=== PATIENT | female | born 1940 | race Caucasian/White ===

== ENCOUNTER 2019-03-15 16:10 | Inpatient (IN) ==
--- OUTSIDE RECORDS SUMMARY | 2019-03-15 16:13 | External Medical Summary | Continuity of Care Document ---
:1940 Author Name Vandana Santos Address Unavailable Unavailable , Care Team Providers Name Role Phone Unavailable Unavailable Unavailable Jyothi Gonzales M.D. 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) Vitamin D deficiency (268.9) (E55.9) Shortness of breath (786.05) (R06.02) Vitamin B12 deficiency (266.2) (E53.8) Folic acid deficiency (266.2) (E53.8) Parkinson's disease (332.0) (G20) Allergies and Adverse Reactions No Known Drug Allergies (Allergy) Medications Gabapentin TABS; TAKE 1 TABLET 4 TIMES DAILYTom Long Refills: 0 Vitamin B-12 1000 MCG Sublingual Tablet Sublingual; Ta ke 1 Sublingual Daily Tom Gonzales Start: 23-Nov-2013 Quantity: 90 Refills: 4 Vitamin D 2000 UNIT Oral Tablet; Take 1 PO Daily Tom Schultz Start: 23-Nov-2013 Refills: 0 Carbidopa-Levodopa ER 25-100 MG Oral Tab let Extended Release; TAKE 1 TABLET 4 TIMES DAILY. Tom Gonzales Quantity: 120 Refills: 5 Procedures Procedures not documented Immunizations Influenza On: 17-Sep-2012 16:03 Lot #: [id number], [employer] Social History - Smoking Status Never smoker Plan of Treatment Planned Observations Planned Goals not documented Results No Known Results Results not documented
[2019-03-15] MEDS ORDERED: dilTIAZem HCl 5 MG/ML 5 ML VIAL IV STA ×3 (16:26→20:35)
[2019-03-15] MEDS ORDERED: SODIUM CHLORIDE 0.9% 500 ML IV SCH (16:30)
--- NOTE | 2019-03-15 16:47 | XRay Report ---
SINGLE VIEW CHEST CLINICAL HISTORY: Generalized weakness. FINDINGS: An AP, portable, upright chest radiograph is obtained. No prior studies are available for c omparison at the time of dictation. The examination is degraded by portable technique and patient rot ation. Electronic devices project over the lower chest bilaterally with leads extending into the neck . The heart is enlarged and there is atherosclerotic calcification of the thoracic aorta. The pulmona ry vasculature is noncongested. Nonspecific interstitial thickening is likely chronic. No airspace co nsolidation or large pleural effusion is identified. There is bibasilar scarring/atelectasis. No pneu mothorax is seen. The skeletal structures are osteopenic. The bony thorax is grossly intact. IMPRESSION: Cardiomegaly with no acute cardiopulmonary abnormality. Electronically signed by: Juanjose Aleman M.D. 03/15/2019 4:46 PM
[2019-03-15 17:06] LABS: Basophils # (auto) 0.02 K/uL (0-0.2); Basophils % (auto) 0.3 %; Eosinophils # (auto) 0.02 K/uL (0-0.5); Eosinophils % (auto) 0.3 %; Hematocrit (blood only) 39.5 % (37-47); Hemoglobin 13.4 g/dL (12.0-16.0); Immature Granulocytes # (auto) 0.01 K/uL (0.00-0.02); Immature Granulocytes % (auto) 0.1 %; Lymphocytes # (auto) 1.39 K/uL (1.2-3.4); Lymphocytes % (auto) 18.8 %; Mean Corpuscular Hgb Conc 33.9 g/dL (32-36); Mean Corpuscular Volume 90.6 fL (80-100); Monocytes # (auto) 0.61 K/uL (0.11-0.59); Monocytes % (auto) 8.2 %; Neutrophils # (auto) 5.36 K/uL (1.4-6.5); Neutrophils % (auto) 72.3 %; Platelet Count 226 K/uL (130-400); RDW Coefficient of Variation 12.5 % (11.5-14.5); RDW Standard Deviation 42.1 fL (36.4-46.3); Red Blood Count 4.36 M/uL (4.2-5.4); White Blood Count 7.41 K/uL (4.8-10.8)
[2019-03-15 17:19] LABS: INR 1.1 (0.9-1.1); Partial Thromboplastin Ratio 0.9; Partial Thromboplastin Time 24.8 Seconds (21.0-31.0); Prothrombin Time 11.6 Seconds (9.0-12.0)
[2019-03-15 17:24] LABS: Alanine Aminotransferase 17 U/L (12-78); Albumin Level 3.8 gm/dl (3.4-5.0); Aspartate Aminotransferase 17 U/L (15-37); BUN Creatinine Ratio 25.3 (10-20); Blood Urea Nitrogen 19 mg/dl (7-18); Calcium 9.2 mg/dl (8.5-10.1); Carbon Dioxide 28 mmol/L (21-32); Chloride 109 mmol/L (98-107); Creatinine Clr Calc Pharmacy 61.5 ml/min; Est GFR (African American) 88.5; Est GFR (Non-African American) 76.3; Glucose 89 mg/dl (70-99); Magnesium 2.1 mg/dl (1.8-2.4); Potassium 4.3 mmol/L (3.5-5.1); Sodium 141 mmol/L (136-145)
[2019-03-15 17:35] LABS: Alkaline Phosphatase 69 U/L (45-117); Bilirubin,Total 0.5 mg/dl (0.2-1); Globulin 3.8 gm/dl (2.5-4.0); Total Protein 7.6 gm/dl (6.4-8.2); Troponin I < 0.015 ng/ml (0-0.045)
[2019-03-15 18:06] LABS: Appearance Urine Clear (Clear); Bacteria Urine Automated Negative (Negative); Bilirubin Urine Negative (Negative); Blood Urine Negative (Negative); Cast Urine Automated 0 /lpf (0-5); Color Urine Yellow; Glucose Urine UA Negative (Negative); Ketones Urine Trace (Negative); Leukocyte Esterase Urine 2+ (Negative); Nitrite Urine Negative (Negative); Protein Urine Negative (Negative); RBC Urine Automated 0-4 /hpf (0-4); Specific Gravity Urine 1.009 (1.000-1.030); Urobilinogen Urine Negative (Negative); pH Urine 6.5 (4.5-7.5)
[2019-03-15] MEDS ORDERED: Heparin IV Standard *NO* Bolus IV ONE (21:16)
--- NOTE | 2019-03-15 21:22 | History & Physical Report ---
Date of Service March 15, 2019 Assessment & Plan (1) Atrial fibrillation with RVR: This is a 79-year-old female with significant past medical history of Parkinson's disease and mitral valve prolapse who presents to [facility] ED secondary to referral by PCP. Pt noted to be in afib with RVR in outpt PCP office; therefore referred to ED. Unknown onset of afib, pt mostly asymptomatic with occasional palpitations. CBC, CMP, MAG, TSH unremarkable Received IV Diltiazem 10mg bolus x 3 with intermittent slowing of HR Upon my examination patient in afib with controlled rates 80s-90s New onset afib: Chads Vasc 3 (age, F) admit to telemetry consult cardiology initiate metoprolol tartrate 12.5mg po q6h Start Heparin gtt - discussed risks vs benefits gentle IVF 60cc/hr x 1 additional L obtain echocardiogram - last done 2003 WNL (2) Parkinson disease: continue Sinemet and gabapentin neurostimulator in place follows neurologist in [place] Disposition: discharge to home when able Follow up: PCP Dr. Barraza upon discharge along with appropriate cardiology follow up Patient was seen and examined in collaboration with Dr. Aragon, please see addendum Patient and sister at bedside were updated on current condition, assessment and tx plan and they agree with above Starting 03/16/19 patient will be under the care of Dr. Johnson History of Present Illness Chief Complaint: referred by PCP Primary Care Provider: Silvia Barraza, DO This is a 79-year-old female with significant past medical history of Parkinson's disease and mitral valve prolapse who presents to [facility] ED secondary to referral by PCP. Patient was seen in outpatient clinic by Evelin Emerson PA-C for routine follow-up to obtain medical clearance to travel to [place] with family. She was noted to be in atrial fibrillation. She had outpt lab work CBC, CMP, ESR all relatively unremarkable. She was referred to ED for eval and tx. Sister notes patient recently had a, "tweak in her neurostimulator," by her neurologist in [place] due to freq falls/off balance on 03/07/19. At this visit neurologist told patient she had a, "fast heart rate," and recommended follow up with PCP in near future. Patient denies any recent illness, f/c/s, dizziness, lightheaded, chest pain, sob, samayoa, hemopytisis, n/v/d, abdominal pain, change in bowel or urinary habits. Her appetite is normal for her. She does occasional feel her heart, "flutter." Allergies Allergy/AdvReac Type Severity Reaction Status Date / Time No Known Allergies Allergy Unknown Verified 03/15/19 16:48 Home Medications Home Medications Medication Instructions Recorded Confirmed Type carbidopa-levodopa 1 tab PO 5XD 03/15/19 03/15/19 History cholecalciferol (vitamin D3) 2,000 unit PO DAILY 03/15/19 03/15/19 History [Vitamin D3] cyanocobalamin (vitamin B-12) 1,000 mcg PO DAILY 03/15/19 03/15/19 History [Vitamin B-12] gabapentin 600 mg PO 5XD 03/15/19 03/15/19 History ibuprofen [Advil] 200 mg PO Q6H PRN 03/15/19 03/15/19 History Past Med/Surg History Medical History Parkinson disease (Chronic) Mitral valve prolapse (Chronic) Surgical History S/P deep brain stimulator placement (Chronic) History of tonsillectomy and adenoidectomy (Chronic) History of tubal ligation (Chronic) History of right breast biopsy (Chronic) History of surgery (Chronic) Neurostimulator for Parkinson's disease, placed in [place], [place] Family History Mother Stroke Hemorrhage secondary to anticoagulation Social History Preferred Language: [place]al[place] Communication Ability: Effective 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 Physical Exam Physical Exam: Gen: WD/WN, F, NAD, sitting up in bed, pleasant, conversing easily, parkinsonian affect Head: Normocephalic, Atraumatic Eyes: Sclera normal, no conjunctival injection, PERRLA, EOMI ENT: Gross hearing intact, normal pharynx, mucous membranes moist Neck: supple, no adenopathy, No JVD, no bruit, Resp: Clear to auscultation b/l, no wheeze, rales, rhonchi. 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 Extremities: trace b/l edema with venous stasis changes Skin: warm, moist, no rash, negative turgor, cap refill < 2sec Neuro: Alert and oriented x 3, speech normal but slow, good mood/affect, cran nerve 2-12 intact grossly : deferred Results & Data Vital Signs (Past 12 Hours) Vital Signs Temp Pulse Pulse Resp BP BP Pulse Ox 03/15/19 21:00 91 H 18 127/82 95 03/15/19 20:36 106 H 18 156/107 H 94 03/15/19 18:59 87 18 129/81 97 03/15/19 18:06 94 H 20 128/77 95 03/15/19 17:27 94 H 30 H 139/79 94 03/15/19 17:17 92 H 20 149/93 H 95 03/15/19 16:38 136 H 20 148/103 H 99 03/15/19 16:37 99 03/15/19 16:34 99 03/15/19 16:14 36.9 C 119 H 18 139/93 99 Laboratory Results Short CBC 03/15/19 Range/Units 16:52 WBC 7.41 (4.8-10.8) K/uL Hgb 13.4 (12.0-16.0) g/dL Hct 39.5 (37-47) % Plt Count 226 (130-400) K/uL BMP 03/15/19 16:52 Sodium 141 Potassium 4.3 Chloride 109 H Carbon Dioxide 28 BUN 19 H Creatinine 0.75 Glucose 89 Calcium 9.2 Cardiac Enzymes 03/15/19 Range/Units 16:52 Troponin I < 0.015 (0-0.045) ng/ml Liver Function 03/15/19 Range/Units 16:52 Total Bilirubin 0.5 (0.2-1) mg/dl AST 17 (15-37) U/L ALT 17 (12-78) U/L Alkaline Phosphatase 69 (45-117) U/L Albumin 3.8 (3.4-5.0) gm/dl Urine 03/15/19 Range/Units 17:50 Urine Color Yellow Urine Appearance Clear (Clear) Urine pH 6.5 (4.5-7.5) Ur Specific [place] 1.009 (1.000-1.030) Urine Protein Negative (Negative) Urine Glucose (UA) Negative (Negative) Diagnostic Findings CXR: IMPRESSION: Cardiomegaly with no acute cardiopulmonary abnormality. Medications Administered Discontinued Medications Diltiazem HCl (Cardizem) 10 mg IV NOW STA Stop: 03/15/19 16:27 Last Admin: 03/15/19 17:12 Dose: 10 mg Documented by: [id number] Cosigned by: [id number] Diltiazem HCl (Cardizem) 10 mg IV NOW STA Stop: 03/15/19 17:13 Last Admin: 03/15/19 18:52 Dose: Not Given Documented by: [id number] Diltiazem HCl (Cardizem) 10 mg IV NOW STA Stop: 03/15/19 20:36 Last Admin: 03/15/19 20:44 Dose: 10 mg Documented by: [id number] Cosigned by: [id number] Sodium Chloride (Nss) 500 mls @ 999 mls/hr IV .Q31M BRANDO Stop: 03/15/19 17:00 Last Infusion: 03/15/19 17:52 Dose: 0 mls/hr Documented by: [id number] Admin: 03/15/19 17:12 Dose: 999 mls/hr Documented by: [id number] ECG Rate (beats per minute): 130 Rhythm: atrial fibrillation Code Status & VTE Plan Code Status Full Code VTE Prophylaxis Plan VTE Prophylaxis will be ordered: Yes Supervising Physician Co-Signing Physician Notes Patient is a 79-year-old female with history of Parkinson disease, MVP, arthritis and other problems presents for evaluation after being referred by her PCP for incidental finding of tachycardia, atrial fibrillation today. Patient intermittently felt that her heart was beating fast but denies any chest pain, shortness of breath, dizziness, nausea vomiting, fever chills. Chest x-ray suggestive of cardiomegaly, no acute findings. She was found to be in A. fib RVR while in ED. Received IV diltiazem. Currently heart rate is controlled. Please review HPI for complete details of presentation. On exam patient is elderly, thin, no apparent distress, lungs are clear to auscultation, irregularly irregular rhythm, no audible murmur, abdomen soft nontender, grossly moves all extremities, 2+ B/L LE edema. Patient is admitted for management of A. fib RVR. Currently rate is controlled. Agree with IV heparin, metoprolol. Check echo, cardiology consulted. Monitor electrolytes. QTC is prolonged. Avoid QTC prolonging meds. I personally reviewed the record. Patient is interviewed and examined at bedside. Patient's care is coordinated with Loly Landin PA-C. Please refer to the documentation above for details of patient's presentation and for discussion of other issues.
[2019-03-15] MEDS ORDERED: HEPARIN 25000 UNIT/500 ML D5W IV ONE (21:34)
--- NOTE | 2019-03-15 21:45 | Emergency Department Note ---
Entered by Kayleigh Cuevas acting as a scribe for History of Present Illness General Chief complaint: Arrhythmia/Palpitations Stated complaint: TACHYCARDIA Source: patient and family (+Sister) Limitations: no limitations History of Present Illness Provider complaint: Arrhythmia/Palpitations Onset (ago): week(s) 1 Location: chest Exacerbated By: + none Associated symptoms: + denies other symptoms (-diarrhea, -recent illness, - weight gain, -trouble breathing while laying flat) and + other (+bilateral shoulder pain, +bilateral leg pain, +bilateral leg swellin); no chest pain, no nausea/vomiting and no shortness of breath The patient is a 79 year old female who presents to the Emergency Room with complaints of an arrhythmia/palpitations that began approximately 1 week prior to arrival. The patient states that she was at her doctors on March 07 and states that he noticed that the patient had an increased pulse and increased heart rate. The patient states that she has pain in her bilateral shoulders, bilateral legs, and bilateral leg swelling. The patient denies any shortness of breath, chest pain, weight gain, trouble with breathing while laying flat, nausea, vomit ing, diarrhea, or recent illness. The patient denies any recent changes in his medications. The patient denies a history of any heart problems or heart disease. The patient states that she has a history of Parkinson's. The patient states that she is normally able to ambulate on her own and states that she lives by herself. Home Medications Home Medications Medication Instructions Recorded Confirmed Type carbidopa-levodopa 1 tab PO 5XD 03/15/19 03/15/19 History cholecalciferol (vitamin D3) 2,000 unit PO DAILY 03/15/19 03/15/19 History [Vitamin D3] cyanocobalamin (vitamin B-12) 1,000 mcg PO DAILY 03/15/19 03/15/19 History [Vitamin B-12] gabapentin 600 mg PO 5XD 03/15/19 03/15/19 History ibuprofen [Advil] 200 mg PO Q6H PRN 03/15/19 03/15/19 History Allergies Allergy/AdvReac Type Severity Reaction Status Date / Time No Known Allergies Allergy Unknown Verified 03/15/19 16:48 Past Med/Surg History Medical History Parkinson disease (Chronic) Mitral valve prolapse (Chronic) Surgical History S/P deep brain stimulator placement (Chronic) History of tonsillectomy and adenoidectomy (Chronic) History of tubal ligation (Chronic) History of right breast biopsy (Chronic) History of surgery (Chronic) Neurostimulator for Parkinson's disease, placed in [place], [place] Family History Mother Stroke Hemorrhage secondary to anticoagulation Social History Preferred Language: Bur[place]ian Communication Ability: Effective 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 and A total of 10 systems reviewed and were otherwise negative Physical Exam Vital Signs Vital Signs - 24 hr 03/15/19 16:14 03/15/19 16:34 03/15/19 16:37 Temperature 36.9 C Temperature Source Oral Sepsis Recent Fever Within 48 Hours No Sepsis Action Taken by Nursing No Action Required Pulse Rate 119 H Pulse Rate [Left Finger] Pulse Rhythm [Left Finger] Respiratory Rate 18 Respiratory Effort / Characteristics Non-Labored Respiratory Depth Normal Respiratory Pattern Blood Pressure 139/93 Blood Pressure [Right Arm] Blood Pressure Mean 108 Blood Pressure Mean [Right Arm] Blood Pressure Position [Right Arm] Pulse Oximetry 99 99 99 Oxygen Delivery Method Room Air Room Air Room Air 03/15/19 16:38 03/15/19 17:17 03/15/19 17:27 Temperature Temperature Source Sepsis Recent Fever Within 48 Hours Sepsis Action Taken by Nursing Pulse Rate Pulse Rate [Left Finger] 136 H 92 H 94 H Pulse Rhythm [Left Finger] Regular Regular Regular Respiratory Rate 20 20 30 H Respiratory Effort / Characteristics Non-Labored Non-Labored Non-Labored Respiratory Depth Normal Normal Normal Respiratory Pattern Regular Regular Regular Blood Pressure Blood Pressure [Right Arm] 148/103 H 149/93 H 139/79 Blood Pressure Mean Blood Pressure Mean [Right Arm] 118 111 99 Blood Pressure Position [Right Arm] Pulse Oximetry 99 95 94 Oxygen Delivery Method Room Air Room Air Room Air 03/15/19 18:06 03/15/19 18:59 03/15/19 20:34 Temperature Temperature Source Sepsis Recent Fever Within 48 Hours Sepsis Action Taken by Nursing Pulse Rate Pulse Rate [Left Finger] 94 H 87 Pulse Rhythm [Left Finger] Respiratory Rate 20 18 Respiratory Effort / Characteristics Non-Labored Non-Labored Spontaneous Non-Labored Spontaneous Respiratory Depth Normal Normal Normal Respiratory Pattern Regular Regular Regular Blood Pressure Blood Pressure [Right Arm] 128/77 129/81 Blood Pressure Mean Blood Pressure Mean [Right Arm] 94 97 Blood Pressure Position [Right Arm] Lying Pulse Oximetry 95 97 Oxygen Delivery Method Room Air Room Air Room Air 03/15/19 20:36 Temperature Temperature Source Sepsis Recent Fever Within 48 Hours Sepsis Action Taken by Nursing Pulse Rate Pulse Rate [Left Finger] 106 H Pulse Rhythm [Left Finger] Respiratory Rate 18 Respiratory Effort / Characteristics Non-Labored Spontaneous Respiratory Depth Normal Respiratory Pattern Regular Blood Pressure Blood Pressure [Right Arm] 156/107 H Blood Pressure Mean Blood Pressure Mean [Right Arm] 123 Blood Pressure Position [Right Arm] Sitting Pulse Oximetry 94 Oxygen Delivery Method Room Air GENERAL: Patient is awake, alert, and in no acute distress.Patient is resting comfortably and showing no signs of anxiety. EYES: The conjunctivae are clear. The pupils are round and reactive. EARS, NOSE, MOUTH AND THROAT: The nose is without any evidence of any deformity. Mucous membranes are moist.Tongue is midline. NECK: The neck is nontender and supple. RESPIRATORY: Normal respiratory effort is noted. There is no evidence of wheezing rhonchi or rales to auscultation. CARDIOVASCULAR: Tachycardic rate and irregular rhythm noted. There no murmurs rubs or gallops. GASTROINTESTINAL: The abdomen is soft. Bowel sounds are present in all quadrants. Abdomen is nontender. MUSCULOSKELETAL/EXTREMITIES: There is no evidence of gross deformity. Full range of motion is noted in the hips and shoulders. SKIN: Bilateral pedal edema with chronic venous stasis noted. NEUROLOGIC: Patient is awake alert and oriented x3. Course 1623: The patient was evaluated in room B11B, and a complete history and physical examination were performed. 1802: I checked on the patient and updated her on her results. The patient is agreeable to admission. 2009: I discussed the patient's case with Dr. Rizwan Mullen [facility] who will evaluate the patient for further hospitalization. Consultations Consultation #1: Dr. Rizwan Mullen [facility] Time: 20:10 Administered Medications Acetaminophen (Tylenol) 650 mg PO Q4H PRN PRN Reason: Pain or Fever Stop: 04/14/19 22:24 Last Admin: 03/16/19 04:24 Dose: 650 mg Documented by: [id number] Carbidopa/Levodopa (Sinemet 25/100 Mg) 1 tab PO 0700,1000,1300 [facility] Stop: 04/15/19 06:59 Last Admin: 03/16/19 12:52 Dose: 1 tab Documented by: [id number] Admin: 03/16/19 09:46 Dose: 1 tab Documented by: [id number] Admin: 03/16/19 06:46 Dose: 1 tab Documented by: [id number] Cyanocobalamin (Vitamin B-12) 1,000 mcg PO DAILY [facility] Stop: 04/15/19 08:59 Last Admin: 03/16/19 07:58 Dose: 1,000 mcg Documented by: [id number] Gabapentin (Neurontin) 600 mg PO 0700,1000,1300 [facility] Stop: 04/15/19 06:59 Last Admin: 03/16/19 12:52 Dose: 600 mg Documented by: [id number] Admin: 03/16/19 09:46 Dose: 600 mg Documented by: [id number] Admin: 03/16/19 06:46 Dose: 600 mg Documented by: [id number] Heparin Sodium/Dextrose (Heparin Sodium/Dextrose) 25,000 units in 500 mls @ 23 mls/hr IV .[id number] [facility]; Protocol Stop: 04/14/19 22:14 Last Titration: 03/16/19 07:04 Dose: 1,150 units/hr, 23 mls/hr Documented by: [id number] Cosigned by: [id number] Admin: 03/15/19 22:38 Dose: 1,150 units/hr, 23 mls/hr Documented by: [id number] Cosigned by: [id number] Sodium Chloride (Nss 1000ml) 1,000 mls @ 60 mls/hr IV .[id number] [facility] Stop: 03/16/19 15:04 Last Admin: 03/15/19 22:38 Dose: 60 mls/hr Documented by: [id number] Metoprolol Tartrate (Lopressor) 12.5 mg PO Q6 [facility] Stop: 04/14/19 22:24 Last Admin: 03/16/19 11:54 Dose: 12.5 mg Documented by: [id number] Admin: 03/16/19 06:46 Dose: 12.5 mg Documented by: [id number] Admin: 03/15/19 23:23 Dose: 12.5 mg Documented by: [id number] Vitamin D (Vitamin D3) 2,000 units PO DAILY [facility] Stop: 04/15/19 08:59 Last Admin: 03/16/19 07:58 Dose: 2,000 units Documented by: [id number] Discontinued Medications Diltiazem HCl (Cardizem) 10 mg IV NOW STA Stop: 03/15/19 16:27 Last Admin: 03/15/19 17:12 Dose: 10 mg Documented by: [id number] Cosigned by: [id number] Diltiazem HCl (Cardizem) 10 mg IV NOW STA Stop: 03/15/19 17:13 Last Admin: 03/15/19 18:52 Dose: Not Given Documented by: [id number] Diltiazem HCl (Cardizem) 10 mg IV NOW STA Stop: 03/15/19 20:36 Last Admin: 03/15/19 20:44 Dose: 10 mg Documented by: [id number] Cosigned by: [id number] Heparin Sodium/Dextrose () 1 ea IV ONE ONE; Protocol Stop: 03/15/19 21:17 Last Admin: 03/15/19 21:35 Dose: 1 ea Documented by: [id number] Heparin Sodium/Dextrose (Heparin Sodium/Dextrose) Confirm Administered Dose 25,000 units IV .STK-MED ONE Stop: 03/15/19 21:35 Last Admin: 03/15/19 21:36 Dose: 1,150 units Documented by: [id number] Cosigned by: [id number] Sodium Chloride (Nss) 500 mls @ 999 mls/hr IV .[id number] [facility] Stop: 03/15/19 17:00 Last Infusion: 03/15/19 17:52 Dose: 0 mls/hr Documented by: [id number] Admin: 03/15/19 17:12 Dose: 999 mls/hr Documented by: [id number] Medical Decision Making Differential Diagnosis Differential diagnosis includes etiologies such as premature contractions, electrolyte abnormality, cardiac dysrhythmia, thyroid dysfunction, pulmonary embolism, infection, gastrointestinal, as well as others were entertained. Medical Records Attestation: I reviewed the patient's medical records. Home Medications Current Medication List: was personally reviewed by me Laboratory Data Attestation: I reviewed the patient's lab results. Result diagrams: 03/16/19 03:47 03/16/19 03:47 Lab Results 03/15/19 03/15/19 03/15/19 Range/Units 16:52 16:52 16:52 WBC 7.41 (4.8-10.8) K/uL RBC 4.36 (4.2-5.4) M/uL Hgb 13.4 (12.0-16.0) g/dL Hct 39.5 (37-47) % MCV 90.6 (80-100) fL MCH 30.7 (25-34) pg MCHC 33.9 (32-36) g/dL RDW Std Deviation 42.1 (36.4-46.3) fL RDW Coeff of Ever 12.5 (11.5-14.5) % Plt Count 226 (130-400) K/uL MPV 11.0 H (7.4-10.4) fL Immature Gran % (Auto) 0.1 % Neut % (Auto) 72.3 % Lymph % (Auto) 18.8 % [place] % (Auto) 8.2 % Eos % (Auto) 0.3 % Baso % (Auto) 0.3 % Immature Gran # (Auto) 0.01 (0.00-0.02) K/uL Neut # (Auto) 5.36 (1.4-6.5) K/uL Lymph # (Auto) 1.39 (1.2-3.4) K/uL [place] # (Auto) 0.61 H (0.11-0.59) K/uL Eos # (Auto) 0.02 (0-0.5) K/uL Baso # (Auto) 0.02 (0-0.2) K/uL PT 11.6 (9.0-12.0) Seconds INR 1.1 (0.9-1.1) APTT 24.8 (21.0-31.0) Seconds PTT Ratio 0.9 Sodium 141 (136-145) mmol/L Potassium 4.3 (3.5-5.1) mmol/L Chloride 109 H (98-107) mmol/L Carbon Dioxide 28 (21-32) mmol/L Anion Gap 4.0 (3-11) BUN 19 H (7-18) mg/dl Creatinine 0.75 (0.6-1.2) mg/dl Est Cr Clr Drug Dosing 61.5 ml/min Est GFR ( Amer) 88.5 Est GFR (Non-Af Amer) 76.3 BUN/Creatinine Ratio 25.3 H (10-20) Glucose 89 (70-99) mg/dl Calcium 9.2 (8.5-10.1) mg/dl Magnesium 2.1 (1.8-2.4) mg/dl Total Bilirubin 0.5 (0.2-1) mg/dl AST 17 (15-37) U/L ALT 17 (12-78) U/L Alkaline Phosphatase 69 (45-117) U/L Troponin I < 0.015 (0-0.045) ng/ml Total Protein 7.6 (6.4-8.2) gm/dl Albumin 3.8 (3.4-5.0) gm/dl Globulin 3.8 (2.5-4.0) gm/dl Albumin/Globulin Ratio 1.0 (0.9-2) TSH 3.010 (0.300-4.500) uIu/ml Urine Color Urine Appearance (Clear) Urine pH (4.5-7.5) Ur Specific [place] (1.000-1.030) Urine Protein (Negative) Urine Glucose (UA) (Negative) Urine Ketones (Negative) Urine Blood (Negative) Urine Nitrite (Negative) Urine Bilirubin (Negative) Urine Urobilinogen (Negative) Ur Leukocyte Esterase (Negative) Urine WBC (Auto) (0-5) /hpf Urine RBC (Auto) (0-4) /hpf U Hyaline Cast (Auto) (0-5) /lpf U Epithel Cells (Auto) (0-5) /lpf Urine Bacteria (Auto) (Negative) 03/15/19 Range/Units 17:50 WBC (4.8-10.8) K/uL RBC (4.2-5.4) M/uL Hgb (12.0-16.0) g/dL Hct (37-47) % MCV (80-100) fL MCH (25-34) pg MCHC (32-36) g/dL RDW Std Deviation (36.4-46.3) fL RDW Coeff of Ever (11.5-14.5) % Plt Count (130-400) K/uL MPV (7.4-10.4) fL Immature Gran % (Auto) % Neut % (Auto) % Lymph % (Auto) % [place] % (Auto) % Eos % (Auto) % Baso % (Auto) % Immature Gran # (Auto) (0.00-0.02) K/uL Neut # (Auto) (1.4-6.5) K/uL Lymph # (Auto) (1.2-3.4) K/uL [place] # (Auto) (0.11-0.59) K/uL Eos # (Auto) (0-0.5) K/uL Baso # (Auto) (0-0.2) K/uL PT (9.0-12.0) Seconds INR (0.9-1.1) APTT (21.0-31.0) Seconds PTT Ratio Sodium (136-145) mmol/L Potassium (3.5-5.1) mmol/L Chloride (98-107) mmol/L Carbon Dioxide (21-32) mmol/L Anion Gap (3-11) BUN (7-18) mg/dl Creatinine (0.6-1.2) mg/dl Est Cr Clr Drug Dosing ml/min Est GFR ( Amer) Est GFR (Non-Af Amer) BUN/Creatinine Ratio (10-20) Glucose (70-99) mg/dl Calcium (8.5-10.1) mg/dl Magnesium (1.8-2.4) mg/dl Total Bilirubin (0.2-1) mg/dl AST (15-37) U/L ALT (12-78) U/L Alkaline Phosphatase (45-117) U/L Troponin I (0-0.045) ng/ml Total Protein (6.4-8.2) gm/dl Albumin (3.4-5.0) gm/dl Globulin (2.5-4.0) gm/dl Albumin/Globulin Ratio (0.9-2) TSH (0.300-4.500) uIu/ml Urine Color Yellow Urine Appearance Clear (Clear) Urine pH 6.5 (4.5-7.5) Ur Specific [place] 1.009 (1.000-1.030) Urine Protein Negative (Negative) Urine Glucose (UA) Negative (Negative) Urine Ketones Trace H (Negative) Urine Blood Negative (Negative) Urine Nitrite Negative (Negative) Urine Bilirubin Negative (Negative) Urine Urobilinogen Negative (Negative) Ur Leukocyte Esterase 2+ H (Negative) Urine WBC (Auto) 1-5 (0-5) /hpf Urine RBC (Auto) 0-4 (0-4) /hpf U Hyaline Cast (Auto) 0 (0-5) /lpf U Epithel Cells (Auto) 10-20 H (0-5) /lpf Urine Bacteria (Auto) Negative (Negative) Imaging Data Radiologist's Impression: Radiology results as stated below per my review and the radiologist's interpretation: SINGLE VIEW CHEST CLINICAL HISTORY: Generalized weakness. FINDINGS: An AP, portable, upright chest radiograph is obtained. No prior studies are available for comparison at the time of dictation. The examination is degraded by portable technique and patient rotation. Electronic devices pr oject over the lower chest bilaterally with leads extending into the neck. The heart is enlarged and there is atherosclerotic calcification of the thoracic aorta. The pulmonary vasculature is noncongested. Nonspecific interstitial thickening is likely chronic. No airspace consolidation or large pleural effusion is identified. There is bibasilar scarring/atelectasis. No pneumothorax is seen. The skeletal structures are osteopenic. The bony thorax is grossly intact. IMPRESSION: Cardiomegaly with no acute cardiopulmonary abnormality. Electronically signed by: Juanjose Aleman M.D. 03/15/2019 4:46 PM ECG Data Attestation: I personally reviewed and interpreted this ECG as follows: Indication: tachycardia Rate (beats per minute): 139 Rhythm: atrial fibrillation Findings: + other (+poor baseline due to brain stimulation device) and + nonspecific-ST abn (diffuse ); no PVC Comparison ECG Date: from (06/19/11) Change: the following changes noted (Change ) Blood Pressure Blood Pressure Findings: Normal blood pressure MDM Narrative The patient is a 79-year-old female who presented to the emergency department for an evaluation of palpitations. She started having symptoms approximately 1 week ago. She was seen by a different provider and was told to follow-up with her primary care physician. When she followed up with her primary care physician today she was found to be in rapid atrial fibrillation. The patient was sent to the emergency department for further evaluation. The patient was treated with IV fluids and IV Cardizem. She was reevaluated multiple times. On subsequent reevaluation she was feeling much better. I discussed the patient's laboratory and radiographic studies with her. I also discussed the seriousness of atrial fibrillation. [facility] to evaluate the patient in the emergency department for further management and disposition. Impression & Plan Palpitations, Atrial fibrillation with RVR Critical Care Time Critical Care Time: Yes Total Critical Care Time: 45 I have personally spent 45 minutes of critical care time in the direct management of this patient. This includes bedside care, interpretation of diagnostic studies, and testing, discussion with consultants, patient, and family members, and other required patient management activities. This 45 minutes is in excess of all separately billable procedures. Discharge Plan Visit Data *Final* Discharge Date/Time: 03/15/19 21:48 Chief Complaint: Arrhythmia/Palpitations Stated Complaint: TACHYCARDIA ED Provider: [facility] Discharge Problem: Palpitations, Atrial fibrillation with RVR Patient Disposition: Admitted As Inpatient Discharge Instructions Interventions: ED Discharge Assessment Last Done: 03/15/19 21:48 The scribe's documentation has been prepared under my direction and personally reviewed by me in its entirety. I confirm that the note above accurately reflects all work, treatment, procedures, and medical decision making performed by me.
[2019-03-15] MEDS ORDERED: ALUMINUM/MAGNESIUM SUSP 30 ML UDC PO PRN (22:25)
[2019-03-15] MEDS ORDERED: SODIUM CHLORIDE 0.9% 1000ML 1,000 ML IV SCH (22:25)
[2019-03-15] MEDS ORDERED: ACETAMINOPHEN 325 MG TAB PO PRN (22:25)
[2019-03-15] MEDS ORDERED: MAGNESIUM HYDROXIDE SUSP 30 ML UDC PO PRN (22:25)
[2019-03-15] MEDS ORDERED: POLYETHYLENE (MIRALAX) 17 GM PACK PO PRN (22:25)
[2019-03-15] MEDS: Heparin Adult STANDARD Wt-Based Dextrose 5% 25,000 units/500 mL IV SCH (22:38)
[2019-03-15 22:39] LABS: Hematocrit (blood only) 35.8 % (37-47); Hemoglobin 12.1 g/dL (12.0-16.0); Mean Corpuscular Hgb Conc 33.8 g/dL (32-36); Mean Corpuscular Volume 90.9 fL (80-100); Mean Platelet Volume 10.4 fL (7.4-10.4); Platelet Count 209 K/uL (130-400); RDW Coefficient of Variation 12.5 % (11.5-14.5); RDW Standard Deviation 42.2 fL (36.4-46.3); Red Blood Count 3.94 M/uL (4.2-5.4); White Blood Count 7.53 K/uL (4.8-10.8)
[2019-03-15] MEDS: METOPROLOL TARTRATE 25 MG TAB PO SCH (23:23)
[2019-03-16 04:12] LABS: Hematocrit (blood only) 35.2 % (37-47); Hemoglobin 11.5 g/dL (12.0-16.0); Mean Corpuscular Hgb Conc 32.7 g/dL (32-36); Mean Platelet Volume 11.2 fL (7.4-10.4); Platelet Count 198 K/uL (130-400); RDW Coefficient of Variation 12.8 % (11.5-14.5); RDW Standard Deviation 42.5 fL (36.4-46.3); Red Blood Count 3.87 M/uL (4.2-5.4); White Blood Count 5.55 K/uL (4.8-10.8)
[2019-03-16 04:28] LABS: BUN Creatinine Ratio 25.7 (10-20); Calcium 8.5 mg/dl (8.5-10.1); Creatinine Clr Calc Pharmacy 66.8 ml/min; Est GFR (African American) 96.6; Est GFR (Non-African American) 83.4; Potassium 3.9 mmol/L (3.5-5.1)
[2019-03-16 04:35] LABS: Partial Thromboplastin Time 53.9 Seconds (21.0-31.0)
[2019-03-16] MEDS: GABAPENTIN 600 MG TAB PO SCH ×5 (06:46→19:20)
[2019-03-16] MEDS: METOPROLOL TARTRATE 25 MG TAB PO SCH ×3 (06:46→21:17)
[2019-03-16] MEDS: CARBIDOPA/LEVODOPA 25/100MG TAB PO SCH ×5 (06:46→19:20)
[2019-03-16] MEDS: CYANOCOBALAMIN 500 MCG TABLET (VITAMIN B-12) PO SCH (07:58)
[2019-03-16] MEDS: CHOLECALCIFEROL 1,000 UNITS TAB PO SCH (07:58)
--- NOTE | 2019-03-16 13:13 | Hospitalist Progress Note ---
Date of Service March 16, 2019 Assessment & Plan (1) Atrial fibrillation with RVR: This is a 79-year-old female with significant past medical history of Parkinson's disease and mitral valve prolapse who presents to [facility] ED secondary to referral by PCP. Noted to have new onset A. fib with RVR Received IV Diltiazem 10mg bolus x 3 and then continued on IV Cardizem drip New onset afib: Chads Vasc 3 (age, F) Appreciate cardiology input and recommendation initiate metoprolol tartrate 12.5mg po q6h Has been on heparin since admission Cardizem drip has been discontinued since this morning Heart rate is controlled Echo is pending (2) Parkinson disease: continue Sinemet and gabapentin neurostimulator in place follows neurologist in [place], [place] Clinically stable Will need PT and OT evaluation before discharge Subjective 03/16 The patient was seen and examined in telemetry unit She is a 79-year-old female with significant past medical history of Parkinson's disease and mitral valve prolapse who presents to [facility] ED secondary to referral by PCP. She has noted to have atrial fibrillation with RVR She denies any symptoms today No chest pain, palpitation or shortness of breath Review of Systems Review of Systems: All systems reviewed and are unremarkable except as noted below Constitutional: + fatigue and + weakness Physical Exam Physical Exam: No apparent distress at rest Constitutional: + ill appearing; no acute distress Eyes: PERRL, conjunctivae normal, anicteric sclerae ENMT: external ear and nose normal, oropharynx normal Neck: trachea midline, no thyromegaly Respiratory: normal respiratory effort Auscultation: + diminished lung sounds; no crackles and no wheezes Cardiovascular: Rate/Rhythm: + abnormal rate and + abnormal rhythm Heart Sounds: normal S1 and normal S2 Gastrointestinal (Abdomen): Inspection/Auscultation: abdomen normal to inspection and normal bowel sounds Percussion/Palpation: abdomen soft Neurologic: Has Parkinson's disease without any significant tremors Psychiatric: Orientation: oriented x 3 Affect: + depressed affect Lymphatic: no cervical or axillary lymphadenopathy Results & Data Vital Signs (Past 12 Hours) Vital Signs Temp Pulse Resp BP Pulse Ox 03/16/19 11:33 36.7 C 82 16 118/89 94 03/16/19 07:00 36.8 C 91 H 20 158/93 H 96 03/16/19 03:06 36.6 C 76 18 142/85 H 97 Laboratory Results Short CBC 03/15/19 03/15/19 03/16/19 Range/Units 16:52 22:31 03:47 WBC 7.41 7.53 5.55 (4.8-10.8) K/uL Hgb 13.4 12.1 11.5 L (12.0-16.0) g/dL Hct 39.5 35.8 L 35.2 L (37-47) % Plt Count 226 209 198 (130-400) K/uL BMP 03/15/19 03/16/19 16:52 03:47 Sodium 141 141 Potassium 4.3 3.9 Chloride 109 H 111 H Carbon Dioxide 28 26 BUN 19 H 18 Creatinine 0.75 0.69 Glucose 89 97 Calcium 9.2 8.5 Cardiac Enzymes 03/15/19 Range/Units 16:52 Troponin I < 0.015 (0-0.045) ng/ml Liver Function 03/15/19 Range/Units 16:52 Total Bilirubin 0.5 (0.2-1) mg/dl AST 17 (15-37) U/L ALT 17 (12-78) U/L Alkaline Phosphatase 69 (45-117) U/L Albumin 3.8 (3.4-5.0) gm/dl Urine 03/15/19 Range/Units 17:50 Urine Color Yellow Urine Appearance Clear (Clear) Urine pH 6.5 (4.5-7.5) Ur Specific [place] 1.009 (1.000-1.030) Urine Protein Negative (Negative) Urine Glucose (UA) Negative (Negative) Medications Administered Current Inpatient Medications Acetaminophen (Tylenol) 650 mg PO Q4H PRN PRN Reason: Pain or Fever Stop: 04/14/19 22:24 Last Admin: 03/16/19 04:24 Dose: 650 mg Documented by: Al Hydrox/Mg Hydrox/Simethicone (Maalox) 15 ml PO Q4H PRN PRN Reason: Dyspepsia Stop: 04/14/19 22:24 Carbidopa/Levodopa (Sinemet 25/100 Mg) 1 tab PO 0700,1000,1300 [facility] Stop: 04/15/19 06:59 Last Admin: 03/16/19 12:52 Dose: 1 tab Documented by: Carbidopa/Levodopa (Sinemet 25/100 Mg) 1 tab PO 1600,1900 [facility] Stop: 04/15/19 15:59 Cyanocobalamin (Vitamin B-12) 1,000 mcg PO DAILY [facility] Stop: 04/15/19 08:59 Last Admin: 03/16/19 07:58 Dose: 1,000 mcg Documented by: Gabapentin (Neurontin) 600 mg PO 0700,1000,1300 [facility] Stop: 04/15/19 06:59 Last Admin: 03/16/19 12:52 Dose: 600 mg Documented by: Gabapentin (Neurontin) 600 mg PO 1600,1900 [facility] Stop: 04/15/19 15:59 Heparin Sodium/Dextrose (Heparin Sodium/Dextrose) 25,000 units in 500 mls @ 23 mls/hr IV .[id number] [facility]; Protocol Stop: 04/14/19 22:14 Last Titration: 03/16/19 07:04 Dose: 1,150 units/hr, 23 mls/hr Documented by: Sodium Chloride (Nss 1000ml) 1,000 mls @ 60 mls/hr IV .[id number] [facility] Stop: 03/16/19 15:04 Last Admin: 03/15/19 22:38 Dose: 60 mls/hr Documented by: Magnesium Hydroxide (Milk Of Magnesia) 30 ml PO Q12H PRN PRN Reason: Constipation Stop: 04/14/19 22:24 Metoprolol Tartrate (Lopressor) 12.5 mg PO Q6 [facility] Stop: 04/14/19 22:24 Last Admin: 03/16/19 11:54 Dose: 12.5 mg Documented by: Polyethylene Glycol (Miralax Powder Packet) 17 gm PO DAILY PRN PRN Reason: Constipation Stop: 04/14/19 22:24 Vitamin D (Vitamin D3) 2,000 units PO DAILY [facility] Stop: 04/15/19 08:59 Last Admin: 03/16/19 07:58 Dose: 2,000 units Documented by:
--- NOTE | 2019-03-16 15:15 | Cardiology Consultation ---
Date of Consultation March 16, 2019 Assessment & Plan (1) Atrial fibrillation with RVR: Continue metoprolol for rate control. We will transition to metoprolol tartrate 25 mg twice daily next dose tonight at 2100. Regarding stroke prophylaxis, her [id number] score is 3 for age > 75 and female gender, predicting a moderate to high risk of cardioembolic stroke. She of course has difficulties with her gait due to her underlying Parkinson's. We will plan on having physical therapy assess her so that I can determine if her gait is suitable to consider anticoagulation. The patient states that her mother " "while on Coumadin. We discussed perhaps proceeding with the direct oral anticoagulant Eliquis, and I have a call out to her pharmacy to check on the [id number] cost of this medication. It appears that the atrial fibrillation has been going on for quite some time, is in a regular heart rhythm was noted at her recent neurology appointment earlier this month on 03/07/2019. Rapid ventricular rate however was noted yesterday afternoon which is now improved. We will proceed with an echocardiogram given her atrial fibrillation and past history of mitral valve prolapse. (2) Mitral valve prolapse: Echocardiogram to assess LVEF and valvular heart disease. (3) Parkinson disease: (4) S/P deep brain stimulator placement: Continue current medications, get assessment for feasibility of anticoagulation. 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 Patel for the evaluation of atrial fibrillation. The patient has a long-standing history of Parkinson's disease. She tells me that she follows that [facility] and has a history of deep brain stimulator therapy for treatment of her Parkinson's. She states that she recently had a follow-up there on approximately 03/07/2019 and had been counseled that she had an irregular heart rhythm noted on physical exam and she was counseled that she should seek follow-up for this. Apparently she was seen by her primary care provider yesterday, and an EKG revealed atrial fibrillation, prompting referral to the emergency room for further assessment. EKG performed on arrival yesterday 03/15/2019 at 1626 revealed atrial fibrillation at 139 bpm, poor R wave progression was noted in the anterior precordial leads suggestive of possible age-indeterminate anterior infarct. The patient had been treated with a heparin infusion for stroke prophylaxis and low-dose metoprolol tartrate 12.5 mg by mouth every 6 hours was initiated. On telemetry her atrial fibrillation has been well controlled at rest in the range of 70 bpm at present. She denies any cardiac symptoms. She states that she walks with the assistance of a cane and walks independently. She lives with her sister. She had one recent fall outside of her home recently. She has a remote recollection of being told that she had mitral valve prolapse, but there are no recent echocardiogram studies available either within the [facility] record or the [facility] outpatient record. Allergies Allergy/AdvReac Type Severity Reaction Status Date / Time No Known Allergies Allergy Unknown Verified 03/15/19 16:48 Home Medications Home Medications Medication Instructions Recorded Confirmed Type carbidopa-levodopa 1 tab PO 5XD 03/15/19 03/15/19 History cholecalciferol (vitamin D3) 2,000 unit PO DAILY 03/15/19 03/15/19 History [Vitamin D3] cyanocobalamin (vitamin B-12) 1,000 mcg PO DAILY 03/15/19 03/15/19 History [Vitamin B-12] gabapentin 600 mg PO 5XD 03/15/19 03/15/19 History ibuprofen [Advil] 200 mg PO Q6H PRN 03/15/19 03/15/19 History Patient History Medical History Parkinson disease (Chronic) Mitral valve prolapse (Chronic) Surgical History S/P deep brain stimulator placement (Chronic) History of tonsillectomy and adenoidectomy (Chronic) History of tubal ligation (Chronic) History of right breast biopsy (Chronic) History of surgery (Chronic) Neurostimulator for Parkinson's disease, placed in [place], [place] Family History Mother Stroke Hemorrhage secondary to anticoagulation Social History Preferred Language: R[place] Communication Ability: Effective Paper Reel Operator Required: No Beliefs That Will Affect Care: None Other Information That Helps Us Care for You: No Feels Safe at Home: Yes Safety Concerns: Feels Safe At This Time Smoking Status: Never smoker Do You Dip or Chew Tobacco: No Hx Alcohol Use: Yes Alcohol type: wine Hx Substance Use: No Review of Systems Review of Systems: All systems reviewed & are unremarkable except as noted in HPI & below Physical Exam Physical Exam: General: no acute distress and stated age Eyes: conjunctiva are pink and non-injected, sclera clear Neck: normal jugular venous pulse, no hepatojugular reflux Chest: normal shape and normal respiratory effort Lungs: clear to auscultation and percussion Cardiac Exam: -Irregular rhythm, no murmurs Abdomen: abdomen soft, non-tender, no abnormal masses and no hepatosplenomegaly Extremities: no edema and no cyanosis Neuro:awake, coversant, follows commands, resting tremor consistent with Parkinson's noted Psych: appropriate affect and insight. Results & Data Vital Signs (Past 12 Hours) Vital Signs Temp Pulse Resp BP Pulse Ox 03/16/19 11:33 36.7 C 82 16 118/89 94 03/16/19 07:00 36.8 C 91 H 20 158/93 H 96 Laboratory Results Cardiac Enzymes 03/15/19 Range/Units 16:52 AST 17 (15-37) U/L Troponin I < 0.015 (0-0.045) ng/ml Coagulation 03/15/19 03/16/19 Range/Units 16:52 03:46 PT 11.6 (9.0-12.0) Seconds APTT 24.8 53.9 H* (21.0-31.0) Seconds CBC 03/15/19 03/15/19 03/16/19 Range/Units 16:52 22:31 03:47 WBC 7.41 7.53 5.55 (4.8-10.8) K/uL RBC 4.36 3.94 L 3.87 L (4.2-5.4) M/uL Hgb 13.4 12.1 11.5 L (12.0-16.0) g/dL Hct 39.5 35.8 L 35.2 L (37-47) % Plt Count 226 209 198 (130-400) K/uL Neut # (Auto) 5.36 (1.4-6.5) K/uL Lymph # (Auto) 1.39 (1.2-3.4) K/uL Bucks # (Auto) 0.61 H (0.11-0.59) K/uL Eos # (Auto) 0.02 (0-0.5) K/uL Baso # (Auto) 0.02 (0-0.2) K/uL Comprehensive Metabolic Panel 03/15/19 03/16/19 Range/Units 16:52 03:47 Sodium 141 141 (136-145) mmol/L Potassium 4.3 3.9 (3.5-5.1) mmol/L Chloride 109 H 111 H (98-107) mmol/L Carbon Dioxide 28 26 (21-32) mmol/L BUN 19 H 18 (7-18) mg/dl Creatinine 0.75 0.69 (0.6-1.2) mg/dl Glucose 89 97 (70-99) mg/dl Calcium 9.2 8.5 (8.5-10.1) mg/dl AST 17 (15-37) U/L ALT 17 (12-78) U/L Alkaline Phosphatase 69 (45-117) U/L Total Protein 7.6 (6.4-8.2) gm/dl Albumin 3.8 (3.4-5.0) gm/dl Intake and Output 03/16/19 03/16/19 03/16/19 06:59 14:59 22:59 Intake Total 120 / 620 193.967 / 377.200 183.233 / 377.200 Output Total 650 / 650 1100 / 1100 Balance -530 / -30 -906.033 / -722.800 183.233 / -722.800 Intake: IV 193.967 / 377.200 183.233 / 377.200 HEPARIN SODIUM/DEXTROSE 25,000 193.967 / 377.200 183.233 / 377.200 units In 500 ml @ 1,150 UNITS/ HR 23 mls/hr IV .[id number] [facility] Rx #:[id number] Oral 120 / 120 Output: Urine 650 / 650 1100 / 1100 Other: Weight 63 kg Diagnostic Findings Repeat EKG performed this morning 03/16/2019 at 625 revealed atrial fibrillation at 90 bpm, possible age-indeterminate inferior infarct, possible age- indeterminate anterior infarction. Medications Administered Current Inpatient Medications Acetaminophen (Tylenol) 650 mg PO Q4H PRN PRN Reason: Pain or Fever Stop: 04/14/19 22:24 Last Admin: 03/16/19 04:24 Dose: 650 mg Documented by: Al Hydrox/Mg Hydrox/Simethicone (Maalox) 15 ml PO Q4H PRN PRN Reason: Dyspepsia Stop: 04/14/19 22:24 Carbidopa/Levodopa (Sinemet 25/100 Mg) 1 tab PO 0700,1000,1300 [facility] Stop: 04/15/19 06:59 Last Admin: 03/16/19 12:52 Dose: 1 tab Documented by: Carbidopa/Levodopa (Sinemet 25/100 Mg) 1 tab PO 1600,1900 [facility] Stop: 04/15/19 15:59 Cyanocobalamin (Vitamin B-12) 1,000 mcg PO DAILY [facility] Stop: 04/15/19 08:59 Last Admin: 03/16/19 07:58 Dose: 1,000 mcg Documented by: Gabapentin (Neurontin) 600 mg PO 0700,1000,1300 [facility] Stop: 04/15/19 06:59 Last Admin: 03/16/19 12:52 Dose: 600 mg Documented by: Gabapentin (Neurontin) 600 mg PO 1600,1900 [facility] Stop: 04/15/19 15:59 Heparin Sodium/Dextrose (Heparin Sodium/Dextrose) 25,000 units in 500 mls @ 23 mls/hr IV .[id number] [facility]; Protocol Stop: 04/14/19 22:14 Last Titration: 03/16/19 15:02 Dose: 1,150 units/hr, 23 mls/hr Documented by: Magnesium Hydroxide (Milk Of Magnesia) 30 ml PO Q12H PRN PRN Reason: Constipation Stop: 04/14/19 22:24 Metoprolol Tartrate (Lopressor) 12.5 mg PO Q6 [facility] Stop: 04/14/19 22:24 Last Admin: 03/16/19 11:54 Dose: 12.5 mg Documented by: Polyethylene Glycol (Miralax Powder Packet) 17 gm PO DAILY PRN PRN Reason: Constipation Stop: 04/14/19 22:24 Vitamin D (Vitamin D3) 2,000 units PO DAILY [facility] Stop: 04/15/19 08:59 Last Admin: 03/16/19 07:58 Dose: 2,000 units Documented by:
[2019-03-16] MEDS: Heparin Adult STANDARD Wt-Based Dextrose 5% 25,000 units/500 mL IV SCH (19:19)
[2019-03-17 05:26] LABS: Basophils # (auto) 0.03 K/uL (0-0.2); Basophils % (auto) 0.5 %; Eosinophils # (auto) 0.03 K/uL (0-0.5); Eosinophils % (auto) 0.5 %; Hematocrit (blood only) 35.1 % (37-47); Hemoglobin 11.8 g/dL (12.0-16.0); Immature Granulocytes # (auto) 0.01 K/uL (0.00-0.02); Immature Granulocytes % (auto) 0.2 %; Lymphocytes # (auto) 1.86 K/uL (1.2-3.4); Lymphocytes % (auto) 32.5 %; Mean Corpuscular Hgb Conc 33.6 g/dL (32-36); Mean Corpuscular Volume 90.2 fL (80-100); Mean Platelet Volume 10.7 fL (7.4-10.4); Monocytes # (auto) 0.51 K/uL (0.11-0.59); Monocytes % (auto) 8.9 %; Neutrophils # (auto) 3.29 K/uL (1.4-6.5); Neutrophils % (auto) 57.4 %; Platelet Count 188 K/uL (130-400); RDW Coefficient of Variation 12.7 % (11.5-14.5); RDW Standard Deviation 41.7 fL (36.4-46.3); Red Blood Count 3.89 M/uL (4.2-5.4); White Blood Count 5.73 K/uL (4.8-10.8)
[2019-03-17 05:48] LABS: Partial Thromboplastin Ratio 2.7
[2019-03-17 05:51] LABS: BUN Creatinine Ratio 20.1 (10-20); Calcium 8.6 mg/dl (8.5-10.1); Est GFR (African American) 94.6; Est GFR (Non-African American) 81.6; Potassium 3.7 mmol/L (3.5-5.1)
[2019-03-17 06:03] LABS: Partial Thromboplastin Time 72.9 Seconds (21.0-31.0)
[2019-03-17] MEDS: ASPIRIN 81 MG ECTAB PO SCH (07:18)
[2019-03-17] MEDS: CHOLECALCIFEROL 1,000 UNITS TAB PO SCH (07:18)
[2019-03-17] MEDS: METOPROLOL TARTRATE 25 MG TAB PO SCH ×2 (07:18→20:59)
[2019-03-17] MEDS: CYANOCOBALAMIN 500 MCG TABLET (VITAMIN B-12) PO SCH (07:19)
[2019-03-17] MEDS: GABAPENTIN 600 MG TAB PO SCH ×6 (07:19→21:00)
[2019-03-17] MEDS: CARBIDOPA/LEVODOPA 25/100MG TAB PO SCH ×5 (07:20→21:00)
[2019-03-17 12:19] LABS: Partial Thromboplastin Ratio 2.2
[2019-03-17 12:22] LABS: Partial Thromboplastin Time 58.9 Seconds (21.0-31.0)
[2019-03-17] MEDS ORDERED: LOPERAMIDE HCL 2 MG CAP PO PRN (13:06)
--- NOTE | 2019-03-17 15:18 | Hospitalist Progress Note ---
Date of Service March 17, 2019 Assessment & Plan (1) Atrial fibrillation with RVR: This is a 79-year-old female with significant past medical history of Parkinson's disease and mitral valve prolapse who presents to [facility] ED secondary to referral by PCP. Noted to have new onset A. fib with RVR Received IV Diltiazem 10mg bolus x 3 and then continued on IV Cardizem drip New onset afib: Chads Vasc 3 (age, F) Appreciate cardiology input and recommendation initiate metoprolol tartrate 12.5mg po q6h Has been on heparin since admission Cardizem drip has been discontinued since this morning Heart rate is controlled Echo :: LV is normal in size and normal LV thickness. EF is 55 to 60%. LV wall motion is normal Discussed with fiscal economist Will increase beta-georgina dose to 37.5 mg twice daily to control the heart rate No long-term anticoagulation-risk outweighs the benefit. History of frequent fall at home (2) Parkinson disease: continue Sinemet and gabapentin neurostimulator in place follows neurologist in [place] Clinically stable Will need PT and OT evaluation before discharge May need placement (3) Arthralgia: Has been complaining of arthralgia involving multiple joints mostly the shoulders and the hip No swelling of the joints and no tenderness and no decrease in range of motion Has had Lyme titer drawn as an outpatient outpatient-confirmatory test is pending ESR was 21 May have PMR given profound weakness in the pelvic girdle We will try small dose of prednisone Recheck ESR Subjective 03/16 The patient was seen and examined in telemetry unit She is a 79-year-old female with significant past medical history of Parkinson's disease and mitral valve prolapse who presents to [facility] ED secondary to referral by PCP. She has noted to have atrial fibrillation with RVR She denies any symptoms today No chest pain, palpitation or shortness of breath 03/17 The patient was seen and examined in telemetry unit She has been complaining of arthralgia involving the shoulders and the hips mainly She also complains to have weakness in the pelvic girdle and that seems to be recent origin SHe has had them Lyme titer and a ESR done the clinic Denies any other complaints of shortness of breath and/or palpitation Review of Systems Review of Systems: All systems reviewed and are unremarkable except as noted below Constitutional: + fatigue and + weakness Physical Exam Physical Exam: No apparent distress at rest Constitutional: + ill appearing; no acute distress Eyes: PERRL, conjunctivae normal, anicteric sclerae ENMT: external ear and nose normal, oropharynx normal Neck: trachea midline, no thyromegaly Respiratory: normal respiratory effort Auscultation: + diminished lung sounds; no crackles and no wheezes Cardiovascular: Rate/Rhythm: + abnormal rate and + abnormal rhythm Heart Sounds: normal S1 and normal S2 Gastrointestinal (Abdomen): Inspection/Auscultation: abdomen normal to inspection and normal bowel sounds Percussion/Palpation: abdomen soft Musculoskeletal: Spine: no pain with thoraco-lumbar ROM Extremities: full ROM of upper extremities and full ROM of lower extremities No acute arthritis in any of the joint Neurologic: Alert, awake and oriented x3. Generally weak. More weak in lower extremities Psychiatric: Orientation: oriented x 3 Affect: + depressed affect Lymphatic: no cervical or axillary lymphadenopathy Results & Data Vital Signs (Past 12 Hours) Vital Signs Temp Pulse Resp BP Pulse Ox 03/17/19 07:13 36.9 C 83 18 142/88 H 96 03/17/19 03:25 36.4 C L 76 17 140/86 94 Laboratory Results Short CBC 03/17/19 Range/Units 05:15 WBC 5.73 (4.8-10.8) K/uL Hgb 11.8 L (12.0-16.0) g/dL Hct 35.1 L (37-47) % Plt Count 188 (130-400) K/uL BMP 03/17/19 05:15 Sodium 142 Potassium 3.7 Chloride 111 H Carbon Dioxide 27 BUN 14 Creatinine 0.71 Glucose 98 Calcium 8.6 Cardiac Enzymes 03/17/19 Range/Units 05:15 Total Creatine Kinase 61 (26-192) U/L Medications Administered Current Inpatient Medications Acetaminophen (Tylenol) 650 mg PO Q4H PRN PRN Reason: Pain or Fever Stop: 04/14/19 22:24 Last Admin: 03/16/19 04:24 Dose: 650 mg Documented by: Al Hydrox/Mg Hydrox/Simethicone (Maalox) 15 ml PO Q4H PRN PRN Reason: Dyspepsia Stop: 04/14/19 22:24 Aspirin ([facility]rin E[facility]ab) [facility] [place] 04/16/19 08:59 Last Admin: 03/17/19 07:18 Dose: 81 mg Documented by: Carbidopa/Levodopa (Sinemet 25/100 Mg) 1 tab PO 0700,1000,1300 [facility] Stop: 04/15/19 06:59 Last Admin: 03/17/19 13:17 Dose: 1 tab Documented by: Carbidopa/Levodopa (Sinemet 25/100 Mg) 1 tab PO 1600,1900 [facility] Stop: 04/15/19 15:59 Last Admin: 03/16/19 19:20 Dose: 1 tab Documented by: Cyanocobalamin (Vitamin B-12) 1,000 mcg PO DAILY [facility] Stop: 04/15/19 08:59 Last Admin: 03/17/19 07:19 Dose: 1,000 mcg Documented by: Gabapentin (Neurontin) 600 mg PO 0700,1000,1300 [facility] Stop: 04/15/19 06:59 Last Admin: 03/17/19 13:17 Dose: 600 mg Documented by: Gabapentin (Neurontin) 600 mg PO 1600,1900 [facility] Stop: 04/15/19 15:59 Last Admin: 03/16/19 19:20 Dose: 600 mg Documented by: Heparin Sodium/Dextrose (Heparin Sodium/Dextrose) 25,000 units in 500 mls @ 22 mls/hr IV .[id number] [facility]; Protocol Stop: 04/14/19 22:14 Last Titration: 03/17/19 07:12 Dose: 1,100 units/hr, 22 mls/hr Documented by: Loperamide HCl (Imodium) 2 mg PO Q4H PRN PRN Reason: Diarrhea Stop: 04/16/19 13:05 Magnesium Hydroxide (Milk Of Magnesia) 30 ml PO Q12H PRN PRN Reason: Constipation Stop: 04/14/19 22:24 Metoprolol Tartrate (Lopressor) 37.5 mg PO BID [facility] Stop: 04/16/19 20:59 Polyethylene Glycol (Miralax Powder Packet) 17 gm PO DAILY PRN PRN Reason: Constipation Stop: 04/14/19 22:24 Prednisone (Prednisone) 15 mg PO DAILY [facility] Stop: 04/16/19 15:14 Vitamin D (Vitamin D3) 2,000 units PO DAILY [facility] Stop: 04/15/19 08:59 Last Admin: 03/17/19 07:18 Dose: 2,000 units Documented by:
[2019-03-17] MEDS: predniSONE 10 MG TABLET PO SCH (16:17)
[2019-03-17] MEDS: Heparin Adult STANDARD Wt-Based Dextrose 5% 25,000 units/500 mL IV SCH (16:19)
[2019-03-18] MEDS: METOPROLOL TARTRATE 25 MG TAB PO SCH (07:16)
[2019-03-18] MEDS: GABAPENTIN 600 MG TAB PO SCH ×3 (07:16→14:01)
[2019-03-18] MEDS: CHOLECALCIFEROL 1,000 UNITS TAB PO SCH (07:16)
[2019-03-18] MEDS: CYANOCOBALAMIN 500 MCG TABLET (VITAMIN B-12) PO SCH (07:16)
[2019-03-18] MEDS: predniSONE 10 MG TABLET PO SCH (07:17)
[2019-03-18] MEDS: ASPIRIN 81 MG ECTAB PO SCH (07:17)
[2019-03-18] MEDS: CARBIDOPA/LEVODOPA 25/100MG TAB PO SCH ×3 (07:17→14:00)
[2019-03-18 07:50] LABS: BUN Creatinine Ratio 22.1 (10-20); Calcium 9.2 mg/dl (8.5-10.1); Creatinine Clr Calc Pharmacy 72.5 ml/min; Est GFR (African American) 99.1; Est GFR (Non-African American) 85.5; Potassium 3.7 mmol/L (3.5-5.1)
[2019-03-18 07:58] LABS: Partial Thromboplastin Ratio 2.2
[2019-03-18 08:09] LABS: Partial Thromboplastin Time 59.9 Seconds (21.0-31.0)
--- NOTE | 2019-03-18 12:35 | Hospitalist Progress Note ---
Date of Service March 18, 2019 Assessment & Plan (1) Atrial fibrillation with RVR: This is a 79-year-old female with significant past medical history of Parkinson's disease and mitral valve prolapse who presents to [facility] ED secondary to referral by PCP. Noted to have new onset A. fib with RVR Received IV Diltiazem 10mg bolus x 3 and then continued on IV Cardizem drip New onset afib: Chads Vasc 3 (age, F) Appreciate cardiology input and recommendation initiate metoprolol tartrate 12.5mg po q6h Has been on heparin since admission Cardizem drip has been discontinued since this morning Heart rate is controlled Echo :: LV is normal in size and normal LV thickness. EF is 55 to 60%. LV wall motion is normal Discussed with dinkey engine mechanic Will increase beta-georgian dose to 37.5 mg twice daily to control the heart rate No long-term anticoagulation-risk outweighs the benefit. History of frequent fall at home Heart rate is controlled today and denies any cardiac symptoms Will be discharged home this afternoon (2) Parkinson disease: continue Sinemet and gabapentin neurostimulator in place follows neurologist in [place], [place] No acute parkinsonian symptoms Clinically stable Will need PT and OT evaluation before discharge She was recommended rehab She will be going home this afternoon with home health nurse (3) Arthralgia: Has been complaining of arthralgia involving multiple joints mostly the shoulders and the hip No swelling of the joints and no tenderness and no decrease in range of motion Has had Lyme titer drawn as an outpatient outpatient- ESR was 21 May have PMR given profound weakness in the pelvic girdle We will try small dose of prednisone Recheck ESR-17 Will not give any more steroid Subjective 03/16 The patient was seen and examined in telemetry unit She is a 79-year-old female with significant past medical history of Parkinson's disease and mitral valve prolapse who presents to [facility] ED secondary to referral by PCP. She has noted to have atrial fibrillation with RVR She denies any symptoms today No chest pain, palpitation or shortness of breath 03/17 The patient was seen and examined in telemetry unit She has been complaining of arthralgia involving the shoulders and the hips mainly She also complains to have weakness in the pelvic girdle and that seems to be recent origin SHe has had them Lyme titer and a ESR done the clinic Denies any other complaints of shortness of breath and/or palpitation 03/18 The patient was seen and examined in telemetry unit She remains generally weak Does not have any weakness in the pelvic girdle She has minimal pain involving the shoulder joints Review of Systems Review of Systems: All systems reviewed and are unremarkable except as noted below Constitutional: + fatigue and + weakness Physical Exam Physical Exam: No apparent distress at rest Constitutional: + ill appearing; no acute distress Eyes: PERRL, conjunctivae normal, anicteric sclerae ENMT: external ear and nose normal, oropharynx normal Neck: trachea midline, no thyromegaly Respiratory: normal respiratory effort Auscultation: + diminished lung sounds; no crackles and no wheezes Cardiovascular: Rate/Rhythm: + abnormal rate and + abnormal rhythm Heart Sounds: normal S1 and normal S2 Gastrointestinal (Abdomen): Inspection/Auscultation: abdomen normal to inspection and normal bowel sounds Percussion/Palpation: abdomen soft Musculoskeletal: Spine: no pain with thoraco-lumbar ROM Extremities: full ROM of upper extremities and full ROM of lower extremities Does not have any acute arthritis involving any of the joints Neurologic: Alert and awake, generally weak and lethargy, no focal deficit Psychiatric: Orientation: oriented x 3 Affect: + depressed affect Lymphatic: no cervical or axillary lymphadenopathy Results & Data Vital Signs (Past 12 Hours) Vital Signs Temp Pulse Resp BP BP Pulse Ox 03/18/19 10:51 36.7 C 69 19 132/81 96 03/18/19 07:34 36.6 C 78 18 149/95 H 98 03/18/19 07:10 36.8 C 83 18 132/85 98 03/18/19 03:45 36.4 C L 85 19 133/101 H 96 Laboratory Results [facility] 03/18/19 07:10 Sodium 144 Potassium 3.7 Chloride 111 H Carbon Dioxide 25 BUN 14 Creatinine 0.64 Glucose 96 Calcium 9.2 Medications Administered Current Inpatient Medications Acetaminophen (Tylenol) 650 mg PO Q4H PRN PRN Reason: Pain or Fever Stop: 04/14/19 22:24 Last Admin: 03/16/19 04:24 Dose: 650 mg Documented by: Al Hydrox/Mg Hydrox/Simethicone (Maalox) 15 ml PO Q4H PRN PRN Reason: Dyspepsia Stop: 04/14/19 22:24 Aspirin (Ecotrin Ectab) 81 mg PO QAM [facility] Stop: 04/16/19 08:59 Last Admin: 03/18/19 07:17 Dose: 81 mg Documented by: Carbidopa/Levodopa (Sinemet 25/100 Mg) 1 tab PO 0700,1000,1300 [facility] Stop: 04/15/19 06:59 Last Admin: 03/18/19 10:16 Dose: 1 tab Documented by: Carbidopa/Levodopa (Sinemet 25/100 Mg) 1 tab PO 1600,1900 [facility] Stop: 04/15/19 15:59 Last Admin: 03/17/19 21:00 Dose: 1 tab Documented by: Cyanocobalamin (Vitamin B-12) 1,000 mcg PO DAILY [facility] Stop: 04/15/19 08:59 Last Admin: 03/18/19 07:16 Dose: 1,000 mcg Documented by: Gabapentin (Neurontin) 600 mg PO 0700,1000,1300 [facility] Stop: 04/15/19 06:59 Last Admin: 03/18/19 10:16 Dose: 600 mg Documented by: Gabapentin (Neurontin) 600 mg PO 1600,1900 [facility] Stop: 04/15/19 15:59 Last Admin: 03/17/19 21:00 Dose: 600 mg Documented by: Heparin Sodium/Dextrose (Heparin Sodium/Dextrose) 25,000 units in 500 mls @ 22 mls/hr IV .[id number] [facility]; Protocol Stop: 04/14/19 22:14 Last Admin: 03/17/19 16:19 Dose: 1,100 units/hr, 22 mls/hr Documented by: Loperamide HCl (Imodium) 2 mg PO Q4H PRN PRN Reason: Diarrhea Stop: 04/16/19 13:05 Magnesium Hydroxide (Milk Of Magnesia) 30 ml PO Q12H PRN PRN Reason: Constipation Stop: 04/14/19 22:24 Metoprolol Tartrate (Lopressor) 37.5 mg PO BID [facility] Stop: 04/16/19 20:59 Last Admin: 03/18/19 07:16 Dose: 37.5 mg Documented by: Polyethylene Glycol (Miralax Powder Packet) 17 gm PO DAILY PRN PRN Reason: Constipation Stop: 04/14/19 22:24 Prednisone (Prednisone) 15 mg PO DAILY [facility] Stop: 07/13/19 15:14 Last Admin: 03/18/19 07:17 Dose: 15 mg Documented by: Vitamin D (Vitamin D3) 2,000 units PO DAILY [facility] Stop: 04/15/19 08:59 Last Admin: 03/18/19 07:16 Dose: 2,000 units Documented by:
--- NOTE | 2019-03-19 07:53 | Discharge Summary ---
Date of Service March 19, 2019 Admission HPI Per Admitting Provider This is a 79-year-old female with significant past medical history of Parkinson's disease and mitral valve prolapse who presents to [facility] ED secondary to referral by PCP. Patient was seen in outpatient clinic by Evelin Emerson PA-C for routine follow-up to obtain medical clearance to travel to [place] with family. She was noted to be in atrial fibrillation. She had outpt lab work CBC, CMP, ESR all relatively unremarkable. She was referred to ED for eval and tx. Sister notes patient recently had a, "tweak in her neurostimulator," by her neurologist in [place] due to freq falls/off balance on 03/07/19. At this visit neurologist told patient she had a, "fast heart rate," and recommended follow up with PCP in near future. Patient denies any recent illness, f/c/s, dizziness, lightheaded, chest pain, sob, samayoa, hemopytisis, n/v/d, abdominal pain, change in bowel or urinary habits. Her appetite is normal for her. She does occasional feel her heart, "flutter." Admission Exam Per Admitting Provider Physical Exam: Gen: WD/WN, F, NAD, sitting up in bed, pleasant, conversing easily, parkinsonian affect Head: Normocephalic, Atraumatic Eyes: Sclera normal, no conjunctival injection, PERRLA, EOMI ENT: Gross hearing intact, normal pharynx, mucous membranes moist Neck: supple, no adenopathy, No JVD, no bruit, Resp: Clear to auscultation b/l, no wheeze, rales, rhonchi. Normal insp/exp effort, no accessory muscle use CV: irregular rate, irregular rhythm, no murmur, rub, gallop, or ectopy Abd: +BS x 4, soft, nontender, nondistended Musculoskeletal: moves extremities active rom x 4, strength intact, good cell lead strength Extremities: trace b/l edema with venous stasis changes Skin: warm, moist, no rash, negative turgor, cap refill < 2sec Neuro: Alert and oriented x 3, speech normal but slow, good mood/affect, cran nerve 2-12 intact grossly : deferred Principal Diagnosis A. fib with RVR, Parkinson's disease with status post brain stimulator in situ, Discharge Exam Constitutional + ill appearing; no acute distress Eyes PERRL, conjunctivae normal, anicteric sclerae ENMT external ear and nose normal, oropharynx normal Neck trachea midline, no thyromegaly Respiratory normal respiratory effort Auscultation: + diminished lung sounds; no crackles and no wheezes Cardiovascular Rate/Rhythm: + abnormal rate and + abnormal rhythm Heart Sounds: normal S1 and normal S2 Gastrointestinal (Abdomen) Inspection/Auscultation: abdomen normal to inspection and normal bowel sounds Percussion/Palpation: abdomen soft Musculoskeletal Spine: no pain with thoraco-lumbar ROM Extremities: full ROM of upper extremities and full ROM of lower extremities Psychiatric Orientation: oriented x 3 Affect: + depressed affect Lymphatic no cervical or axillary lymphadenopathy Discharge Data Allergies Allergy/AdvReac Type Severity Reaction Status Date / Time No Known Allergies Allergy Unknown Verified 03/15/19 16:48 Consultations 03/15/19 20:08 ED Decision to Admit Stat 03/15/19 22:25 Consult Cardiology Routine Consult Case Management - Discharge Planning Routine Hospital Course (1) Atrial fibrillation with RVR: This is a 79-year-old female with significant past medical history of Parkinson's disease and mitral valve prolapse who presents to [facility] ED secondary to referral by PCP. Noted to have new onset A. fib with RVR Received IV Diltiazem 10mg bolus x 3 and then continued on IV Cardizem drip New onset afib: Chads Vasc 3 (age, F) Appreciate cardiology input and recommendation initiate metoprolol tartrate 12.5mg po q6h Has been on heparin since admission Cardizem drip has been discontinued since this morning Heart rate is controlled Echo :: LV is normal in size and normal LV thickness. EF is 55 to 60%. LV wall motion is normal Discussed with body mechanic apprentice Will increase beta-georgina dose to 37.5 mg twice daily to control the heart rate No long-term anticoagulation-risk outweighs the benefit. History of frequent fall at home Heart rate is controlled today and denies any cardiac symptoms Will be discharged home this afternoon (2) Parkinson disease: continue Sinemet and gabapentin neurostimulator in place follows neurologist in [place], [place] No acute parkinsonian symptoms Clinically stable Will need PT and OT evaluation before discharge She was recommended rehab She will be going home this afternoon with home health nurse (3) Arthralgia: Has been complaining of arthralgia involving multiple joints mostly the shoulders and the hip No swelling of the joints and no tenderness and no decrease in range of motion Has had Lyme titer drawn as an outpatient outpatient- ESR was 21 May have PMR given profound weakness in the pelvic girdle We will try small dose of prednisone Recheck ESR-17 Will not give any more steroid Total Time Total Time Spent Total Time Spent (In Minutes): 35 minutes Total Time Includes: Examination of the Patient, Discharge Planning, Medication Reconciliation and Communication With Other Providers Discharge Plan Discharge Items Patient Disposition: Home - Home Health Services Reason For Visit: TACHYCARDIA Discharge Diagnosis: A. fib with RVR, Parkinson's disease with status post brain stimulator in situ, Condition: Fair Discharge Goals: Decrease discomfort, Improve function and Increase independence Activity: Resume your previous activity Non-emergency contact: Primary Care Provider Call non-emergency contact if: you have any medication questions and your symptoms worsen Follow-up/Referrals: Silvia Barraza DO [Primary Care Provider] - 03/22/19 11:00 am (Please keep appointment with a neurologist as scheduled) Diet: Heart Healthy and Low Potassium (2gm) Addtl Provider Instructions: Please take precaution to avoid fall. Prescriptions: New aspirin [Ecotrin Low Strength] 81 mg Tablet,Delayed Release (Dr/Ec) 81 mg PO QAM 30 Days Qty: 30 RF: 0 metoprolol tartrate 25 mg Tablet 37.5 mg PO BID 30 Days Qty: 90 RF: 0 magnesium 200 mg tablet 200 mg PO BID Qty: 60 RF: 0 Continued gabapentin 600 mg tablet 600 mg PO 5XD RF: 0 cyanocobalamin (vitamin B-12) [Vitamin B-12] 1,000 mcg Tablet 1,000 mcg PO DAILY RF: 0 carbidopa-levodopa 25-100 mg tablet 1 tab PO 5XD RF: 0 cholecalciferol (vitamin D3) [Vitamin D3] 2,000 unit Capsule 2,000 unit PO DAILY RF: 0 ibuprofen [Advil] 200 mg Tablet 200 mg PO Q6H PRN (Reason: Pain) RF: 0 Stand-Alone Forms: [facility] Discharge Orders: Discharge Order (Routine); Ordered 03/18/19 Ordered By: Regina Johnosn Admission Data Admit Date/Time: 03/15/19 20:56 Attending Provider: Regina Johnson Admit Provider: Darrick Aragon Primary Care Provider: Silvia Barraza Other Providers: Brayan Hart ; Bobo Richey Service: Telemetry Other Interventions: Discharge Summary Assessment (RN) Last Done: 03/18/19 12:48 DC Date/Time DO NOT enter until pt leaves facility: 03/18/19 14:45
== END 2019-03-18 14:45 | disposition home health service (06) | DRG 310 ==
LOC: ED 16:10 → 2E 20:56

== ENCOUNTER 2020-08-08 13:04 | Inpatient (IN) ==
[2020-08-08] MEDS ORDERED: SODIUM CHLORIDE 0.9% 1000ML 1,000 ML IV ONE (13:49)
[2020-08-08 14:23] LABS: Basophils # (auto) 0.01 K/uL (0-0.2); Basophils % (auto) 0.1 %; Eosinophils # (auto) 0.01 K/uL (0-0.5); Eosinophils % (auto) 0.1 %; Hematocrit (blood only) 39.7 % (37-47); Immature Granulocytes # (auto) 0.01 K/uL (0.00-0.02); Immature Granulocytes % (auto) 0.1 %; Lymphocytes # (auto) 1.45 K/uL (1.2-3.4); Lymphocytes % (auto) 20.8 %; Mean Corpuscular Hemoglobin 30.7 pg (25-34); Mean Corpuscular Hgb Conc 32.7 g/dL (32-36); Mean Corpuscular Volume 93.6 fL (80-100); Mean Platelet Volume 11.1 fL (7.4-10.4); Monocytes % (auto) 8.6 %; Neutrophils % (auto) 70.3 %; Platelet Count 235 K/uL (130-400); RDW Coefficient of Variation 13.2 % (11.5-14.5); RDW Standard Deviation 45.5 fL (36.4-46.3); Red Blood Count 4.24 M/uL (4.2-5.4); White Blood Count 6.98 K/uL (4.8-10.8)
[2020-08-08 14:36] LABS: INR 1.2 (0.9-1.1); Partial Thromboplastin Ratio 0.9; Partial Thromboplastin Time 24.6 Seconds (21.0-31.0); Prothrombin Time 12.2 Seconds (9.0-12.0)
[2020-08-08 14:38] LABS: Alanine Aminotransferase 8 U/L (12-78); Albumin Level 3.5 gm/dl (3.4-5.0); Aspartate Aminotransferase 19 U/L (15-37); BUN Creatinine Ratio 23.9 (10-20); Bilirubin Direct 0.2 mg/dl (0-0.2); Blood Urea Nitrogen 21 mg/dl (7-18); Calcium 9.4 mg/dl (8.5-10.1); Carbon Dioxide 28 mmol/L (21-32); Chloride 108 mmol/L (98-107); Creatinine Clr Calc Pharmacy 49.2 ml/min; Est GFR (African American) 74.5; Est GFR (Non-African American) 64.3; Glucose 82 mg/dl (70-99); Magnesium 2.1 mg/dl (1.8-2.4); Potassium 4.6 mmol/L (3.5-5.1); Sodium 140 mmol/L (136-145)
--- NOTE | 2020-08-08 14:39 | CT Scan Report ---
CT SCAN OF THE BRAIN WITHOUT IV CONTRAST CLINICAL HISTORY: Change in mental status. COMPARISON STUDY: CT of the brain dated 06/19/2011. TECHNIQUE: Unenhanced axial CT scan of the brain is performed from the vertex to the skull base. A do se lowering technique was utilized adhering to the principles of ALARA. The examination is degraded b y streak artifact from metallic electrodes. CT DOSE: 687.98 mGy.cm FINDINGS: Brain parenchyma: Electrodes terminate in the basal ganglia bilaterally. There are age-related involu tional changes noting minimal subcortical and periventricular microangiopathic change. There is no h emorrhage, mass effect, or evidence of acute territorial ischemia by CT criteria. Allison-white matter d ifferentiation is preserved. No extra-axial fluid collection is seen. Ventricles, sulci, cisterns: Prominent secondary to involutional change. Intracranial vasculature: There is atherosclerotic calcification of the cavernous carotid arteries. Calvarium: There are bilateral frontal mauri holes. No destructive calvarial lesion is seen.. Sinuses and mastoids: The visualized paranasal sinuses are clear. The mastoid air cells are well pneu matized. Orbits: The bony orbits are grossly intact. There are bilateral ocular lens implants. IMPRESSION: There is no hemorrhage, mass effect, or evidence of acute territorial ischemia by CT juan celis. ACT 112: Negative or not required by law. Electronically signed by: Juanjose Aleman M.D. 08/08/2020 2:38 PM
[2020-08-08 14:44] LABS: Appearance Urine Clear (Clear); Bacteria Urine Automated Negative (Negative); Bilirubin Urine Negative (Negative); Blood Urine Negative (Negative); Cast Urine Automated 0 /lpf (0-5); Color Urine Dark Yellow; Glucose Urine UA Trace (Negative); Ketones Urine Trace (Negative); Leukocyte Esterase Urine Trace (Negative); Nitrite Urine Negative (Negative); Protein Urine 1+ (Negative); RBC Urine Automated 0-4 /hpf (0-4); Specific Gravity Urine 1.025 (1.000-1.030); Urobilinogen Urine Negative (Negative); pH Urine 5.5 (4.5-7.5)
[2020-08-08 14:49] LABS: Albumin Globulin Ratio 0.9 (0.9-2); Alkaline Phosphatase 56 U/L (45-117); Bilirubin,Total 0.6 mg/dl (0.2-1); Globulin 3.9 gm/dl (2.5-4.0); Phosphorus 2.8 mg/dl (2.5-4.9); Total Protein 7.4 gm/dl (6.4-8.2); Troponin I < 0.015 ng/ml (0-0.045)
--- NOTE | 2020-08-08 14:53 | XRay Report ---
XR chest 1V portable CLINICAL HISTORY: SEPSIS COMPARISON STUDY: Chest radiograph March 15, 2019. FINDINGS: Lung volumes are normal. Lungs are clear. There is no pneumothorax or pleural effusion. Mil d cardiomegaly is unchanged. Mediastinal contours are normal. There is no evidence for pulmonary sarah a. Bilateral stimulator devices are incidentally noted. IMPRESSION: No acute cardiopulmonary findings. ACT 112: Negative or not required by law. Electronically signed by: Nic Corey M.D. 08/08/2020 2:51 PM
--- NOTE | 2020-08-08 15:23 | Emergency Department Note ---
Impression & Plan Adult failure to thrive, Parkinson disease, S/P deep brain stimulator placement, Dehydration, Diarrhea, Atrial fibrillation ED Provider Note NAME: ELISABET BOSTON AGE: 80 SEX: F ARRIVES VIA: Ambulance INFORMANT: Patient, ED PROVIDER(S): Angel Rodríguez MD CHIEF COMPLAINT: Weakness PLAN: Disposition: Admit MEDICAL DECISION MAKING: The patient is a pleasant 80-year-old woman with a past medical history of Parkinson disease with DBS present, atrial fibrillation not on AC 2/2 fall risk who presents emergency department accompanied by friend and care-laboratory chief for evaluation of concern for worsening clinical status at home where she is not eating or drinking and not taking her medications with associated generalized weakness where she is no longer ambulating at home as she has previous to the past 2 weeks. Patient herself is a poor historian and unable to explain why she is in the hospital. Per Caregiver, symptoms occur in the setting of gradual decline for several months, which led to right DBS battery replacement but she r elates that the battery has yet to be charged. They report intermittent diarrhea over the past week with most recent episode today. They deny fevers, cough, congestion, vomiting, urinary sx. Recent negative Covid19 test on 07/28. Patient lives alone/independently but caregiver is concerned that the patient is not safe in her current state. Patient is agreeable with admission given her worsening functional status. On arrival patient is no acute distress, afebrile with stable vital signs. She appears clinically dry and cachectic. Extremities with symmetric generalized weakness and cogwheel rigidity. Mask facies. EKG with afib with artifact from DBS without evidence of acute ischemia. CXR n egative for acute process. WBC, H/H and platelets within normal limits. Chemistry with out acidosis. BUN/Cr >20 c/w patient's clinically rosalee appearance. Lactate is 2.4 again likely related to dehydration. Troponin negative/undetectable. UA with ketones also c/w with patient's dehydration/poor oral intake but no overt infection. CT of the head negative for acute process. Upon re-evaluation, the patient was feeling improved after IVF hydration and became more alert and coherent then when she was initially evaluated. Case was discussed with Sebas Moser PAC, with Dr. Serge sorensen hospitalist who will evaluate the patient for admission. Triage Nursing notes reviewed and agree them. Additional history obtained from Friend/Caregiver Prior medical records reviewed Vital Signs: reviewed and remarkable for no significant abnormalities Differential diagnosis: Infection, dehydration, metabolic abnormality, hypo/hyperglycemia, electrolyte disturbance, anemia, hypoxia, cardiac sources, intracerebral event, toxicologic, neurologic, as well as other pathologies. ER treatment provided: Infection, dehydration, metabolic abnormality, hypo/hyperglycemia, electrolyte disturbance, anemia, hypoxia, cardiac sources, intracerebral event, toxicologic, neurologic, as well as other pathologies. Diagnostics interpreted by me: ECG: Atrial fibrillation, 87 bpm, baseline artifact from DBS, LAD, no overt ST elevation or depression. Cardiac Monitoring: An order for continuous cardiac monitoring was placed and demonstrated Atrial fibrillation, 87 bpm, no ectopy. Laboratory studies: See below Imaging studies: XR chest 1V portable CLINICAL HISTORY: SEPSIS COMPARISON STUDY: Chest radiograph March 15, 2019. FINDINGS: Lung volumes are normal. Lungs are clear. There is no pneumothorax or pleural effusion. Mild cardiomegaly is unchanged. Mediastinal contours are normal. There is no evidence for pulmonary edema. Bilateral stimulator devices are incidentally noted. IMPRESSION: No acute cardiopulmonary findings. -- CT SCAN OF THE BRAIN WITHOUT IV CONTRAST CLINICAL HISTORY: Change in mental status. COMPARISON STUDY: CT of the brain dated 06/19/2011. TECHNIQUE: Unenhanced axial CT scan of the brain is performed from the vertex to the skull base. A dose lowering technique was utilized adhering to the principles of ALARA. The examination is degraded by streak artifact from metallic electrodes. CT DOSE: 687.98 mGy.cm FINDINGS: Brain parenchyma: Electrodes terminate in the basal ganglia bilaterally. There are age-related involutional changes noting minimal subcortical and periventricular microangiopathic change. There is no hemorrhage, mass effect, or evidence of acute territorial ischemia by CT criteria. Allison-white matter diffe rentiation is preserved. No extra-axial fluid collection is seen. Ventricles, sulci, cisterns: Prominent secondary to involutional change. Intracranial vasculature: There is atherosclerotic calcification of the cavernous carotid arteries. Calvarium: There are bilateral frontal mauri holes. No destructive calvarial lesion is seen.. Sinuses and mastoids: The visualized paranasal sinuses are clear. The mastoid air cells are well pneumatized. Orbits: The bony orbits are grossly intact. There are bilateral ocular lens implants. IMPRESSION: There is no hemorrhage, mass effect, or evidence of acute territorial ischemia by CT criteria. Consultation(s): Case was discussed with Sebas Moser PAC, with Dr. Serge Mullen hospitalist who will evaluate the patient for admission. HPI: The patient is a pleasant 80-year-old woman with a past medical history of Parkinson disease with DBS present, atrial fibrillation not on AC 2/2 fall risk who presents emergency department accompanied by friend and care-laboratory chief for evaluation of concern for worsening clinical status at home where she is not eating or drinking and not taking her medications with associated generalized weakness where she is no longer ambulating at home as she has previous to the past 2 weeks. Patient herself is a poor historian and unable to explain why she is in the hospital. Per Caregiver, symptoms occur in the setting of gradual decline for several months, which led to right DBS battery replacement but she relates that the battery has yet to be charged. They report intermittent diarrhea over the past week with most recent episode today. They deny fevers, cough, congestion, vomiting, urinary sx. Recent negative Covid19 test on 07/28. Patient lives alone/independently but caregiver is concerned that the patient is not safe in her current state. Patient is agreeable with admission given her worsening functional status. ROS: See above HPI for pertinent positives & negatives. A total of 10 systems reviewed and were otherwise negative. PAST MEDICAL HISTORY:See Below PAST SURGICAL HISTORY:See Below FAMILY HISTORY:See Below SOCIAL HISTORY:See Below HOME MEDICATIONS:See Below ALLERGIES:See Below VITALS:See Below PHYSICAL EXAMINATION: GENERAL: Awake, drowsy, confused, cachectic, chronically ill-appearing, in no distress HENT: Normocephalic, atraumatic. Oropharynx with dry/cracked mucous membranes and otherwise unremarkable. . EYES: Normal conjunctiva. Sclera non-icteric. NECK: Supple. No nuchal rigidity. FROM. No JVD. RESPIRATORY: Clear to auscultation. CARDIAC: Regular rate, irregular rhythm. Extremities warm and well perfused. Pulses equal. ABDOMEN: Soft, non-distended. No tenderness to palpation. No rebound or guarding. No masses. RECTAL: Deferred. MUSCULOSKELETAL: Chest examination reveals no tenderness. The back is symmetrical on inspection without obvious abnormality. There is no CVA ten derness to palpation. No joint edema. LOWER EXTREMITIES: Calves are equal size bilaterally and non-tender. No edema. No discoloration. NEURO: Extremities with symmetric generalized weakness and cogwheel rigidity. Mask facies. SKIN: No rash or jaundice noted. Angel Rodríguez MD Past Med/Surg History Medical History Chronic atrial fibrillation Mitral valve prolapse Parkinson disease Surgical History History of right breast biopsy History of surgery Neurostimulator for Parkinson's disease, placed in [place] History of tonsillectomy and adenoidectomy History of tubal ligation S/P deep brain stimulator placement Family History Mother Stroke Hemorrhage secondary to anticoagulation Social History Smoking Status: Former smoker Second Hand Exposure: No; Do You Dip or Chew Tobacco: No; Tobacco Cessation Education Requested by Patient: No Hx Alcohol Use: No Hx Substance Use: No Preferred Language: Libyan Communication Ability: Effective 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 Beliefs That Will Affect Care: None Current Living Situation: Alone Other Information That Helps Us Care for You: Yes (pain in legs at night) Feels Safe at Home: Yes Safety Concerns: Feels Safe At This Time Assistive Devices: Walker Allergies Allergies Allergy/AdvReac Type Severity Reaction Status Date / Time No Known Allergies Allergy Unknown Verified 08/08/20 16:43 Home Meds Home Medications Medication Instructions Recorded Confirmed carbidopa-levodopa 1 tab PO 5XD 03/15/19 08/08/20 gabapentin 600 mg PO UD 03/15/19 08/08/20 aspirin [Aspir-Low] 81 mg PO DAILY 08/08/20 08/08/20 cholecalciferol (vitamin D3) 25 mcg PO DAILY 08/08/20 08/08/20 [Vitamin D3] donepezil [Aricept] 5 mg PO HS 08/08/20 08/08/20 lactobacillus combination no.4 0 mmu cells PO DAILY 08/08/20 08/08/20 [Probiotic] magnesium 200 mg PO DAILY 08/08/20 08/08/20 metoprolol succinate [Toprol XL] 100 mg PO DAILY 08/08/20 08/08/20 multivitamin 1 tab PO DAILY 08/08/20 08/08/20 vitamin B complex 1 tab PO DAILY 08/08/20 08/08/20 Results & Data (ED) Vital Signs Vital Signs - 24 hr 08/08/20 13:10 08/08/20 13:15 08/08/20 13:16 Temperature 36.5 C Temperature Source Oral Pulse Rate 83 84 80 Pulse Rate from SpO2 Sensor 81 85 Respiratory Rate 22 20 17 Respiratory Effort / Characteristics Non-Labored Spontaneous Respiratory Depth Normal Blood Pressure 105/73 98/66 L 105/73 Blood Pressure Mean 83 75 83 Pulse Oximetry 98 98 96 Oxygen Delivery Method Room Air Sepsis Recent Fever Within 48 Hours No Sepsis New/Unexplained Change in Mental Status No Sepsis Action Taken by Nursing No Action Required 08/08/20 13:30 08/08/20 14:02 08/08/20 14:05 Temperature Temperature Source Pulse Rate 84 78 81 Pulse Rate from SpO2 Sensor 81 Respiratory Rate 22 20 16 Respiratory Effort / Characteristics Spontaneous Respiratory Depth Blood Pressure 91/61 L 103/72 Blood Pressure Mean 68 79 Pulse Oximetry 98 97 96 Oxygen Delivery Method Sepsis Recent Fever Within 48 Hours Sepsis New/Unexplained Change in Mental Status Sepsis Action Taken by Nursing 08/08/20 14:40 08/08/20 15:00 08/08/20 15:20 Temperature Temperature Source Pulse Rate 79 76 80 Pulse Rate from SpO2 Sensor 76 80 88 Respiratory Rate 28 H 22 26 H Respiratory Effort / Characteristics Respiratory Depth Blood Pressure 126/76 Blood Pressure Mean 104 Pulse Oximetry 99 100 100 Oxygen Delivery Method Sepsis Recent Fever Within 48 Hours Sepsis New/Unexplained Change in Mental Status Sepsis Action Taken by Nursing 08/08/20 15:30 08/08/20 15:40 08/08/20 16:00 Temperature Temperature Source Pulse Rate 91 H 98 H 94 H Pulse Rate from SpO2 Sensor 88 92 H 86 Respiratory Rate 23 26 H 20 Respiratory Effort / Characteristics Respiratory Depth Blood Pressure 108/68 Blood Pressure Mean 81 Pulse Oximetry 100 100 100 Oxygen Delivery Method Sepsis Recent Fever Within 48 Hours Sepsis New/Unexplained Change in Mental Status Sepsis Action Taken by Nursing 08/08/20 16:20 08/08/20 16:30 08/08/20 16:40 Temperature Temperature Source Pulse Rate 92 H 95 H 89 Pulse Rate from SpO2 Sensor 84 86 99 H Respiratory Rate 26 H 23 20 Respiratory Effort / Characteristics Respiratory Depth Blood Pressure 151/85 H Blood Pressure Mean 118 Pulse Oximetry 100 98 99 Oxygen Delivery Method Sepsis Recent Fever Within 48 Hours Sepsis New/Unexplained Change in Mental Status Sepsis Action Taken by Nursing 08/08/20 17:00 08/08/20 17:20 08/08/20 17:40 Temperature Temperature Source Pulse Rate 105 H 90 95 H Pulse Rate from SpO2 Sensor 96 H 92 H 88 Respiratory Rate 20 21 20 Respiratory Effort / Characteristics Respiratory Depth Blood Pressure Blood Pressure Mean Pulse Oximetry 98 92 98 Oxygen Delivery Method Sepsis Recent Fever Within 48 Hours Sepsis New/Unexplained Change in Mental Status Sepsis Action Taken by Nursing Laboratory Data Attestation: I reviewed the patient's lab results. Result diagrams: 08/08/20 13:57 08/08/20 13:57 Lab Results 08/08/20 08/08/20 08/08/20 Range/Units 13:57 13:57 13:57 WBC 6.98 (4.8-10.8) K/uL RBC 4.24 (4.2-5.4) M/uL Hgb 13.0 (12.0-16.0) g/dL Hct 39.7 (37-47) % MCV 93.6 (80-100) fL MCH 30.7 (25-34) pg MCHC 32.7 (32-36) g/dL RDW Std Deviation 45.5 (36.4-46.3) fL RDW Coeff of Ever 13.2 (11.5-14.5) % Plt Count 235 (130-400) K/uL MPV 11.1 H (7.4-10.4) fL Immature Gran % (Auto) 0.1 % Neut % (Auto) 70.3 % Lymph % (Auto) 20.8 % Mitchell % (Auto) 8.6 % Eos % (Auto) 0.1 % Baso % (Auto) 0.1 % Neut # (Auto) 4.90 (1.4-6.5) K/uL Lymph # (Auto) 1.45 (1.2-3.4) K/uL Mitchell # (Auto) 0.60 H (0.11-0.59) K/uL Eos # (Auto) 0.01 (0-0.5) K/uL Baso # (Auto) 0.01 (0-0.2) K/uL Immature Gran # (Auto) 0.01 (0.00-0.02) K/uL PT 12.2 H (9.0-12.0) Seconds INR 1.2 H (0.9-1.1) APTT 24.6 (21.0-31.0) Seconds PTT Ratio 0.9 Sodium 140 (136-145) mmol/L Potassium 4.6 (3.5-5.1) mmol/L Chloride 108 H (98-107) mmol/L Carbon Dioxide 28 (21-32) mmol/L Anion Gap 4.0 (3-11) BUN 21 H (7-18) mg/dl Creatinine 0.86 (0.6-1.2) mg/dl Est Cr Clr Drug Dosing 49.2 ml/min Est GFR ( Amer) 74.5 Est GFR (Non-Af Amer) 64.3 BUN/Creatinine Ratio 23.9 H (10-20) Glucose 82 (70-99) mg/dl Lactate (0.4-2.0) mmol/L Calcium 9.4 (8.5-10.1) mg/dl Phosphorus 2.8 (2.5-4.9) mg/dl Magnesium 2.1 (1.8-2.4) mg/dl Total Bilirubin 0.6 (0.2-1) mg/dl Direct Bilirubin 0.2 (0-0.2) mg/dl AST 19 (15-37) U/L ALT 8 L (12-78) U/L Alkaline Phosphatase 56 (45-117) U/L Troponin I < 0.015 (0-0.045) ng/ml Total Protein 7.4 (6.4-8.2) gm/dl Albumin 3.5 (3.4-5.0) gm/dl Globulin 3.9 (2.5-4.0) gm/dl Albumin/Globulin Ratio 0.9 (0.9-2) TSH 1.210 (0.300-4.500) uIu/ml Urine Color Urine Appearance (Clear) Urine pH (4.5-7.5) Ur Specific [place] (1.000-1.030) Urine Protein (Negative) Urine Glucose (UA) (Negative) Urine Ketones (Negative) Urine Blood (Negative) Urine Nitrite (Negative) Urine Bilirubin (Negative) Urine Urobilinogen (Negative) Ur Leukocyte Esterase (Negative) Urine WBC (Auto) (0-5) /hpf Urine RBC (Auto) (0-4) /hpf U Hyaline Cast (Auto) (0-5) /lpf U Epithel Cells (Auto) (0-5) /lpf Urine Bacteria (Auto) (Negative) 08/08/20 08/08/20 08/08/20 Range/Units 13:57 14:15 16:06 WBC (4.8-10.8) K/uL RBC (4.2-5.4) M/uL Hgb (12.0-16.0) g/dL Hct (37-47) % MCV (80-100) fL MCH (25-34) pg MCHC (32-36) g/dL RDW Std Deviation (36.4-46.3) fL RDW Coeff of Ever (11.5-14.5) % Plt Count (130-400) K/uL MPV (7.4-10.4) fL Immature Gran % (Auto) % Neut % (Auto) % Lymph % (Auto) % Mitchell % (Auto) % Eos % (Auto) % Baso % (Auto) % Neut # (Auto) (1.4-6.5) K/uL Lymph # (Auto) (1.2-3.4) K/uL Mitchell # (Auto) (0.11-0.59) K/uL Eos # (Auto) (0-0.5) K/uL Baso # (Auto) (0-0.2) K/uL Immature Gran # (Auto) (0.00-0.02) K/uL PT (9.0-12.0) Seconds INR (0.9-1.1) APTT (21.0-31.0) Seconds PTT Ratio Sodium (136-145) mmol/L Potassium (3.5-5.1) mmol/L Chloride (98-107) mmol/L Carbon Dioxide (21-32) mmol/L Anion Gap (3-11) BUN (7-18) mg/dl Creatinine (0.6-1.2) mg/dl Est Cr Clr Drug Dosing ml/min Est GFR ( Amer) Est GFR (Non-Af Amer) BUN/Creatinine Ratio (10-20) Glucose (70-99) mg/dl Lactate 2.4 H* 1.3 (0.4-2.0) mmol/L Calcium (8.5-10.1) mg/dl Phosphorus (2.5-4.9) mg/dl Magnesium (1.8-2.4) mg/dl Total Bilirubin (0.2-1) mg/dl Direct Bilirubin (0-0.2) mg/dl AST (15-37) U/L ALT (12-78) U/L Alkaline Phosphatase (45-117) U/L Troponin I (0-0.045) ng/ml Total Protein (6.4-8.2) gm/dl Albumin (3.4-5.0) gm/dl Globulin (2.5-4.0) gm/dl Albumin/Globulin Ratio (0.9-2) TSH (0.300-4.500) uIu/ml Urine Color Dark Yellow Urine Appearance Clear (Clear) Urine pH 5.5 (4.5-7.5) Ur Specific [place] 1.025 (1.000-1.030) Urine Protein 1+ H (Negative) Urine Glucose (UA) Trace H (Negative) Urine Ketones Trace H (Negative) Urine Blood Negative (Negative) Urine Nitrite Negative (Negative) Urine Bilirubin Negative (Negative) Urine Urobilinogen Negative (Negative) Ur Leukocyte Esterase Trace H (Negative) Urine WBC (Auto) 1-5 (0-5) /hpf Urine RBC (Auto) 0-4 (0-4) /hpf U Hyaline Cast (Auto) 0 (0-5) /lpf U Epithel Cells (Auto) 10-20 H (0-5) /lpf Urine Bacteria (Auto) Negative (Negative) Administered Medications Aspirin (Aspirin 81 Mg Ectab) 81 mg PO DAILY BRANDO Stop: 09/07/20 20:44 Last Admin: 08/08/20 21:34 Dose: 81 mg Documented by: [id number] Carbidopa/Levodopa (Carbidopa/Levodopa 25/100mg Tab) 1 tab PO DAILY@0700,1 000,1300,1600,1900 BRANDO Stop: 09/07/20 20:44 Last Admin: 08/08/20 21:34 Dose: 1 tab Documented by: [id number] Donepezil HCl (Donepezil Hcl 5 Mg Tab) 5 mg PO HS BRANDO Stop: 09/07/20 20:59 Last Admin: 08/08/20 21:34 Dose: 5 mg Documented by: [id number] Enoxaparin Sodium (Enoxaparin Inj 30 Mg/0.3 Ml Syr) 30 mg SQ Q24H BRANDO Stop: 09/07/20 20:59 Last Admin: 08/08/20 21:39 Dose: 30 mg Documented by: [id number] Sodium Chloride (Nss 1000ml) 1,000 mls @ 80 mls/hr IV .[id number] BRANDO Stop: 08/09/20 06:37 Last Admin: 08/08/20 21:32 Dose: 80 mls/hr Documented by: [id number] Discontinued Medications Sodium Chloride (Nss 1000ml) 1,000 mls @ 999 mls/hr IV .[id number] ONE Stop: 08/08/20 14:49 Last Infusion: 08/08/20 18:57 Dose: 0 mls/hr Documented by: [id number] Admin: 08/08/20 14:07 Dose: 999 mls/hr Documented by: [id number] Metoprolol Succinate (Metoprolol Succ 50mg Ext Rel Tab) 100 mg PO DAILY BRANDO Stop: 09/07/20 18:14 Last Admin: 08/08/20 18:56 Dose: 100 mg Documented by: [id number] Discharge Plan Visit Data Chief Complaint: Illness ED Provider: Angel Rodríguez Discharge Problem: Adult failure to thrive, Parkinson disease, S/P deep brain stimulator placement, Dehydration, Diarrhea, Atrial fibrillation Patient Disposition: Admitted As Inpatient Discharge Instructions Interventions: ED Discharge Assessment Last Done: 08/08/20 19:08 Discharge Problem: Diarrhea Qualifiers: Diarrhea type: unspecified type Qualified Code(s): R19.7 - Diarrhea, unspecified
[2020-08-08] MEDS ORDERED: SODIUM CHLORIDE 0.9% 1000ML 1,000 ML IV SCH (18:08)
[2020-08-08] MEDS ORDERED: METOPROLOL SUCC 50MG EXT REL TAB PO SCH (18:15)
--- NOTE | 2020-08-08 18:25 | History & Physical Report ---
Date of Service August 08, 2020 Assessment & Plan (1) Ambulatory dysfunction: (2) Dehydration: (3) Diarrhea: This is a 80-year-old female with significant past medical history of chronic atrial fibrillation not on oral anticoagulation, advanced Parkinson's disease with deep brain stimulator, dementia, mitral valve prolapse who presents to ED secondary to diarrhea x1 week and generalized decline. In ED patient made hemodynamically stable. CBC and CMP were generally unremarkable except mild elevation BUN 21, creatinine 1.86, ratio 23.9. Mag and Phos were WNL. TSH WNL. Urinalysis trace leukocyte esterase with 10-[address] was negative for acute intracranial abnormality. Chest x-ray no acute process. She received 1 L of IVF in ED with improvement of symptoms. admit to medical blood, urine and stool cultures ordered no indication for antibiotics at this time IVF x 1 L - reassess PT/OT abd exam benign, afebrile, wbc wnl - stool studies and stool count renal function stable, mild elevation BUN - likely pre renal in setting of poor po intake, diarrhea (4) Chronic atrial fibrillation: rate controlled with metoprolol ASA for thrombotic prophylaxis CHADSVASC 3, but high risk 2/2 to PD and falls therefore placed on ASA (5) Parkinson disease: s/p DBS placement with R side exchange 07/27, scheduled for program on 08/13 advanced PD with dementia on sinemet, aricept previously weaned off gabapentin, but wishes to restart due to leg cramping she will discuss with neurologist at follow up on 08/13 (6) DVT prophylaxis: SQ Lovenox 30mg daily Disposition: admit to medical Follow up: PCP Dr. Barraza upon discharge Pt was seen and examined in collaboration with Dr. Valentine, please see addendum History of Present Illness Chief Complaint: Diarrhea x 1 week; ambulatory dysfunction. Primary Care Provider: Silvia Barraza, DO This is a 80-year-old female with significant past medical history of chronic atrial fibrillation not on oral anticoagulation, advanced Parkinson's disease with deep brain stimulator, dementia, mitral valve prolapse who presents to ED secondary to diarrhea x1 week and generalized decline. Caregiver is at bedside. She lives alone at home. Patient has deep brain stimulator in place. On her right side she had battery replaced 2 weeks ago at [facility]. She is to go on 08/13 to have better reprogrammed. Over the last 3 to 4 months they have noticed a general slow decline in patient. They chalked it up to the battery being on brain stimulator. According to caregiver her inpatient used to walk daily, but currently mobility is limited. She admits to having loose stool for the past 1 week. She is unable to tell me how many episodes, but does occur daily. She denies any recent antibiotic use. She denies any nausea, vomiting, abdominal pain, melena, hematochezia. Over the last 2 to 3 days oral intake has been limited. She has lost sense of taste and smell secondary to Parkinson's disease and therefore baseline has poor appetite. She has to be encouraged to eat and drink. Caregiver rates her nutrition is, "poor." She denies ajay weakness but has does have difficult with mobility secondary to pain/stiffness. Patient denies fever, chills, sweats, lightheadedness, dizziness, syncope, fall, chest pain, shortness breath, cough, dysuria, increased urgency or frequency with urination. She not take any m edications today. She has not had anything to eat or drink yet today. In ED patient made hemodynamically stable. CBC and CMP were generally unremarkable except mild elevation BUN 21, creatinine 1.86, ratio 23.9. Mag and Phos were WNL. TSH WNL. Urinalysis trace leukocyte esterase with 10-[address] was negative for acute intracranial abnormality. Chest x-ray no acute process. She received 1 L of IVF in ED with improvement of symptoms. Allergies Allergy/AdvReac Type Severity Reaction Status Date / Time No Known Allergies Allergy Unknown Verified 08/08/20 16:43 Home Medications Home Medications Medication Instructions Recorded Confirmed Type carbidopa-levodopa 1 tab PO 5XD 03/15/19 08/08/20 History gabapentin 600 mg PO UD 03/15/19 08/08/20 History aspirin [Aspir-Low] 81 mg PO DAILY 08/08/20 08/08/20 History cholecalciferol (vitamin D3) 25 mcg PO DAILY 08/08/20 08/08/20 History [Vitamin D3] donepezil [Aricept] 5 mg PO HS 08/08/20 08/08/20 History lactobacillus combination no.4 0 mmu cells PO DAILY 08/08/20 08/08/20 History [Probiotic] magnesium 200 mg PO DAILY 08/08/20 08/08/20 History metoprolol succinate [Toprol XL] 100 mg PO DAILY 08/08/20 08/08/20 History multivitamin 1 tab PO DAILY 08/08/20 08/08/20 History vitamin B complex 1 tab PO DAILY 08/08/20 08/08/20 History Past Med/Surg History Medical History (Updated 08/08/20 @ 18:56 by Loly Landin PA-C) Chronic atrial fibrillation Mitral valve prolapse Parkinson disease Surgical History (Updated 03/15/19 @ 21:24 by Loly Landin PA-C) History of right breast biopsy History of surgery Neurostimulator for Parkinson's disease, placed in [place], [place] History of tonsillectomy and adenoidectomy History of tubal ligation S/P deep brain stimulator placement Family History Mother Stroke Hemorrhage secondary to anticoagulation Social History Smoking Status: Never smoker Hx Alcohol Use: Yes Alcohol type: wine Hx Substance Use: No Preferred Language: Greek Communication Ability: Effective Informatics Physician Required: No Beliefs That Will Affect Care: None Feels Safe at Home: Yes Assistive Devices: Glasses and Walker Review of Systems Review of Systems: All systems reviewed & are unremarkable except as noted in HPI & below Physical Exam Physical Exam: Constitutional: WD/WN, F, parkinsonian affect, vitals as above, NAD, sitting up in bed, pleasant, conversing easily Head: Normocephalic, Atraumatic Eyes: PERRL, conjunctivae normal, anicteric sclerae ENMT: external ear and nose normal, oropharynx normal Neck: trachea midline, no thyromegaly normal visual inspection Respiratory: normal respiratory effort, lungs clear to auscultation, no wheeze, rales, rhonchi. Normal insp/exp effort, no accessory muscle use Cardiovascular: RRR, no murmur, no edema Vessels: no JVD or carotid bruit Chest: normal inspection of chest Abdomen: normal bowel sounds, soft, nontender, no hepatosplenomegaly Musculoskeletal: no cyanosis or clubbing, extremities motor strength 5/5 grossly b/l , except RUE 4/5 which is usual per patient Skin: no rashes, warm and dry normal turgor Neurologic: +cogwheeling, RUE tremor noted, PERRL, EOMI, accommodation nl, no face palsy, no dysarthria CN's II-XI intact bilaterally and moves all extremities Psychiatric: A+Ox3, euthymic affect Lymphatic: no cervical or axillary lymphadenopathy : deferred Results & Data Results & Data ([facility]) Vital Signs (Past 12 Hours) Vital Signs Temp Pulse Resp BP Pulse Ox 08/08/20 18:00 92 H 22 100 08/08/20 17:40 95 H 20 98 08/08/20 17:20 90 21 92 08/08/20 17:00 105 H 20 98 08/08/20 16:40 89 20 99 08/08/20 16:30 95 H 23 151/85 H 98 08/08/20 16:20 92 H 26 H 100 08/08/20 16:00 94 H 20 100 08/08/20 15:40 98 H 26 H 100 08/08/20 15:30 91 H 23 108/68 100 08/08/20 15:20 80 26 H 100 08/08/20 15:00 76 22 126/76 100 08/08/20 14:40 79 28 H 99 08/08/20 14:05 81 16 96 08/08/20 14:02 78 20 103/72 97 08/08/20 13:30 84 22 91/61 L 98 08/08/20 13:16 36.5 C 80 17 105/73 96 08/08/20 13:15 84 20 98/66 L 98 08/08/20 13:10 83 22 105/73 98 Laboratory Results Short CBC 08/08/20 08/08/20 Range/Units 13:57 13:57 WBC 6.98 (4.8-10.8) K/uL Hgb 13.0 (12.0-16.0) g/dL Hct 39.7 (37-47) % Plt Count 235 (130-400) K/uL Creatinine 0.86 (0.6-1.2) mg/dl BMP 08/08/20 13:57 Sodium 140 Potassium 4.6 Chloride 108 H Carbon Dioxide 28 BUN 21 H Creatinine 0.86 Glucose 82 Calcium 9.4 Cardiac Enzymes 08/08/20 Range/Units 13:57 Troponin I < 0.015 (0-0.045) ng/ml Liver Function 08/08/20 Range/Units 13:57 Total Bilirubin 0.6 (0.2-1) mg/dl Direct Bilirubin 0.2 (0-0.2) mg/dl AST 19 (15-37) U/L ALT 8 L (12-78) U/L Alkaline Phosphatase 56 (45-117) U/L Albumin 3.5 (3.4-5.0) gm/dl Urine 08/08/20 Range/Units 14:15 Urine Color Dark Yellow Urine Appearance Clear (Clear) Urine pH 5.5 (4.5-7.5) Ur Specific [place] 1.025 (1.000-1.030) Urine Protein 1+ H (Negative) Urine Glucose (UA) Trace H (Negative) Diagnostic Findings Head CT: IMPRESSION: There is no hemorrhage, mass effect, or evidence of acute territorial ischemia by CT criteria. CXR: IMPRESSION: No acute cardiopulmonary findings. Medications Administered Discontinued Medications Sodium Chloride (Nss 1000ml) 1,000 mls @ 999 mls/hr IV .Q1H1M ONE Stop: 08/08/20 14:49 Last Admin: 08/08/20 14:07 Dose: 999 mls/hr Documented by: [id number] ECG Rate (beats per minute): 87 Rhythm: atrial fibrillation Code Status & VTE Plan Code Status Full Code VTE Prophylaxis Plan VTE Prophylaxis will be ordered: Yes
[2020-08-08] MEDS ORDERED: GABAPENTIN 600 MG TAB PO SCH (20:19)
[2020-08-08] MEDS ORDERED: ALUMINUM/MAGNESIUM SUSP 30 ML UDC PO PRN (20:19)
[2020-08-08] MEDS ORDERED: POLYETHYLENE (MIRALAX) 17 GM PACK PO PRN (20:19)
[2020-08-08] MEDS ORDERED: MAGNESIUM HYDROXIDE SUSP 30 ML UDC PO PRN (20:19)
[2020-08-08] MEDS ORDERED: ACETAMINOPHEN 325 MG TAB PO PRN (20:19)
[2020-08-08] MEDS ORDERED: INFLUENZA VIRUS QUAD VACCINE 0.5 ML SYR IM ONE (20:51)
[2020-08-08] MEDS ORDERED: INFLUENZA ADMINISTRATION CHARGE ONE (20:51)
[2020-08-08] MEDS: CARBIDOPA/LEVODOPA 25/100MG TAB PO SCH (21:34)
[2020-08-08] MEDS: ASPIRIN 81 MG ECTAB PO SCH (21:34)
[2020-08-08] MEDS: DONEPEZIL HCL 5 MG TAB PO SCH (21:34)
[2020-08-08] MEDS: ENOXAPARIN INJ 30 MG/0.3 ML SYR SQ SCH (21:39)
[2020-08-08] MEDS ORDERED: GABAPENTIN 600 MG TAB PO PRN (23:00)
[2020-08-09] MEDS: CARBIDOPA/LEVODOPA 25/100MG TAB PO SCH ×5 (06:48→18:23)
[2020-08-09 07:09] LABS: Hematocrit (blood only) 36.8 % (37-47); Hemoglobin 11.9 g/dL (12.0-16.0); Mean Corpuscular Hemoglobin 30.4 pg (25-34); Mean Corpuscular Hgb Conc 32.3 g/dL (32-36); Mean Corpuscular Volume 94.1 fL (80-100); Mean Platelet Volume 10.9 fL (7.4-10.4); Platelet Count 212 K/uL (130-400); RDW Coefficient of Variation 13.5 % (11.5-14.5); RDW Standard Deviation 46.5 fL (36.4-46.3); Red Blood Count 3.91 M/uL (4.2-5.4); White Blood Count 5.31 K/uL (4.8-10.8)
--- NOTE | 2020-08-09 07:21 | Hospitalist Progress Note ---
Date of Service August 09, 2020 Assessment & Plan (1) Ambulatory dysfunction: (2) Dehydration: (3) Diarrhea: This is a 80-year-old female with significant past medical history of chronic atrial fibrillation not on oral anticoagulation, advanced Parkinson's disease with deep brain stimulator, dementia, mitral valve prolapse who presents to ED secondary to diarrhea x1 week and generalized decline. In ED patient made hemodynamically stable. CBC and CMP were generally unremarkable except mild elevation BUN 21, creatinine 1.86, ratio 23.9. Mag and Phos were WNL. TSH WNL. Urinalysis trace leukocyte esterase with 10-[address] was negative for acute intracranial abnormality. Chest x-ray no acute process. She received 1 L of IVF in ED with improvement of symptoms. Blood, urine and stool cultures - pending no indication for antibiotics at this time IVF x 1 L - reassess Lactic acid 2.4, after IVF down to 1.3 abd exam benign, afebrile, wbc wnl - stool studies and stool count (no BM yet) renal function stable, mild elevation BUN - likely pre renal in setting of poor po intake, diarrhea BUN/ Cr >20 on admission now much improved PT/OT - recommend rehab, CM aware Pt has caregivers at home (4) Chronic atrial fibrillation: rate controlled with metoprolol ASA for thrombotic prophylaxis CHADSVASC 3, but high risk 2/2 to PD and falls therefore placed on ASA (5) Parkinson disease: s/p DBS placement with R side exchange 07/27, scheduled for program on 08/13 advanced PD with dementia on sinemet, aricept previously weaned off gabapentin, but wishes to restart due to leg cramping she will discuss with neurologist at follow up on 08/13 (6) DVT prophylaxis: SQ Lovenox 30mg daily Disposition: admit to medical PT recommends rehab, CM aware. Pt has caregivers at home. Discussed with son Xavier over the phone. He lives in [place]. Wishes to further discuss with CM. Follow up: PCP Dr. Barraza upon discharge Admission and Anticipated Discharge Date Admission Date: August 08, 2020 Subjective Pt is sitting up in bed in NAD. Denies any fever, chills, chest pain, shortness of breath, abd. pain. No BM today. Stool studies/cultx ordered. Review of Systems Review of Systems: All systems reviewed & are unremarkable except as noted in HPI & below Constitutional: no fever and no chills Respiratory: no cough and no dyspnea Cardiovascular: no chest pain and no palpitations Gastrointestinal: no abdominal pain, no nausea and no vomiting Physical Exam Physical Exam: Constitutional: WD/WN, F, parkinsonian affect, vitals as above, NAD, sitting up in bed, pleasant, conversing easily Head: Normocephalic, Atraumatic Eyes: PERRL, EOMI, conjunctivae normal, anicteric sclerae ENMT: external ear and nose normal, oropharynx normal Neck: trachea midline, no thyromegaly normal visual inspection Respiratory: normal respiratory effort, lungs clear to auscultation, no wheeze, rales, rhonchi. Normal insp/exp effort, no accessory muscle use Cardiovascular: RRR, no murmur, no edema Vessels: no JVD or carotid bruit Chest: normal inspection of chest Abdomen: normal bowel sounds, soft, nontender Musculoskeletal: no cyanosis or clubbing, extremities motor strength 5/5 grossly b/l , except RUE 4/5 which is usual per patient Skin: no rashes, warm and dry normal turgor Neurologic: +cogwheeling, RUE tremor noted, PERRL, EOMI, no face palsy, no dysarthria, moves all extremities Psychiatric: A+Ox3, euthymic affect Results & Data Results & Data ([facility]) Vital Signs (Past 12 Hours) Vital Signs Temp Pulse Resp BP Pulse Ox Pulse Ox 08/09/20 07:19 36.7 C 78 16 131/87 96 08/08/20 23:45 96 08/08/20 23:05 36.6 C 64 16 112/73 96 08/08/20 20:20 36.9 C 86 16 153/92 H 98 Laboratory Results 08/09/20 08/09/20 Range/Units 06:42 06:42 WBC 5.31 (4.8-10.8) K/uL RBC 3.91 L (4.2-5.4) M/uL Hgb 11.9 L (12.0-16.0) g/dL Hct 36.8 L (37-47) % MCV 94.1 (80-100) fL MCH 30.4 (25-34) pg MCHC 32.3 (32-36) g/dL RDW Std Deviation 46.5 H (36.4-46.3) fL RDW Coeff of Ever 13.5 (11.5-14.5) % Plt Count 212 (130-400) K/uL MPV 10.9 H (7.4-10.4) fL Sodium 142 (136-145) mmol/L Potassium 4.3 (3.5-5.1) mmol/L Chloride 111 H (98-107) mmol/L Carbon Dioxide 27 (21-32) mmol/L Anion Gap 4.0 (3-11) BUN 13 (7-18) mg/dl Creatinine 0.76 (0.6-1.2) mg/dl Est Cr Clr Drug Dosing 54.0 ml/min Est GFR ( Amer) 86.5 Est GFR (Non-Af Amer) 74.6 BUN/Creatinine Ratio 17.6 (10-20) Glucose 84 (70-99) mg/dl Calcium 8.9 (8.5-10.1) mg/dl Medications Administered Current Inpatient Medications Acetaminophen (Acetaminophen 325 Mg Tab) 650 mg PO Q4H PRN PRN Reason: pain/fever Stop: 09/07/20 20:18 Al Hydrox/Mg Hydrox/Simethicone (Aluminum/Magnesium Susp 30 Ml Udc) 30 ml PO Q6H PRN PRN Reason: Dyspepsia Stop: 09/07/20 20:18 Aspirin (Aspirin 81 Mg Ectab) 81 mg PO DAILY BRANDO Stop: 09/07/20 20:44 Last Admin: 08/09/20 08:37 Dose: 81 mg Documented by: Carbidopa/Levodopa (Carbidopa/Levodopa 25/100mg Tab) 1 tab PO DAILY@0700,1000,1300,1600,1900 BRANDO Stop: 09/07/20 20:44 Last Admin: 08/09/20 18:23 Dose: 1 tab Documented by: Donepezil HCl (Donepezil Hcl 5 Mg Tab) 5 mg PO HS BRANDO Stop: 09/07/20 20:59 Last Admin: 08/09/20 20:57 Dose: 5 mg Documented by: Enoxaparin Sodium (Enoxaparin Inj 30 Mg/0.3 Ml Syr) 30 mg SQ Q24H BRANDO Stop: 09/07/20 20:59 Last Admin: 08/09/20 20:57 Dose: 30 mg Documented by: Gabapentin (Gabapentin 600 Mg Tab) 600 mg PO 5XDQ4H PRN PRN Reason: UNKNOWN Stop: 09/07/20 22:59 Lactobacillus Acidoph/Casei/Rhamnos (Advanced Probiotic 1250 Mg Capsule) 2 cap PO DAILY BRANDO Stop: 09/08/20 08:59 Last Admin: 08/09/20 08:37 Dose: 2 cap Documented by: Magnesium Hydroxide (Magnesium Hydroxide Susp 30 Ml Udc) 30 ml PO Q6H PRN PRN Reason: Constipation Stop: 09/07/20 20:18 Magnesium Oxide (Magnesium Oxide 400 Mg Tab) 400 mg PO DAILY BRANDO Stop: 09/08/20 08:59 Last Admin: 08/09/20 08:37 Dose: 400 mg Documented by: Metoprolol Succinate (Metoprolol Succ 50mg Ext Rel Tab) 100 mg PO DAILY BRANDO Stop: 09/08/20 08:59 Last Admin: 08/09/20 08:37 Dose: 100 mg Documented by: Multivitamins (Multivitamin Tab) 1 tab PO DAILY BRANDO Stop: 09/08/20 08:59 Last Admin: 08/09/20 08:37 Dose: 1 tab Documented by: Polyethylene Glycol (Polyethylene (Miralax) 17 Gm Pack) 17 gm PO DAILY PRN PRN Reason: Constipation Stop: 09/07/20 20:18 Vitamin B Complex (Vitamin B Complex Tab) 1 tab PO DAILY BRANDO Stop: 09/08/20 08:59 Last Admin: 08/09/20 08:37 Dose: 1 tab Documented by: Vitamin D (Cholecalciferol 1,000 Units 25 Mcg Tab) 1,000 units PO DAILY BRANDO Stop: 09/08/20 08:59 Last Admin: 08/09/20 08:37 Dose: 1,000 units Documented by: (1) Diarrhea Diarrhea type: unspecified type Qualified Code(s): R19.7 - Diarrhea, unspecified
[2020-08-09 07:45] LABS: BUN Creatinine Ratio 17.6 (10-20); Calcium 8.9 mg/dl (8.5-10.1); Est GFR (African American) 86.5; Est GFR (Non-African American) 74.6; Potassium 4.3 mmol/L (3.5-5.1)
[2020-08-09] MEDS: MULTIVITAMIN TAB PO SCH (08:37)
[2020-08-09] MEDS: ASPIRIN 81 MG ECTAB PO SCH (08:37)
[2020-08-09] MEDS: METOPROLOL SUCC 50MG EXT REL TAB PO SCH (08:37)
[2020-08-09] MEDS: ADVANCED PROBIOTIC 1250 MG CAPSULE PO SCH (08:37)
[2020-08-09] MEDS: MAGNESIUM OXIDE 400 MG TAB PO SCH (08:37)
[2020-08-09] MEDS: VITAMIN B COMPLEX TAB PO SCH (08:37)
[2020-08-09] MEDS: CHOLECALCIFEROL 1,000 UNITS 25 MCG TAB PO SCH (08:37)
[2020-08-09] MEDS ORDERED: ASPIRIN 81 MG ECTAB PO SCH (09:00)
--- NOTE | 2020-08-09 13:46 | Electrocardiogram Report ---
Test Reason : Blood Pressure : / mmHG Vent. Rate : 087 BPM Atrial Rate : 087 BPM P-R Int : 000 ms QRS Dur : 138 ms QT Int : 600 ms P-R-T Axes : 000 -49 059 degrees QTc Int : 722 ms Poor data quality, interpretation may be adversely affected Atrial fibrillation Left axis deviation T wave abnormality, consider inferior ischemia Abnormal ECG When compared with ECG of 17-MAR-2019 06:52, QT has lengthened Confirmed by Davide Floyd ([id number]) on 08/09/2020 1:46:02 PM Referred By: REFERRED SELF Confirmed By:Roberth Floyd
[2020-08-09] MEDS: ENOXAPARIN INJ 30 MG/0.3 ML SYR SQ SCH (20:57)
[2020-08-09] MEDS: DONEPEZIL HCL 5 MG TAB PO SCH (20:57)
[2020-08-10] MEDS: CARBIDOPA/LEVODOPA 25/100MG TAB PO SCH ×5 (06:29→18:01)
[2020-08-10 06:40] LABS: Hemoglobin 13.3 g/dL (12.0-16.0); Mean Corpuscular Hemoglobin 31.1 pg (25-34); Mean Corpuscular Hgb Conc 33.3 g/dL (32-36); Mean Corpuscular Volume 93.7 fL (80-100); Platelet Count 225 K/uL (130-400); RDW Coefficient of Variation 13.2 % (11.5-14.5); RDW Standard Deviation 45.4 fL (36.4-46.3); Red Blood Count 4.27 M/uL (4.2-5.4); White Blood Count 7.07 K/uL (4.8-10.8)
[2020-08-10 07:15] LABS: BUN Creatinine Ratio 16.5 (10-20); Calcium 9.2 mg/dl (8.5-10.1); Creatinine Clr Calc Pharmacy 50.1 ml/min; Est GFR (African American) 78.9; Est GFR (Non-African American) 68.1; Potassium 4.2 mmol/L (3.5-5.1)
[2020-08-10 07:20] LABS: Phosphorus 3.4 mg/dl (2.5-4.9)
--- NOTE | 2020-08-10 07:35 | Hospitalist Progress Note ---
Date of Service August 10, 2020 Assessment & Plan (1) Ambulatory dysfunction: (2) Dehydration: (3) Diarrhea: This is a 80-year-old female with significant past medical history of chronic atrial fibrillation not on oral anticoagulation, advanced Parkinson's disease with deep brain stimulator, dementia, mitral valve prolapse who presents to ED secondary to diarrhea x1 week and generalized decline. In ED patient made hemodynamically stable. CBC and CMP were generally unremarkable except mild elevation BUN 21, creatinine 1.86, ratio 23.9. Mag and Phos were WNL. TSH WNL. Urinalysis trace leukocyte esterase with 10-[address] was negative for acute intracranial abnormality. Chest x-ray no acute process. She received 1 L of IVF in ED with improvement of symptoms. Blood, urine and stool cultures - ordered received IVF x 1 L in ER Lactic acid 2.4, after IVF down to 1.3 abd exam benign, afebrile, wbc wnl - stool studies and stool count (no BM yet) renal function stable, mild elevation BUN - likely pre renal in setting of poor po intake, diarrhea BUN/ Cr >20 on admission now much improved UTI Urine culture positive for Gram negative bacilli (08/10) - empiric Abx - ceftriaxone started PT/OT - recommend rehab, CM aware Pt has caregivers at home (4) Chronic atrial fibrillation: rate controlled with metoprolol ASA for thrombotic prophylaxis CHADSVASC 3, but high risk 2/2 to PD and falls therefore placed on ASA (5) Parkinson disease: s/p DBS placement with R side exchange 07/27, scheduled for program on 08/13 advanced PD with dementia on sinemet, aricept previously weaned off gabapentin, but wishes to restart due to leg cramping she will discuss with neurologist at follow up on 08/13 (6) DVT prophylaxis: SQ Lovenox 30mg daily Disposition: admit to medical PT recommends rehab, CM aware. Pt has caregivers at home. Discussed with son Xavier over the phone. He lives in [place]. Wishes to further discuss with CM. Tried to contact caregiver Pat at [phone] (home) -was only able to leave a message, and at [phone] (cell) -voicemail not set up Follow up: PCP Dr. Barraza upon discharge Admission and Anticipated Discharge Date Admission Date: August 08, 2020 Subjective Pt is sitting up in bed in NAD. Denies any fever, chills, chest pain, shortness of breath, abd. pain. No BM today. Stool studies/cultx ordered. U cltx positive for Gram negative bacilli - empiric Abx started Review of Systems Review of Systems: All systems reviewed & are unremarkable except as noted in HPI & below Constitutional: no fever and no chills Respiratory: no cough and no dyspnea Cardiovascular: no chest pain, no palpitations and no edema Gastrointestinal: no abdominal pain, no nausea and no vomiting Physical Exam Physical Exam: Constitutional: WD/WN, F, parkinsonian affect, vitals as above, NAD, sitting up in bed, pleasant, conversing easily Head: Normocephalic, Atraumatic Eyes: PERRL, EOMI, conjunctivae normal, anicteric sclerae ENMT: external ear and nose normal, oropharynx normal Neck: trachea midline, no thyromegaly normal visual inspection Respiratory: normal respiratory effort, lungs clear to auscultation, no wheeze, rales, rhonchi. Normal insp/exp effort, no accessory muscle use Cardiovascular: RRR, no murmur, no edema Vessels: no JVD or carotid bruit Chest: normal inspection of chest Abdomen: normal bowel sounds, soft, nontender Musculoskeletal: no cyanosis or clubbing, extremities motor strength 5/5 grossly b/l , except RUE 4/5 which is usual per patient Skin: no rashes, warm and dry normal turgor Neurologic: +cogwheeling, RUE tremor noted, PERRL, EOMI, no face palsy, no dysarthria, moves all extremities Psychiatric: A+Ox3, flat affect Results & Data Results & Data ([facility]) Vital Signs (Past 12 Hours) Vital Signs Temp Pulse Resp BP Pulse Ox 08/09/20 23:55 36.6 C 93 H 20 159/102 H 97 08/09/20 20:59 36.8 C 79 16 163/103 H 98 Laboratory Results 08/10/20 08/10/20 Range/Units 06:13 06:13 WBC 7.07 (4.8-10.8) K/uL RBC 4.27 (4.2-5.4) M/uL Hgb 13.3 (12.0-16.0) g/dL Hct 40.0 (37-47) % MCV 93.7 (80-100) fL MCH 31.1 (25-34) pg MCHC 33.3 (32-36) g/dL RDW Std Deviation 45.4 (36.4-46.3) fL RDW Coeff of Ever 13.2 (11.5-14.5) % Plt Count 225 (130-400) K/uL MPV 11.0 H (7.4-10.4) fL Sodium 140 (136-145) mmol/L Potassium 4.2 (3.5-5.1) mmol/L Chloride 107 (98-107) mmol/L Carbon Dioxide 28 (21-32) mmol/L Anion Gap 6.0 (3-11) BUN 14 (7-18) mg/dl Creatinine 0.82 (0.6-1.2) mg/dl Est Cr Clr Drug Dosing 50.1 ml/min Est GFR ( Amer) 78.9 Est GFR (Non-Af Amer) 68.1 BUN/Creatinine Ratio 16.5 (10-20) Glucose 84 (70-99) mg/dl Calcium 9.2 (8.5-10.1) mg/dl Phosphorus 3.4 (2.5-4.9) mg/dl Magnesium 2.0 (1.8-2.4) mg/dl Medications Administered Current Inpatient Medications Acetaminophen (Acetaminophen 325 Mg Tab) 650 mg PO Q4H PRN PRN Reason: pain/fever Stop: 09/07/20 20:18 Al Hydrox/Mg Hydrox/Simethicone (Aluminum/Magnesium Susp 30 Ml Udc) 30 ml PO Q6H PRN PRN Reason: Dyspepsia Stop: 09/07/20 20:18 Aspirin (Aspirin 81 Mg Ectab) 81 mg PO DAILY BRANDO Stop: 09/07/20 20:44 Last Admin: 08/10/20 09:19 Dose: 81 mg Documented by: Carbidopa/Levodopa (Carbidopa/Levodopa 25/100mg Tab) 1 tab PO DAILY@0700,1000,1300,1600,1900 BRANDO Stop: 09/07/20 20:44 Last Admin: 08/10/20 09:20 Dose: 1 tab Documented by: Donepezil HCl (Donepezil Hcl 5 Mg Tab) 5 mg PO HS [facility] Stop: 09/07/20 20:59 Last Admin: 08/09/20 20:57 Dose: 5 mg Documented by: Enoxaparin Sodium (Enoxaparin Inj 30 Mg/0.3 Ml Syr) 30 mg SQ Q24H BRANDO Stop: 09/07/20 20:59 Last Admin: 08/09/20 20:57 Dose: 30 mg Documented by: Gabapentin (Gabapentin 600 Mg Tab) 600 mg PO 5XDQ4H PRN PRN Reason: UNKNOWN Stop: 09/07/20 22:59 Ceftriaxone Sodium 1,000 mg/ (Dextrose) 60 mls @ 100 mls/hr IV Q24H BRANDO; Protocol Stop: 08/15/20 11:59 Lactobacillus Acidoph/Casei/Rhamnos (Advanced Probiotic 1250 Mg Capsule) 2 cap PO DAILY BRANDO Stop: 09/08/20 08:59 Last Admin: 08/10/20 09:19 Dose: 2 cap Documented by: Magnesium Hydroxide (Magnesium Hydroxide Susp 30 Ml Udc) 30 ml PO Q6H PRN PRN Reason: Constipation Stop: 09/07/20 20:18 Magnesium Oxide (Magnesium Oxide 400 Mg Tab) 400 mg PO DAILY BRANDO Stop: 09/08/20 08:59 Last Admin: 08/10/20 09:19 Dose: 400 mg Documented by: Metoprolol Succinate (Metoprolol Succ 50mg Ext Rel Tab) 100 mg PO DAILY [facility] Stop: 09/08/20 08:59 Last Admin: 08/10/20 09:19 Dose: 100 mg Documented by: Multivitamins (Multivitamin Tab) 1 tab PO DAILY BRANDO Stop: 09/08/20 08:59 Last Admin: 08/10/20 09:19 Dose: 1 tab Documented by: Polyethylene Glycol (Polyethylene (Miralax) 17 Gm Pack) 17 gm PO DAILY PRN PRN Reason: Constipation Stop: 09/07/20 20:18 Vitamin B Complex (Vitamin B Complex Tab) 1 tab PO DAILY BRANDO Stop: 09/08/20 08:59 Last Admin: 08/10/20 09:19 Dose: 1 tab Documented by: Vitamin D (Cholecalciferol 1,000 Units 25 Mcg Tab) 1,000 units PO DAILY [facility] Stop: 09/08/20 08:59 Last Admin: 08/10/20 09:19 Dose: 1,000 units Documented by: (1) Diarrhea Diarrhea type: unspecified type Qualified Code(s): R19.7 - Diarrhea, unspecified
[2020-08-10] MEDS: MULTIVITAMIN TAB PO SCH (09:19)
[2020-08-10] MEDS: CHOLECALCIFEROL 1,000 UNITS 25 MCG TAB PO SCH (09:19)
[2020-08-10] MEDS: VITAMIN B COMPLEX TAB PO SCH (09:19)
[2020-08-10] MEDS: ASPIRIN 81 MG ECTAB PO SCH (09:19)
[2020-08-10] MEDS: MAGNESIUM OXIDE 400 MG TAB PO SCH (09:19)
[2020-08-10] MEDS: METOPROLOL SUCC 50MG EXT REL TAB PO SCH (09:19)
[2020-08-10] MEDS: ADVANCED PROBIOTIC 1250 MG CAPSULE PO SCH (09:19)
[2020-08-10] MEDS: cefTRIAXone SODIUM 1,000 MG in DEXTROSE 5% 50 ML IV SCH (12:16)
[2020-08-10] MEDS: DONEPEZIL HCL 5 MG TAB PO SCH (20:28)
[2020-08-10] MEDS: ENOXAPARIN INJ 30 MG/0.3 ML SYR SQ SCH (20:29)
[2020-08-11] MEDS: CARBIDOPA/LEVODOPA 25/100MG TAB PO SCH ×5 (06:04→20:15)
[2020-08-11 07:57] LABS: Hematocrit (blood only) 37.1 % (37-47); Hemoglobin 12.3 g/dL (12.0-16.0); Mean Corpuscular Hemoglobin 30.7 pg (25-34); Mean Corpuscular Hgb Conc 33.2 g/dL (32-36); Mean Corpuscular Volume 92.5 fL (80-100); Mean Platelet Volume 10.7 fL (7.4-10.4); Platelet Count 211 K/uL (130-400); RDW Coefficient of Variation 13.2 % (11.5-14.5); RDW Standard Deviation 44.6 fL (36.4-46.3); Red Blood Count 4.01 M/uL (4.2-5.4); White Blood Count 5.83 K/uL (4.8-10.8)
[2020-08-11 08:29] LABS: BUN Creatinine Ratio 16.4 (10-20); Calcium 8.9 mg/dl (8.5-10.1); Creatinine Clr Calc Pharmacy 54.7 ml/min; Est GFR (African American) 87.9; Est GFR (Non-African American) 75.8; Magnesium 2.1 mg/dl (1.8-2.4); Phosphorus 3.3 mg/dl (2.5-4.9); Potassium 3.9 mmol/L (3.5-5.1)
[2020-08-11] MEDS: VITAMIN B COMPLEX TAB PO SCH (08:34)
[2020-08-11] MEDS: CHOLECALCIFEROL 1,000 UNITS 25 MCG TAB PO SCH (08:34)
[2020-08-11] MEDS: ASPIRIN 81 MG ECTAB PO SCH (08:35)
[2020-08-11] MEDS: MULTIVITAMIN TAB PO SCH (08:35)
[2020-08-11] MEDS: METOPROLOL SUCC 50MG EXT REL TAB PO SCH (08:36)
[2020-08-11] MEDS: MAGNESIUM OXIDE 400 MG TAB PO SCH (08:36)
[2020-08-11] MEDS: ADVANCED PROBIOTIC 1250 MG CAPSULE PO SCH (08:47)
[2020-08-11] MEDS: cefTRIAXone SODIUM 1,000 MG in DEXTROSE 5% 50 ML IV SCH (11:54)
--- NOTE | 2020-08-11 18:43 | Hospitalist Progress Note ---
Date of Service August 11, 2020 Assessment & Plan (1) Ambulatory dysfunction: (2) Dehydration: (3) Diarrhea: This is a 80-year-old female with significant past medical history of chronic atrial fibrillation not on oral anticoagulation, advanced Parkinson's disease with deep brain stimulator, dementia, mitral valve prolapse who presents to ED secondary to diarrhea x1 week and generalized decline. In ED patient made hemodynamically stable. CBC and CMP were generally unremarkable except mild elevation BUN 21, creatinine 1.86, ratio 23.9. Mag and Phos were WNL. TSH WNL. Urinalysis trace leukocyte esterase with 10-[address] was negative for acute intracranial abnormality. Chest x-ray no acute process. She received 1 L of IVF in ED with improvement of symptoms. Blood, urine and stool cultures - ordered received IVF x 1 L in ER Lactic acid 2.4, after IVF down to 1.3 abd exam benign, afebrile, wbc wnl - stool studies and stool count renal function stable, mild elevation BUN - likely pre renal in setting of poor po intake, diarrhea BUN/ Cr >20 on admission now much improved Diarrhea - no BM for first 2 days while inpt -today 08/11, pt had BM, normal solid stool UTI Urine culture positive for Gram negative bacilli (08/10) - empiric Abx - ceftriaxone started PT/OT - recommend rehab, CM aware Pt has caregivers at home (4) Chronic atrial fibrillation: rate controlled with metoprolol ASA for thrombotic prophylaxis CHADSVASC 3, but high risk 2/2 to PD and falls therefore placed on ASA (5) Parkinson disease: s/p DBS placement with R side exchange 07/27, scheduled for program on 08/13 advanced PD with dementia on sinemet, aricept previously weaned off gabapentin, but wishes to restart due to leg cramping she will discuss with neurologist at follow up on 08/13 (6) DVT prophylaxis: SQ Lovenox 30mg daily Disposition: admit to medical PT initially recommended rehab, CM aware. Pt has caregivers at home. Discussed with son Xavier over the phone. He lives in [place]. Wishes to further discuss with CM. Tried to contact caregiver Pat at [phone] (home) -was only able to leave a message, and at [phone] (cell) -voicemail not set up Follow up: PCP Dr. Barraza upon discharge Admission and Anticipated Discharge Date Admission Date: August 10, 2020 Subjective Pt is sitting up in bed in NAD. Denies any fever, chills, chest pain, shortness of breath, abd. pain. Had BM today, normal solid stool. U cltx positive for Gram negative bacilli - empiric Abx started Review of Systems Review of Systems: All systems reviewed & are unremarkable except as noted in HPI & below Constitutional: no fever and no chills Respiratory: no cough and no dyspnea Cardiovascular: no chest pain and no palpitations Gastrointestinal: no abdominal pain, no nausea and no vomiting Physical Exam Physical Exam: Constitutional: WD/WN, F, parkinsonian affect, vitals as above, NAD, sitting up in bed, pleasant, conversing easily Head: Normocephalic, Atraumatic Eyes: PERRL, EOMI, conjunctivae normal, anicteric sclerae ENMT: external ear and nose normal, oropharynx normal Neck: trachea midline, no thyromegaly normal visual inspection Respiratory: normal respiratory effort, lungs clear to auscultation, no wheeze, rales, rhonchi. Normal insp/exp effort, no accessory muscle use Cardiovascular: RRR, no murmur, no edema Vessels: no JVD or carotid bruit Chest: normal inspection of chest Abdomen: normal bowel sounds, soft, nontender Musculoskeletal: no cyanosis or clubbing, extremities motor strength 5/5 grossly b/l , except RUE 4/5 which is usual per patient Skin: no rashes, warm and dry normal turgor Neurologic: +cogwheeling, RUE tremor noted, PERRL, EOMI, no face palsy, no dysarthria, moves all extremities Psychiatric: A+Ox3, flat affect Results & Data Results & Data ([facility]) Vital Signs (Past 12 Hours) Vital Signs Temp Pulse Resp BP Pulse Ox 08/11/20 15:09 36.4 C L 82 16 116/77 97 08/11/20 07:04 36.4 C L 66 16 121/82 95 (1) Diarrhea Diarrhea type: unspecified type Qualified Code(s): R19.7 - Diarrhea, unspecified
[2020-08-11] MEDS: DONEPEZIL HCL 5 MG TAB PO SCH (20:15)
[2020-08-11] MEDS: ENOXAPARIN INJ 30 MG/0.3 ML SYR SQ SCH (20:15)
[2020-08-12] MEDS: CARBIDOPA/LEVODOPA 25/100MG TAB PO SCH ×3 (06:55→13:02)
[2020-08-12] MEDS: CHOLECALCIFEROL 1,000 UNITS 25 MCG TAB PO SCH (07:48)
[2020-08-12] MEDS: ASPIRIN 81 MG ECTAB PO SCH (07:48)
[2020-08-12] MEDS: MULTIVITAMIN TAB PO SCH (07:49)
[2020-08-12] MEDS: ADVANCED PROBIOTIC 1250 MG CAPSULE PO SCH (07:49)
[2020-08-12] MEDS: METOPROLOL SUCC 50MG EXT REL TAB PO SCH (07:50)
[2020-08-12] MEDS: MAGNESIUM OXIDE 400 MG TAB PO SCH (07:50)
[2020-08-12] MEDS: VITAMIN B COMPLEX TAB PO SCH (07:51)
[2020-08-12 07:57] LABS: Hematocrit (blood only) 40.4 % (37-47); Hemoglobin 13.4 g/dL (12.0-16.0); Mean Corpuscular Hemoglobin 30.9 pg (25-34); Mean Corpuscular Hgb Conc 33.2 g/dL (32-36); Mean Corpuscular Volume 93.3 fL (80-100); Mean Platelet Volume 11.3 fL (7.4-10.4); Platelet Count 207 K/uL (130-400); RDW Coefficient of Variation 13.3 % (11.5-14.5); RDW Standard Deviation 46.1 fL (36.4-46.3); Red Blood Count 4.33 M/uL (4.2-5.4); White Blood Count 6.64 K/uL (4.8-10.8)
[2020-08-12 08:25] LABS: BUN Creatinine Ratio 18.2 (10-20); Calcium 9.1 mg/dl (8.5-10.1); Creatinine Clr Calc Pharmacy 54.7 ml/min; Est GFR (African American) 87.9; Est GFR (Non-African American) 75.8; Potassium 4.2 mmol/L (3.5-5.1)
[2020-08-12] MEDS: cefTRIAXone SODIUM 1,000 MG in DEXTROSE 5% 50 ML IV SCH (12:34)
--- NOTE | 2020-08-12 14:13 | Hospitalist Progress Note ---
Date of Service August 12, 2020 Assessment & Plan (1) Ambulatory dysfunction: (2) Dehydration: (3) Diarrhea: This is a 80-year-old female with significant past medical history of chronic atrial fibrillation not on oral anticoagulation, advanced Parkinson's disease with deep brain stimulator, dementia, mitral valve prolapse who presents to ED secondary to diarrhea x1 week and generalized decline. In ED patient made hemodynamically stable. CBC and CMP were generally unremarkable except mild elevation BUN 21, creatinine 1.86, ratio 23.9. Mag and Phos were WNL. TSH WNL. Urinalysis trace leukocyte esterase with 10-[address] was negative for acute intracranial abnormality. Chest x-ray no acute process. She received 1 L of IVF in ED with improvement of symptoms. Blood, urine and stool cultures - ordered received IVF x 1 L in ER Lactic acid 2.4, after IVF down to 1.3 abd exam benign, afebrile, wbc wnl - stool studies and stool count renal function stable, mild elevation BUN - likely pre renal in setting of poor po intake, diarrhea BUN/ Cr >20 on admission now much improved Diarrhea - no BM for first 2 days while inpt - then yesterday 08/11, pt had BM, normal solid stool - stool cultx - negative UTI Urine culture positive for E.coli, pansensitive (08/10) - treated with ceftriaxone, abx course finished PT/OT - recommend rehab, CM aware Pt has caregivers at home (4) Chronic atrial fibrillation: rate controlled with metoprolol ASA for thrombotic prophylaxis CHADSVASC 3, but high risk 2/2 to PD and falls therefore placed on ASA (5) Parkinson disease: s/p DBS placement with R side exchange 07/27, scheduled for program on 08/13 advanced PD with dementia on sinemet, aricept previously weaned off gabapentin, but wishes to restart due to leg cramping she will discuss with neurologist at follow up on 08/13 (6) DVT prophylaxis: SQ Lovenox 30mg daily Disposition: Plan to dc home, CM arranging possible [facility] from home. Follow up: PCP Dr. Barraza upon discharge Admission and Anticipated Discharge Date Admission Date: August 10, 2020 Subjective Pt is sitting up in bed in NAD. Denies any fever, chills, chest pain, shortness of breath, abd. pain. Had BM yesterday, normal solid stool. U cltx positive for Gram negative bacilli - empiric Abx given Review of Systems Review of Systems: All systems reviewed & are unremarkable except as noted in HPI & below Constitutional: no fever and no chills Respiratory: no cough and no dyspnea Cardiovascular: no chest pain and no palpitations Gastrointestinal: no abdominal pain, no nausea and no vomiting Physical Exam Physical Exam: Constitutional: WD/WN, F, parkinsonian affect, vitals as above, NAD, sitting up in bed, pleasant, conversing easily Head: Normocephalic, Atraumatic Eyes: PERRL, EOMI, conjunctivae normal, anicteric sclerae ENMT: external ear and nose normal, oropharynx normal Neck: trachea midline, no thyromegaly normal visual inspection Respiratory: normal respiratory effort, lungs clear to auscultation, no wheeze, rales, rhonchi. Normal insp/exp effort, no accessory muscle use Cardiovascular: RRR, no murmur, no edema Vessels: no JVD or carotid bruit Chest: normal inspection of chest Abdomen: normal bowel sounds, soft, nontender Musculoskeletal: no cyanosis or clubbing, extremities motor strength 5/5 grossly b/l , except RUE 4/5 which is usual per patient Skin: no rashes, warm and dry normal turgor Neurologic: +cogwheeling, RUE tremor noted, PERRL, EOMI, no face palsy, no dysarthria, moves all extremities Psychiatric: A+Ox3, flat affect Results & Data Results & Data ([facility]) Vital Signs (Past 12 Hours) Vital Signs Temp Pulse Resp BP Pulse Ox 08/12/20 07:21 37.5 C 108 H 16 154/93 H 95 Laboratory Results 08/12/20 08/12/20 Range/Units 07:22 07:22 WBC 6.64 (4.8-10.8) K/uL RBC 4.33 (4.2-5.4) M/uL Hgb 13.4 (12.0-16.0) g/dL Hct 40.4 (37-47) % MCV 93.3 (80-100) fL MCH 30.9 (25-34) pg MCHC 33.2 (32-36) g/dL RDW Std Deviation 46.1 (36.4-46.3) fL RDW Coeff of Ever 13.3 (11.5-14.5) % Plt Count 207 (130-400) K/uL MPV 11.3 H (7.4-10.4) fL Sodium 138 (136-145) mmol/L Potassium 4.2 (3.5-5.1) mmol/L Chloride 105 (98-107) mmol/L Carbon Dioxide 26 (21-32) mmol/L Anion Gap 7.0 (3-11) BUN 14 (7-18) mg/dl Creatinine 0.75 (0.6-1.2) mg/dl Est Cr Clr Drug Dosing 54.7 ml/min Est GFR ( Amer) 87.9 Est GFR (Non-Af Amer) 75.8 BUN/Creatinine Ratio 18.2 (10-20) Glucose 97 (70-99) mg/dl Calcium 9.1 (8.5-10.1) mg/dl (1) Diarrhea Diarrhea type: unspecified type Qualified Code(s): R19.7 - Diarrhea, unspecified
--- NOTE | 2020-08-12 14:35 | Discharge Summary ---
Date of Service August 12, 2020 Admission HPI Per Admitting Provider This is a 80-year-old female with significant past medical history of chronic atrial fibrillation not on oral anticoagulation, advanced Parkinson's disease with deep brain stimulator, dementia, mitral valve prolapse who presents to ED secondary to diarrhea x1 week and generalized decline. Caregiver is at bedside. She lives alone at home. Patient has deep brain stimulator in place. On her right side she had battery replaced 2 weeks ago at [facility]. She is to go on 08/13 to have better reprogrammed. Over the last 3 to 4 months they have noticed a general slow decline in patient. They chalked it up to the battery being on brain stimulator. According to caregiver her inpatient used to walk daily, but currently mobility is limited. She admits to having loose stool for the past 1 week. She is unable to tell me how many episodes, but does occur daily. She denies any recent antibiotic use. She denies any nausea, vomiting, abdominal pain, melena, hematochezia. Over the last 2 to 3 days oral intake has been limited. She has lost sense of taste and smell secondary to Parkinson's disease and therefore baseline has poor appetite. She has to be encouraged to eat and drink. Caregiver rates her nutrition is, "poor." She denies ajay weakness but has does have difficult with mobility secondary to pain/stiffness. Patient denies fever, chills, sweats, lightheadedness, dizziness, syncope, fall, chest pain, shortness breath, cough, dysuria, increased urgency or frequency with urination. She not take any medications today. She has not had anything to eat or drink yet today. In ED patient made hemodynamically stable. CBC and CMP were generally unremarkable except mild elevation BUN 21, creatinine 1.86, ratio 23.9. Mag and Phos were WNL. TSH WNL. Urinalysis trace leukocyte esterase with 10-[address] was negative for acute intracranial abnormality. Chest x-ray no acute process. She received 1 L of IVF in ED with improvement of symptoms. Admission Exam Per Admitting Provider Gen: WD/WN, F, NAD, sitting up in bed, pleasant, conversing easily, parkinsonian affect Head: Normocephalic, Atraumatic Eyes: Sclera normal, no conjunctival injection, PERRLA, EOMI ENT: Gross hearing intact, normal pharynx, mucous membranes moist Neck: supple, no adenopathy, No JVD, no bruit, Resp: Clear to auscultation b/l, no wheeze, rales, rhonchi. Normal insp/exp effort, no accessory muscle use CV: irregular rate, irregular rhythm, no murmur, rub, gallop, or ectopy Abd: +BS x 4, soft, nontender, nondistended Musculoskeletal: moves extremities active rom x 4, strength intact, good diagrammer strength Extremities: trace b/l edema with venous stasis changes Skin: warm, moist, no rash, negative turgor, cap refill < 2sec Neuro: Alert and oriented x 3, speech normal but slow, good mood/affect, cran nerve 2-12 intact grossly Principal Diagnosis UTI Dehydration Parkinson's disease Ambulatory dysfunction Discharge Exam Constitutional: WD/WN, F, parkinsonian affect, vitals as above, NAD, sitting up in bed, pleasant, conversing easily Head: Normocephalic, Atraumatic Eyes: PERRL, EOMI, conjunctivae normal, anicteric sclerae ENMT: external ear and nose normal, oropharynx normal Neck: trachea midline, no thyromegaly normal visual inspection Respiratory: normal respiratory effort, lungs clear to auscultation, no wheeze, rales, rhonchi. Normal insp/exp effort, no accessory muscle use Cardiovascular: irregular, no murmur, no edema Vessels: no JVD or carotid bruit Chest: normal inspection of chest Abdomen: normal bowel sounds, soft, nontender Musculoskeletal: no cyanosis or clubbing, extremities motor strength 5/5 grossly b/l , except RUE 4/5 which is usual per patient Skin: no rashes, warm and dry normal turgor Neurologic: +cogwheeling, RUE tremor noted, PERRL, EOMI, no face palsy, no dysarthria, moves all extremities Psychiatric: A+Ox3, flat affect Discharge Data Allergies Allergy/AdvReac Type Severity Reaction Status Date / Time No Known Allergies Allergy Unknown Verified 08/08/20 16:43 Consultations 08/08/20 16:12 ED Decision to Admit Stat 08/08/20 20:19 Consult Case Management - Discharge Planning Routine Ordered Studies 08/08/20 13:49 CT head/brain wo con Stat IMPRESSION: There is no hemorrhage, mass effect, or evidence of acute territorial ischemia by CT criteria. Hospital Course (1) Ambulatory dysfunction: (2) Dehydration: (3) Diarrhea: This is a 80-year-old female with significant past medical history of chronic atrial fibrillation not on oral anticoagulation, advanced Parkinson's disease with deep brain stimulator, dementia, mitral valve prolapse who presents to ED secondary to diarrhea x1 week and generalized decline. In ED patient made hemodynamically stable. CBC and CMP were generally unremarkable except mild elevation BUN 21, creatinine 1.86, ratio 23.9. Mag and Phos were WNL. TSH WNL. Urinalysis trace leukocyte esterase with 10-[address] was negative for acute intracranial abnormality. Chest x-ray no acute process. She received 1 L of IVF in ED with improvement of symptoms. Blood, urine and stool cultures - ordered received IVF x 1 L in ER Lactic acid 2.4, after IVF down to 1.3 abd exam benign, afebrile, wbc wnl - stool studies and stool count renal function stable, mild elevation BUN - likely pre renal in setting of poor po intake, diarrhea BUN/ Cr >20 on admission now much improved Diarrhea - no BM for first 2 days while inpt - then yesterday 08/11, pt had BM, normal solid stool - stool cultx - negative UTI Urine culture positive for E.coli, pansensitive (08/10) - treated with ceftriaxone, abx course finished PT/OT - recommend rehab, CM aware Pt has caregivers at home (4) Chronic atrial fibrillation: rate controlled with metoprolol ASA for thrombotic prophylaxis CHADSVASC 3, but high risk 2/2 to PD and falls therefore placed on ASA (5) Parkinson disease: s/p DBS placement with R side exchange 07/27, scheduled for program on 08/13 advanced PD with dementia on sinemet, aricept previously weaned off gabapentin, but wishes to restart due to leg cramping she will discuss with neurologist at follow up on 08/13 (6) DVT prophylaxis: SQ Lovenox 30mg daily Disposition: Plan to dc home, CM arranging possible [facility] from home. Follow up: PCP Dr. Barraza upon discharge Total Time Total Time Spent Total Time Spent (In Minutes): 40 Total Time Includes: Examination of the Patient, Discharge Planning, Medication Reconciliation and Communication With Other Providers Discharge Plan Discharge Items Patient Disposition: Home - Self-Care Reason For Visit: ADVANCED PARKINSON DISEASE, AMBULATORY DYSFUNCTION Discharge Diagnosis: UTI Dehydration Parkinson's disease Ambulatory dysfunction Activity: Per Instructions section Non-emergency contact: Primary Care Provider and Specialist Call non-emergency contact if: you have any medication questions and your symptoms worsen Follow-up/Referrals: Silvia Barraza, [Primary Care Provider] - Diet: Regular Addtl Attending Provider Instructions: Recommend to follow-up with primary care physician within 1 to 2 weeks after discharge. There is an option for [facility], which was discussed with you by our case management. Please reach out to us with any questions. Pending Studies at Discharge: No Stand-Alone Forms: My [facility] [employer], Smoking Cessation Medications and DC Order Prescriptions: Continued gabapentin 600 mg tablet 600 mg PO UD RF: 0 carbidopa-levodopa 25-100 mg tablet 1 tab PO 5XD RF: 0 donepezil [Aricept] 5 mg tablet 5 mg PO HS RF: 0 metoprolol succinate [Toprol XL] 100 mg tablet extended release 24 hr 100 mg PO DAILY RF: 0 cholecalciferol (vitamin D3) [Vitamin D3] 25 mcg (1,000 unit) Tablet 25 mcg PO DAILY RF: 0 multivitamin Tablet 1 tab PO DAILY RF: 0 aspirin 81 mg Tablet,Delayed Release (Dr/Ec) 81 mg PO DAILY RF: 0 vitamin B complex Tablet 1 tab PO DAILY RF: 0 Probiotic 3 billion cell Capsule 0 mmu cells PO DAILY RF: 0 magnesium 200 mg tablet 200 mg PO DAILY RF: 0 Discharge Orders: Discharge Order (Routine); Ordered 08/12/20 Ordered By: Jono Castro Admission Data Admit Date/Time: 08/10/20 14:16 Attending Provider: Jono Casrto Admit Provider: Jono Castro Primary Care Provider: Silvia Barraza Other Providers: Jaskaran Valentine ; [facility] Other Interventions: Discharge Summary Assessment (RN) Last Done: 08/12/20 14:08
== END 2020-08-12 16:04 | disposition home or self-care (01) | DRG 690 ==
LOC: 3W 13:04 → ED 13:04 → SUATTDRO 17:48 → 3W 19:08

== ENCOUNTER 2023-09-09 14:00 | Inpatient (IN) ==
[2023-09-09 16:17] LABS: Basophils # (auto) 0.04 K/uL (0.00-0.20); Basophils % (auto) 0.4 %; Eosinophils # (auto) 0.02 K/uL (0.00-0.50); Eosinophils % (auto) 0.2 %; Hematocrit (blood only) 38.9 % (37.0-47.0); Hemoglobin 12.7 g/dl (12.0-16.0); Immature Granulocytes # (auto) 0.03 K/uL (0.01-0.20); Immature Granulocytes % (auto) 0.3 %; Lymphocytes # (auto) 1.19 K/uL (1.20-3.40); Lymphocytes % (auto) 12.5 %; Mean Corpuscular Hgb Conc 32.6 g/dL (32.0-36.0); Mean Corpuscular Volume 91.7 fL (80.0-100.0); Mean Platelet Volume 10.7 fL (9.4-12.4); Monocytes # (auto) 0.92 K/uL (0.11-0.59); Monocytes % (auto) 9.7 %; Neutrophils # (auto) 7.29 K/uL (1.40-6.50); Neutrophils % (auto) 76.9 %; Platelet Count 256 K/uL (130-400); RDW Coefficient of Variation 14.3 % (11.5-14.5); RDW Standard Deviation 48.1 fL (36.4-46.3); Red Blood Count 4.24 M/uL (4.20-5.40); White Blood Count 9.49 K/ul (4.8-10.8)
[2023-09-09] MEDS ORDERED: SODIUM CHLORIDE 0.9% 500 ML IV ONE (16:36)
--- NOTE | 2023-09-09 16:38 | Emergency Department Note ---
Impression & Plan Painless jaundice, Parkinson disease, Atrial fibrillation, S/P deep brain stimulator placement, Transaminitis, Common bile duct (CBD) obstruction, Cholelithiasis ED Provider Note NAME: ELISABET BOSTON AGE: 83 SEX: F ARRIVES VIA: Walk-In INFORMANT: Patient ED PROVIDER(S): Angel Rodríguez MD CHIEF COMPLAINT: Painless jaundice PLAN: Disposition: Admit MEDICAL DECISION MAKING: The patient is a pleasant 83-year-old woman with a past medical history of Parkinson disease, history of DBS, atrial fibrillation who presents to the emergency department via walk-in referred from her providers at [facility] where she resides for evaluation of painless jaundice that was noticed today. They correlate the onset of her symptoms to starting mirtazapine a couple weeks ago to help with sleep. Patient denies any abdominal pain, nausea, vomiting, diarrhea, urinary symptoms patient has any chest pain or shortness of breath. On evaluation the patient is no acute distress, afebrile with heart rate in the 110s and otherwise stable vital signs. She appears overtly jaundiced with scleral icterus. Abdomen is nontender. WBC, H/H and platelets within normal limits. Chemistry without metabolic acidosis. INR 1.5. Total bilirubin 8.0 with direct bilirubin 5.7, AST and ALT are 121 and 84, respectively and alk phos is 10/08/2023. Ammonia is not elevated. Lipase not elevated. COVID-19 RNA, ELIAS test was negative. CT of the abdomen pelvis was performed and demonstrates severe intra and extrahepatic bile duct dilatation with severely distended gallbladder with abrupt cut off within the CBD at the pancreatic head where occult pancreatic head lesion is suspected. Additional note is made of upper abdominal lymphadenopathy and multiple hepatic lesions and pulmonary nodules that are highly suspicious for metastatic disease. Note is made of mild gallbladder wall thickening for degree of distention with mild adjacent fat stranding and multiple gallstones which may be consistent with developing cholecystitis however the patient does not have abdominal pain, is afebrile and has no leukocytosis therefore considered to be less likely at this time. Findings were discussed with GI on-call, Dr. Rmoan. Appreciate consultation and recommendations. EUS to be performed tomorrow. NPO after midnight and hold anticoagulation for procedure. If develops signs/symptoms of infection begin ABX/Zosyn. Findings reviewed the patient and her son at the bedside. They agree with plan for admission for further management including EUS tomorrow morning. Case was [facility] who will [facility] the patient for admission. Triage Nursing notes reviewed and agree them. Prior/external medical records reviewed Vital Signs: reviewed Differential diagnosis: Neoplasm, Gastroenteritis, food borne illness, infections, appendicitis, diverticulitis, inflammatory bowel disease, obstruction, GI bleed, biliary pathology, volvulus, as well as other pathologies. ER treatment provided: See below. Diagnostics interpreted by me: ECG: Atrial fibrillation with RVR, 114 bpm, PVCs, LVH, no overt ST elevation or depression. Cardiac Monitoring: An order for continuous cardiac monitoring was placed and demonstrated Atrial fibrillation with RVR, 114 bpm, PVCs. Laboratory studies: See below Imaging studies: See below Consultation(s): Dr. Roman, GI on-call Dr[facility] Cor[facility]jo[facility]. HPI: The patient is a pleasant 83-year-old woman with a past medical history of Parkinson disease, history of DBS, atrial fibrillation who presents to the emergency department via walk-in referred from her providers at [facility] where she resides for evaluation of painless jaundice that was noticed today. They correlate the onset of her symptoms to starting mirtazapine a couple weeks ago to help with sleep. Patient denies any abdominal pain, nausea, vomiting, diarrhea, urinary symptoms patient has any chest pain or shortness of breath. ROS: See above HPI for pertinent positives & negatives. A total of 10 systems reviewed and were otherwise negative. VITALS:See Below PHYSICAL EXAMINATION: GENERAL: Awake, alert, fatigued-appearing, in no distress HENT: Normocephalic, atraumatic. Oropharynx with dry mucous membranes and otherwise unremarkable. EYES: Normal conjunctiva. Sclera are icteric. NECK: Supple. No nuchal rigidity. FROM. No JVD. RESPIRATORY: Clear to auscultation. CARDIAC: Tachycardic rate, irregular rhythm. Extremities warm and well perfused. Pulses equal. ABDOMEN: Soft, non-distended. No tenderness to palpation. No rebound or guarding. No masses. RECTAL: Deferred. MUSCULOSKELETAL: Chest examination reveals no tenderness. The back is symmetrical on inspection without obvious abnormality. There is no CVA tenderness to palpation. No joint edema. LOWER EXTREMITIES: Calves are equal size bilaterally and non-tender. No edema. No discoloration. NEURO: Baseline dyskinesia for Parkinsons. No focal sensory or motor deficits noted. SKIN: Jaundice noted. Angel Rodríguez MD Past Med/Surg History Medical History Chronic atrial fibrillation Mitral valve prolapse Parkinson disease Surgical History History of tonsillectomy and adenoidectomy History of tubal ligation History of right breast biopsy History of surgery Neurostimulator for Parkinson's disease, placed in [place] S/P deep brain stimulator placement Family History Mother Stroke Hemorrhage secondary to anticoagulation Social History Smoking Status: Never smoker Second Hand Exposure: No; Do You Dip or Chew Tobacco: No; Hx Alcohol Use: No Hx Substance Use: No Preferred Language: Turkish Communication Ability: Effective Hearing Aid Technician Required: No Beliefs That Will Affect Care: None Current Living Situation: Alone Feels Safe at Home: Yes Assistive Devices: Walker Allergies Allergies Allergy/AdvReac Type Severity Reaction Status Date / Time No Known Allergies Allergy Unknown Verified 09/09/23 17:06 Home Meds Home Medications Medication Instructions Recorded Confirmed carbidopa 25 mg-levodopa 100 mg See Rx Instructions .Route .COMPLEX 03/15/19 09/09/23 tablet aspirin 81 mg tablet,delayed 81 mg PO DAILY 08/08/20 09/09/23 release multivitamin 1 tab PO DAILY 08/08/20 09/09/23 Lactobacillus acidoph-L.bulgaricus 2 tab PO DAILY 09/09/23 09/09/23 1 million cell tablet (Floranex) acetaminophen 325 mg tablet 650 mg PO Q4H PRN Pain 09/09/23 09/09/23 (Tylenol) amoxicillin 500 mg capsule 2,000 mg PO DIRECTED PRN 1 HR. 09/09/23 09/09/23 PRIOR TO DENTAL PROCEDURES biotin 5 mg tablet 5 mg PO DAILY 09/09/23 09/09/23 cholecalciferol (vitamin D3) 50 50 mcg PO BID 09/09/23 09/09/23 mcg (2,000 unit) capsule (Vitamin D3) diphenhydramine 25 1 tab PO HS PRN Sleep 09/09/23 09/09/23 mg-acetaminophen 500 mg tablet (Tylenol PM Extra Strength) docusate sodium 100 mg capsule 100 mg PO BID PRN Constipation 09/09/23 09/09/23 donepezil 10 mg tablet 10 mg PO DAILY 09/09/23 09/09/23 fluocinolone 0.01 % topical 1 applic topical BID PRN 09/09/23 09/09/23 solution SEBORRHEIC DERMATITIS gabapentin 100 mg capsule 100 mg PO HS 09/09/23 09/09/23 gabapentin 300 mg capsule 900 mg PO HS 09/09/23 09/09/23 hydrocortisone 2.5 % lotion 1 applic topical TID PRN 09/09/23 09/09/23 SOBORRHEIC DERMATITIS ON SCALP ketoconazole 2 % shampoo 1 applic topical 2XWK 09/09/23 09/09/23 levomefolate Ca 3 mg-B6 35 1 cap PO DAILY 09/09/23 09/09/23 mg-meB12 2 mg-algal oil 90.314 mg capsule (Foltanx RF) loperamide 2 mg tablet 2 mg PO QID PRN Diarrhea 09/09/23 09/09/23 magnesium oxide 200 mg PO DAILY 09/09/23 09/09/23 melatonin 5 mg tablet 10 mg PO HS 09/09/23 09/09/23 metoprolol succinate 50 mg capsule 50 mg PO DAILY 09/09/23 09/09/23 sprinkle, ext. release 24 hr mineral oil (Mineral Oil Heavy 3 ea PO 2XWK 09/09/23 09/09/23 oral) mirtazapine 15 mg tablet 15 mg PO HS 09/09/23 09/09/23 oxymetazoline 0.05 % nasal spray 2 spray intranasal Q12H PRN NOSE 09/09/23 09/09/23 (Afrin (oxymetazoline)) BLEEDS polyethylene glycol 3350 17 gram 17 g PO DAILY PRN Constipation 09/09/23 09/09/23 oral powder packet (Miralax) propylene glycol 0.6 % eye drops 1 drp OPB QID PRN Dry Eyes 09/09/23 09/09/23 (Systane Complete) sodium chloride 0.65 % nasal spray 2 spray intranasal HS 09/09/23 09/09/23 aerosol (Saline Nasal) sodium phosphates 19 gram-7 118 ml CA Q24H PRN Constipation 09/09/23 09/09/23 gram/118 mL enema (Fleet Enema) trazodone 100 mg tablet 150 mg PO HS 09/09/23 09/09/23 Results & Data (ED) Vital Signs Vital Signs - 24 hr 09/09/23 14:45 09/09/23 16:38 09/09/23 16:38 Temperature 36.4 C L Temperature Source Temporal Artery Scan Pulse Rate 119 H 107 H 107 H Pulse Rate [Bilateral] Respiratory Rate 20 42 H Respiratory Effort / Characteristics Non-Labored Spontaneous Respiratory Depth Normal Respiratory Pattern Regular Blood Pressure 144/88 H Blood Pressure [Right Arm] Blood Pressure Mean 106 Blood Pressure Mean [Right Arm] Pulse Oximetry 94 Oxygen Delivery Method Room Air Sepsis Recent Fever Within 48 Hours No Sepsis New/Unexplained Change in Mental Status No Sepsis Action Taken by Nursing No Action Required 09/09/23 17:00 09/09/23 17:00 09/09/23 19:30 Temperature Temperature Source Pulse Rate 108 H Pulse Rate [Bilateral] 98 H Respiratory Rate 43 H 18 Respiratory Effort / Characteristics Respiratory Depth Respiratory Pattern Blood Pressure 131/92 Blood Pressure [Right Arm] 138/109 H Blood Pressure Mean 99 Blood Pressure Mean [Right Arm] 118 Pulse Oximetry 96 Oxygen Delivery Method Room Air Sepsis Recent Fever Within 48 Hours Sepsis New/Unexplained Change in Mental Status Sepsis Action Taken by Nursing 09/09/23 20:00 09/09/23 20:03 Temperature Temperature Source Pulse Rate Pulse Rate [Bilateral] 87 91 H Respiratory Rate 18 18 Respiratory Effort / Characteristics Respiratory Depth Respiratory Pattern Blood Pressure Blood Pressure [Right Arm] 139/117 H 139/117 H Blood Pressure Mean Blood Pressure Mean [Right Arm] 124 124 Pulse Oximetry 93 98 Oxygen Delivery Method Room Air Room Air Sepsis Recent Fever Within 48 Hours Sepsis New/Unexplained Change in Mental Status Sepsis Action Taken by Nursing Laboratory Data Attestation: I reviewed the patient's lab results. 09/09/23 16:03 09/09/23 16:03 Lab Results 09/09/23 09/09/23 09/09/23 Range/Units 16:03 16:49 18:30 WBC 9.49 (4.8-10.8) K/ul RBC 4.24 (4.20-5.40) M/uL Hgb 12.7 (12.0-16.0) g/dl Hct 38.9 (37.0-47.0) % MCV 91.7 (80.0-100.0) fL MCH 30.0 (25.0-34.0) pg MCHC 32.6 (32.0-36.0) g/dL RDW Std Deviation 48.1 H (36.4-46.3) fL RDW Coeff of Ever 14.3 (11.5-14.5) % Plt Count 256 (130-400) K/uL MPV 10.7 (9.4-12.4) fL Immature Gran % (Auto) 0.3 % Neut % (Auto) 76.9 % Lymph % (Auto) 12.5 % [place] % (Auto) 9.7 % Eos % (Auto) 0.2 % Baso % (Auto) 0.4 % Neut # (Auto) 7.29 H (1.40-6.50) K/uL Lymph # (Auto) 1.19 L (1.20-3.40) K/uL [place] # (Auto) 0.92 H (0.11-0.59) K/uL Eos # (Auto) 0.02 (0.00-0.50) K/uL Baso # (Auto) 0.04 (0.00-0.20) K/uL Immature Gran # (Auto) 0.03 (0.01-0.20) K/uL PT 15.8 H (9.0-12.0) Seconds INR 1.5 H (0.9-1.1) APTT 28 (21-31) Seconds PTT Ratio 1.0 Sodium 136 (136-145) mmol/L Potassium 4.5 (3.5-5.1) mmol/L Chloride 102 (98-107) mmol/L Carbon Dioxide 25 (21-32) mmol/L Anion Gap 9 (3-11) BUN 18 (6-23) mg/dl Creatinine 1.00 (0.6-1.2) mg/dl Est Cr Clr Drug Dosing 42.2 ml/min Est GFR ( Amer) 60.8 ml/min Est GFR (Non-Af Amer) 52.4 ml/min BUN/Creatinine Ratio 18.0 (10-20) Glucose 128 H (70-99(Fasting)) mg/dl Calcium 9.8 (8.6-10.3) mg/dl Total Bilirubin 8.0 H (0.2-1.0) mg/dl Direct Bilirubin 5.7 H (0-0.2) mg/dl AST 121 H (13-39) U/L ALT 84 H (7-52) U/L Alkaline Phosphatase 424 H (34-104) U/L Ammonia 25.0 (18-72) umol/L Total Protein 7.8 (6.0-8.3) gm/dl Albumin 3.9 (3.4-5.0) gm/dl Lipase 45 (11-82) U/L SARS-CoV-2, RNA, NAAT NEGATIVE (NEGATIVE) Administered Medications Discontinued Medications Sodium Chloride (Nss) 500 mls @ 999 mls/hr IV .Q31M ONE Stop: 09/09/23 17:06 Last Infusion: 09/09/23 19:42 Dose: Infused Documented By: Admin: 09/09/23 18:36 Dose: 999 mls/hr Documented By: BJORN Ioversol (Optiray 320 500ml) 88 ml IV ONCE ONE Stop: 09/09/23 17:48 Last Admin: 09/09/23 17:47 Dose: 88 ml Documented By: HERMELINDO Imaging Data Radiologist's Impression: Abdomen/Pelvis CT 09/09/23 16:[address] WITH IV CONTRAST CT DOSE: 581.68 mGy.cm HISTORY: painless jaundice TECHNIQUE: Multiaxial CT images of the abdomen and pelvis were performed following the use of intravenous contrast. A dose lowering technique was utilized adhering to the principles of ALARA. COMPARISON STUDY: None. FINDINGS: Multiple small scattered nodules within the lung bases with the largest in the right lower lobe measuring 7 mm. These are highly suspicious for metastatic disease. No pneumoperitoneum. No pneumatosis. Levoscoliosis and degenerative changes within the lumbar spine. No suspicious osseous lesions identified. The heart is mildly enlarged. There is a 5 mm hypodense lesion within the spleen. This is too small to characterize but favors a benign lesion. The adrenal glands are unremarkable. Right greater than the left peripelvic renal cysts. No definite hydronephrosis. There are few subcentimeter hypodense bilateral cortical renal lesions. These are technically too small to characterize but also favors cysts. Normal caliber abdominal aorta. There are multiple hypodense lesions seen throughout the liver which are highly suspicious for metastatic disease. Dominant lesion measures 3.7 cm. Multiple small gallstones. The gallbladder wall is slightly thickened for the degree of distention. There is mild pericholecystic fat stranding. Severe intra and extrahepatic bile duct dilatation with an abrupt cut off within the common bile duct at the pancreatic head. The exact etiology of the is not well visualized but likely represents an occult pancreatic head lesion. The main portal vein and superior mesenteric vein are patent. There is peripancreatic and retroperitoneal lymphadenopathy. A dominant retroperitoneal lymph node on image 97 measures 3.1 x 1.3 cm. This likely represents metastatic disease. The bladder is unremarkable. There is a 4.2 cm calcified uterine fibroid. Colonic diverticulosis. No evidence for acute diverticulitis. No bowel wall thickening or obstruction. Normal appendix. There is also right retrocrural lymphadenopathy. IMPRESSION: 1. Severe intra and extrahepatic bile duct dilatation with a severely distended gallbladder. There is an abrupt cut off within the common bile duct at the pancreatic head. The exact etiology of this obstruction is not well visualized but likely represents an occult pancreatic head lesion. GI consultation recommended. 2. Upper abdominal lymphadenopathy, multiple hepatic lesions, and multiple pulmonary nodules which are highly suspicious for metastatic disease.. 3. Mild gallbladder wall thickening for the degree of distention with mild adjacent fat stranding. There are multiple small gallstones. This is concerning for a developing acute cholecystitis. 4. Additional findings as described above. ACT 112: Negative or not required by law. Electronically signed by: Nadeem Joiner M.D. 09/09/2023 6:49 PM Discharge Plan Visit Data Chief Complaint: Illness Stated Complaint: JAUNDICE ED Provider: Angel Rodríguez Discharge Problem: Painless jaundice, Parkinson disease, Atrial fibrillation, S/P deep brain stimulator placement, Transaminitis, Common bile duct (CBD) obstruction, Cholelithiasis Discharge Instructions Interventions: ED Discharge Assessment Last Done: 09/10/23 00:02 Discharge Problem: Parkinson disease Qualifiers: Dyskinesia presence: with dyskinesia Fluctuating manifestations: unspecified whether manifestations fluctuate Qualified Code(s): G20.B1 - Parkinson's disease with dyskinesia, without mention of fluctuations Atrial fibrillation Qualifiers: Atrial fibrillation type: persistent (not longstanding) Qualified Code(s): I 48.19 - Other persistent atrial fibrillation Cholelithiasis Qualifiers: Cholelithiasis location: gallbladder Cholecystitis presence: without cholecystitis Biliary obstruction: with biliary obstruction Qualified Code(s): K 80.21 - Calculus of gallbladder without cholecystitis with obstruction
[2023-09-09 16:45] LABS: Albumin Level 3.9 gm/dl (3.4-5.0); Bilirubin Direct 5.7 mg/dl (0-0.2); Calcium 9.8 mg/dl (8.6-10.3); Creatinine Clr Calc Pharmacy 42.2 ml/min; Est GFR (African American) 60.8 ml/min; Est GFR (Non-African American) 52.4 ml/min; INR 1.5 (0.9-1.1); Partial Thromboplastin Time 28 Seconds (21-31); Potassium 4.5 mmol/L (3.5-5.1); Prothrombin Time 15.8 Seconds (9.0-12.0); Total Protein 7.8 gm/dl (6.0-8.3)
[2023-09-09] MEDS ORDERED: OPTIRAY 320 500ml IV ONE (17:47)
--- NOTE | 2023-09-09 18:51 | CT Scan Report ---
ABDOMEN AND PELVIS CT WITH IV CONTRAST CT DOSE: 581.68 mGy.cm HISTORY: painless jaundice TECHNIQUE: Multiaxial CT images of the abdomen and pelvis were performed following the use of intrave nous contrast. A dose lowering technique was utilized adhering to the principles of ALARA. COMPARISON STUDY: None. FINDINGS: Multiple small scattered nodules within the lung bases with the largest in the right lower lobe measuring 7 mm. These are highly suspicious for metastatic disease. No pneumoperitoneum. No pneu matosis. Levoscoliosis and degenerative changes within the lumbar spine. No suspicious osseous lesion s identified. The heart is mildly enlarged. There is a 5 mm hypodense lesion within the spleen. This is too small to characterize but favors a benign lesion. The adrenal glands are unremarkable. Right g reater than the left peripelvic renal cysts. No definite hydronephrosis. There are few subcentimeter hypodense bilateral cortical renal lesions. These are technically too small to characterize but also favors cysts. Normal caliber abdominal aorta. There are multiple hypodense lesions seen throughout th e liver which are highly suspicious for metastatic disease. Dominant lesion measures 3.7 cm. Multiple small gallstones. The gallbladder wall is slightly thickened for the degree of distention. There is mild pericholecystic fat stranding. Severe intra and extrahepatic bile duct dilatation with an abrupt cut off within the common bile duct at the pancreatic head. The exact etiology of the is not well vi sualized but likely represents an occult pancreatic head lesion. The main portal vein and superior me senteric vein are patent. There is peripancreatic and retroperitoneal lymphadenopathy. A dominant ret roperitoneal lymph node on image 97 measures 3.1 x 1.3 cm. This likely represents metastatic disease. The bladder is unremarkable. There is a 4.2 cm calcified uterine fibroid. Colonic diverticulosis. No evidence for acute diverticulitis. No bowel wall thickening or obstruction. Normal appendix. There i s also right retrocrural lymphadenopathy. IMPRESSION: 1. Severe intra and extrahepatic bile duct dilatation with a severely distended gallbladder. There is an abrupt cut off within the common bile duct at the pancreatic head. The exact etiology of this obs truction is not well visualized but likely represents an occult pancreatic head lesion. GI consultati on recommended. 2. Upper abdominal lymphadenopathy, multiple hepatic lesions, and multiple pulmonary nodules which ar e highly suspicious for metastatic disease.. 3. Mild gallbladder wall thickening for the degree of distention with mild adjacent fat stranding. Th ere are multiple small gallstones. This is concerning for a developing acute cholecystitis. 4. Additional findings as described above. ACT 112: Negative or not required by law. Electronically signed by: Nadeem Joiner M.D. 09/09/2023 6:49 PM
--- NOTE | 2023-09-09 21:47 | History & Physical Report ---
Date of Service September 09, 2023 Assessment & Plan (1) Elevated LFTs: Plan: 83-year-old female with past med significant for mitral valve prolapse, chronic atrial fibrillation, osteoarthrosis, polymyalgia rheumatica, Parkinson disease, s/p deep brain stimulator, dementia due to Parkinson's disease, peripheral neuropathy, who lives at [facility] assisted living was brought in because of elevated LFTs. Elevated LFTs Total bilirubin 8 Direct bilirubin 5.7 AST 121 ALT [address] abdomen pelvis showing severe intra and extrahepatic bile duct dilatation with severely distended gallbladder. Possible acute pancreatic head lesion. Upper abdominal lymphadenopathy. Multiple hepatic lesions and multiple pulmonary nodules which are highly suspicious for metastatic disease. And concerning for cholecystitis GI was notified by ER and there is plan for EUS in a.m. N.p.o. from midnight IV fluids Empiric IV Zosyn Close monitor Bilateral lower extremity edema and erythema Antibiotics as above Will follow Doppler Questionable nonsustained V. tach 7 beats in the ER Possible artifact We will monitor on telemetry Will get echo History of A-fib On metoprolol succinate and aspirin Not on anticoag secondary to fall risk History of Parkinson's disease S/p deep brain stimulator On Sinemet Dementia due to Parkinson disease On donezepil We will monitor DVT prophylaxis Lovenox Disposition Med/telemetry Full code History of Present Illness Chief Complaint: Elevated LFTs Primary Care Provider: Silvia Barraza DO 83-year-old female with past med history significant for mitral valve prolapse, chronic atrial fibrillation, osteoarthrosis, polymyalgia rheumatica, Parkinson disease, s/p deep brain stimulator, dementia due to Parkinson's disease, peripheral neuropathy, who lives at [facility] assisted living was brought in because of elevated LFTs. Patient was found to have a jaundice and was sent in here. Patient has no abdominal pain. No nausea. Currently somewhat constipated. Denies blood in stools or black stool. Normal blader movements. Has some edema in lower extremities. Denies any chest pain or shortness of breath. No headache. No blurred visions. Always has some runny nose. No sore throat. Occasional difficulty swallowing. Appetite is down lately. Ambulates with a rollator walker. Currently resting comfortably and hemodynamically stable. Past medical history. As mentioned above. Past surgical history. Right breast biopsy. Colonoscopy. Cervical polyp removal. Open reduction internal fixation of right radius. Deep brain stimulator. Ligation oviducts. Tonsillectomy adenoidectomy. Social history. No smoking. Alcohol moderation. No drug use. Family history. Mother has hypertension, pacemaker, heart disorder,. Sister has MVP. Allergies Allergy/AdvReac Type Severity Reaction Status Date / Time No Known Allergies Allergy Unknown Verified 09/09/23 17:06 Home Medications Medication Instructions Recorded Confirmed Type carbidopa 25 mg-levodopa 100 mg See Rx Instructions .Route .COMPLEX 03/15/19 09/09/23 History tablet aspirin 81 mg tablet,delayed 81 mg PO DAILY 08/08/20 09/09/23 History release multivitamin 1 tab PO DAILY 08/08/20 09/09/23 History Lactobacillus acidoph-L.bulgaricus 2 tab PO DAILY 09/09/23 09/09/23 History 1 million cell tablet (Floranex) acetaminophen 325 mg tablet 650 mg PO Q4H PRN Pain 09/09/23 09/09/23 History (Tylenol) amoxicillin 500 mg capsule 2,000 mg PO DIRECTED PRN 1 HR. 09/09/23 09/09/23 History PRIOR TO DENTAL PROCEDURES biotin 5 mg tablet 5 mg PO DAILY 09/09/23 09/09/23 History cholecalciferol (vitamin D3) 50 50 mcg PO BID 09/09/23 09/09/23 History mcg (2,000 unit) capsule (Vitamin D3) diphenhydramine 25 1 tab PO HS PRN Sleep 09/09/23 09/09/23 History mg-acetaminophen 500 mg tablet (Tylenol PM Extra Strength) docusate sodium 100 mg capsule 100 mg PO BID PRN Constipation 09/09/23 09/09/23 History donepezil 10 mg tablet 10 mg PO DAILY 09/09/23 09/09/23 History fluocinolone 0.01 % topical 1 applic topical BID PRN 09/09/23 09/09/23 History solution SEBORRHEIC DERMATITIS gabapentin 100 mg capsule 100 mg PO HS 09/09/23 09/09/23 History gabapentin 300 mg capsule 900 mg PO HS 09/09/23 09/09/23 History hydrocortisone 2.5 % lotion 1 applic topical TID PRN 09/09/23 09/09/23 History SOBORRHEIC DERMATITIS ON SCALP ketoconazole 2 % shampoo 1 applic topical 2XWK 09/09/23 09/09/23 History levomefolate Ca 3 mg-B6 35 1 cap PO DAILY 09/09/23 09/09/23 History mg-meB12 2 mg-algal oil 90.314 mg capsule (Foltanx RF) loperamide 2 mg tablet 2 mg PO QID PRN Diarrhea 09/09/23 09/09/23 History magnesium oxide 200 mg PO DAILY 09/09/23 09/09/23 History melatonin 5 mg tablet 10 mg PO HS 09/09/23 09/09/23 History metoprolol succinate 50 mg capsule 50 mg PO DAILY 09/09/23 09/09/23 History sprinkle, ext. release 24 hr mineral oil (Mineral Oil Heavy 3 ea PO 2XWK 09/09/23 09/09/23 History oral) mirtazapine 15 mg tablet 15 mg PO HS 09/09/23 09/09/23 History oxymetazoline 0.05 % nasal spray 2 spray intranasal Q12H PRN NOSE 09/09/23 09/09/23 History (Afrin (oxymetazoline)) BLEEDS polyethylene glycol 3350 17 gram 17 g PO DAILY PRN Constipation 09/09/23 09/09/23 History oral powder packet (Miralax) propylene glycol 0.6 % eye drops 1 drp OPB QID PRN Dry Eyes 09/09/23 09/09/23 History (Systane Complete) sodium chloride 0.65 % nasal spray 2 spray intranasal HS 09/09/23 09/09/23 History aerosol (Saline Nasal) sodium phosphates 19 gram-7 118 ml AK Q24H PRN Constipation 09/09/23 09/09/23 History gram/118 mL enema (Fleet Enema) trazodone 100 mg tablet 150 mg PO HS 09/09/23 09/09/23 History Past Med/Surg History Medical History Chronic atrial fibrillation Mitral valve prolapse Parkinson disease Surgical History History of tonsillectomy and adenoidectomy History of tubal ligation History of right breast biopsy History of surgery Neurostimulator for Parkinson's disease, placed in [place], [place] S/P deep brain stimulator placement Family History Mother Stroke Hemorrhage secondary to anticoagulation Social History Smoking Status: Never smoker Second Hand Exposure: No; Do You Dip or Chew Tobacco: No; Hx Alcohol Use: No Hx Substance Use: No Preferred Language: Persian Communication Ability: Effective [employer]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 Lungs- clear to auscultation , NO wheezing or crackles. Heart- regular rhythm; no murmur, no gallop. Abdomen- normal bowel sounds, soft, nontender, no distension. Extremities- lower extremity edema and erythema seen. Neuro- alert, oriented ; PERRL, EOMI; no facial palsy; no dysarthria; moves extremities. Skin- warm & dry Results & Data Results & Data Vital Signs (Past 12 Hours) Vital Signs Temp Pulse Pulse Resp BP BP Pulse Ox 09/09/23 20:00 87 18 139/117 H 93 09/09/23 19:30 98 H 18 138/109 H 96 09/09/23 17:00 131/92 09/09/23 17:00 108 H 43 H 09/09/23 16:38 107 H 42 H 09/09/23 16:38 107 H 09/09/23 14:45 36.4 C L 119 H 20 144/88 H 94 O2 Del Method 09/09/23 20:00 Room Air 09/09/23 19:30 Room Air 09/09/23 17:00 09/09/23 17:00 09/09/23 16:38 09/09/23 16:38 09/09/23 14:45 Room Air Diagnostic Findings Laboratory Results WBC 9.49 K/ul (4.8-10.8) 09/09/23 16:03 RBC 4.24 M/uL (4.20-5.40) 09/09/23 16:03 Hgb 12.7 g/dl (12.0-16.0) 09/09/23 16:03 Hct 38.9 % (37.0-47.0) 09/09/23 16:03 MCV 91.7 fL (80.0-100.0) 09/09/23 16:03 MCH 30.0 pg (25.0-34.0) 09/09/23 16:03 MCHC 32.6 g/dL (32.0-36.0) 09/09/23 16:03 RDW Std Deviation 48.1 fL (36.4-46.3) H 09/09/23 16:03 RDW Coeff of Ever 14.3 % (11.5-14.5) 09/09/23 16:03 Plt Count 256 K/uL (130-400) 09/09/23 16:03 MPV 10.7 fL (9.4-12.4) 09/09/23 16:03 Immature Gran % (Auto) 0.3 % 09/09/23 16:03 Neut % (Auto) 76.9 % 09/09/23 16:03 Lymph % (Auto) 12.5 % 09/09/23 16:03 Pine % (Auto) 9.7 % 09/09/23 16:03 Eos % (Auto) 0.2 % 09/09/23 16:03 Baso % (Auto) 0.4 % 09/09/23 16:03 Neut # (Auto) 7.29 K/uL (1.40-6.50) H 09/09/23 16:03 Lymph # (Auto) 1.19 K/uL (1.20-3.40) L 09/09/23 16:03 Pine # (Auto) 0.92 K/uL (0.11-0.59) H 09/09/23 16:03 Eos # (Auto) 0.02 K/uL (0.00-0.50) 09/09/23 16:03 Baso # (Auto) 0.04 K/uL (0.00-0.20) 09/09/23 16:03 Immature Gran # (Auto) 0.03 K/uL (0.01-0.20) 09/09/23 16:03 PT 15.8 Seconds (9.0-12.0) H 09/09/23 16:03 INR 1.5 (0.9-1.1) H 09/09/23 16:03 APTT 28 Seconds (21-31) 09/09/23 16:03 PTT Ratio 1.0 09/09/23 16:03 Sodium 136 mmol/L (136-145) 09/09/23 16:03 Potassium 4.5 mmol/L (3.5-5.1) 09/09/23 16:03 Chloride 102 mmol/L (98-107) 09/09/23 16:03 Carbon Dioxide 25 mmol/L (21-32) 09/09/23 16:03 Anion Gap 9 (3-11) 09/09/23 16:03 BUN 18 mg/dl (6-23) 09/09/23 16:03 Creatinine 1.00 mg/dl (0.6-1.2) 09/09/23 16:03 Est Cr Clr Drug Dosing 42.2 ml/min 09/09/23 16:03 Est GFR ( Amer) 60.8 ml/min 09/09/23 16:03 Est GFR (Non-Af Amer) 52.4 ml/min 09/09/23 16:03 BUN/Creatinine Ratio 18.0 (10-20) 09/09/23 16:03 Glucose 128 mg/dl (70-99(Fasting)) H 09/09/23 16:03 Calcium 9.8 mg/dl (8.6-10.3) 09/09/23 16:03 Total Bilirubin 8.0 mg/dl (0.2-1.0) H 09/09/23 16:03 Direct Bilirubin 5.7 mg/dl (0-0.2) H 09/09/23 16:03 AST 121 U/L (13-39) H 09/09/23 16:03 ALT 84 U/L (7-52) H 09/09/23 16:03 Alkaline Phosphatase 424 U/L (34-104) H 09/09/23 16:03 Ammonia 25.0 umol/L (18-72) 09/09/23 16:49 Total Protein 7.8 gm/dl (6.0-8.3) 09/09/23 16:03 Albumin 3.9 gm/dl (3.4-5.0) 09/09/23 16:03 Lipase 45 U/L (11-82) 09/09/23 16:03 SARS-CoV-2, RNA, NAAT NEGATIVE (NEGATIVE) 09/09/23 18:30 Impressions Abdomen/Pelvis CT 09/09/23 16:[address] WITH IV CONTRAST CT DOSE: 581.68 mGy.cm HISTORY: painless jaundice TECHNIQUE: Multiaxial CT images of the abdomen and pelvis were performed following the use of intravenous contrast. A dose lowering technique was utilized adhering to the principles of ALARA. COMPARISON STUDY: None. FINDINGS: Multiple small scattered nodules within the lung bases with the largest in the right lower lobe measuring 7 mm. These are highly suspicious for metastatic disease. No pneumoperitoneum. No pneumatosis. Levoscoliosis and degenerative changes within the lumbar spine. No suspicious osseous lesions identified. The heart is mildly enlarged. There is a 5 mm hypodense lesion within the spleen. This is too small to characterize but favors a benign lesion. The adrenal glands are unremarkable. Right greater than the left peripelvic renal cysts. No definite hydronephrosis. There are few subcentimeter hypodense bilateral cortical renal lesions. These are technically too small to characterize but also favors cysts. Normal caliber abdominal aorta. There are multiple hypodense lesions seen throughout the liver which are highly suspicious for metastatic disease. Dominant lesion measures 3.7 cm. Multiple small gallstones. The gallbladder wall is slightly thickened for the degree of distention. There is mild pericholecystic fat stranding. Severe intra and extrahepatic bile duct dilatation with an abrupt cut off within the common bile duct at the pancreatic head. The exact etiology of the is not well visualized but likely represents an occult pancreatic head lesion. The main portal vein and superior mesenteric vein are patent. There is peripancreatic and retroperitoneal lymphadenopathy. A dominant retroperitoneal lymph node on image 97 measures 3.1 x 1.3 cm. This likely represents metastatic disease. The bladder is unre markable. There is a 4.2 cm calcified uterine fibroid. Colonic diverticulosis. No evidence for acute diverticulitis. No bowel wall thickening or obstruction. Normal appendix. There is also right retrocrural lymphadenopathy. IMPRESSION: 1. Severe intra and extrahepatic bile duct dilatation with a severely distended gallbladder. There is an abrupt cut off within the common bile duct at the panc reatic head. The exact etiology of this obstruction is not well visualized but likely represents an occult pancreatic head lesion. GI consultation recommended. 2. Upper abdominal lymphadenopathy, multiple hepatic lesions, and multiple pulmonary nodules which are highly suspicious for metastatic disease.. 3. Mild gallbladder wall thickening for the degree of distention with mild adjacent fat stranding. There are multiple small gallstones. This is concerning for a developing acute cholecystitis. 4. Additional findings as described above. ACT 112: Negative or not required by law. Electronically signed by: Nadeem Joiner M.D. 09/09/2023 6:49 PM ECG Additional Comments: EKG. A-fib with rapid ventricular response with PVCs at a rate of 114. Left axis deviation. Code Status & VTE Plan VTE Prophylaxis Plan VTE Prophylaxis will be ordered: Yes
[2023-09-10] MEDS ORDERED: ACETAMINOPHEN 325 MG TAB PO PRN
[2023-09-10] MEDS ORDERED: SOD PHOSPHATE/SOD BIPHOSPHATE ENEMA 132 ML BTL PR PRN
[2023-09-10] MEDS ORDERED: POLYETHYLENE (MIRALAX) 17 GM PACK PO PRN
[2023-09-10] MEDS ORDERED: NITROGLYCERIN SL 0.4 MG/TAB TAB SL PRN
[2023-09-10] MEDS ORDERED: OXYMETAZOLINE 0.05% 30 ML BTL PRN
[2023-09-10] MEDS ORDERED: PIPERACILLIN/TAZOBACTAM 4.5 GM/100 ML BAG IV STA (00:19)
[2023-09-10] MEDS ORDERED: ARTIFICIAL TEARS OP PRN (00:21)
[2023-09-10] MEDS: SODIUM CHLORIDE 0.9% 1,000 ML IV SCH ×3 (02:15→20:10)
--- OUTSIDE RECORDS SUMMARY | 2023-09-10 02:28 | External Medical Summary | Summary of Care ---
Author Name Unknown Organization [facility] Address [address] [place] [address] Phone [phone] Care Team Providers Care General Education Instructor Name Role Phone Silvia Barraza DO Primary Care Provider Reason for Visit * Reason Onset Date Comments Medication Refill 08/26/2023 Encounter Details Date Type Department Care Team (Late st Contact Info) Description 08/26/2023 Refill Family Practice [facility] [address] [facility] [place] [address] Silvia Barraza DO [address] [facility] [place] [address] Tinea corporis Allergies No known active allergiesdocumented as of this encounter (statuses as of 08/26/2023) Medications Medication Sig Dispensed Refills Start Date End Date Status Multiple Vitamins-Minerals (WOMENS MULTI) CAPS Take by mouth. 0 Active Fleet Enema 7-19 GM/118ML Rectal EnemaIndications:C onstipation, unspecified constipation type Administer 1 Enema into the rectum once. 0 Active Amoxicillin 500 MG Oral Capsule (Amoxil) 4 CAPS BY MOUTH 1HR PRIOR TO APPT 4 Capsule 4 03/14/2022 Active Propylene Glycol 0.6 % Ophthalmic SolutionIndication s:Cataract Instill 1 Drop into both eyes 4 times a day as needed. 5 mL 3 04/16/2022 Active Oxymetazoline HCl 0.05 % Nasal Solution (Afrin Nasal [place])Indications: Epistaxis Administer into each nostril 2 Sprays 2 times a day as needed (nosebleed). Do not use for more than three days. 15 mL 0 07/09/2022 Active Hydrocortisone 2.5 % External Lotion APPLY TOPICALLY TO AFFECTED AREA 3 TIMES A DAY. TO AFFECTED AREA ON SCALP. 118 mL 10 07/19/2022 Active Floranex Oral TabletIndications: Constipation, unspecified constipation type TAKE 2 TABLETS BY MOUTH EVERY MORNING 60 Tablet 5 08/08/2022 Active Magnesium Oxide 200 MG Oral Tablet (Mag-Oxide)Indicat ions:PMR (polymyalgia rheumatica) (HCC) Take 1 Tablet by mouth in the morning. 30 Tablet 3 08/11/2022 Active Fluticasone Propionate 50 MCG/ACT Nasal Suspension (Flonase) Administer 2 Sprays into each nostril in the morning. 16 g 0 08/21/2022 Active Metoprolol Succinate ER 50 MG Oral Tablet Extended Release 24 Hour (toPROL XL) Take 1 Tablet by mouth in the morning. 90 Tablet 3 10/29/2022 Active Biotin 5 MG Oral Capsule (Meribin) TAKE 1 CAP BY MOUTH DAILY. 90 Capsule 1 11/03/2022 Active Fluocinolone Acetonide 0.01 % External Solution Apply topically to affected area 2 times a day as needed (itching, dryness, crusting, scaling). Apply to scalp 60 mL 11 12/04/2022 Active Foltanx 3-35-2 MG Oral Tablet 1 TAB BY MOUTH EVERY DAY 30 Tablet 4 01/21/2023 Active Saline Nasal [place] 0.65 % Nasal Solution ([place])Indications :Epistaxis Use two sprays at bedtime 30 mL 2 03/12/2023 Active Carbidopa-Levodopa 25-100 MG Oral Tablet (Sinemet)Indicatio ns:Parkinson's disease TAKE 1 TAB BY MOUTH TWICE DAILY THE FIRST 2 DOSES + 1.5 TABS BY MOUTH TWICE DAILY THE LAST 2 DOSES 150 Tablet 11 04/20/2023 Active Mirtazapine 15 MG Oral Tablet (Remeron)Indicatio ns:Primary insomnia,ANURADHA (generalized anxiety disorder) Take 1 Tablet by mouth at bedtime. 90 Tablet 3 05/19/2023 Active Donepezil HCl 10 MG Oral Tablet (Aricept) Take 1 Tablet by mouth in the morning. Take with largest meal of the day.. 30 Tablet 10 05/25/2023 Active Acetaminophen 325 MG Oral Tablet (Tylenol) Take 2 Tablets by mouth every 6 hours as needed (pain or headache). 60 Tablet 0 05/25/2023 Active Gabapentin 100 MG Oral Capsule (Neurontin)Indicat ions:Parkinson's disease Take 1 cps at bed time, along with the 300 mg. 90 Capsule 6 05/27/2023 Active Melatonin 10 MG Oral Tablet DisintegratingIndi cations:Persistent insomnia Take 10 mg by mouth at bedtime. 30 Tablet 3 06/16/2023 Active Docusate Sodium 100 MG Oral Capsule (Colace) Take 1 Capsule by mouth 2 times a day as needed for Constipation. 60 Capsule 3 06/18/2023 Active Polyethylene Glycol 3350 17 GM Oral Packet (Miralax) Take 1 Packet by mouth daily as needed for Constipation. 14 Each 3 06/18/2023 Active Loperamide HCl 2 MG Oral Capsule (Imodium) Take 1 Capsule by mouth 4 times a day as needed for Diarrhea. 30 Capsule 0 06/18/2023 Active Acetaminophen PM 500-25 MG Oral Tablet (diphenhydrAMINE-A PAP (sleep)) Take 1 Tablet by mouth at bedtime. 30 Tablet 10 08/07/2023 Active Aspirin Low Dose 81 MG Oral Tablet Delayed Release (aspirin enteric coated) 1 TAB BY MOUTH EVERY DAY 30 Tablet 3 08/17/2023 Active Vitamin D3 50 MCG (2000 UT) Oral TabletIndications: Parkinson's disease Take 1 cps 2 times a day 60 Tablet 6 08/17/2023 Active traZODone HCl 100 MG Oral Tablet (Desyrel) Take 1 Tablet by mouth at bedtime. 30 Tablet 11 08/18/2023 Active Gabapentin 300 MG Oral Capsule (Neurontin)Indicat ions:Neuropathy TAKE 3 CAPS BY MOUTH AT BEDTIME. 90 Capsule 10 08/24/2023 Active Ketoconazole 2 % External Shampoo (Nizoral)Indicatio ns:Tinea corporis APPLY TO SCALP ONCE WEEKLY NEEDED. LEAVE ON 5-10MIN BEFORE RINSING. 120 mL 4 08/26/2023 Active Ketoconazole 2 % External Shampoo (Nizoral)Indicatio ns:Tinea corporis APPLY TO SCALP ONCE WEEKLY NEEDED. LEAVE ON 5-10MIN BEFORE RINSING. 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 yes Yes-Patient to bring up-to-date Advance Directive for scanning in EHR. 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 Sciatica 03/27/2008 01/24/2020 Need for prophylactic hormon e replacement therapy (postmenopausal) 04/15/2019 CLASSICAL MIGRAINE WITH INTR ACTABLE MIGRAINE, SO STATED 2014 Menopause 04/15/2019 documented as of this encounter (statuses as of 08/26/2023) Immunizations Name Administration Dates Next Due Pneumococcal Conjugate Vacc, 13 Valent (Prevnar) 10/19/2015 Pneumococcal Polysaccharide PPV23 (Pneumovax) 07/17/2010 SEASONAL INFLUENZA, PF, 6 M & Above, IM , (FLULAVAL or FLUZONE) 08/26/2020,06/24/2019 Seasonal Influenza Virus Vac cine, Unspecified Formulation 10/19/2015,06/23/2014,07/17/2010,05/2009,07/07/2007 Seasonal Influenza, Quadriva lent, No Preserve, IM 10/19/2015 Seasonal Influenza, Split, I IV3, With Preserve, Inj 06/23/2014,07/17/2010,07/12/2009,12/200607/12/2010 TD - Tetanus/Diptheria (ADULT) 05/14/2007 TD, Preservative Free 06/23/2014 TDAP (age 11 and older)(Adacel) 06/21/2007 documented as of this encounter Social History Tobacco Use Types Packs/Day Years Used Date Smoking Tobacco: Never Smokeless Tobacco: Never Alcohol Use Standard Drinks/Week Comments Yes 0 (1 standard drink = 0.6 oz pur e alcohol) moderation PHQ-2 Answer Date Recorded PHQ Adult Total Score 0 05/29/2022 Hunger Vital Sign Answer Date Recorded Worried About Running Out of Food in the Last Ye ar Never true 04/02/2020 Ran Out of Food in the Last Year Never true 04/02/2020 Sex and Gender Information Value Date Recorded Sex Assigned at Female 04/02/2020 5:00 PM EDT Gender Identity Female 04/02/2020 5:00 PM EDT Sexual Orientation Choose not to disclose 2019 5:00 PM EDT Job Start Date Occupation Industry Not on file Not on file Not on file documented as of this encounter Miscellaneous Notes * Telephone Encounter - Sally Munguia DO - 08/26/2023 3:27 PM ESTSigned Prescriptions: Disp Refills Ketoconazole 2 % External Shampoo (Nizoral)120 mL 4 Sig: APPLY TO SCALP ONCE WEEKLY NEEDED. LEAVE ON 5-10MIN BEFORE RINSING.Authorizing Provider: SALLY MUNGUIA * Telephone Encounter - Remedios Santiago CPhT - 08/26/2023 3:08 PM EST Did you pend patient's preferred pharmacy and medication before forwarding?yes Pharmacy: [facility] [address] Pending Prescriptions: Disp Refills Ketoconazole 2 % External Shampoo (Nizora*120 mL 4 Sig: APPLY TO SCALP ONCE WEEKLY NEEDED. LEAVE ON 5-10MIN BEFORE RINSING. Last Visit: 02/13/2023 (in office), 09/25/2020 (telemedicine) Next Visit: 08/31/2023 If no future appointments scheduled, and last appointment is greater than a year ago, please schedule patient for a follow-up appointment Last date the medication was ordered: 04/16/2022 Is this request for a controlled substance?No Urine Drug Screen:No results found for this or any previous visit. Patient Phone Numbers Labs: Lab Results Component Value Date/Time CREAT 0.8 02/13/2023 09:52 AM CREAT 0.8 07/04/2020 03:20 PM POTASSIUM 4.3 02/13/2023 09:52 AM POTASSIUM 4.4 07/04/2020 03:20 PM TSH 1.87 02/13/2023 09:52 AM TSH 2.09 07/04/2020 03:20 PM LDLCALC 100 02/13/2023 09:52 AM LDLCALC 118 11/22/2015 11:07 AM LDLDIRECT 110 04/04/2020 11:52 AM ALT 7 (L) 02/13/2023 09:52 AM ALT 9 (L) 04/04/2020 11:52 AM HGBA1C 5.1 08/01/2013 12:00 AM HGBA1C 5.5 08/02/2002 11:38 AM documented in this encounter Plan of Treatment Upcoming Encounters Date Type Department Care Team (Late st Contact Info) Description 08/31/2023 1:00 PM EST Office Visit Family [facility] [address] [place] [address] Silvia Barraza DO [address] [place] [address] 12/18/2023 11:00 AM EDT Office Visit Otolaryngology [facility] [address] [place] [address] Lucia Treviño MD [address] [place] [address] 04/22/2024 4:00 PM EDT Office Visit Neurology, [place] [address] [place] [address] Stephen Price MD [address] [place] [address] Health Maintenance Due Date Last Done Comments COVID-19 Vaccine (#1) 1941 Zoster Vaccines (1 of 2) 1991 *BISPHONATE OR OTHER ACCEPTABLE MEDICATION NEEDED FOR OSTEOPOROSIS (REFER TO SMARTSET #1146) 10/06/2014 DXA Scan 03/24/2020 03/24/2018, 04/04, 04/19/2012, Additional history exists Depression Screening 05/29/2023 05/29/2022 Influenza Vaccine (FLU shot) (#1) 2023 08/03/2021, 08/26/2020, 06/24/2019, Additional history exists DTaP,Tdap,and Td Vaccines (3 - Td or Tdap) 06/23/2024 06/23/2014, 06/21/2007, 05/14/2007, Additional history exists Pneumococcal Vaccine: 65+ Years Completed 10/19/2015, 07/17/2010 VITAMIN D LEVEL ONCE IN A LIFETIME-USE SMARTSET# 99587 Completed 02/13/2023, 08/13/2020, 11/22/2015, Additional history exists GARDASIL-HPV IMMUNIZATION SERIES Aged Out No longer eligible based on patient's age to complete this topic Hepatitis B Aged Out No longer eligi ble based on patient's age to complete this topic MENINGOCOCCAL (MENACTRA/MENVEO) Aged Out No longer eligible based on patient's age to complete this topic documented as of this encounter Medical Devices Implanted Type Area Diesel Mechanic Construction Device Identifier Shelf Expiration Date Model / Serial / Lot Medtronic Tyrx Absorbable Antibacterial Envelope-Large Implanted:Qty: 1 on 07/27/2020 by Tomi James MD at OR [facility] [place] Right: Chest Medtronic 04/07/2021 [id number] / / [id number] Description:Tyrosine polyary late coated, multifilament absorbable mesh 2.9"x3.3" No charge Per Germania K. Neurostim Activa Deep Brain - [id number] - [id number] Implanted:Qty: 1 on 06/02/2022 by Tomi James MD at OR [facility] [place] Left: Chest [employer] 11/01/2022 [id number] / [id number] / documented as of this encounter Visit Diagnoses Diagnosis Tinea corporis Dermatophytosis of the body documented in this encounter Advance Directives Documents on File Type Date Recorded Patient Automation And Controls Supervisor Expl anation Power of Assistant Editor 04/03/2019 POWER OF A TTORNEY Latest Code Status on File Code Status Date Activated Date Inactivated Comments Full Code 06/02/2022 2:04 PM 06/02/2022 10:30 PM This order reflects the patients wishes and were consensually agreed upon. Question Answer Comments Discussion of Advance Directives occurred with: Not Discussed due to patient's condition Code Status History Code Status Date Activated Date Inactivated Comments Full Code 07/27/2020 12:27 PM 07/27/2020 10:19 PM T his order reflects the patients wishes and were consensually agreed upon. Question Answer Comments Discussion of Advance Directives occurred with: Not Discussed Care Teams General Education Instructor Relationship Specialty Start Date End Date Silvia Barraza DO [address] [place], [place] [address] PCP - General Family Medicine 06/23/14 documented as of this encounter
--- OUTSIDE RECORDS SUMMARY | 2023-09-10 02:28 | External Medical Summary | Summary of Care ---
Author Name Unknown Organization [facility] Address [address] [place] [address] Phone [phone] Care Team Providers Care Skin Fitter Name Role Phone Silvia Barraza DO Primary Care Provider Reason for Visit * Reason Comments eRx-Medication Refill Encounter Details Date Type Department Care Team (Late st Contact Info) Description 08/24/2023 [facility] [address] [facility] [place] [address] Silvia Barraza DO [address] [facility] [place] [address] Neuropathy Allergies No known active allergiesdocumented as of this encounter (statuses as of 08/24/2023) Medications Medication Sig Dispensed Refills Start Date End Date Status Multiple Vitamins-Minerals (WOMENS MULTI) CAPS Take by mouth. 0 Active Fleet Enema 7-19 GM/118ML Rectal EnemaIndications: Constipation, unspecified constipation type Administer 1 Enema into the rectum once. 0 Active Amoxicillin 500 MG Oral Capsule (Amoxil) 4 CAPS BY MOUTH 1HR PRIOR TO APPT 4 Capsule 4 03/14/2022 Active Ketoconazole 2 % External Shampoo (Nizoral)Indicati ons:Tinea corporis APPLY TO SCALP ONCE WEEKLY NEEDED. LEAVE ON 5-10MIN BEFORE RINSING. 120 mL 4 04/16/2022 Active Propylene Glycol 0.6 % Ophthalmic SolutionIndicatio ns:Cataract Instill 1 Drop into both eyes 4 times a day as needed. 5 mL 3 04/16/2022 Active Oxymetazoline HCl 0.05 % Nasal Solution (Afrin Nasal [place])Indications :Epistaxis Administer into each nostril 2 Sprays 2 times a day as needed (nosebleed). Do not use for more than three days. 15 mL 0 07/09/2022 Active Hydrocortisone 2.5 % External Lotion APPLY TOPICALLY TO AFFECTED AREA 3 TIMES A DAY. TO AFFECTED AREA ON SCALP. 118 mL 10 07/19/2022 Active Floranex Oral TabletIndications :Constipation, unspecified constipation type TAKE 2 TABLETS BY MOUTH EVERY MORNING 60 Tablet 5 08/08/2022 Active Magnesium Oxide 200 MG Oral Tablet (Mag-Oxide)Indica tions:PMR (polymyalgia rheumatica) (HCC) Take 1 Tablet by [...] 30 Tablet 4 01/21/2023 Active Saline Nasal [place] 0.65 % Nasal Solution ([place])Indication s:Epistaxis Use two sprays at bedtime 30 mL 2 03/12/2023 Active Carbidopa-Levodop a 25-100 MG Oral Tablet (Sinemet)Indicati ons:Parkinson's disease TAKE 1 TAB BY MOUTH TWICE DAILY THE FIRST 2 DOSES + 1.5 TABS BY MOUTH TWICE DAILY THE LAST 2 DOSES 150 Tablet 11 04/20/2023 Active Mirtazapine 15 MG Oral Tablet (Remeron)Indicati ons:Primary insomnia,ANURADHA (generalized anxiety disorder) Take 1 Tablet [...] 05/25/2023 Active Gabapentin 100 MG Oral Capsule (Neurontin)Indica tions:Parkinson's disease Take 1 cps at bed time, along with the 300 mg. 90 Capsule 6 05/27/2023 Active Melatonin 10 MG Oral Tablet DisintegratingInd ications:Persiste nt insomnia Take 10 mg by mouth at [...] Active Acetaminophen PM 500-25 MG Oral Tablet (diphenhydrAMINE- APAP (sleep)) Take 1 Tablet by mouth at bedtime. 30 Tablet 10 08/07/2023 Active Aspirin Low Dose 81 MG Oral Tablet Delayed Release (aspirin enteric coated) 1 TAB BY MOUTH EVERY DAY 30 Tablet 3 08/17/2023 Active Vitamin D3 50 MCG (2000 UT) Oral TabletIndications :Parkinson's disease Take 1 cps 2 times a day 60 Tablet 6 08/17/2023 Active traZODone HCl 100 MG Oral Tablet (Desyrel) Take 1 Tablet by mouth at bedtime. 30 Tablet 11 08/18/2023 Active Gabapentin 300 MG Oral Capsule (Neurontin)Indica tions:Neuropathy TAKE 3 CAPS BY MOUTH AT BEDTIME. 90 Capsule 10 08/24/2023 Active Gabapentin 300 MG Oral Capsule (Neurontin)Indica tions:Neuropathy TAKE 3 CAPS BY MOUTH AT BEDTIME. 90 Capsule 5 02/20/2023 3 Discontinued documented as of this encounter (statuses as of 08/24/2023) Active Problems Problem Noted Date Diagnosed Date [...] as of this encounter (statuses as of 08/24/2023) Resolved Problems Problem Noted Date Diagnosed Date [...] as of this encounter (statuses as of 08/24/2023) Immunizations Name Administration Dates Next Due Pneumococcal Conjugate Vacc, 13 Valent (Prevnar) 10/19/2015 Pneumococcal Polysaccharide PPV23 (Pneumovax) 07/17/2010 SEASONAL INFLUENZA, PF, 6 M & Above, IM , (FLULAVAL or FLUZONE) 08/26/2020,06/24/2019 Seasonal Influenza Virus Vac cine, Unspecified Formulation 10/19/2015,06/23/2014,07/17/2010,100 05/2009,07/07/2007 Seasonal Influenza, Quadriva lent, No Preserve, IM [...] Miscellaneous Notes * Telephone Encounter - Sally Hung DO - 08/24/2023 4:01 PM ESTSigned Prescriptions: Disp Refills Gabapentin 300 MG Oral Capsule (Neurontin) 90 Cap*10 Sig: TAKE 3 CAPS BY MOUTH AT BEDTIME. Authorizing Provider: SALLY HUNG * Telephone Encounter - Khushbu Flores LPN - 08/24/2023 2:55 PM EST Pending Prescriptions: Disp Refills Gabapentin 300 MG Oral Capsule [Pharmacy M*90 Cap*10 Sig: TAKE 3 CAPS BY MOUTH AT BEDTIME. * Telephone Encounter - Khushbu Flores LPN - 08/24/2023 2:55 PM EST Pending Prescriptions: Disp Refills Gabapentin 300 MG Oral Capsule (Neurontin*90 Cap*10 Sig: TAKE 3 CAPS BY MOUTH AT BEDTIME. 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 ([facility]) G20.A1, F02.80 End of battery life of deep brain stimulator Z45.42 PMR (polymyalgia rheumatica) ([facility]) M35.3 Labs: Lab Results Component Value Date/Time CREATININE - [facility] 0.8 02/13/2023 09:52 AM CREATININE - [facility] 0.8 07/04/2020 03:20 PM CREATININE-OUTSIDE LAB 0.8 08/01/2013 12:00 AM Lab Results Component Value Date/Time POTASSIUM - [facility] 4.3 02/13/2023 09:52 AM POTASSIUM - [facility] 4.4 07/04/2020 03:20 PM POTASSIUM-OUTSIDE LAB 4.4 08/01/2013 12:00 AM Lab Results Component Value Date/Time TSH - [facility] 1.87 02/13/2023 09:52 AM TSH - [facility] 2.09 07/04/2020 03:20 PM Lab Results Component Value Date/Time LDL CHOLESTEROL (CALCULATED) - [facility] 100 02/13/2023 09:52 AM LDL CHOLESTEROL (CALCULATED) - [facility] 118 11/22/2015 11:07 AM LDL CHOLESTEROL (CALCULATED) - [facility] 112 (H) 07/17/2010 12:45 PM LDL CHOLESTEROL (DIRECT MEASURE) - [facility] 110 04/04/2020 11:52 AM LDL CHOLESTEROL (DIRECT MEASURE) - [facility] 116 (H) 07/17/2010 12:45 PM Lab Results Component Value Date/Time ALT - [facility] 7 (L) 02/13/2023 09:52 AM ALT - [facility] 9 (L) 04/04/2020 11:52 AM Hemoglobin AIC Results: Lab Results Component Value Date/Time HEMOGLOBIN A1C - [facility] 5.5 08/02/2002 11:38 AM * Telephone Encounter - Conrad Purcell - 08/24/2023 1:38 PM ESTPending Prescriptions: Disp Refills Gabapentin 300 MG Oral Capsule [Pharmacy M*90 Cap*10 Sig: TAKE 3 CAPS BY MOUTH AT BEDTIME. documented in this encounter Plan of Treatment Upcoming Encounters Date Type Department Care Team (Late st Contact Info) Description 08/31/2023 1:00 PM EST Office Visit Family Practice [facility] [address] [place] [address] Silvia Barraza DO [address] [place] [address] 12/18/2023 11:00 AM EDT Office Visit Otolaryngology [facility] [address] [facility] [place] [address] Lucia Treviño MD [address] [place] [address] 04/22/2024 4:00 PM EDT Office Visit Neurology, [place] [address] [place] [address] Stephen Price MD [address] [place] [address] Health Maintenance Due Date Last [...] D LEVEL ONCE IN A LIFETIME-USE SMARTSET# [id number] Completed 02/13/2023, 08/13/2020, 11/22/2015, Additional history exists [...] this encounter Medical Devices Implanted Type Area Conference Planner Device Identifier Shelf Expiration Date Model / Serial / Lot Medtronic Tyrx Absorbable Antibacterial Envelope-Large Implanted:Qty: 1 on 07/27/2020 [place] [facility] [place] Medtronic 04/07/2021 [id number] / / [id number] Description:Tyrosine polyary late coated, multifilament absorbable mesh 2.9"x3.3" No charge Per Germania K. Neurostim Activa Deep Brain - [id number] - [id number] Implanted:Qty: 1 on 06/02/2022 [place] James [place] [facility] [place] Chest [employer] 11/01/2022 [id number] / [id number] / documented as of this encounter Visit Diagnoses Diagnosis Neuropathy Mononeuritis of unspecified site documented in this encounter Advance Directives Documents on File Type Date Recorded Patient Building Operator Expl anation Power of Cellulose Insulation Helper 04/03/2019 POWER OF A TTORNEY Latest Code [...] Directives occurred with: Not Discussed Care Teams Skin Fitter Relationship Specialty Start Date End Date Silvia Barraza DO [address] [place] [address] PCP - General Family Medicine 06/23/14 documented as of this encounter
--- OUTSIDE RECORDS SUMMARY | 2023-09-10 02:28 | External Medical Summary | Summary of Care ---
Author Name Unknown Organization [facility] Address [address] [place] [address] Phone [phone] Care Team Providers Care Bailer Tenders Supervisor Name Role Phone Silvia Barraza DO Primary Care Provider Reason for Visit * Reason Onset Date Comments FYI 09/09/2023 Encounter Details Date Type Department Care Team (Late st Contact Info) Description 09/09/2023 Telephone Family Practice [facility] [place] [address] [facility] [place] [address] Silvia Barraza DO 200 [facility] [place] [address] FYI Allergies No known active allergiesdocumented as of this encounter (statuses as of 09/09/2023) Medications Medication Sig Dispensed Refills Start Date End Date Status Multiple Vitamins-Minerals (WOMENS MULTI) CAPS Take by mouth. 0 A ctive Fleet Enema 7-19 GM/118ML Rectal EnemaIndications:Con stipation, unspecified constipation type Administer 1 Enema into the rectum once. 0 Active Amoxicillin 500 MG Oral Capsule (Amoxil) 4 CAPS BY MOUTH 1HR PRIOR TO APPT 4 Capsule 4 03/14/2022 Active Propylene Glycol 0.6 % Ophthalmic SolutionIndications: Cataract Instill 1 Drop into both eyes 4 times a day as needed. 5 mL 3 04/16/2022 Active Oxymetazoline HCl 0.05 % Nasal Solution (Afrin Nasal [place])Indications:Ep istaxis Administer into each nostril 2 Sprays 2 times a day as needed (nosebleed). Do not use for more than three days. 15 mL 0 07/09/2022 Active Hydrocortisone 2.5 % External Lotion APPLY TOPICALLY TO AFFECTED AREA 3 TIMES A DAY. TO AFFECTED AREA ON SCALP. 118 mL 10 07/19/2022 Active Floranex Oral TabletIndications:Co nstipation, unspecified constipation type TAKE 2 TABLETS BY MOUTH EVERY MORNING 60 Tablet 5 08/08/2022 Active Magnesium Oxide 200 MG Oral Tablet (Mag-Oxide)Indicatio ns:PMR (polymyalgia rheumatica) ([facility]) Take 1 Tablet by mouth in the [...] 30 Tablet 4 01/21/2023 Active Saline Nasal [place] 0.65 % Nasal Solution ([place])Indications:E pistaxis Use two sprays at bedtime 30 mL 2 03/12/2023 Active Carbidopa-Levodopa 25-100 MG Oral Tablet (Sinemet)Indications :Parkinson's disease TAKE 1 TAB BY MOUTH TWICE DAILY THE FIRST 2 DOSES + 1.5 TABS BY MOUTH TWICE DAILY THE LAST 2 DOSES 150 Tablet 11 04/20/2023 Active Mirtazapine 15 MG Oral Tablet (Remeron)Indications :Primary insomnia,ANURADHA (generalized anxiety disorder) Take 1 Tablet [...] 05/25/2023 Active Gabapentin 100 MG Oral Capsule (Neurontin)Indicatio ns:Parkinson's disease Take 1 cps at bed time, along with the 300 mg. 90 Capsule 6 05/27/2023 Active Melatonin 10 MG Oral Tablet DisintegratingIndica tions:Persistent insomnia Take 10 mg by mouth at [...] Active Acetaminophen PM 500-25 MG Oral Tablet (diphenhydrAMINE-APA P (sleep)) Take 1 Tablet by mouth at bedtime. 30 Tablet 10 08/07/2023 Active Aspirin Low Dose 81 MG Oral Tablet Delayed Release (aspirin enteric coated) 1 TAB BY MOUTH EVERY DAY 30 Tablet 3 08/17/2023 Active Vitamin D3 50 MCG (2000 UT) Oral TabletIndications:Pa rkinson's disease Take 1 cps 2 times a day 60 Tablet 6 08/17/2023 Active Gabapentin 300 MG Oral Capsule (Neurontin)Indicatio ns:Neuropathy TAKE 3 CAPS BY MOUTH AT BEDTIME. 90 Capsule 10 08/24/2023 Active Ketoconazole 2 % External Shampoo (Nizoral)Indications :Tinea corporis APPLY TO SCALP ONCE WEEKLY NEEDED. LEAVE ON 5-10MIN BEFORE RINSING. 120 mL 4 08/26/2023 Active traZODone HCl 150 MG Oral Tablet (Desyrel) Take 1 Tablet by mouth at bedtime. 30 Tablet 11 08/31/2023 Active documented as of this encounter (statuses as of 09/09/2023) Active Problems Problem Noted Date Diagnosed Date [...] as of this encounter (statuses as of 09/09/2023) Resolved Problems Problem Noted Date Diagnosed Date [...] as of this encounter (statuses as of 09/09/2023) Immunizations Name Administration Dates Next Due Pneumococcal Conjugate Vacc, 13 Valent (Prevnar) 10/19/2015 Pneumococcal Polysaccharide PPV23 (Pneumovax) 07/17/2010 SEASONAL INFLUENZA, PF, 6 M & Above, IM , (FLULAVAL or FLUZONE) 08/26/2020,06/24/2019 Seasonal Influenza Virus Vac cine, Unspecified Formulation 10/19/2015,06/23/2014,07/17/2010,10/0 05/2009,07/07/2007 Seasonal Influenza, Quadriva lent, No Preserve, [...] encounter Miscellaneous Notes * Telephone Encounter - Alina Delgadillo LPN - 09/09/2023 10:55 AM EST Noted. * Telephone Encounter - Yuki Anne OSA - 09/09/2023 10:20 AM EST GLORYMynor Garcia calling to inform the PCP that on 09-04-2023 pt missed all her her AM medications.There is no ill effect and all medications on hand being taken as directed. documented in this encounter Plan of Treatment Upcoming Encounters Date Type Department Care Team (Late st Contact Info) Description 12/18/2023 11:00 AM EDT Office Visit [facility]ol[facility]ology [facility] [address] [facility] [place] [address] Lucia Treviño MD [address] [place] [address] 03/01/2024 2:20 PM EDT Office Visit Family Practice [facility] 200 [facility] [place] [address] Silvia Barraza, 200 [facility] [place] [address] 04/22/2024 4:00 PM EDT Office Visit Neurology, [place] [address] [place] [address] Stephen Price MD [address] [place] [address] Health Maintenance Due Date Last [...] D LEVEL ONCE IN A LIFETIME-USE SMARTSET# 83553 Completed 02/13/2023, 08/13/2020, 11/22/2015, Additional history exists [...] this encounter Medical Devices Implanted Type Area Bookmobile Driver Device Identifier Shelf Expiration Date Model / Serial / Lot Medtronic Tyrx Absorbable Antibacterial Envelope-Large Implanted:Qty: 1 on 07/27/2020 by Tomi James MD at [place] [facility] [place] Right: Chest Medtronic 04/07/2021 [id number] / / [id number] Description:Tyrosine polyary late coated, multifilament absorbable mesh 2.9"x3.3" No charge Per Germania K. Neurostim Activa Deep Brain - [id number] - [id number] Implanted:Qty: 1 on 06/02/2022 by Tomi James MD at OR [facility] [place] Left: Chest [employer] 11/01/2022 [id number] / [id number] / documented as of this encounter Advance Directives Documents on File Type Date Recorded Patient Predator Control Trapper Expl anation Power of Fisheries Officer 04/03/2019 POWER OF A TTORNEY Latest Code [...] Directives occurred with: Not Discussed Care Teams Bailer Tenders Supervisor Relationship Specialty Start Date End Date Silvia Barraza DO [address] [place], [place] [address] PCP - General Family Medicine 06/23/14 documented as of this encounter
--- OUTSIDE RECORDS SUMMARY | 2023-09-10 02:28 | External Medical Summary | Summary of Care ---
Author Name Unknown Organization [facility] Address [address] [place] [address] Phone [phone] Care Team Providers Care Tallow Maker Name Role Phone Silvia Barraza DO Primary Care Provider Reason for Visit * Reason Onset Date Comments Medication Refill 08/18/2023 Encounter Details Date Type Department Care Team (Late st Contact Info) Description 08/18/2023 Refill Family Practice [facility] 200 [facility] [place] [address] Silvia Barraza DO 200 [facility] [place] [address] Allergies No known active allergiesdocumented as of this encounter (statuses as of 08/18/2023) Medications Medication Sig Dispensed Refills Start Date End Date Status Multiple Vitamins-Minerals (WOMENS MULTI) CAPS Take by mouth. 0 Active Fleet Enema 7-19 GM/118ML Rectal EnemaIndications:C onstipation, unspecified constipation type Administer 1 Enema into the rectum once. 0 Active Amoxicillin 500 MG Oral Capsule (Amoxil) 4 CAPS BY MOUTH 1HR PRIOR TO APPT 4 Capsule 4 03/14/2022 Active Ketoconazole 2 % External Shampoo (Nizoral)Indicatio ns:Tinea corporis APPLY TO SCALP ONCE WEEKLY NEEDED. LEAVE ON 5-10MIN BEFORE RINSING. 120 mL 4 04/16/2022 Active Propylene Glycol 0.6 % Ophthalmic SolutionIndication s:Cataract Instill 1 Drop into both eyes 4 times a day as needed. 5 mL 3 04/16/2022 Active Oxymetazoline HCl 0.05 % Nasal Solution (Afrin Nasal [place])Indications: Epistaxis Administer into each nostril 2 Sprays [...] MG Oral Tablet (Mag-Oxide)Indicat ions:PMR (polymyalgia rheumatica) ([facility]) Take 1 Tablet by mouth in the [...] EVERY DAY 30 Tablet 4 01/21/2023 Active Gabapentin 300 MG Oral Capsule (Neurontin)Indicat ions:Neuropathy TAKE 3 CAPS BY MOUTH AT BEDTIME. 90 Capsule 5 02/20/2023 Active Saline Nasal [place] 0.65 % Nasal Solution ([place])Indications :Epistaxis Use two sprays at bedtime 30 [...] daily as needed for Constipation. 14 Each 06/18/2023 Active Loperamide HCl 2 MG Oral [...] at bedtime. 30 Tablet 11 08/18/2023 Active traZODone HCl 100 MG Oral Tablet (Desyrel) Take 1 Tablet by mouth at bedtime. 30 Tablet 11 02/13/2023 3 Discontinue d(Refill) documented as of this encounter (statuses as of 08/18/2023) Active Problems Problem Noted Date Diagnosed Date [...] as of this encounter (statuses as of 08/18/2023) Resolved Problems Problem Noted Date Diagnosed Date [...] as of this encounter (statuses as of 08/18/2023) Immunizations Name Administration Dates Next Due Pneumococcal [...] encounter Miscellaneous Notes * Telephone Encounter - Deep Pringle MD - 08/18/2023 6:04 PM ESTSigned Prescriptions: Disp Refills traZODone HCl 100 MG Oral Tablet (Desyrel) 30 Tab*11 Sig: Take 1 Tablet by mouth at bedtime. Authorizing Provider: DEEP PRINGLE * Telephone Encounter - Madhav Collado, drum carrier - 08/18/2023 3:16 PM EST Did you pend patient's preferred pharmacy and medication before forwarding?yes [facility]acy: [facility] [address] Pending Prescriptions: Disp Refills traZODone HCl 100 MG Oral Tablet (Desyrel)30 Tab*11 Sig: Take 1 Tablet by mouth at bedtime. Last Visit: 02/13/2023 (in office), 09/25/2020 (telemedicine) Next Visit: 08/31/2023 If no future appointments scheduled, and last appointment is greater than a year ago, please schedule patient for a follow-up appointment Last date the medication was ordered: 02/13/2023 Is this request for a controlled substance?No [...] Family Practice [facility] [address] [place] [address] Silvia Barraza DO [address] [place] [address] [address] 12/18/2023 11:00 AM EDT Office Visit Otolaryngology [facility] [address] [place] [address] Lucia Treviño MD [address] [place] [address] 04/22/2024 4:00 PM EDT Office Visit Neurology, [place] [address] [place] [address] Stephen Price MD [address] [place] [address] Health Maintenance Due Date Last [...] D LEVEL ONCE IN A LIFETIME-USE SMARTSET# 09298 Completed 02/13/2023, 08/13/2020, 11/22/2015, Additional history exists [...] this encounter Medical Devices Implanted Type Area Sand Drier Device Identifier Shelf Expiration Date Model / Serial / Lot Medtronic Tyrx Absorbable Antibacterial Envelope-Large Implanted:Qty: 1 on 07/27/2020 by Tomi James MD [place] [facility] [place]: Chest Medtronic 04/07/2021 [id number] / / [id number] Description:Tyrosine polyary late coated, multifilament absorbable mesh 2.9"x3.3" No charge Per Germania K. Neurostim Activa Deep Brain - [id number] - [id number] Implanted:Qty: 1 on 06/02/2022 by Tomi James MD [place] [facility] [place]: Chest [employer] 11/01/2022 [id number] / [id number] / documented as of this encounter Advance Directives Documents on File Type Date Recorded Patient Director Data Management Expl anation Power of Saw Edge Fuser Circular 04/03/2019 POWER OF A TTORNEY Latest Code [...] Directives occurred with: Not Discussed Care Teams Tallow Maker Relationship Specialty Start Date End Date Silvia Barraza DO [address] [place] [address] PCP - General Family Medicine 06/23/14 documented as of this encounter
--- OUTSIDE RECORDS SUMMARY | 2023-09-10 02:29 | External Medical Summary | Summary of Care ---
Author Name Unknown Organization [facility] Address [address] [place] [address] Phone [phone] Care Team Providers Care Chlorine Plant Operator Name Role Phone Silvia Barraza Marie MOREJON Primary Care Provider Reason for Visit * Reason Onset Date Comments Medication Refill 08/17/2023 Encounter Details Date Type Department Care Team (Late st Contact Info) Description 08/17/2023 Refill Neurology, [place] [address] [place] [address] Misa Price MD [address] [place] [address] Parkinson's disease Allergies No known active allergiesdocumented as of this encounter (statuses as of 08/17/2023) Medications Medication Sig Dispensed Refills Start Date [...] as needed. 5 mL 3 04/16/2022 Active Aspirin 81 MG Oral Tablet Delayed Release Take 1 Tablet by mouth in the morning. 0 06/07/2022 Active Oxymetazoline HCl 0.05 % Nasal Solution (Afrin Nasal [place])Indications: Epistaxis Administer into each nostril 2 Sprays [...] EVERY DAY 30 Tablet 4 01/21/2023 Active traZODone HCl 100 MG Oral Tablet (Desyrel) Take 1 Tablet by mouth at bedtime. 30 Tablet 11 02/13/2023 Active Gabapentin 300 MG Oral Capsule (Neurontin)Indicat ions:Neuropathy TAKE 3 CAPS BY MOUTH AT BEDTIME. 90 Capsule 5 02/20/2023 Active Saline Nasal [place] 0.65 % Nasal Solution ([place])Indications :Epistaxis Use two sprays at bedtime 30 [...] at bedtime. 30 Tablet 10 08/07/2023 Active Vitamin D3 50 MCG (1999 UT) Oral TabletIndications: Parkinson's disease Take 1 cps 2 times a day 60 Tablet 6 08/17/2023 Active Vitamin D3 50 MCG (1999 UT) Oral TabletIndications: Parkinson's disease Take 1 cps 2 times a day 60 Tablet 6 02/03/2023 3 Discontinue d(Refill) documented as of this encounter (statuses as of 08/17/2023) Active Problems Problem Noted Date Diagnosed Date [...] as of this encounter (statuses as of 08/17/2023) Resolved Problems Problem Noted Date Diagnosed Date [...] as of this encounter (statuses as of 08/17/2023) Immunizations Name Administration Dates Next Due Pneumococcal [...] encounter Miscellaneous Notes * Telephone Encounter - Gayatri Sommer RPh - 08/17/2023 1:53 PM ESTSigned Prescriptions: Disp Refills Vitamin D3 50 MCG (1999 UT) Oral Tablet 60 Tab*6 Sig: Take 1 cps 2 times a day Authorizing Provider: MISA PRICE Ordering User: GAYATRI SOMMER * Telephone Encounter - Silvia Richards CPhT - 08/17/2023 12:55 PM EST Did you pend patient's preferred pharmacy and medication before forwarding?yes Pharmacy: [facility] [address] [place] [address] Pending Prescriptions: Disp Refills Vitamin D3 50 MCG (1999) Oral Tablet 60 Tab*6 Sig: Take 1 cps 2 times a day Last Visit: 03/16/2023 (in office), 01/17/2020 (telemedicine) Next Visit: 04/22/2024 If no future appointments scheduled, and last appointment is greater than a year ago, please schedule patient for a follow-up appointment Last date the medication was ordered: 5.2.23 Is this request for a controlled substance?No [...] 1:00 PM EST Office Visit Family Practice [facility] [place] [address] [place] [address] Silvia Barraza DO [address] [facility] [place] [address] 12/18/2023 11:00 AM EDT Office Visit Otolaryngology [facility] [address] [place] [address] Lucia Treviño MD [address] [place] [address] 04/22/2024 4:00 PM EDT Office Visit Neurology, [place] [address] [place] [address] Misa Price MD [address] [place] [address] Health Maintenance Due Date Last Done Comments COVID-19 Vaccine (#1) 1940 Zoster Vaccines (1 of 2) 1991 *BISPHONATE OR OTHER ACCEPTABLE MEDICATION NEEDED FOR OSTEOPOROSIS (REFER TO SMARTSET #1146) 10/06/2014 DXA Scan 03/24/2020 03/24/2018, 04/04, 04/19/2012, Additional history exists Depression Screening 05/29/2023 05/29/2022 Influenza Vaccine (FLU shot) (#1) 2023 08/26/2020, 06/24/2019, 10/19/2015, Additional history exists DTaP,Tdap,and Td Vaccines (3 - Td or Tdap) 06/23/2024 06/23/2014, 06/21/2007, 05/14/2007, Additional history exists Pneumococcal Vaccine: 65+ Years Completed 10/19/2015, 07/17/2010 VITAMIN D LEVEL ONCE IN A LIFETIME-USE SMARTSET# 35870 Completed 02/13/2023, 08/13/2020, 11/22/2015, Additional history exists [...] this encounter Medical Devices Implanted Type Area Etcher Enameling Device Identifier Shelf Expiration Date Model / Serial / Lot Medtronic Tyrx Absorbable Antibacterial Envelope-Large Implanted:Qty: 1 on 07/27/2020 by Tomi James MD at [place] [facility] [place] Right: Chest Medtronic 04/07/2021 [id number] / / [id number] Description:Tyrosine polyary late coated, multifilament absorbable mesh 2.9"x3.3" No charge Per Germania K. Neurostim Activa Deep Brain - [id number] - [id number] Implanted:Qty: 1 on 06/02/2022 by Tomi James MD at OR [facility] [place] Left: Chest [employer] 11/01/2022 [id number] / [id number] / documented as of this encounter Visit Diagnoses Diagnosis Parkinson's disease Paralysis agitans documented in this encounter Advance Directives Documents on File Type Date Recorded Patient Relief Cook Expl anation Power of Yarn Twister 04/03/2019 POWER OF A TTORNEY Latest Code [...] Directives occurred with: Not Discussed Care Teams Chlorine Plant Operator Relationship Specialty Start Date End Date Silvia Barraza DO [address] [place] [address] PCP - General Family Medicine 06/23/14 documented as of this encounter
--- OUTSIDE RECORDS SUMMARY | 2023-09-10 02:29 | External Medical Summary | Summary of Care ---
Author Name Unknown Organization [facility] Address [address] [place] [address] Phone [phone] Care Team Providers Care Chemical Processing Supervisor Name Role Phone Fang Barraza DO Primary Care Provider Reason for Visit * Reason Comments eRx-Medication Refill Encounter Details Date Type Department Care Team (Late st Contact Info) Description 08/01/2023 Refill Family Practice [facility] [place] 200 [facility] [place] [address] Fang Barraza DO 200 [facility] [place] [address] Allergies No known active allergiesdocumented as of this encounter (statuses as of 08/03/2023) Medications Medication Sig Dispensed Refills Start Date [...] HCl 0.05 % Nasal Solution (Afrin Nasal [place])Indications: Epistaxis Administer into each nostril 2 Sprays [...] EVERY DAY 30 Tablet 4 01/21/2023 Active Vitamin D3 50 MCG (2000 UT) Oral TabletIndications: Parkinson's disease Take 1 cps 2 times a day 60 Tablet 6 02/03/2023 Active traZODone HCl 100 MG Oral Tablet (Desyrel) Take 1 Tablet by mouth at bedtime. 30 Tablet 11 02/13/2023 Active Gabapentin 300 MG Oral Capsule (Neurontin)Indicat ions:Neuropathy TAKE 3 CAPS BY MOUTH AT BEDTIME. 90 Capsule 5 02/20/2023 Active Saline Nasal [place] 0.65 % Nasal Solution ([place])Indications :Epistaxis Use two sprays at bedtime 30 [...] 500-25 MG Oral Tablet (diphenhydrAMINE-A PAP (sleep)) TAKE 1 TABLET BY MOUTH AT BEDTIME NEEDED FOR SLEEP. 30 Tablet 10 08/03/2023 Active Tylenol PM Extra Strength 500-25 MG Oral Tablet (diphenhydrAMINE-A PAP (sleep)) Take 1 Tablet by mouth at bedtime as needed for Sleep. 45 Tablet 1 12/12/2022 3 Discontinue d(Refill) documented as of this encounter (statuses as of 08/03/2023) Active Problems Problem Noted Date Diagnosed Date [...] as of this encounter (statuses as of 08/03/2023) Resolved Problems Problem Noted Date Diagnosed Date [...] as of this encounter (statuses as of 08/03/2023) Immunizations Name Administration Dates Next Due Pneumococcal [...] = 0.6 oz pur e alcohol) moderation Sex and Gender Information Value Date Recorded Sex Assigned at Female 04/02/2020 5:00 PM EDT Gender Identity Female 04/02/2020 5:00 PM EDT Sexual Orientation Choose not to disclose 2019 5:00 PM EDT Job Start Date Occupation Industry Not on file Not on file Not on file documented as of this encounter Miscellaneous Notes * Telephone Encounter - Fang Barraza DO - 08/03/2023 10:39 AM EDT Signed Prescriptions: Disp Refills Acetaminophen PM 500-25 MG Oral Tablet (di*30 Tab*10 Sig: TAKE 1 TABLET BY MOUTH AT BEDTIME NEEDED FOR SLEEP. Authorizing Provider: FANG BARRAZA * Telephone Encounter - Khushbu Flores LPN - 08/03/2023 8:52 AM EDT Pending Prescriptions: Disp Refills Acetaminophen PM 500-25 MG Oral Tablet [Ph*30 Tab*10 Sig: TAKE 1 TABLET BY MOUTH AT BEDTIME NEEDED FOR SLEEP. * Telephone Encounter - Khushbu Flores LPN - 08/03/2023 8:52 AM EDT Pending Prescriptions: Disp Refills Acetaminophen PM 500-25 MG Oral Tablet (d*30 Tab*10 Sig: TAKE 1 TABLET BY MOUTH AT BEDTIME NEEDED FOR SLEEP. 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 documented in this encounter Plan of Treatment Upcoming Encounters Date Type Department Care Team (Late st Contact Info) Description 08/31/2023 1:00 PM EST [facility] [address] [place] [address] Fang Barraza DO [address] [place] [address] 12/18/2023 11:00 AM EDT Office Visit Otolaryngology [facility] [address] [place] [address] Lucia Treviño MD 132 [facility] [place] [address] 04/22/2024 4:00 PM EDT Office Visit Neurology, [place] [address] [place] [address] Stephen Price MD [address] [place] [address] Health Maintenance Due Date Last [...] D LEVEL ONCE IN A LIFETIME-USE SMARTSET# 64731 Completed 02/13/2023, 08/13/2020, 11/22/2015, Additional history exists [...] this encounter Medical Devices Implanted Type Area Pot Filler Device Identifier Shelf Expiration Date Model / Serial / Lot Medtronic Tyrx Absorbable Antibacterial Envelope-Large Implanted:Qty: 1 on 07/27/2020 by Tomi James MD at OR [facility] [place] Right: Chest Medtronic 04/07/2021 [id number] / / [id number] Description:Tyrosine polyary late coated, multifilament absorbable mesh 2.9"x3.3" No charge Per Germania KEthan Neurostim Activa Deep Brain - [id number] - [id number] Implanted:Qty: 1 on 06/02/2022 by Tomi James MD at OR [facility] [place] Left: Chest [employer] 11/01/2022 [id number] / [id number] / documented as of this encounter Advance Directives Documents on File Type Date Recorded Patient Hospital Medical Biller Expl anation Power of Vigoureux Printer 04/03/2019 POWER OF A TTORNEY Latest Code [...] Directives occurred with: Not Discussed Care Teams Chemical Processing Supervisor Relationship Specialty Start Date End Date Fang Barraza DO [address] [place] [address] PCP - General Family Medicine 06/23/14 documented as of this encounter
--- OUTSIDE RECORDS SUMMARY | 2023-09-10 02:29 | External Medical Summary | Summary of Care ---
Author Name Unknown Organization [facility] Address [address] [place] [address] Phone [phone] Care Team Providers Care Legal Aide Name Role Phone Silvia Barraza DO Primary Care Provider Reason for Visit * Reason Comments eRx-Medication Refill Encounter Details Date Type Department Care Team (Late st Contact Info) Description 08/15/2023 Refill Family Practice [facility] [place] [address] [facility] [place] [address] Silvia Barraza DO 200 [facility] [place] [address] Allergies No known active allergiesdocumented as of [...] HCl 0.05 % Nasal Solution (Afrin Nasal [place])Indications :Epistaxis Administer into each nostril 2 Sprays [...] 02/13/2023 Active Gabapentin 300 MG Oral Capsule (Neurontin)Indica tions:Neuropathy TAKE 3 CAPS BY MOUTH AT BEDTIME. 90 Capsule 5 02/20/2023 Active Saline Nasal [place] 0.65 % Nasal Solution (Pettis)Indication s:Epistaxis Use two sprays at bedtime 30 [...] EVERY DAY 30 Tablet 3 08/17/2023 Active Aspirin 81 MG Oral Tablet Delayed Release Take 1 Tablet by mouth in the morning. 0 06/07/2022 3 Discontinued documented as of this encounter [...] Telephone Encounter - Sally Hung DO - 08/17/2023 4:18 PM ESTSigned Prescriptions: Disp Refills Aspirin Low Dose 81 MG Oral Tablet Delayed*30 Tab*3 Si TAB BY MOUTH EVERY DAY Authorizing Provider: SALLY HUNG * Telephone Encounter - Laura Mcclendon CPhT - 08/17/2023 3:36 PM EST Pt calling requesting the following medication below that is listed as "Historical". The following information was provided: Medication Name: Aspirin Strength: 81 MG Oral Tablet Delayed Release Directions: Take 1 Tablet by mouth in the morning Preferred Quantity: 90 Previous Prescriber: Tmoi James MD [facility]: [facility] [address] Please review and approve if appropriate. Thank you, Laura Mcclendon CPhT Insurance Analyst II [facility] ([facility]) (Formerly Telepharmacy) 08/17/2023,3:37 PM * Telephone Encounter - Ginette Jarquin [facility] - 08/16/2023 2:45 PM ESTPending Prescriptions: Disp Refills Aspirin Low Dose 81 MG Oral Tablet Delayed*30 Tab*3 Si TAB BY MOUTH EVERY DAY * Telephone Encounter - Ginette Jarquin [facility] - 08/16/2023 2:45 PM EST Pharmacists cannot authorize refills for meds listed as "historical" in the chart. Please approve if appropriate. Pending Prescriptions: Disp Refills Aspirin Low Dose 81 MG Oral Tablet Delayed*30 Tab*3 Si TAB BY MOUTH EVERY DAY 02/13/2023 (in office), 09/25/2020 (telemedicine) 08/31/2023 If no future appointments scheduled, and last appointment is greater than a year ago, please schedule patient for a follow-up appointment Last date the medication was ordered: historical Pharmacy[facility] [address] Is this request for a controlled substance?No Urine Drug Screen:No results found for this or any previous visit. Patient Phone Numbers mobile [phone] Labs: Lab Results Component Value Date/Time CREAT [...] 1:00 PM EST Office Visit Family Practice [facility] [address] [facility] [place] [address] Silvia Barraza DO [address] [place] [address] 12/18/2023 11:00 AM EDT Office Visit Otolaryngology [facility] [address] [facility] [address] [facility] [place] [address] Lucia Treviño MD [address] [facility] [place] [address] 04/22/2024 4:00 PM EDT Office Visit Neurology, [place] [address] [place] [address] Stephen Price MD [address] [place] [address] Health Maintenance Due Date Last [...] D LEVEL ONCE IN A LIFETIME-USE SMARTSET# 90763 Completed 02/13/2023, 08/13/2020, 11/22/2015, Additional history exists [...] this encounter Medical Devices Implanted Type Area Assistant Professor Of Biochemistry Device Identifier Shelf Expiration Date Model / Serial / Lot Medtronic Tyrx Absorbable Antibacterial Envelope-Large Implanted:Qty: 1 on 07/27/2020 by Tomi James MD at [place] [facility] Right: Chest Medtronic 04/07/2021 [id number] / / [id number] Description:Tyrosine polyary late coated, multifilament absorbable mesh 2.9"x3.3" No charge Per Germania K. Neurostim Activa Deep Brain - [id number] - [id number] Implanted:Qty: 1 on 06/02/2022 by Tomi James MD at [place] [facility] [place] [place] Left: Chest [employer] 11/01/2022 [id number] / [id number] / documented as of this encounter Advance Directives Documents on File Type Date Recorded Patient Machine Clothing Man Expl anation Power of Area Loss Prevention Manager 04/03/2019 POWER OF A TTORNEY Latest Code [...] Directives occurred with: Not Discussed Care Teams Legal Aide Relationship Specialty Start Date End Date Silvia Barraza DO [address] [place] [address] PCP - General Family Medicine 06/23/14 documented as of this encounter
--- OUTSIDE RECORDS SUMMARY | 2023-09-10 02:29 | External Medical Summary | Summary of Care ---
Author Name Unknown Organization [facility] Address [address] [place] [address] Phone [phone] Care Team Providers Care Teasel Gig Operator Name Role Phone Fang Barraza DO Primary Care Provider Reason for Visit * Reason Comments eRx-Medication Refill Encounter Details Date Type Department Care Team (Late st Contact Info) Description 08/01/[facility]23 [facility] [place] [address] Fang Barraza DO 200 [facility] [place] [address] Allergies No known active allergiesdocumented as of this encounter (statuses as of 08/07/2023) Medications Medication Sig Dispensed Refills Start Date [...] HCl 0.05 % Nasal Solution (Afrin Nasal [place])Indications: Epistaxis Administer into each nostril 2 Sprays [...] 90 Capsule 5 02/20/2023 Active Saline Nasal [place] 0.65 % Nasal Solution (Cassia)Indications :Epistaxis Use two sprays at bedtime 30 [...] as of this encounter (statuses as of 08/07/2023) Active Problems Problem Noted Date Diagnosed Date [...] as of this encounter (statuses as of 08/07/2023) Resolved Problems Problem Noted Date Diagnosed Date [...] as of this encounter (statuses as of 08/07/2023) Immunizations Name Administration Dates Next Due Pneumococcal Conjugate Vacc, 13 Valent (Prevnar) 10/19/2015 Pneumococcal Polysaccharide PPV23 (Pneumovax) 07/17/2010 SEASONAL INFLUENZA, PF, 6 M & Above, IM , (FLULAVAL or FLUZONE) 08/26/2020,06/24/2019 Seasonal Influenza Virus Vac cine, Unspecified Formulation 10/19/2015,06/23/2014,07/17/2010,05/2009,07/07/2007 Seasonal Influenza, Quadriva lent, No Preserve, IM 10/19/2015 Seasonal Influenza, Split, I IV3, With Preserve, Inj 06/23/2014,07/17/2010,07/12/2009,12/200607/12/2010 TD - Tetanus/Diptheria (ADULT) 05/14/2007,2000,06/05/1988 TD, Preservative Free 06/23/2014 TDAP (age 12 [...] as of this encounter Miscellaneous Notes * Addendum Note - Gabrielle Connolly LPN - 08/07/2023 3:59 PM EDTAddended by: GABRIELLE CONNOLLY on: 08/07/2023 03:59 PM Modules accepted: Orders * Telephone Encounter - Gabrielle Connolly LPN - 08/07/2023 3:57 PM EDT Received fax from [facility] regarding Tylenol script. States pt has been requesting & taking it nightly for months. Asking if the script can be changed to a routine med instead of PRN * Telephone Encounter - Fagn Barraza DO - 08/03/2023 10:39 AM EDT Signed Prescriptions: Disp Refills Acetaminophen PM 500-25 MG Oral Tablet (di*30 Tab*10 Sig: TAKE 1 TABLET BY MOUTH AT BEDTIME NEEDED FOR SLEEP. Authorizing Provider: FANG BARRAZA * Telephone Encounter - Khushbu Flroes LPN - 08/03/2023 8:52 AM EDT Pending Prescriptions: Disp Refills Acetaminophen PM 500-25 MG Oral Tablet [Ph*30 Tab*10 Sig: TAKE 1 TABLET BY MOUTH AT BEDTIME NEEDED FOR SLEEP. * Telephone Encounter - Khushbu Folres LPN - 08/03/2023 8:52 AM EDT Pending Prescriptions: Disp Refills Acetaminophen PM 500-25 MG Oral Tablet (d*30 Tab*10 Sig: TAKE 1 TABLET BY MOUTH AT BEDTIME NEEDED FOR SLEEP. 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 [address] Lucia Treviño MD [address] [facility] [place] [address] 04/22/2024 4:00 PM EDT Office Visit Neurology, [place] [address] [place] [address] Stephen Price MD [address] [place] [address] Health Maintenance Due Date Last [...] D LEVEL ONCE IN A LIFETIME-USE SMARTSET# [id number] Completed 02/13/2023, 08/13/2020, 11/22/2015, Additional history exists [...] this encounter Medical Devices Implanted Type Area Bait Painter Device Identifier Shelf Expiration Date Model / Serial / Lot Medtronic Tyrx Absorbable Antibacterial Envelope-Large Implanted:Qty: 1 on 07/27/2020 [place]i [place] [facility]: Chest Medtronic 04/07/2021 [id number] / / [id number] Description:Tyrosine polyary late coated, multifilament absorbable mesh 2.9"x3.3" No charge Per Germania K. Neurostim Activa Deep Brain - [id number] - [id number] Implanted:Qty: 1 on 06/02/2022 by Tomi James [place] [facility]: Chest [employer] 11/01/2022 [id number] / [id number] / documented as of this encounter Advance Directives Documents on File Type Date Recorded Patient Straightedge Man Expl anation Power of Phy Therapist 04/03/2019 POWER OF A TTORNEY Latest Code [...] Directives occurred with: Not Discussed Care Teams Teasel Gig Operator Relationship Specialty Start Date End Date Fang Barraza DO [address] [place] [address] PCP - General Family Medicine 06/23/14 documented as of this encounter
--- OUTSIDE RECORDS SUMMARY | 2023-09-10 02:29 | External Medical Summary | Summary of Care ---
Author Name Unknown Organization [facility] Address [address] [place] [address] Phone [phone] Care Team Providers Care Wire Frame Dipper Name Role Phone Silvia Barraza DO Primary Care Provider Reason for Visit * Reason Onset Date Comments Advice 06/17/2023 Encounter Details Date Type Department Care Team Description 06/17/2023 Telephone Family Practice [facility] [place] [address] [facility] [place] [address] Silvia Barraza DO [address] [facility] [place] [address] Advice Allergies No known active allergiesdocumented as of this encounter (statuses as of 07/03/2023) Medications Medication Sig Dispensed Refills Start Date [...] 0.05 % Nasal Solution (Afrin Nasal [place])Indications :Epistaxis Administer into each nostril 2 Sprays [...] to scalp 60 mL 11 12/04/2022 Active Tylenol PM Extra Strength 500-25 MG Oral Tablet (diphenhydrAMINE- APAP (sleep)) Take 1 Tablet by mouth at bedtime as needed for Sleep. 45 Tablet 1 12/12/2022 Active Foltanx 3-35-2 MG Oral Tablet 1 [...] Nasal [place] 0.65 % Nasal Solution ([place]leed)Indication s:Epistaxis Use two sprays at bedtime 30 [...] for Diarrhea. 30 Capsule 0 06/18/2023 Active Polyethylene Glycol 3350 17 GM Oral Packet Take 1 Packet by mouth in the morning. 0 Discontinued (Refill) Docusate Sodium 100 MG Oral Capsule (Colace) Take 1 Capsule by mouth in the morning and 1 Capsule before bedtime. 60 Capsule 3 10/24/2022 3 Discontinued (Refill) MEDICAL INSTRUCTIONS Use as directed. Discontinue routine Colace and Miralax. New orders provided for those meds to be given as needed for constipation. 1 Each 1 06/18/2023 3 documented as of this encounter (statuses as of 07/03/2023) Active Problems Problem Noted Date PMR (polymyalgia rheumatica) 12/14/2022 End of battery life of deep brain stimul ator 06/02/2022 Chronic atrial fibrillation 01/24/2020 Dementia due to Parkinson's disease with out behavioral disturbance 01/24/2020 Cataract 10/19/2015 Advanced directives, counseling/discussi on 04/17/2015 Overview: Do you have an Advance Directive for Health Care? yes Yes-Patient to bring up-to-date Advance Directive for scanning in EHR. Osteoporosis 09/20/2009 Parkinson's disease 07/02/2004 Mitral valve prolapse 07/02/2004 IDIO PERIPH NEURPTHY NOS 12/07/2002 GENERAL OSTEOARTHROSIS documented as of this encounter (statuses as of 07/03/2023) Resolved Problems Problem Noted Date Resolved Date PMR (polymyalgia rheumatica) 03/20/2021 Protein-calorie malnutrition 03/20/2021 Atrial fibrillation 03/31/2019 01/24/2020 Atrial fibrillation with rapid ventricular respo nse 03/22/2019 01/24/2020 Pessary maintenance 11/14/2013 01/24/2020 HX: breast cancer 03/07/2013 03/19/2015 Genital prolapse 10/14/2012 04/15/2019 Overview: Pessary since January 2012. Sciatica 03/27/2008 01/24/2020 Need for prophylactic hormon e replacement therapy (postmenopausal) 04/15/2019 CLASSICAL MIGRAINE WITH INTRACTABLE MIGRAINE, SO STATED 2014 Menopause 04/15/2019 documented as of this encounter (statuses as of 07/03/2023) Immunizations Name Administration Dates Next Due Pneumococcal [...] = 0.6 oz pur e alcohol) moderation Food Insecurity Answer Date Recorded Within the past 12 months, y ou worried that your food would run out before you got money to buy more. Never true 04/02/2020 Within the past 12 months, t he food you bought just didn't last and you didn't have money to get more. Never true 04/02/2020 Sex Assigned at Date Recorded Female 04/02/2020 5:00 PM E DT Job Start Date Occupation Industry Not on file Not on file Not on file documented as of this encounter Miscellaneous Notes * Telephone Encounter - Khushbu Flores LPN - 07/03/2023 3:08 PM EDT Medical [facility]. * Telephone Encounter - Silvia Barraza DO - 06/18/2023 2:32 PM EDT Signed- please fax Silvia Barraza DO * Telephone Encounter - Alina Delgadillo LPN - 06/18/2023 11:06 AM EDT Provider to address: see request for orders to either d/c or change colace and miralax orders to PRN due to frequent episodes of diarrhea with routine use. half-way has also requested an order for PRN immodium. I have pended orders changing miralax and colace to prn, I pended an order for PRN immodium and I also pended an order stating the routine doses of miralax and colace were to be discontinued and replaced by the PRN orders. Please review and sign if appropriate. Reason for Call: Advice Contact: Telephone Call Contact Type: Medication Outcome: see above Total Time including non face to face (minutes): 10 All orders will need printed and faxed to [facility]. * Telephone Encounter - ARASELI Lagunas - 06/17/2023 5:28 PM EDT Danielle called from [facility] asking that a message be sent to the PCP. Pt is having diarrhea again. This is an ongoing/reoccuring issue. Pt is currently on 2 stool softeners (miralx and docusate). [facility] is asking if those orders can be discontinued or changed to PRN and also add something like imodium for the diarrhea. Please advise. Fax number for [facility] [phone]. documented in this encounter Plan of Treatment Upcoming Encounters Date Type Specialty Care Team Description 08/31/2023 Office Visit Family Medicine Silvia Barraza DO [address] [place] [address] 12/18/2023 Office Visit Otolaryngology Lucia Treviño MD [address] [facility] [place] [address] 04/22/2024 Office Visit Neurology Stephen Price MD [address] [place] [address] Health Maintenance Due Date Last Done Comments [...] D LEVEL ONCE IN A LIFETIME-USE SMARTSET# [id number] Completed 02/13/2023, 08/13/2020, 11/22/2015, Additional history exists [...] this encounter Medical Devices Implanted Type Area Cover Assembler Device Identifier Shelf Expiration Date Model / Serial / Lot Medtronic Tyrx Absorbable Antibacterial Envelope-Large Implanted:Qty: 1 on 07/27/2020 by Tomi James MD [place] [facility] [place] Right: Chest Medtronic 04/07/2021 [id number] / / [id number] Description:Tyrosine polyary late coated, multifilament absorbable mesh 2.9"x3.3" No charge Per Germania K. Neurostim Activa Deep Brain - [id number] - [id number] Implanted:Qty: 1 on 06/02/2022 by Tomi James MD at [facility] Left: Chest [employer] 11/01/2022 [id number] / [id number] / documented as of this encounter Advance Directives Documents on File Type Date Recorded Patient Veterinary Attendant Expl anation Power of Cat Swamper 04/03/2019 POWER OF A TTORNEY Latest Code [...] Directives occurred with: Not Discussed Care Teams Wire Frame Dipper Relationship Specialty Start Date End Date Silvia Barraza DO [address] [place] [address] PCP - General Family Medicine 06/23/14 documented as of this encounter
--- OUTSIDE RECORDS SUMMARY | 2023-09-10 02:30 | External Medical Summary | Summary of Care ---
Author Name Unknown Organization [facility] Address [address] [place] [address] Phone [phone] Care Team Providers Care Drain Technician Name Role Phone Silvia Barraza Primary Care Provider Reason for Visit * Reason Onset Date Comments Medication Refill 05/25/2023 Encounter Details Date Type Department Care Team Description [facility] [address] [place] [address] Stephen Price MD [address] [place] [address] Parkinson's disease (HCC) Allergies No known active allergiesdocumented as of this encounter (statuses as of 06/29/2023) Medications Medication Sig Dispensed Refills Start Date End Date Status Multiple Vitamins-Minerals (WOMENS MULTI) CAPS Take by mouth. 0 Active Fleet Enema 7-19 GM/118ML Rectal EnemaIndications: Constipation, unspecified constipation type Administer 1 Enema into the rectum once. 0 Active Amoxicillin 500 MG Oral Capsule (Amoxil) 4 CAPS BY MOUTH 1HR PRIOR TO APPT 4 Capsule 4 2 Active Ketoconazole 2 % External Shampoo (Nizoral)Indicati ons:Tinea corporis APPLY TO SCALP ONCE WEEKLY NEEDED. LEAVE ON 5-10MIN BEFORE RINSING. 120 mL 4 2 Active Propylene Glycol 0.6 % Ophthalmic SolutionIndicatio ns:Cataract Instill 1 Drop into both eyes 4 times a day as needed. 5 mL 3 2 Active Aspirin 81 MG Oral Tablet Delayed Release Take 1 Tablet by mouth in the morning. 0 2 Active Oxymetazoline HCl 0.05 % Nasal Solution (Afrin Nasal [place])Indications :Epistaxis Administer into each nostril 2 Sprays 2 times a day as needed (nosebleed). Do not use for more than three days. 15 mL 0 2 Active Hydrocortisone 2.5 % External Lotion APPLY TOPICALLY TO AFFECTED AREA 3 TIMES A DAY. TO AFFECTED AREA ON SCALP. 118 mL 10 2 Active Floranex Oral TabletIndications :Constipation, unspecified constipation type TAKE 2 TABLETS BY MOUTH EVERY MORNING 60 Tablet 5 2 Active Magnesium Oxide 200 MG Oral Tablet (Mag-Oxide)Indica tions:PMR (polymyalgia rheumatica) ([facility]) Take 1 Tablet by mouth in the morning. 30 Tablet 3 2 Active Fluticasone Propionate 50 MCG/ACT Nasal Suspension (Flonase) Administer 2 Sprays into each nostril in the morning. 16 g 0 2 Active Metoprolol Succinate ER 50 MG Oral Tablet Extended Release 24 Hour (toPROL XL) Take 1 Tablet by mouth in the morning. 90 Tablet 3 3 Active Biotin 5 MG Oral Capsule (Meribin) TAKE 1 CAP BY MOUTH DAILY. 90 Capsule 1 3 Active Fluocinolone Acetonide 0.01 % External Solution Apply topically to affected area 2 times a day as needed (itching, dryness, crusting, scaling). Apply to scalp 60 mL 11 3 Active Tylenol PM Extra Strength 500-25 MG Oral Tablet (diphenhydrAMINE- APAP (sleep)) Take 1 Tablet by mouth at bedtime as needed for Sleep. 45 Tablet 1 3 Active Foltanx 3-35-2 MG Oral Tablet 1 TAB BY MOUTH EVERY DAY 30 Tablet 4 3 Active Vitamin D3 50 MCG (2000 UT) Oral TabletIndications :Parkinson's disease (HCC) Take 1 cps 2 times a day 60 Tablet 6 3 Active traZODone HCl 100 MG Oral Tablet (Desyrel) Take 1 Tablet by mouth at bedtime. 30 Tablet 11 3 Active Gabapentin 300 MG Oral Capsule (Neurontin)Indica tions:Neuropathy TAKE 3 CAPS BY MOUTH AT BEDTIME. 90 Capsule 5 3 Active Saline Nasal Radiant 0.65 % Nasal Solution ([place])Indication s:Epistaxis Use two sprays at bedtime 30 mL 2 3 Active Carbidopa-Levodop a 25-100 MG Oral Tablet (Sinemet)Indicati ons:Parkinson's disease (HCC) TAKE 1 TAB BY MOUTH TWICE DAILY THE FIRST 2 DOSES + 1.5 TABS BY MOUTH TWICE DAILY THE LAST 2 DOSES 150 Tablet 11 3 Active Mirtazapine 15 MG Oral Tablet (Remeron)Indicati ons:Primary insomnia,ANURADHA (generalized anxiety disorder) Take 1 Tablet by mouth at bedtime. 90 Tablet 3 3 Active Melatonin 10 MG Oral Tablet DisintegratingInd ications:Persiste nt insomnia Take 10 mg by mouth every night at bedtime. 30 Tab 11 1 06/02/20 23 Discontinued Acetaminophen 325 MG Oral Tablet (Tylenol) Take by mouth 2 Tablets every 6 hours as needed (pain or headache). 60 Tablet 0 2 05/25/20 23 Discontinued(Ref ill) Gabapentin 100 MG Oral Capsule (Neurontin)Indica tions:Parkinson's disease (HCC) Take 1 cps at bed time, along with the 300 mg. 90 Capsule 6 2 05/27/20 23 Discontinued(Ref ill) Donepezil HCl 10 MG Oral Tablet (Aricept)Indicati ons:Dementia without behavioral disturbance, unspecified dementia type TAKE 1 TAB BY MOUTH DAILY. TAKE WITH LARGEST MEAL OF THE DAY. 30 Tablet 10 2 05/25/20 23 Discontinued(Ref ill) Polyethylene Glycol 3350 17 GM Oral Packet Take 1 Packet by mouth in the morning. 0 06/18/20 23 Discontinued(Ref ill) Docusate Sodium 100 MG Oral Capsule (Colace) Take 1 Capsule by mouth in the morning and 1 Capsule before bedtime. 60 Capsule 3 3 06/18/20 23 Discontinued(Ref ill) documented as of this encounter (statuses as of 06/29/2023) Active Problems Problem Noted Date PMR (polymyalgia [...] as of this encounter (statuses as of 06/29/2023) Resolved Problems Problem Noted Date Resolved Date [...] as of this encounter (statuses as of 06/29/2023) Immunizations Name Administration Dates Next Due Pneumococcal Conjugate Vacc, 13 Valent (Prevnar) 10/19/2015 Pneumococcal Polysaccharide PPV23 (Pneumovax) 07/17/2010 Seasonal Influenza Virus Vac cine, Unspecified Formulation 10/19/2015,06/23/2014,07/17/2010,05/2009,07/07/2007 Seasonal Influenza, PF, 6 mo ns & Above, IM , (Flulaval) 08/26/2020,06/24/2019 Seasonal Influenza, Quadriva lent, No Preserve, IM [...] encounter Miscellaneous Notes * Telephone Encounter - Venus Stewart LPN - 06/29/2023 10:14 AM EDT Called Ashlee luna to confirm zaria dose-- They said she dose take the 100 mg along with the 300mg. Currently takin cap of gabapentin 100 mg at bedtime & 3 caps of gabapentin 300 mg at bedtime. Both for pain. Please advised if order needs changed, if so will fax new order/Rx to number below. * Telephone Encounter - Silvia Barraza DO - 06/09/2023 10:30 AM EDT Please clarify current dose of neurontin- we had talked about going down from 900 to 600 to 300mg at night time. So I didn't want to confuse things. I think you probably don't need this prescription now for 100mg? Silvia Barraza DO * Telephone Encounter - Poly Herrmann DO - 05/25/2023 4:00 PM EDTRefused Prescriptions: Disp Refills Gabapentin 100 MG Oral Capsule (Neurontin) 90 Cap*6 Sig: Take 1cps at bed time, along with the 300 mg.Refused By: POLY HERRMANN for Refusal: Managed byanother physician * Telephone Encounter - Poly Herrmann DO - 05/25/2023 3:58 PM EDT Gabapentin has been filled by PCP. Defer to PCP to manage. Thank you. Poly Herrmann DO [facility] Neurology 05/25/2023 * Telephone Encounter - Rylee Leo LPN - 05/25/2023 2:01 PM EDTPending Prescriptions: Disp Refills Gabapentin 100 MG Oral Capsule (Neurontin) 90 Cap*6 Sig: Take 1 cps at bed time, along with the 300 mg. * Telephone Encounter - Arlet Elizondo assistant director of residence life - 05/25/2023 11:51 AM EDT Patient is up to date for office visits. Pending Prescriptions: Disp Refills Gabapentin 100 MG Oral Capsule (Neurontin)90 Cap*6 Sig: Take 1 cps at bed time, along with the 300 mg. Last Visit: 03/16/2023 (in office), 01/17/2020 (telemedicine) Next Visit: 04/22/2024 If no future appointments scheduled, and last appointment is greater than a year ago, please schedule patient for a follow-up appointment Last date the medication was ordered: 05/02/2022 [facility] Is this request for a controlled substance?No it is not controlled. Urine Drug Screen:No results found for this [...] Medicine Silvia Barraza DO [address] [place] [address] 12/18/2023 Office Visit Otolaryngology Lucia Treviño MD [address] [facility] [place] [address] 04/22/2024 Office Visit Neurology Stephen Price MD [address] [place] [address] Health Maintenance Due Date Last Done Comments [...] D LEVEL ONCE IN A LIFETIME-USE SMARTSET# 01754 Completed 02/13/2023, 08/13/2020, 11/22/2015, Additional history exists [...] this encounter Medical Devices Implanted Type Area Animal Caregiver Device Identifier Shelf Expiration Date Model / Serial / Lot Medtronic Tyrx Absorbable Antibacterial Envelope-Large Implanted:Qty: 1 on 07/27/2020 by [place]i James [place] [facility] [place]: Chest Medtronic 04/07/2021 [id number] / / [id number] Description:Tyrosine polyary late coated, multifilament absorbable mesh 2.9"x3.3" No charge Per Germania KEthan Neurostim Activa Deep Brain - [id number] - [id number] Implanted:Qty: 1 on 06/02/2022 by Tomi James MD [place] [facility] [place]: Chest [employer] 11/01/2022 [id number] / [id number] / documented as of this encounter Visit Diagnoses Diagnosis Parkinson's disease (HCC) Paralysis agitans documented in this encounter Advance Directives Documents on File Type Date Recorded Patient Farm Crops Teacher Expl anation Power of Amf Mechanic 04/03/2019 POWER OF A TTORNEY Latest Code [...] Directives occurred with: Not Discussed Care Teams Drain Technician Relationship Specialty Start Date End Date Silvia Barraza DO [address] [place] [address] PCP - General Family Medicine 06/23/14 documented as of this encounter
--- OUTSIDE RECORDS SUMMARY | 2023-09-10 02:30 | External Medical Summary | Summary of Care ---
Author Name Unknown Organization [facility] Address [address] [place] [address] Phone [phone] Care Team Providers Care Eye Surgeon Name Role Phone Silvia Barraza DO Primary Care Provider Reason for Visit * Reason Onset Date Comments Pharmacy Questions 06/05/2023 Encounter Details Date Type Department Care Team Description 06/05/2023 [facility] [address] [facility] [place] [address] Silvia Barraza DO [address] [facility] [place] [address] Pharmacy Questions Allergies No known active allergiesdocumented as of this encounter (statuses as of 06/09/2023) Medications Medication Sig Dispensed Refills Start Date [...] 03/14/2022 Active Ketoconazole 2 % External Shampoo (Nizoral)Indications :Tinea corporis APPLY TO SCALP ONCE WEEKLY NEEDED. LEAVE ON 5-10MIN BEFORE RINSING. 120 mL 4 04/16/2022 Active Propylene Glycol 0.6 % Ophthalmic SolutionIndications: Cataract Instill 1 Drop into both eyes 4 times a day as needed. 5 mL 3 04/16/2022 Active Aspirin 81 MG Oral Tablet Delayed Release Take 1 Tablet by mouth in the morning. 0 06/07/2022 Active Oxymetazoline HCl 0.05 % Nasal Solution (Afrin Nasal [place])Indications:Ep istaxis Administer into each nostril 2 Sprays 2 times a day as needed (nosebleed). Do not use for more than three days. 15 mL 0 07/09/2022 Active Polyethylene Glycol 3350 17 GM Oral Packet Take 1 Packet by mouth in the morning. 0 Active Hydrocortisone 2.5 % External Lotion APPLY TOPICALLY TO AFFECTED AREA 3 TIMES A DAY. TO AFFECTED AREA ON SCALP. 118 mL 10 07/19/2022 Active Floranex Oral TabletIndications:Co nstipation, unspecified constipation type TAKE 2 TABLETS BY MOUTH EVERY MORNING 60 Tablet 5 08/08/2022 Active Magnesium Oxide 200 MG Oral Tablet (Mag-Oxide)Indicatio ns:PMR (polymyalgia rheumatica) (HCC) Take 1 Tablet by mouth in the morning. 30 Tablet 3 08/11/2022 Active Fluticasone Propionate 50 MCG/ACT Nasal Suspension (Flonase) Administer 2 Sprays into each nostril in the morning. 16 g 0 08/21/2022 Active Docusate Sodium 100 MG Oral Capsule (Colace) Take 1 Capsule by mouth in the morning and 1 Capsule before bedtime. 60 Capsule 3 10/24/2022 Active Metoprolol Succinate ER 50 MG Oral [...] PM Extra Strength 500-25 MG Oral Tablet (diphenhydrAMINE-APA P (sleep)) Take 1 Tablet by mouth at bedtime as needed for Sleep. 45 Tablet 1 12/12/2022 Active Foltanx 3-35-2 MG Oral Tablet 1 TAB BY MOUTH EVERY DAY 30 Tablet 4 01/21/2023 Active Vitamin D3 50 MCG (1999 UT) Oral TabletIndications:Pa rkinson's disease (HCC) Take 1 cps 2 times a day 60 Tablet 6 02/03/2023 Active traZODone HCl 100 MG Oral Tablet (Desyrel) Take 1 Tablet by mouth at bedtime. 30 Tablet 11 02/13/2023 Active Gabapentin 300 MG Oral Capsule (Neurontin)Indicatio ns:Neuropathy TAKE 3 CAPS BY MOUTH AT BEDTIME. 90 Capsule 5 02/20/2023 Active Saline Nasal [place] 0.65 % Nasal Solution ([place])Indications:E pistaxis Use two sprays at bedtime 30 mL 2 03/12/2023 Active Carbidopa-Levodopa 25-100 MG Oral Tablet (Sinemet)Indications :Parkinson's disease (HCC) TAKE 1 TAB BY MOUTH [...] 100 MG Oral Capsule (Neurontin)Indicatio ns:Parkinson's disease (HCC) Take 1 cps at bed time, along with the 300 mg. 90 Capsule 6 05/27/2023 Active Melatonin 10 MG Oral Tablet DisintegratingIndica tions:Persistent insomnia 2 TABS (10MG) BY MOUTH EVERY NIGHT AT BEDTIME. 60 Tablet 4 06/02/2023 Active documented as of this encounter (statuses as of 06/09/2023) Active Problems Problem Noted Date PMR (polymyalgia [...] as of this encounter (statuses as of 06/09/2023) Resolved Problems Problem Noted Date Resolved Date [...] as of this encounter (statuses as of 06/09/2023) Immunizations Name Administration Dates Next Due Pneumococcal [...] encounter Miscellaneous Notes * Telephone Encounter - Silvia Barraza DO - 06/09/2023 10:37 AM EDT Please call patient to clarify, normal dosing should be 1-10mg * Telephone Encounter - RANDA Anne - 06/05/2023 12:17 PM EDT Please advise. Should patient be taking 10 mg or 20mg of melatonin. * Telephone Encounter - SHELLEY Burrell Tech - 06/05/2023 10:46 AM EDT Pharmacy is calling because pt's prescription for melatonin 10 mg was sent with unclear directions stating "take 2 tablets at bedtime 10 mg. If pt took 2 tablets it would be 20 mg at bedtime. Should the dose be 5 mg? Or 1 tablet at bedtime?". Please clarify the directions for this medication and send a new prescription to [facility]. Thank you, Leelee Gil, [facility] Painting Manager II [facility] Pharmacy [facility]PS)(Formerly Telepharmacy) 06/05/2023,10:47 AM documented in this encounter Plan of Treatment Upcoming Encounters Date Type Specialty Care Team Description 08/31/2023 Office Visit Family Medicine Silvia Barraza DO [address] [facility] [place] [address] 12/18/2023 Office Visit Otolaryngology Lucia Treviño MD [address] [place] [address] 04/22/2024 Office Visit Neurology Stephen Price MD [address] [facility] [address] Health Maintenance Due Date Last Done Comments COVID-19 Vaccine (#1) 1940 Zoster Vaccines (1 of 2) 1991 *BISPHONATE OR OTHER ACCEPTABLE MEDICATION NEEDED FOR OSTEOPOROSIS (REFER TO SMARTSET #1146) 10/06/2014 DXA Scan 03/24/2020 03/24/2018, 04/04, 04/19/2012, Additional history exists Depression Screening, Annual for Pts 12 and Over 05/29/2023 05/29/2022 Influenza Vaccine (FLU shot) (#1) 2023 08/26/2020, 06/24/2019, 10/19/2015, Additional history exists DTaP,Tdap,and Td Vaccines (3 - Td or Tdap) 06/23/2024 06/23/2014, 06/21/2007, 05/14/2007, Additional history exists Pneumococcal Vaccine: 65+ Years Completed 10/19/2015, 07/17/2010 VITAMIN D LEVEL ONCE IN A LIFETIME-USE SMARTSET# 32050 Completed 02/13/2023, 08/13/2020, 11/22/2015, Additional history exists [...] this encounter Medical Devices Implanted Type Area Endbander Device Identifier Shelf Expiration Date Model / Serial / Lot Medtronic Tyrx Absorbable Antibacterial Envelope-Large Implanted:Qty: 1 on 07/27/2020 by Tomi James MD at [place] [facility] [place] Right: Chest Medtronic 04/07/2021 [id number] / / [id number] Description:Tyrosine polyary late coated, multifilament absorbable mesh 2.9"x3.3" No charge Per Germania K. Neurostim Activa Deep Brain - [id number] - [id number] Implanted:Qty: 1 on 06/02/2022 by Tomi James MD at [place] [facility] [place] Left: Chest [employer] 11/01/2022 [id number] / [id number] / documented as of this encounter Advance Directives Documents on File Type Date Recorded Patient Inclusion Specialist Expl anation Power of Shove Up 04/03/2019 POWER OF A TTORNEY Latest Code [...] Directives occurred with: Not Discussed Care Teams Eye Surgeon Relationship Specialty Start Date End Date Silvia Barraza DO [address] [place] [address] PCP - General Family Medicine 06/23/14 documented as of this encounter
--- OUTSIDE RECORDS SUMMARY | 2023-09-10 02:30 | External Medical Summary | Summary of Care ---
Author Name Unknown Organization [facility] Address [address] [place] [address] Phone [phone] Care Team Providers Care Charge Operator Name Role Phone Fang Barraza DO Primary Care Provider Reason for Visit * Reason Onset Date Comments Pharmacy Questions 06/05/2023 Encounter Details Date Type Department Care Team Description 06/05/[facility]23 [facility] [address] [facility] [place] [address] Fang Barraza DO [address] [facility] [address] [facility] [address] Pharmacy Questions Allergies No known active allergiesdocumented as of this encounter (statuses as of 06/16/2023) Medications Medication Sig Dispensed Refills Start Date [...] HCl 0.05 % Nasal Solution (Afrin Nasal [place])Indications: Epistaxis Administer into each nostril 2 Sprays [...] MCG (2000 UT) Oral TabletIndications: Parkinson's disease (HCC) Take 1 cps 2 times a day 60 Tablet 6 02/03/2023 Active traZODone HCl 100 MG Oral Tablet (Desyrel) Take 1 Tablet by mouth at bedtime. 30 Tablet 11 02/13/2023 Active Gabapentin 300 MG Oral Capsule (Neurontin)Indicat ions:Neuropathy TAKE 3 CAPS BY MOUTH AT BEDTIME. 90 Capsule 5 02/20/2023 Active Saline Nasal [place] 0.65 % Nasal Solution ([place])Indications :Epistaxis Use two sprays at bedtime 30 mL 2 03/12/2023 Active Carbidopa-Levodopa 25-100 MG Oral Tablet (Sinemet)Indicatio ns:Parkinson's disease (HCC) TAKE 1 TAB BY MOUTH [...] 100 MG Oral Capsule (Neurontin)Indicat ions:Parkinson's disease (HCC) Take 1 cps at bed time, along with the 300 mg. 90 Capsule 6 05/27/2023 Active Melatonin 10 MG Oral Tablet DisintegratingIndi cations:Persistent insomnia Take 10 mg by mouth at bedtime. 30 Tablet 3 06/16/2023 Active Melatonin 10 MG Oral Tablet DisintegratingIndi cations:Persistent insomnia 2 TABS (10MG) BY MOUTH EVERY NIGHT AT BEDTIME. 60 Tablet 4 06/02/2023 3 Discontinue d(Refill) documented as of this encounter (statuses as of 06/16/2023) Active Problems Problem Noted Date PMR (polymyalgia [...] as of this encounter (statuses as of 06/16/2023) Resolved Problems Problem Noted Date Resolved Date [...] as of this encounter (statuses as of 06/16/2023) Immunizations Name Administration Dates Next Due Pneumococcal Conjugate Vacc, 13 Valent (Prevnar) 10/19/2015 Pneumococcal Polysaccharide PPV23 (Pneumovax) 07/17/2010 Seasonal Influenza Virus Vac cine, Unspecified Formulation 10/19/2015,06/23/2014,07/17/2010,05/2009,07/07/2007 Seasonal Influenza, PF, 6 mo ns & Above, IM , (Flulaval) 08/26/2020,06/24/2019 Seasonal Influenza, Quadriva lent, No Preserve, IM 10/19/2015 Seasonal Influenza, Split, I IV3, With Preserve, Inj 06/23/2014,07/17/2010,07/12/2009,1012/200607/12/2010 TD - Tetanus/Diptheria (ADULT) 05/14/2007,2000,06/05/1988 TD, Preservative [...] encounter Miscellaneous Notes * Addendum Note - Fang Barraza DO - 06/16/2023 4:18 PM EDTAddended by: FANG BARRAZA on: 06/16/2023 04:18 PM Modules accepted: Orders * Addendum Note - Gabrielle Connolly LPN - 06/15/2023 4:15 PM EDTAddended by: GABRIELLE CONNOLLY on: 06/15/2023 04:15 PM Modules accepted: Orders * Telephone Encounter - Gabrielle Connolly LPN - 06/15/2023 4:15 PM EDT Please send new script - pended * Telephone Encounter - Fang Barraza DO - 06/09/2023 10:37 AM EDT Please call patient to clarify, normal dosing should be 1-10mg * Telephone Encounter - RANDA Anne - 06/05/2023 12:17 PM EDT Please advise. Should patient be taking 10 mg or 20mg of melatonin. * Telephone Encounter - SHELLEY Burrell - 06/05/2023 10:46 AM EDT Pharmacy is [...] medication and send a new prescription to [facility]. Thank you, Leelee Gil, [facility] Produce Wrapper II Central[facility] Clinical Pharmacy Services([facility]PS)(Formerly Telepharmacy) 06/05/2023,10:47 AM documented in this encounter Plan of Treatment Upcoming Encounters Date Type Specialty Care Team Description 08/31/2023 Office Visit Family Medicine Fang Barraza DO [address] [place] [address] 12/18/2023 Office Visit Otolaryngology Lucia Treviño MD [address] [place] [address] 04/22/2024 Office Visit Neurology Stephen Price MD [address] [place] [facility] [address] Health Maintenance Due Date Last Done [...] D LEVEL ONCE IN A LIFETIME-USE SMARTSET# 83376 Completed 02/13/2023, 08/13/2020, 11/22/2015, Additional history exists [...] this encounter Medical Devices Implanted Type Area Optical Store Manager Device Identifier Shelf Expiration Date Model / Serial / Lot Medtronic Tyrx Absorbable Antibacterial Envelope-Large Implanted:Qty: 1 on 07/27/2020 by Tomi James MD at [place] [facility] [place] Right: Chest Medtronic 04/07/2021 [id number] / / [id number] Description:Tyrosine polyary late coated, multifilament absorbable mesh 2.9"x3.3" No charge Per Germania K. Neurostim Activa Deep Brain - [id number] - [id number] Implanted:Qty: 1 on 06/02/2022 by Tomi James MD at [place] [facility] [place] Left: Chest [employer] 11/01/2022 [id number] / [id number] / documented as of this encounter Visit Diagnoses Diagnosis Persistent insomnia Persistent disorder of initiating or maintaining sleep documented in this encounter Advance Directives Documents on File Type Date Recorded Patient Sound Cutter Expl anation Power of Causticiser 04/03/2019 POWER OF A TTORNEY Latest Code [...] Directives occurred with: Not Discussed Care Teams Charge Operator Relationship Specialty Start Date End Date Fang Barraza, [address] [place] [address] PCP - General Family Medicine 06/23/14 documented as of this encounter
--- OUTSIDE RECORDS SUMMARY | 2023-09-10 02:30 | External Medical Summary | Summary of Care ---
Author Name Unknown Organization [facility] Address [address] [place] [address] Phone [phone] Care Team Providers Care Cash Specialist Name Role Phone Silvia Barraza Primary Care Provider Reason for Visit * Reason Onset Date Comments Medication Refill 05/25/2023 Encounter Details Date Type Department Care Team Description [facility] [address] [place] [address] Stephen Price MD [address] [place] [address] Parkinson's disease (HCC) Allergies No [...] HCl 0.05 % Nasal Solution (Afrin Nasal [place])Indications :Epistaxis Administer into each nostril 2 Sprays 2 times a day as needed (nosebleed). Do not use for more than three days. 15 mL 0 2 Active Polyethylene Glycol 3350 17 GM Oral [...] the morning. 16 g 0 2 Active Docusate Sodium 100 MG Oral Capsule (Colace) Take 1 Capsule by mouth in the morning and 1 Capsule before bedtime. 60 Capsule 3 3 Active Metoprolol Succinate ER 50 MG Oral [...] 4 3 Active Vitamin D3 50 MCG (1999 UT) Oral TabletIndications :Parkinson's disease (HCC) Take 1 cps 2 times a day 60 Tablet 6 3 Active traZODone HCl 100 MG Oral Tablet (Desyrel) Take 1 Tablet by mouth at bedtime. 30 Tablet 11 3 Active Gabapentin 300 MG Oral Capsule (Neurontin)Indica tions:Neuropathy TAKE 3 CAPS BY MOUTH AT BEDTIME. 90 Capsule 5 3 Active Saline Nasal [place] 0.65 % Nasal Solution ([place])Indication s:Epistaxis Use two sprays at bedtime 30 [...] Tablet 10 2 05/25/20 23 Discontinued(Ref ill) documented as of this [...] to manage. Thank you. Poly Herrmann DO [facility] Neurology 05/25/2023 * Telephone Encounter - Rylee Leo LPN - 05/25/2023 2:01 PM EDTPending Prescriptions: Disp Refills Gabapentin 100 MG Oral Capsule (Neurontin) 90 Cap*6 Sig: Take 1 cps at bed time, along with the 300 mg. * Telephone Encounter - SHELLEY Syed Tech - 05/25/2023 11:51 AM EDT Patient is [...] date the medication was ordered: 05/02/2022 [facility] Is this request for a controlled substance?No [...] Description 08/31/2023 Office Visit Family Medicine Silvia Barraza, DO [address] [place] [address] 12/18/2023 Office Visit Otolaryngology Lucia Treviño MD [address] [place] [address] 04/22/2024 Office Visit Neurology Stephen Price MD [address] [place] [address] Health Maintenance Due Date Last [...] D LEVEL ONCE IN A LIFETIME-USE SMARTSET# [id number] Completed 02/13/2023, 08/13/2020, 11/22/2015, Additional history exists [...] this encounter Medical Devices Implanted Type Area Occupational Health Technician Device Identifier Shelf Expiration Date Model / Serial / Lot Medtronic Tyrx Absorbable Antibacterial Envelope-Large Implanted:Qty: 1 on 07/27/2020 by Tomi James MD [place] [facility] [place]: Chest Medtronic 04/07/2021 [id number] / / [id number] Description:Tyrosine polyary late coated, multifilament absorbable mesh 2.9"x3.3" No charge Per Germania K. Neurostim Activa Deep Brain - [id number] - [id number] Implanted:Qty: 1 on 06/02/2022 by Tomi James MD [place] [facility] [place]: Chest [employer] 11/01/2022 [id number] / [id number] / documented as of this encounter Visit Diagnoses Diagnosis Parkinson's disease (HCC) Paralysis agitans documented in this encounter Advance Directives Documents on File Type Date Recorded Patient Paper Tester Expl anation Power of Commercial Sales Consultant 04/03/2019 POWER OF A TTORNEY Latest Code [...] Directives occurred with: Not Discussed Care Teams Cash Specialist Relationship Specialty Start Date End Date Silvia Barraza DO [address] [place] [address] PCP - General Family Medicine 06/23/14 documented as of this encounter
--- OUTSIDE RECORDS SUMMARY | 2023-09-10 02:30 | External Medical Summary | Summary of Care ---
Author Name Unknown Organization [facility] Address [address] [place] [address] Phone [phone] Care Team Providers Care Manganese Heater Name Role Phone Silvia Barraza DO Primary Care Provider Reason for Visit * Reason Onset Date Comments Pharmacy Questions 06/05/2023 Encounter Details Date Type Department Care Team Description 06/05/2023 [facility] [address] [facility] [place] [address] Silvia Barraza DO [address] [facility] [place] [address] Pharmacy Questions Allergies No known active allergiesdocumented as of this encounter (statuses as of 06/15/2023) Medications Medication Sig Dispensed Refills Start Date [...] HCl 0.05 % Nasal Solution (Afrin Nasal [place])Indications:Ep istaxis Administer into each nostril 2 Sprays [...] 90 Capsule 5 02/20/2023 Active Saline Nasal [place] 0.65 % Nasal Solution ([place])Indications:E pistaxis Use two sprays at bedtime 30 [...] as of this encounter (statuses as of 06/15/2023) Active Problems Problem Noted Date PMR (polymyalgia [...] as of this encounter (statuses as of 06/15/2023) Resolved Problems Problem Noted Date Resolved Date [...] as of this encounter (statuses as of 06/15/2023) Immunizations Name Administration Dates Next Due Pneumococcal [...] script - pended * Telephone Encounter - Silvia Barraza DO [...] medication and send a new prescription to [facility]. Thank you, Leelee Gil, [facility] News Analyst II [facility])(Formerly Telepharmacy) 06/05/2023,10:47 AM documented in this encounter Plan of Treatment Upcoming Encounters Date Type Specialty Care Team Description 08/31/2023 Office Visit Family Medicine Silvia Barraza, [address] [facility] [place] [address] 12/18/2023 Office Visit Otolaryngology Lucia Treviño MD [address] [facility] [place] [address] 04/22/2024 Office Visit Neurology Stephen Price MD [address] [place], [place] [id number] Health Maintenance Due Date Last Done Comments [...] D LEVEL ONCE IN A LIFETIME-USE SMARTSET# [id number] Completed 02/13/2023, 08/13/2020, 11/22/2015, Additional history exists [...] this encounter Medical Devices Implanted Type Area Automotive Tire Tester Device Identifier Shelf Expiration Date Model / Serial / Lot Medtronic Tyrx Absorbable Antibacterial Envelope-Large Implanted:Qty: 1 [place] 07/27/[place] [facility] [place] Medtronic 04/07/2021 [id number] / / [id number] Description:Tyrosine polyary late coated, multifilament absorbable mesh 2.9"x3.3" No charge Per Germania K. Neurostim Activa Deep Brain - [id number] - [id number] Implanted:Qty: 1 on 06/02/2022 [place] [facility] [place] Chest [employer] 11/01/2022 [id number] / [id number] / documented as of this encounter Visit Diagnoses Diagnosis Persistent insomnia Persistent disorder of initiating or maintaining sleep documented in this encounter Advance Directives Documents on File Type Date Recorded Patient Cathode Builder Expl anation Power of Multimedia Editor 04/03/2019 POWER OF A TTORNEY Latest [...] Directives occurred with: Not Discussed Care Teams Manganese Heater Relationship Specialty Start Date End Date Silvia Barraza, [address] [place] [address] PCP - General Family Medicine 06/23/14 documented as of this encounter
--- OUTSIDE RECORDS SUMMARY | 2023-09-10 02:30 | External Medical Summary | Summary of Care ---
Author Name Unknown Organization [facility] Address [address] [place] [address] Phone [phone] Care Team Providers Care Bleach Machine Operator Name Role Phone Silvia Barraza DO Primary Care Provider Reason for Visit * Reason Onset Date Comments Pharmacy Questions 06/05/2023 Encounter Details Date Type Department Care Team Description 06/05/2023 [facility] [address] [facility] [place] [address] Silvia Barraza DO [address] [facility] [place] [address] Pharmacy Questions Allergies No known active allergiesdocumented [...] HCl 0.05 % Nasal Solution (Afrin Nasal [place])Indications:Ep istaxis Administer into each nostril 2 Sprays [...] 90 Capsule 5 02/20/2023 Active Saline Nasal [place] 0.65 % Nasal Solution ([place])Indications:E pistaxis Use two sprays at bedtime 30 [...] medication and send a new prescription to [facility]. Thank you, Leelee Gil, [facility] Sole Layer Hand II [facility])(Formerly Telepharmacy) 06/05/2023,10:47 AM documented in this encounter Plan of Treatment Upcoming Encounters Date Type Specialty Care Team Description 08/31/2023 Office Visit Family Medicine Silvia Barraza DO [address] [facility] [place] [address] 12/18/2023 Office Visit Otolaryngology Lucia Treviño MD [address] [place] [address] 04/22/2024 Office Visit Neurology Stephen Price MD [address] [facility] [place] [address] Health Maintenance Due Date Last Done [...] D LEVEL ONCE IN A LIFETIME-USE SMARTSET# [id number] Completed 02/13/2023, 08/13/2020, 11/22/2015, Additional history exists [...] this encounter Medical Devices Implanted Type Area Batch Maker Device Identifier Shelf Expiration Date Model / Serial / Lot Medtronic Tyrx Absorbable Antibacterial Envelope-Large Implanted:Qty: 1 on 07/27/2020 by Tomi James MD at [place] [facility] [place] Right: Chest Medtronic 04/07/2021 [id number] / / [id number] Description:Tyrosine polyary late coated, multifilament absorbable mesh 2.9"x3.3" No charge Per Germania K. Neurostim Activa Deep Brain - [id number] - [id number] Implanted:Qty: 1 on 06/02/2022 by Tomi James MD at [place] [facility] [place] Left: Chest [employer] 11/01/2022 [id number] / [id number] / documented as of this encounter Advance Directives Documents on File Type Date Recorded Patient Psychopaedic Nurse Expl anation Power of Volunteer Services Supervisor 04/03/2019 POWER OF A TTORNEY Latest Code [...] Directives occurred with: Not Discussed Care Teams Bleach Machine Operator Relationship Specialty Start Date End Date Silvia Barraza DO [address] [place] [address] PCP - General Family Medicine 06/23/14 documented as of this encounter
--- OUTSIDE RECORDS SUMMARY | 2023-09-10 02:31 | External Medical Summary | Summary of Care ---
Author Name Unknown Organization [facility] Address [address] [place] [address] Phone [phone] Care Team Providers Care Production Operations Engineer Name Role Phone Fang Barraza DO Primary Care Provider Reason for Visit * Reason Comments eRx-Medication Refill Encounter Details Date Type Department Care Team Description 06/01/2023 Refill Family Practice [facility] [address] [facility] [place] [address] Fang Barraza DO 200 [place] [address] Persistent insomnia* Allergies No known active allergiesdocumented as of this encounter (statuses as of 06/02/2023) Medications Medication Sig Dispensed Refills Start Date [...] HCl 0.05 % Nasal Solution (Afrin Nasal [place])Indications :Epistaxis Administer into each nostril 2 Sprays [...] 90 Capsule 5 02/20/2023 Active Saline Nasal [place] 0.65 % Nasal Solution ([place])Indication s:Epistaxis Use two sprays at bedtime 30 [...] MG Oral Tablet DisintegratingInd ications:Persiste nt insomnia 2 TABS (10MG) BY MOUTH EVERY NIGHT AT BEDTIME. 60 Tablet 4 06/02/2023 Active Melatonin 10 MG Oral Tablet DisintegratingInd ications:Persiste nt insomnia Take 10 mg by mouth every night at bedtime. 30 Tab 11 05/28/2021 3 Discontinued documented as of this encounter (statuses as of 06/02/2023) Active Problems Problem Noted Date PMR (polymyalgia [...] as of this encounter (statuses as of 06/02/2023) Resolved Problems Problem Noted Date Resolved Date [...] as of this encounter (statuses as of 06/02/2023) Immunizations Name Administration Dates Next Due Pneumococcal Conjugate Vacc, 13 Valent (Prevnar) 10/19/2015 Pneumococcal Polysaccharide PPV23 (Pneumovax) 07/17/2010 Seasonal Influenza Virus Vac cine, Unspecified Formulation 10/19/2015,06/23/2014,07/17/2010,05/2009,07/07/2007 Seasonal Influenza, PF, 6 mo ns & Above, IM , (Flulaval) 08/26/2020,06/24/2019 Seasonal Influenza, Quadriva lent, No Preserve, IM 10/19/2015 Seasonal Influenza, Split, I IV3, With Preserve, Inj 06/23/2014,07/17/2010,07/12/2009,100 12/200607/12/2010 TD - Tetanus/Diptheria (ADULT) 05/14/2007 TD, Preservative [...] Telephone Encounter - Fang Barraza DO - 06/02/2023 10:18 AM EDT Signed Prescriptions: Disp Refills Melatonin 10 MG Oral Tablet Disintegrating 60 Tab*4 Si TABS (10MG) BY MOUTH EVERY NIGHT AT BEDTIME. Authorizing Provider: FANG BARRAZA * Telephone Encounter - Jessica Chang LPN - 06/01/2023 5:56 PM EDTPending Prescriptions: Disp Refills Melatonin 10 MG Oral Tablet Disintegrating 60 Tab*4 Si TABS (10MG) BY MOUTH EVERY NIGHT AT BEDTIME. * Telephone Encounter - Jessica Chang LPN - 06/01/2023 5:55 PM EDT Pending Prescriptions: Disp Refills Melatonin 10 MG Oral Tablet Disintegratin*60 Tab*4 Si TABS (10MG) BY MOUTH EVERY NIGHT AT BEDTIME. 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 documented in this encounter Plan of Treatment Upcoming Encounters Date Type Specialty Care Team Description 08/31/2023 Office Visit Family Medicine Fang Barraza DO [address] [place] [address] 12/18/2023 Office Visit Otolaryngology Lucia Treviño MD [address] [place] [address] 04/22/2024 Office Visit Neurology Stephen Price MD [address] [place] [address] Health Maintenance Due Date Last [...] D LEVEL ONCE IN A LIFETIME-USE SMARTSET# [id number] Completed 02/13/2023, 08/13/2020, 11/22/2015, Additional history exists [...] this encounter Medical Devices Implanted Type Area Supervisor Airplane Flight Attendant Device Identifier Shelf Expiration Date Model / Serial / Lot Medtronic Tyrx Absorbable Antibacterial Envelope-Large Implanted:Qty: 1 on 07/27/2020 [place] [facility] [place] Medtronic 04/07/2021 [id number] / / [id number] Description:Tyrosine polyary late coated, multifilament absorbable mesh 2.9"x3.3" No charge Per Germania K. Neurostim Activa Deep Brain - [id number] - [id number] Implanted:Qty: 1 on 06/02/2022 [place] James [place] [facility] [place] Chest [employer] 11/01/2022 [id number] / [id number] / documented as of this encounter Visit Diagnoses Diagnosis Persistent insomnia- Primary Persistent disorder of initiating or maintaining sleep documented in this encounter Advance Directives Documents on File Type Date Recorded Patient Press Assistant And Feeder Expl anation Power of Tube Splicer 04/03/2019 POWER OF A TTORNEY Latest Code [...] Directives occurred with: Not Discussed Care Teams Production Operations Engineer Relationship Specialty Start Date End Date Fang Barraza DO [address] [place] [address] PCP - General Family Medicine 06/23/14 documented as of this encounter
--- OUTSIDE RECORDS SUMMARY | 2023-09-10 02:31 | External Medical Summary | Summary of Care ---
Author Name Unknown Organization [facility] Address [address] [place] [address] Phone [phone] Care Team Providers Care Special Projects Coordinator Name Role Phone Silvia Barraza DO Primary Care Provider Reason for Visit * Reason Onset Date Comments Med Request 02/20/2023 Encounter Details Date Type Department Care Team Description 02/20/2023 [facility]phone [facility] 200 [facility] [place] [address] Silvia Barraza DO [address] [facility] [place] [address] Med Request Allergies No known active allergiesdocumented as of this encounter (statuses as of 05/27/2023) Medications Medication Sig Dispensed Refills Start Date End Date Status Multiple Vitamins-Minerals (WOMENS MULTI) CAPS Take by mouth. 0 Active Fleet Enema 7-19 GM/118ML Rectal EnemaIndications:C onstipation, unspecified constipation type Administer 1 Enema into the rectum once. 0 Active Melatonin 10 MG Oral Tablet DisintegratingIndi cations:Persistent insomnia Take 10 mg by mouth every night at bedtime. 30 Tab 11 05/28/2021 Active Amoxicillin 500 MG Oral Capsule (Amoxil) [...] as needed. 5 mL 3 04/16/2022 Active Gabapentin 100 MG Oral Capsule (Neurontin)Indicat ions:Parkinson's disease ([facility]) Take 1 cps at bed time, along with the 300 mg. 90 Capsule 6 05/02/2022 Active Aspirin 81 MG Oral Tablet Delayed Release Take 1 Tablet by mouth in the morning. 0 06/07/2022 Active Oxymetazoline HCl 0.05 % Nasal Solution (Afrin Nasal [place])Indications: Epistaxis Administer into each nostril 2 Sprays [...] MG Oral Tablet (Mag-Oxide)Indicat ions:PMR (polymyalgia rheumatica) ([facility]) Take 1 Tablet by mouth [...] AT BEDTIME. 90 Capsule 5 02/20/2023 Active Acetaminophen 325 MG Oral Tablet (Tylenol) Take by mouth 2 Tablets every 6 hours as needed (pain or headache). 60 Tablet 0 01/10/2022 3 Discontinue d(Refill) Donepezil HCl 10 MG Oral Tablet (Aricept)Indicatio ns:Dementia without behavioral disturbance, unspecified dementia type TAKE 1 TAB BY MOUTH DAILY. TAKE WITH LARGEST MEAL OF THE DAY. 30 Tablet 10 05/07/2022 3 Discontinue d(Refill) Saline Nasal [place] 0.65 % Nasal Solution ([place])Indications :Epistaxis Administer into nostril 2 Sprays in the morning AND 2 Sprays at noon AND 2 Sprays before bedtime. 30 mL 2 07/09/2022 3 Discontinue d(Refill) Carbidopa-Levodopa 25-100 MG Oral Tablet (Sinemet)Indicatio ns:Parkinson's disease (HCC) TAKE 1 TAB BY MOUTH TWICE DAILY THE FIRST 2 DOSES + 1.5 TABS BY MOUTH TWICE DAILY THE LAST 2 DOSES 150 Tablet 5 11/13/2022 3 Discontinue d(Refill) Mirtazapine 15 MG Oral Tablet (Remeron)Indicatio ns:ANURADHA (generalized anxiety disorder),Primary insomnia Take 1 Tablet by mouth at bedtime. 30 Tablet 5 12/01/2022 3 Discontinue d(Refill) documented as of this encounter (statuses as of 05/27/2023) Active Problems Problem Noted Date PMR (polymyalgia [...] as of this encounter (statuses as of 05/27/2023) Resolved Problems Problem Noted Date Resolved Date [...] as of this encounter (statuses as of 05/27/2023) Immunizations Name Administration Dates Next Due Pneumococcal Conjugate Vacc, 13 Valent (Prevnar) 10/19/2015 Pneumococcal Polysaccharide PPV23 (Pneumovax) 07/17/2010 Seasonal Influenza Virus Vac cine, Unspecified Formulation 10/19/2015,06/23/2014,07/17/2010,1005/2009,07/07/2007 Seasonal Influenza, PF, 6 mo ns & [...] encounter Miscellaneous Notes * Telephone Encounter - Ramila Nunez - 02/20/2023 10:09 AM EDT [facility] calling to request a refill on Gabapentin 100 MG . Medication was last prescribed by Stephen Price but patient is asking if PCP can take over the medication. Please advise if this is appropriate and send to [facility]- if agreeable. Thank you, [facility] Manager Engagement [facility] 02/20/2023,10:09 AM documented in this encounter Plan of Treatment Upcoming Encounters Date Type Specialty Care Team Description 08/31/2023 Office Visit Family Medicine Silvia Barraza, [address] [place], [place] [address] 12/18/2023 Office Visit Otolaryngology Lucia Treviño MD [address] [place] [address] 04/22/2024 Office Visit Neurology Stephen Price MD [address] [facility] [place] [address] Health Maintenance Due Date Last Done [...] D LEVEL ONCE IN A LIFETIME-USE SMARTSET# [id number] Completed 02/13/2023, 08/13/2020, 11/22/2015, Additional history exists [...] encounter Medical Devices Implanted Type Area Pot Room Tapper Device Identifier Shelf Expiration Date Model / Serial / Lot Medtronic Tyrx Absorbable Antibacterial Envelope-Large Implanted:Qty: 1 on 07/27/2020 by Tomi James MD at [place] [facility] [place] Right: Chest Medtronic 04/07/2021 [id number] / / [id number] Description:Tyrosine polyary late coated, multifilament absorbable mesh 2.9"x3.3" No charge Per Germania K. Neurostim Activa Deep Brain - [id number] - [id number] Implanted:Qty: 1 on 06/02/2022 by Tomi James MD at [place] [facility] [place] Left: Chest [employer] 11/01/2022 [id number] / [id number] / documented as of this encounter Advance Directives Documents on File Type Date Recorded Patient Adult Health Clinical Nurse Specialist Expl anation Power of Salvage Inspector [employer] 04/03/2019 POWER OF A TTORNEY Latest Code [...] Directives occurred with: Not Discussed Care Teams Special Projects Coordinator Relationship Specialty Start Date End Date Silvia Barraza DO [address] [place] [address] PCP - General Family Medicine 06/23/14 documented as of this encounter
--- OUTSIDE RECORDS SUMMARY | 2023-09-10 02:31 | External Medical Summary | Summary of Care ---
Author Name Unknown Organization [facility] Address [address] [place] [address] Phone [phone] Care Team Providers Care Sawmill Supervisor Name Role Phone Silvia Barraza DO Primary Care Provider Reason for Visit * Reason Onset Date Comments Pharmacy Questions 06/05/2023 Encounter Details Date Type Department Care Team Description 06/05/2023 [facility]phone [facility] [address] [facility] [place] [address] Silvia Barraza DO [address] [facility] [place] [address] Pharmacy Questions Allergies No known active allergiesdocumented as of this encounter (statuses as of 06/05/2023) Medications Medication Sig Dispensed Refills Start Date [...] HCl 0.05 % Nasal Solution (Afrin Nasal [place])Indications:Ep istaxis Administer into each nostril 2 Sprays [...] 90 Capsule 5 02/20/2023 Active Saline Nasal [place] 0.65 % Nasal Solution ([place])Indications:E pistaxis Use two sprays at bedtime 30 [...] as of this encounter (statuses as of 06/05/2023) Active Problems Problem Noted Date PMR (polymyalgia [...] as of this encounter (statuses as of 06/05/2023) Resolved Problems Problem Noted Date Resolved Date [...] as of this encounter (statuses as of 06/05/2023) Immunizations Name Administration Dates Next Due Pneumococcal [...] encounter Miscellaneous Notes * Telephone Encounter - RANDA Anne - [...] medication and send a new prescription to [facility]. Thank you, Leelee Gil CPhT Physical Science Professor II Centralized Clinical Pharmacy Services(CCPS)(Formerly Telepharmacy) 06/05/2023,10:47 AM documented in this encounter Plan of Treatment Upcoming Encounters Date Type Specialty Care Team Description 08/31/2023 Office Visit Family Medicine Silvia Barraza, [address] [place] [facility] [place] [address] 12/18/2023 Office Visit Otolaryngology Lucia Treviño MD [address] [place] [address] 04/22/2024 Office Visit Neurology Stephen Price MD [address] [place] [address] Health Maintenance Due Date Last Done [...] D LEVEL ONCE IN A LIFETIME-USE SMARTSET# [id number] Completed 02/13/2023, 08/13/2020, 11/22/2015, Additional history exists [...] this encounter Medical Devices Implanted Type Area Fuse Cup Expander Device Identifier Shelf Expiration Date Model / Serial / Lot Medtronic Tyrx Absorbable Antibacterial Envelope-Large Implanted:Qty: 1 on 07/27/2020 by Tomi James MD at OR [facility] Right: Chest Medtronic 04/07/2021 [id number] / / [id number] Description:Tyrosine polyary late coated, multifilament absorbable mesh 2.9"x3.3" No charge Per Germania K. Neurostim Activa Deep Brain - [id number] - [id number] Implanted:Qty: 1 on 06/02/2022 by Tomi James MD at OR [facility] Left: Chest [employer] 11/01/2022 [id number] / [id number] / documented as of this encounter Advance Directives Documents on File Type Date Recorded Patient Foundry Superintendant Expl anation Power of Databases Computer Consultant 04/03/2019 POWER OF A TTORNEY Latest [...] Directives occurred with: Not Discussed Care Teams Sawmill Supervisor Relationship Specialty Start Date End Date Silvia Barraza DO [address] [place] [address] PCP - General Family Medicine 06/23/14 documented as of this encounter
--- OUTSIDE RECORDS SUMMARY | 2023-09-10 02:31 | External Medical Summary | Summary of Care ---
Author Name Unknown Organization [facility] Address [address] [place] [address] Phone [phone] Care Team Providers Care Process Control Operator Name Role Phone Silvia Barraza DO Primary Care Provider Reason for Visit * Reason Onset Date Comments Medication Question 05/27/2023 Encounter Details Date Type Department Care Team Description 05/27/2023 [facility]phone [facility] [address] [facility] [place] [address] Silvia Barraza DO [address] [facility] [place] [address] Medication Question Allergies No known active allergiesdocumented as of [...] HCl 0.05 % Nasal Solution (Afrin Nasal [place])Indications :Epistaxis Administer into each nostril 2 Sprays [...] 90 Capsule 5 3 Active Saline Nasal [place] 0.65 % Nasal Solution ([place])Indication s:Epistaxis Use two sprays at bedtime 30 [...] at bedtime. 90 Tablet 3 3 Active Donepezil HCl 10 MG Oral Tablet (Aricept) Take 1 Tablet by mouth in the morning. Take with largest meal of the day.. 30 Tablet 10 3 Active Acetaminophen 325 MG Oral Tablet (Tylenol) Take 2 Tablets by mouth every 6 hours as needed (pain or headache). 60 Tablet 0 3 Active Gabapentin 100 MG Oral Capsule (Neurontin)Indica tions:Parkinson's disease (HCC) Take 1 cps at bed time, along with the 300 mg. 90 Capsule 6 3 Active Melatonin 10 MG Oral Tablet DisintegratingInd ications:Persiste nt insomnia Take 10 mg by mouth every night at bedtime. 30 Tab 11 1 06/02/20 23 Discontinued Gabapentin 100 MG Oral Capsule (Neurontin)Indica tions:Parkinson's disease (HCC) Take 1 cps at bed time, along with the 300 mg. 90 Capsule 6 2 05/27/20 23 Discontinued(Ref ill) documented as of this [...] Miscellaneous Notes * Telephone Encounter - Khushbu Flores, SAMY - 05/27/2023 1:30 PM EDT Pending Prescriptions: Disp Refills Gabapentin 100 MG Oral Capsule (Neurontin)90 Cap*6 Sig: Take 1 cps at bed time, along with the 300 mg. 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 Medication was last prescribed by [facility] but patient is asking if PCP can take over the medication. Please advise if this is appropriate and send to [facility] [address] if agreeable. Thank You, Megan Martínez [facility] Hot Box Operator III Centralized Clinical Pharmacy Services (CCPS) (Formerly Telepharmacy) 05/27/2023, 1:10 PM documented in this encounter Plan of Treatment Upcoming Encounters Date Type Specialty Care Team Description 08/31/2023 Office Visit [facility] [address] 12/18/2023 Office Visit Otolaryngology Lucia Treviño MD [address] [place] [address] 04/22/2024 Office Visit Neurology Stephen Price MD [address] [place] [address] Health Maintenance Due Date Last [...] D LEVEL ONCE IN A LIFETIME-USE SMARTSET# [id number] Completed 02/13/2023, 08/13/2020, 11/22/2015, Additional history exists [...] this encounter Medical Devices Implanted Type Area Dial Brusher Device Identifier Shelf Expiration Date Model / Serial / Lot Medtronic Tyrx Absorbable Antibacterial Envelope-Large Implanted:Qty: 1 on 07/27/2020 by Tomi James MD [place] [facility] [place]: Chest Medtronic 04/07/2021 [id number] / / [id number] Description:Tyrosine polyary late coated, multifilament absorbable mesh 2.9"x3.3" No charge Per Germania K. Neurostim Activa Deep Brain - [id number] - [id number] Implanted:Qty: 1 on 06/02/2022 by Tomi James MD [place] [facility] [place]: Chest [employer] 11/01/2022 [id number] / [id number] / documented as of this encounter Visit Diagnoses Diagnosis Parkinson's disease (HCC) Paralysis agitans documented in this encounter Advance Directives Documents on File Type Date Recorded Patient Talend Developer Expl anation Power of Health Technician 04/03/2019 POWER OF A TTORNEY Latest Code [...] Directives occurred with: Not Discussed Care Teams Process Control Operator Relationship Specialty Start Date End Date Silvia Barraza, [address] [place] [address] PCP - General Family Medicine 06/23/14 documented as of this encounter
--- OUTSIDE RECORDS SUMMARY | 2023-09-10 02:31 | External Medical Summary | Summary of Care ---
Author Name Unknown Organization [facility] Address [address] [place] [address] Phone [phone] Care Team Providers Care Manager Performance Improvement Name Role Phone Silvia Barraza DO Primary Care Provider Reason for Visit * Reason Onset Date Comments Pharmacy Questions 06/05/2023 Encounter Details Date Type Department Care Team Description 06/05/2023 [facility] [address] [facility] [place] [address] Silvia Barraza DO [address] [facility] [place] [address] Pharmacy Questions Allergies No known active allergiesdocumented [...] HCl 0.05 % Nasal Solution (Afrin Nasal [place])Indications:Ep istaxis Administer into each nostril 2 Sprays [...] 90 Capsule 5 02/20/2023 Active Saline Nasal [place] 0.65 % Nasal Solution ([place])Indications:E pistaxis Use two sprays at bedtime 30 [...] encounter Miscellaneous Notes * Telephone Encounter - SHELLEY Burrell - [...] medication and send a new prescription to [facility]. Thank you, Leelee Gil supervisor beam department Oxidized Finish Plater II Centralized Clinical Pharmacy Services(CCPS)(Formerly Telepharmacy) 06/05/2023,10:47 AM documented in this encounter Plan of Treatment Upcoming Encounters Date Type Specialty Care Team Description 08/31/2023 Office Visit Family Medicine Silvia Barraza DO [address] [place] [address] 12/18/2023 Office Visit Otolaryngology Lucia Treviño MD [address] [place] [address] 04/22/2024 Office Visit Neurology Stephen Price MD [address] [place] [address] Health Maintenance Due Date Last Done Comments [...] D LEVEL ONCE IN A LIFETIME-USE SMARTSET# [id number] Completed 02/13/2023, 08/13/2020, 11/22/2015, Additional history exists [...] this encounter Medical Devices Implanted Type Area Customer Support Coordinator Device Identifier Shelf Expiration Date Model / Serial / Lot Medtronic Tyrx Absorbable Antibacterial Envelope-Large Implanted:Qty: 1 on 07/27/2020 by Tomi James MD at OR [facility] Right: Chest Medtronic 04/07/2021 [id number] / / [id number] Description:Tyrosine polyary late coated, multifilament absorbable mesh 2.9"x3.3" No charge Per Germania K. Neurostim Activa Deep Brain - [id number] - [id number] Implanted:Qty: 1 on 06/02/2022 by Tomi James MD at [facility] Left: Chest [employer] 11/01/2022 [id number] / [id number] / documented as of this encounter Advance Directives Documents on File Type Date Recorded Patient Spray Gun Repairer Helper Expl anation Power of Precision Honer 04/03/2019 POWER OF A TTORNEY Latest Code [...] Directives occurred with: Not Discussed Care Teams Manager Performance Improvement Relationship Specialty Start Date End Date Silvia Barraza DO [address] [place] [address] PCP - General Family Medicine 06/23/14 documented as of this encounter
--- OUTSIDE RECORDS SUMMARY | 2023-09-10 02:31 | External Medical Summary | Summary of Care ---
Author Name Unknown Organization [facility] Address [address] [place] [address] Phone [phone] Care Team Providers Care Receiver Bulk System Name Role Phone Silvia Barraza DO Primary Care Provider Reason for Visit * Reason Onset Date Comments Medication Refill 06/05/2023 Encounter Details Date Type Department Care Team Description 06/05/2023 [facility] [address] [facility] [place] [address] Silvia Barraza DO [address] [facility] [place] [address] Allergies No known active allergiesdocumented as of [...] HCl 0.05 % Nasal Solution (Afrin Nasal [place])Indications:Ep istaxis Administer into each nostril 2 Sprays [...] 90 Capsule 5 02/20/2023 Active Saline Nasal [place] 0.65 % Nasal Solution ([place])Indications:E pistaxis Use two sprays at bedtime 30 [...] on file documented as of this encounter Plan of Treatment Upcoming Encounters Date Type Specialty Care Team Description 08/31/2023 Office Visit Family Medicine Silvia Barraza, DO [address] [place] [address] 12/18/2023 Office Visit Otolaryngology Lucia Treviño MD [address] [place] [address] 04/22/2024 Office Visit Neurology Stephen Price MD [address] [place] [address] Health Maintenance Due Date Last [...] D LEVEL ONCE IN A LIFETIME-USE SMARTSET# [id number] Completed 02/13/2023, 08/13/2020, 11/22/2015, Additional history exists [...] this encounter Medical Devices Implanted Type Area Hop Farm Worker Device Identifier Shelf Expiration Date Model / Serial / Lot Medtronic Tyrx Absorbable Antibacterial Envelope-Large Implanted:Qty: 1 on 07/27/2020 by Tomi James MD at OR [facility] Right: Chest Medtronic 04/07/2021 [id number] / / [id number] Description:Tyrosine polyary late coated, multifilament absorbable mesh 2.9"x3.3" No charge Per Germania K. Neurostim Activa Deep Brain - [id number] - [id number] Implanted:Qty: 1 on 06/02/2022 by Tomi James MD at OR [facility] Left: Chest [employer] 11/01/2022 [id number] / [id number] / documented as of this encounter Advance Directives Documents on File Type Date Recorded Patient Application Helper Expl anation Power of Elementary Instructional Coach 04/03/2019 POWER OF A TTORNEY Latest Code [...] Directives occurred with: Not Discussed Care Teams Receiver Bulk System Relationship Specialty Start Date End Date Silvia Barraza DO [address] [place] [address] PCP - General Family Medicine 06/23/14 documented as of this encounter
--- OUTSIDE RECORDS SUMMARY | 2023-09-10 02:32 | External Medical Summary | Summary of Care ---
Author Name Unknown Organization [facility] Address [address] [place] [address] Phone [phone] Care Team Providers Care Skein Yarn Dyer Helper Name Role Phone Fang Barraza DO Primary Care Provider Reason for Visit * Reason Onset Date Comments Medication Refill 05/25/2023 Encounter Details Date Type Department Care Team Description 05/25/2023 [facility] [address] [facility] [place] [address] Fang Barraza DO [address] [facility] [place] [address] Allergies No known active allergiesdocumented as of this encounter (statuses as of 05/25/2023) Medications Medication Sig Dispensed Refills Start Date [...] 100 MG Oral Capsule (Neurontin)Indicat ions:Parkinson's disease ([facility]) Take 1 cps at bed time, along with the 300 mg. 90 Capsule 6 05/02/2022 Active Aspirin 81 MG Oral Tablet Delayed Release Take 1 Tablet by mouth in the morning. 0 06/07/2022 Active Oxymetazoline HCl 0.05 % Nasal Solution (Afrin Nasal [place])Indications: Epistaxis Administer into each nostril 2 Sprays [...] MG Oral Tablet (Mag-Oxide)Indicat ions:PMR (polymyalgia rheumatica) ([facility]) Take 1 Tablet by mouth in [...] MCG (1999 [place]) Oral TabletIndications: Parkinson's disease (HCC) Take 1 cps 2 times a day 60 Tablet 6 02/03/2023 Active traZODone HCl 100 MG Oral Tablet (Desyrel) Take 1 Tablet by mouth at bedtime. 30 Tablet 11 02/13/2023 Active Gabapentin 300 MG Oral Capsule (Neurontin)Indicat ions:Neuropathy TAKE 3 CAPS BY MOUTH AT BEDTIME. 90 Capsule 5 02/20/2023 Active Saline Nasal [place] 0.65 % Nasal Solution ([place])Indications :Epistaxis Use two sprays at bedtime 30 [...] or headache). 60 Tablet 0 05/25/2023 Active Acetaminophen 325 MG Oral Tablet (Tylenol) Take by mouth 2 Tablets every 6 hours as needed (pain or headache). 60 Tablet 0 01/10/2022 Discontinue d(Refill) Donepezil HCl 10 MG Oral Tablet (Aricept)Indicatio ns:Dementia without behavioral disturbance, unspecified dementia type TAKE 1 TAB BY MOUTH DAILY. TAKE WITH LARGEST MEAL OF THE DAY. 30 Tablet 10 05/07/2022 3 Discontinue d(Refill) documented as of this encounter (statuses as of 05/25/2023) Active Problems Problem Noted Date PMR (polymyalgia [...] as of this encounter (statuses as of 05/25/2023) Resolved Problems Problem Noted Date Resolved Date [...] as of this encounter (statuses as of 05/25/2023) Immunizations Name Administration Dates Next Due Pneumococcal Conjugate Vacc, 13 Valent (Prevnar) 10/19/2015 Pneumococcal Polysaccharide PPV23 (Pneumovax) 07/17/2010 Seasonal Influenza Virus Vac cine, Unspecified Formulation 10/19/2015,06/23/2014,07/17/2010,05/2009,07/07/2007 Seasonal Influenza, PF, 6 mo ns & Above, IM , (Flulaval) 08/26/2020,06/24/2019 Seasonal Influenza, Quadriva lent, No Preserve, IM 10/19/2015 Seasonal Influenza, Split, I IV3, With Preserve, Inj 06/23/2014,07/17/2010,07/12/2009,1012/200607/12/2010 TD - Tetanus/Diptheria (ADULT) 05/14/2007 TD, Preservative [...] Telephone Encounter - Fang Barraza DO - 05/25/2023 6:45 PM EDTSigned Prescriptions: Disp Refills Donepezil HCl 10 MG Oral Tablet (Aricept) 30 Tab*10 Sig: Take 1 Tablet by mouth in the morning. Take with largest meal of the day.. Authorizing Provider: FANG BARRAZA Acetaminophen 325 MG Oral Tablet (Tylenol) 60 Tab*0 Sig: Take 2 Tablets by mouth every 6 hours as needed (pain or headache). Authorizing Provider : FANG BARRAZA * Telephone Encounter - Lisa Montez CPhT - 05/25/2023 3:31 PM EDT Did you pend patient's preferred pharmacy and medication before forwarding?yes [facility]acy: [facility] [address] Pending Prescriptions: Disp Refills Donepezil HCl 10 MG Oral Tablet (Aricept) 30 Tab*10 Sig: Take 1 Tablet by mouth in the morning. Take with largest meal of the day.. Acetaminophen 325 MG Oral Tablet (Tylenol)60 Tab*0 Sig: Take 2 Tablets by mouth every 6 hours as needed (pain or headache). Last Visit: 02/13/2023 (in office), 09/25/2020 (telemedicine) Next Visit: 08/31/2023 If no future appointments scheduled, and last appointment is greater than a year ago, please schedule patient for a follow-up appointment Last date the medication was ordered: [id number] Is this request for a controlled substance?No [...] Family Medicine Fang Barraza DO [address] [place] [address] 12/18/2023 Office Visit Otolaryngology Lucia Treviño MD [address] [place] [address] 04/22/2024 Office Visit Neurology Stephen Price MD [address] [place] [address] Health Maintenance Due Date Last [...] D LEVEL ONCE IN A LIFETIME-USE SMARTSET# [id number] Completed 02/13/2023, 08/13/2020, 11/22/2015, Additional history exists [...] this encounter Medical Devices Implanted Type Area University Teacher Device Identifier Shelf Expiration Date Model / Serial / Lot Medtronic Tyrx Absorbable Antibacterial Envelope-Large Implanted:Qty: 1 on 07/27/2020 by Tomi James MD at [place] [facility] Right: Chest Medtronic 04/07/2021 [id number] / / [id number] Description:Tyrosine polyary late coated, multifilament absorbable mesh 2.9"x3.3" No charge Per Germania K. Neurostim Activa Deep Brain - [id number] - [id number] Implanted:Qty: 1 on 06/02/2022 by Tomi James MD at [place] [facility] Left: Chest [employer] 11/01/2022 [id number] / [id number] / documented as of this encounter Advance Directives Documents on File Type Date Recorded Patient Foreign Exchange Dealer Expl anation Power of Fruit Checker 04/03/2019 POWER OF A TTORNEY Latest Code [...] Directives occurred with: Not Discussed Care Teams Skein Yarn Dyer Helper Relationship Specialty Start Date End Date Fang Barraza DO [address] [place], [place] [address] PCP - General Family Medicine 06/23/14 documented as of this encounter
--- OUTSIDE RECORDS SUMMARY | 2023-09-10 02:32 | External Medical Summary | Summary of Care ---
Author Name Unknown Organization [facility] Address [address] [place] [address] Phone [phone] Care Team Providers Care Principal Data Architect Name Role Phone Fang Barraza DO Primary Care Provider Reason for Visit * Reason Onset Date Comments Medication Refill 05/19/2023 Encounter Details Date Type Department Care Team Description 05/19/2023 [facility] [address] [facility] [place] [address] Fang Barraza DO [address] [facility] [place] [address] Primary insomnia; ANURADHA (generalized anxiety disorder) Allergies No known active allergiesdocumented as of this encounter (statuses as of 05/19/2023) Medications Medication Sig Dispensed Refills Start Date End Date Status Multiple Vitamins-Minerals (WOMENS MULTI) CAPS Take by mouth. 0 Active Fleet Enema 7-19 GM/118ML Rectal EnemaIndications:C onstipation, unspecified constipation type Administer 1 Enema into the rectum once. 0 Active Melatonin 10 MG Oral Tablet DisintegratingIndi cations:Persistent insomnia Take 10 mg by mouth every night at bedtime. 30 Tab 11 05/28/2021 Active Acetaminophen 325 MG Oral Tablet (Tylenol) Take by mouth 2 Tablets every 6 hours as needed (pain or headache). 60 Tablet 0 01/10/2022 Active Amoxicillin 500 MG Oral Capsule (Amoxil) [...] 300 mg. 90 Capsule 6 05/02/2022 Active Donepezil HCl 10 MG Oral Tablet (Aricept)Indicatio ns:Dementia without behavioral disturbance, unspecified dementia type TAKE 1 TAB BY MOUTH DAILY. TAKE WITH LARGEST MEAL OF THE DAY. 30 Tablet 10 05/07/2022 Active Aspirin 81 MG Oral Tablet Delayed Release Take 1 Tablet by mouth in the morning. 0 06/07/2022 Active Oxymetazoline HCl 0.05 % Nasal Solution (Afrin Nasal [place])Indications: Epistaxis Administer into each nostril 2 Sprays [...] 90 Capsule 5 02/20/2023 Active Saline Nasal [place] 0.65 % Nasal Solution ([place])Indications :Epistaxis Use two sprays at bedtime 30 [...] at bedtime. 90 Tablet 3 05/19/2023 Active Mirtazapine 15 MG Oral Tablet (Remeron)Indicatio ns:ANURADHA (generalized anxiety disorder),Primary insomnia Take 1 Tablet by mouth at bedtime. 30 Tablet 5 12/01/2022 3 Discontinue d(Refill) documented as of this encounter (statuses as of 05/19/2023) Active Problems Problem Noted Date PMR (polymyalgia [...] as of this encounter (statuses as of 05/19/2023) Resolved Problems Problem Noted Date Resolved Date [...] as of this encounter (statuses as of 05/19/2023) Immunizations Name Administration Dates Next Due Pneumococcal Conjugate Vacc, 13 Valent (Prevnar) 10/19/2015 Pneumococcal Polysaccharide PPV23 (Pneumovax) 07/17/2010 Seasonal Influenza Virus Vac cine, Unspecified Formulation 10/19/2015,06/23/2014,07/17/2010,10/0 05/2009,07/07/2007 Seasonal Influenza, Quadriva lent, No Preserve, 6 Mons & Above, IM 08/26/2020,06/24/2019 Seasonal Influenza, Quadriva lent, No Preserve, [...] Telephone Encounter - Fang Barraza DO - 05/19/2023 12:56 PM EDT Signed Prescriptions: Disp Refills Mirtazapine 15 MG Oral Tablet (Remeron) 90 Tab*3 Sig: Take 1 Tablet by mouth at bedtime.Authorizing Provider: FANG BARRAZA * Telephone Encounter - Jessica Chang LPN - 05/19/2023 11:35 AM EDTPending Prescriptions: Disp Refills Mirtazapine 15 MG Oral Tablet (Remeron) 90 Tab*3 Sig: Take 1 Tablet by mouth at bedtime. * Telephone Encounter - ARASELI Fernández - 05/19/2023 11:24 AM EDT Did you pend patient's preferred pharmacy and medication before forwarding?yes Pharmacy: [facility] [address] Pending Prescriptions: Disp Refills Mirtazapine 15 MG Oral Tablet (Remeron) 30 Tab*5 Sig: Take 1 Tablet by mouth at bedtime. Last Visit: 02/13/2023 (in office), 09/25/2020 (telemedicine) Next Visit: 08/31/2023 If no future appointments scheduled, and last appointment is greater than a year ago, please schedule patient for a follow-up appointment Last date the medication was ordered: 12-01-2022 Is this request for a controlled substance?No [...] Encounters Date Type Specialty Care Team Description 05/22/2023 Office Visit Otolaryngology Lucia Treviño MD [address] [facility] [place] [address] 08/31/2023 Office Visit Family Medicine Fang Barraza, [address] [place] [address] 04/22/2024 Office Visit Neurology Stephen Price MD [address] [place] [address] Health Maintenance Due Date Last [...] D LEVEL ONCE IN A LIFETIME-USE SMARTSET# 97486 Completed 02/13/2023, 08/13/2020, 11/22/2015, Additional history exists [...] this encounter Medical Devices Implanted Type Area Seal Delivery Vehicle Team Technician Device Identifier Shelf Expiration Date Model / Serial / Lot Medtronic Tyrx Absorbable Antibacterial Envelope-Large Implanted:Qty: 1 on 07/27/2020 by Tomi James MD [place] [facility] Right: Chest Medtronic 04/07/2021 [id number] / / [id number] Description:Tyrosine polyary late coated, multifilament absorbable mesh 2.9"x3.3" No charge Per Germania K. Neurostim Activa Deep Brain - [id number] - [id number] Implanted:Qty: 1 on 06/02/2022 by Tomi James MD [place] [facility] [place] Left: Chest [employer] 11/01/2022 [id number] / [id number] / documented as of this encounter Visit Diagnoses Diagnosis Primary insomnia Persistent disorder of initiating or maintaining sleep ANURADHA (generalized anxiety disorder) Generalized anxiety disorder documented in this encounter Advance Directives Documents on File Type Date Recorded Patient Vessel Scrapper Helper Expl anation Power of Instrumentation Chemist 04/03/2019 POWER OF A TTORNEY Latest Code [...] Directives occurred with: Not Discussed Care Teams Principal Data Architect Relationship Specialty Start Date End Date Fang Barraza DO [address] [place] [address] PCP - General Family Medicine 06/23/14 documented as of this encounter
--- OUTSIDE RECORDS SUMMARY | 2023-09-10 02:32 | External Medical Summary | Summary of Care ---
Author Name Unknown Organization [facility] Address [address] [place] [address] Phone [phone] Care Team Providers Care Director Of Counseling Name Role Phone Silvia Barraza DO Primary Care Provider Reason for Referral * Evaluate & Treat - Unlimited Visits (Within 10 days (routine)) - Authorized Specialty Diagnoses / Procedures Referred By Contac t Referred To Contact Physical Therapy / Physical Medicine And Rehab Diagnoses Generalized weakness Silvia Barraza DO [address] [place] [address] Referral ID Status Reason Start Date Expiration Date Visits Requested Visits Authorized [id number] Authorized Specialty Services Required 04/02/[phone] Question Answer Referral Priority Within 10 days (routine) * Evaluate & Treat - Unlimited Visits (Within 10 days (routine)) - Authorized Specialty Diagnoses / Procedures Referred By Contduglas t Referred To Contact Occupational Medicine / Occupational Therapy Diagnoses Generalized weakness Silvia Barraza DO [address] [place] [address] Referral ID Status Reason Start Date Expiration Date Visits Requested Visits Authorized [id number] Authorized Specialty Services Required 04/02/[phone] Question Answer Referral Priority Within 10 days (routine) Reason for Visit * Reason Onset Date Comments Order Request 04/01/2023 OT and PT THERAP Y Encounter Details Date Type Department Care Team Description 04/01/2023 Telephone Family Practice [place] [address] [facility] [place] [address] Silvia Barraza, DO [address] [facility] [place] [address] Order Request (OT and PT THERAPY) Allergies No known active allergiesdocumented as of this encounter (statuses as of 04/02/2023) Medications Medication Sig Dispensed Refills Start Date End Date Status Multiple Vitamins-Minerals (WOMENS MULTI) CAPS Take by mouth. 0 A ctive Fleet Enema 7-19 GM/118ML Rectal EnemaIndications:Con stipation, unspecified constipation type Administer 1 Enema into the rectum once. 0 Active Melatonin 10 MG Oral Tablet DisintegratingIndica tions:Persistent insomnia Take 10 mg by mouth every [...] 04/16/2022 Active Gabapentin 100 MG Oral Capsule (Neurontin)Indicatio ns:Parkinson's disease (HCC) Take 1 cps at bed time, along with the 300 mg. 90 Capsule 6 05/02/2022 Active Donepezil HCl 10 MG Oral Tablet (Aricept)Indications :Dementia without behavioral disturbance, unspecified dementia type TAKE 1 TAB BY MOUTH DAILY. TAKE WITH LARGEST MEAL OF THE DAY. 30 Tablet 10 05/07/2022 Active Aspirin 81 MG Oral Tablet Delayed Release Take 1 Tablet by mouth in the morning. 0 06/07/2022 Active Oxymetazoline HCl 0.05 % Nasal Solution (Afrin Nasal [place])Indications:Ep istaxis Administer into each nostril 2 Sprays [...] MG Oral Tablet (Mag-Oxide)Indicatio ns:PMR (polymyalgia rheumatica) ([facility]) Take 1 Tablet by mouth in the [...] MOUTH DAILY. 90 Capsule 1 11/03/2022 Active Carbidopa-Levodopa 25-100 MG Oral Tablet (Sinemet)Indications :Parkinson's disease (HCC) TAKE 1 TAB BY MOUTH TWICE DAILY THE FIRST 2 DOSES + 1.5 TABS BY MOUTH TWICE DAILY THE LAST 2 DOSES 150 Tablet 5 11/13/2022 Active Mirtazapine 15 MG Oral Tablet (Remeron)Indications :ANURADHA (generalized anxiety disorder),Primary insomnia Take 1 Tablet by mouth at bedtime. 30 Tablet 5 12/01/2022 Active Fluocinolone Acetonide 0.01 % External Solution [...] MCG (2000 UT) Oral TabletIndications:Pa rkinson's disease (HCC) Take 1 cps 2 times a day 60 Tablet 6 02/03/2023 Active traZODone HCl 100 MG Oral Tablet (Desyrel) Take 1 Tablet by mouth at bedtime. 30 Tablet 11 02/13/2023 Active Gabapentin 300 MG Oral Capsule (Neurontin)Indicatio ns:Neuropathy TAKE 3 CAPS BY MOUTH AT BEDTIME. 90 Capsule 5 02/20/2023 Active Saline Nasal [place] 0.65 % Nasal Solution ([place])Indications:E pistaxis Use two sprays at bedtime 30 mL 2 03/12/2023 Active documented as of this encounter (statuses as of 04/02/2023) Active Problems Problem Noted Date PMR (polymyalgia [...] as of this encounter (statuses as of 04/02/2023) Resolved Problems Problem Noted Date Resolved Date [...] as of this encounter (statuses as of 04/02/2023) Immunizations Name Administration Dates Next Due Pneumococcal Conjugate Vacc, 13 Valent (Prevnar) 10/19/2015 Pneumococcal Polysaccharide PPV23 (Pneumovax) 07/17/2010 Seasonal Influenza Virus Vac cine, Unspecified Formulation 10/19/2015,06/23/2014,07/17/2010,05/2009,07/07/2007 Seasonal Influenza, Quadriva lent, No Preserve, 6 [...] encounter Miscellaneous Notes * Telephone Encounter - ARASELI Preston - 04/02/2023 1:25 PM EDT Printed and faxed 04/02 * Telephone Encounter - Silvia Barraza DO - 04/02/2023 12:49 PM EDT Signed, do they have to be sent anywhere? Silvia Barraza DO * Telephone Encounter - Khushbu Flores LPN - 04/02/2023 12:05 PM EDT OT and PT referrals pended if agreeable. * Telephone Encounter - ARASELI Travis - 04/01/2023 2:41 PM EDT An order was requested for this patient. Name of Requesting Provider: [facility] [place] Order Requested: occupational and physical therapy Diagnosis/Reason for Request: weak from covid, has had multiple falls Does the order need to be faxed somewhere? If so, where?: Fax Number, if applicable: [phone] therapy dept Call Back Number: If the caller is not a current patient, please advise the patient to call their current PCP to havethe order's prior to being seen in our office. The patient was informed that our providers would not order anything (medication, labs, etc.) prior to being seen. documented in this encounter Plan of Treatment Upcoming Encounters Date Type Specialty Care Team Description 05/22/2023 Office Visit Otolaryngology Lucia Treviño MD [address] [facility] [place] [address] 08/31/2023 Office Visit Family Medicine Silvia Barraza DO [address] [place] [address] 04/22/2024 Office Visit Neurology Stephen Price MD [address] [place] [address] Scheduled Referrals Name Type Priority Associated Diagnoses Order Schedule OCCUPATIONAL THERAPY REFERRAL OP Referral Within 10 days (routine) Generalized weakness Ordered: 04/02/2023 PHYSICAL THERAPY REFERRAL OP Referral Within 10 days (routine) Generalized weakness Ordered: 04/02/2023 Health Maintenance Due Date Last Done Comments COVID-19 Vaccine (#1) 1941 Zoster Vaccines (1 of 2) 1991 *BISPHONATE OR OTHER ACCEPTABLE MEDICATION NEEDED FOR OSTEOPOROSIS (REFER TO SMARTSET #1146) 10/06/2014 DXA Scan 03/24/2020 03/24/2018, 04/04, 04/19/2012, Additional history exists Depression Screening, Annual for Pts 12 and Over 05/29/2023 05/29/2022 Influenza Vaccine (FLU shot) (Season Ended) 2023 08/26/2020, 06/24/2019, 10/19/2015, Additional history exists DTaP,Tdap,and Td Vaccines (3 - Td or Tdap) 06/23/2024 06/23/2014, 06/21/2007, 05/14/2007, Additional history exists Pneumococcal Vaccine: 65+ Years Completed 10/19/2015, 07/17/2010 VITAMIN D LEVEL ONCE IN A LIFETIME-USE SMARTSET# [id number] Completed 02/13/2023, 08/13/2020, 11/22/2015, Additional history exists [...] this encounter Medical Devices Implanted Type Area School Superintendent Device Identifier Shelf Expiration Date Model / Serial / Lot Medtronic Tyrx Absorbable Antibacterial Envelope-Large Implanted:Qty: 1 on 07/27/2020 by Tomi James MD [place] [facility] [place] Chest Medtronic 04/07/2021 [id number] / / [id number] Description:Tyrosine polyary late coated, multifilament absorbable mesh 2.9"x3.3" No charge Per Germania K. Neurostim Activa Deep Brain - [id number] - [id number] Implanted:Qty: 1 on 06/02/2022 by Tomi James MD [place] [facility] [place]: Chest [employer] 11/01/2022 [id number] / [id number] / documented as of this encounter Visit Diagnoses Diagnosis Generalized weakness- Primary Other malaise and fatigue documented in this encounter Advance Directives Documents on File Type Date Recorded Patient Office Coordinator Expl anation Power of Staple Laster 04/03/2019 POWER OF A TTORNEY Latest Code [...] Directives occurred with: Not Discussed Care Teams Director Of Counseling Relationship Specialty Start Date End Date Silvia Barraza DO [address] [place] [address] PCP - General Family Medicine 06/23/14 documented as of this encounter
--- OUTSIDE RECORDS SUMMARY | 2023-09-10 02:32 | External Medical Summary | Summary of Care ---
Author Name Unknown Organization [facility] Address [address] [place] [address] Phone [phone] Care Team Providers Care Director Of District Office Name Role Phone Silvia Barraza DO Primary Care Provider Reason for Visit * Reason Comments NEW PATIENT * Evaluate & Treat - Unlimited Visits (Within 30 days (routine)) - Authorized Specialty Diagnoses / Procedures Referred By Bassem wong Referred To Contact Otolaryngology Diagnoses Epistaxis Silvia Barraza DO [address] [facility] [place] [address] Referral ID Status Reason Start Date Expiration Date Visits Requested Visits Authorized [id number] Authorized Specialty Services Required 02/13/[phone] Encounter Details Date Type Department Care Team Description 05/22/2023 Office Visit Otolaryngology [facility] [address] [place] [address] Lucia Treviño MD [address] [place] [address] Epistaxis, recurrent* Allergies No known active allergiesdocumented as of this encounter (statuses as of 05/22/2023) Medications Medication Sig Dispensed Refills Start Date [...] HCl 0.05 % Nasal Solution (Afrin Nasal [place])Indications:Ep istaxis Administer into each nostril 2 Sprays [...] MG Oral Tablet (Mag-Oxide)Indicatio ns:PMR (polymyalgia rheumatica) ([facility]) Take 1 Tablet by mouth in [...] MCG (1999 UT) Oral TabletIndications:Pa rkinson's disease ([facility]) Take 1 cps 2 times a day 60 Tablet 6 02/03/2023 Active traZODone HCl 100 MG Oral Tablet (Desyrel) Take 1 Tablet by mouth at bedtime. 30 Tablet 11 02/13/2023 Active Gabapentin 300 MG Oral Capsule (Neurontin)Indicatio ns:Neuropathy TAKE 3 CAPS BY MOUTH AT BEDTIME. 90 Capsule 5 02/20/2023 Active Saline Nasal [place] 0.65 % Nasal Solution (Octavia)Indications:E pistaxis Use two sprays at bedtime 30 mL 2 03/12/2023 Active Carbidopa-Levodopa 25-100 MG Oral Tablet (Sinemet)Indications :Parkinson's disease ([facility]) TAKE 1 TAB BY MOUTH TWICE DAILY THE FIRST 2 DOSES + 1.5 TABS BY MOUTH TWICE DAILY THE LAST 2 DOSES 150 Tablet 11 04/20/2023 Active Mirtazapine 15 MG Oral Tablet (Remeron)Indications :Primary insomnia,ANURADHA (generalized anxiety disorder) Take 1 Tablet by mouth at bedtime. 90 Tablet 3 05/19/2023 Active documented as of this encounter (statuses as of 05/22/2023) Active Problems Problem Noted Date PMR (polymyalgia [...] as of this encounter (statuses as of 05/22/2023) Resolved Problems Problem Noted Date Resolved Date [...] as of this encounter (statuses as of 05/22/2023) Immunizations Name Administration Dates Next Due Pneumococcal [...] on file documented as of this encounter Last Filed Vital Signs Vital Sign Reading Time Taken Comments Blood Pressure - - Pulse - - Temperature - - Respiratory Rate - - Oxygen Saturation - - Inhaled Oxygen Concentration - - Weight 62.4 kg (137 lb 8 oz) 05/22/2023 11:52 AM EDT Height 175.3 cm (5' 9") 05/22/2023 11:52 AM EDT Body Mass Index 20.31 05/22/2023 11:52 AM EDT documented in this encounter Progress Notes * Lucia Treviño MD - 05/22/2023 12:00 PM EDT 05/22/2023 HISTORY OF PRESENT ILLNESS This 83 year old year old female is seen today for the initial complaint of epistaxis. The providerrequesting consultation is Silvia Barraza DO. There are no exam notes on file for this visit. 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, F02.80 End of battery life of deep brain stimulator Z45.42 PMR (polymyalgia rheumatica) ([facility]) M35.3 Past Medical History: Diagnosis Date Diffuse cystic mastopathy Breast, Fibrocystic Generalized osteoarthritis Menopause Migraine with aura Migraines-Classical Mitral valve prolapse with trace regurg Need for prophylactic hormone replacement therapy (postmenopausal) Hormone Therapy Relacement Parkinson's disease ([facility]) Past Surgical History: Procedure Laterality Date BREAST LESION,OTHER,EXCISION Right 04/30/09 Right breast biopsy ([facility]IS) at [facility] [place] - Dr. Soriano COLONOSCOPY 2006 Repeat 10 years, concerned about prep INFORMATION CERVICAL POLYP REMOVAL INFORMATION 2002 ORIF right radius INFORMATION 06/2011 DBS - Stimulator in [place] x 2 INSERT/REPLACE CRANIAL NEUROSTIM, 2 OR MORE ELECTRODES Left 06/02/2022 INSERT OR REPLACE OF CRANIAL NEUROSTIMULATOR PULSE GENERATOR OR PORTER LUGGAGE TWO OR MORE ARRAYS (STAGE 3) performed by Tomi James MD at [facility] INSERT/REPLACE CRANIAL NEUROSTIM, SINGLE ELECTRODE Bilateral 07/27/2020 INSERT OR REPLACE OF CRANIAL NEUROSTIMULATOR PULSE GENERATOR OR PORTER LUGGAGE SINGLE ARRAY (STAGE 3) performed by Tomi James MD at OR [facility] INSERT/REPLACE CRANIAL NEUROSTIM, SINGLE ELECTRODE Left 06/02/2022 INSERT OR REPLACE OF CRANIAL NEUROSTIMULATOR PULSE GENERATOR OR PORTER LUGGAGE SINGLE ARRAY (STAGE 3) performed by Tomi James MD at [facility] LIGATE/CUT OVIDUCT(S) Tubal Ligation MAMMOGRAM - BILATERAL 06/05/05 birad code 2 MAMMOGRAM - BILATERAL 06/09/06 birad code 2 MAMMOGRAM SCREENING-BILATERAL 05/31/02 Birad code 2 MAMMOGRAM SCREENING-BILATERAL 06/01/03 birad code 2 MAMMOGRAM SCREENING-BILATERAL 06/10/07 birad 2 REMOVE TONSILS & ADENOIDS, UNDER 12 Tonsillectomy/Adenoids,<12 Y/O VAGINAL DELIVERY ONLY Vaginal Delivery VAGINAL DELIVERY ONLY Vaginal Delivery Medications Current Outpatient Medications Medication Sig Dispense Refill Multiple Vitamins-Minerals (WOMENS MULTI) CAPS Take by mouth. Fleet Enema 7-19 GM/118ML Rectal Enema Administer 1 Enema into the rectum once. Melatonin 10 MG Oral Tablet Disintegrating Take 10 mg by mouth every night at bedtime. 30 Tab 11 Acetaminophen 325 MG Oral Tablet (Tylenol) Take by mouth 2 Tablets every 6 hours as needed (pain orheadache). 60 Tablet 0 Amoxicillin 500 MG Oral Capsule (Amoxil) 4 CAPS BY MOUTH 1HR PRIOR TO APPT 4 Capsule 4 Ketoconazole 2 % External Shampoo (Nizoral) APPLY TO SCALP ONCE WEEKLY NEEDED. LEAVE ON 5-10MIN BEFORE RINSING. 120 mL 4 Propylene Glycol 0.6 % Ophthalmic Solution Instill 1 Drop into both eyes 4 times a day as needed. 5mL 3 Gabapentin 100 MG Oral Capsule (Neurontin) Take 1 cps at bed time, along with the 300 mg. 90 Capsule 6 Donepezil HCl 10 MG Oral Tablet (Aricept) TAKE 1 TAB BY MOUTH DAILY. TAKE WITH LARGEST MEAL OF THE DAY. 30 Tablet 10 Aspirin 81 MG Oral Tablet Delayed Release Take 1 Tablet by mouth in the morning. Oxymetazoline HCl 0.05 % Nasal Solution (Afrin Nasal [place]) Administer into each nostril 2 Sprays 2times a day as needed (nosebleed). Do not use for more than three days. 15 mL 0 Polyethylene Glycol 3350 17 GM Oral Packet Take 1 Packet by mouth in the morning. Hydrocortisone 2.5 % External Lotion APPLY TOPICALLY TO AFFECTED AREA 3 TIMES A DAY. TO AFFECTED AREA ON SCALP. 118 mL 10 Floranex Oral Tablet TAKE 2 TABLETS BY MOUTH EVERY MORNING 60 Tablet 5 Magnesium Oxide 200 MG Oral Tablet (Mag-Oxide) Take 1 Tablet by mouth in the morning. 30 Tablet 3 Fluticasone Propionate 50 MCG/ACT Nasal Suspension (Flonase) Administer 2 Sprays into each nostril in the morning. 16 g 0 Docusate Sodium 100 MG Oral Capsule (Colace) Take 1 Capsule by mouth in the morning and 1 Capsule before bedtime. 60 Capsule 3 Metoprolol Succinate ER 50 MG Oral Tablet Extended Release 24 Hour (toPROL XL) Take 1 Tablet by mouth in the morning. 90 Tablet 3 Biotin 5 MG Oral Capsule (Meribin) TAKE 1 CAP BY MOUTH DAILY. 90 Capsule 1 Fluocinolone Acetonide 0.01 % External Solution Apply topically to affected area 2 times a day as needed (itching, dryness, crusting, scaling). Apply to scalp 60 mL 11 Tylenol PM Extra Strength 500-25 MG Oral Tablet (diphenhydrAMINE-APAP (sleep)) Take 1 Tablet by mouth at bedtime as needed for Sleep. 45 Tablet 1 Foltanx 3-35-2 MG Oral Tablet 1 TAB BY MOUTH EVERY DAY 30 Tablet 4 Vitamin D3 50 MCG (2000 UT) Oral Tablet Take 1 cps 2 times a day 60 Tablet 6 traZODone HCl 100 MG Oral Tablet (Desyrel) Take 1 Tablet by mouth at bedtime. 30 Tablet 11 Gabapentin 300 MG Oral Capsule (Neurontin) TAKE 3 CAPS BY MOUTH AT BEDTIME. 90 Capsule 5 Saline Nasal [place] 0.65 % Nasal Solution (Octavia) Use two sprays at bedtime 30 mL 2 Carbidopa-Levodopa 25-100 MG Oral Tablet (Sinemet) TAKE 1 TAB BY MOUTH TWICE DAILY THE FIRST 2 DOSES + 1.5 TABS BY MOUTH TWICE DAILY THE LAST 2 DOSES 150 Tablet 11 Mirtazapine 15 MG Oral Tablet (Remeron) Take 1 Tablet by mouth at bedtime. 90 Tablet 3 No current facility-administered medications for this visit. 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 [place] Social History Social History Tobacco Use Smoking status: Never Smokeless tobacco: Never Substance Use Topics Alcohol use: Yes Comment: moderation Vaping/E-Cigarette Use Vaping/E-Cigarette Use Never User Vaping/E-Cigarette Substances Nicotine No Other No Flavoring No THC No Cannabidiol (CBD) No Vaping/E-Cigarette Devices Disposable No Pre-filled or Refillable Cartridge No Refillable Tank No Pre-filled Pod No Occupational History Work: Review of Systems Negative for constitutional, eyes, cardiac, pulmonary, hepatic, renal, digestive, hematologic, epileptic, syncopal, musculo-skeletal, mental health, integumentary, hypertensive, lipid, arthritic, diabetic, thyroid or neurologic disorders (except as listed in the PMH and Problem List). Physical Examination: Ht 1.753 m (5' 9") | Wt 62.4 kg (137 lb 8 oz) | LMP 11/19/2012 | BMI 20.31 kg/m | BSA 1.74 m PHYSICAL EXAM General: This is a healthy appearing female who appears her stated age. The patient is alert and appropriately verbally conversant without hoarseness. Face: The face was inspected and no cutaneous masses or lesions were visualized. There was no erythema or edema noted. Facial movement was symmetric without weakness. No skin lesions were detected. The parotid and submandibular glands were normal to palpation. Eyes: Extra-ocular muscle function was intact. No nystagmus was observed. Pupils were equal. Cranial Nerves: Grossly intact Nose: Examination of the nose prior to decongestion revealed no masses, polyps, mucopus, or other lesion. The nasal septum was non-obstructing. The turbinates were without abnormality. No septal perforation. Oral Cavity: Examination of the oral cavity revealed no mass lesions nor infection. The palate was noted to be intact without evidence of clefting. The tongue exhibited normal mobility. Mucosa was moist without lesion. The lips were free of lesion. Gums were free of inflammation. Dentition: Unremarkable Oropharynx: The oral pharynx was free of mass lesion or mucosal abnormality. The palate was noted to be without lesion. The uvula was normal appearing. The tonsils were unremarkable. Hypopharynx: flexible fiberoptic examination of the hypopharynx revealed normal mucosa. The tongue base was normal. There was no abnormal lymphoid tissue. There were no mass lesions. Larynx: flexible fiberoptic examination of the larynx revealed no mass lesions. Vocal cord mobilitywas normal without paralysis or paresis. No vocal cord masses were visualized. The pyriform sinuseswere free of mass lesion and significant pooling. The mucosa was normal appearing. Ears: Examination of the ears revealed that the auricles were normally formed with no lesions. The external auditory canals were cleaned of any obstructing cerumen. The tympanic membranes were intact. There are no significant retraction pockets. There is no inflammation visualized. No effusions areseen. Neck: Visualization and palpation of the neck revealed no mass lesions, no thyromegaly or thyroid masses. No skin lesions or inflammatory processes were detected. The cervical musculature was normal to palpation. Lymphatics (cervical): There were no palpable lymph nodes in the posterior triangle, submandibular triangle, jugulodigastric region, or central neck. Lungs: Breathing quietly. No use of accessory muscles. Heart: Regular rate. No JVD. Plan: Epistaxis, recurrent (Primary) Patient also has cerumen on the right for which he can use mineral oil 3-4 drops in both ears few times a week. I will see her back in 6 months for cerumen removal. Education of epistaxis prevention was provided, which includes: 1. NeilMed or similar nasal irrigations BID 2. Octavia spray or saline mist spray QID and PRN to keep nasal mucosa moist 3. Avoid nasal cannula for supplemental oxygen if required, can use face tent or face mask instead. 4. Use of a humidifier in the bedroom 5. Vaseline in bilateral nasal vestibules BID (after using NeilMed) If patient has an episode of epistaxis: 1. Can use over the counter Oxymetazoline spray (Afrin) in both nostrils 2. Hold firm pressure over the soft portion of the nose, as demonstrated in clinic for 20 minutes. NO PEEKING. 3. Lean forward so blood is not swallowed or aspirated 4. If still bleeding after 20 minutes can repeat steps 1-3 one more time 5. If still bleeding proceed to nearest Emergency department or Urgent care Phone visit in 3 months. Can consider joyce gernium oil at that time Extensive time was spent discussing the above diagnosis, management and treatment. I reviewed all outside documentation, labs, and imaging. Lucia Treviño MD [facility] Otolaryngology - Head and Neck Surgery [place], [place] 05/22/2023 8:50 AM documented in this encounter Nursing Notes * Jessica Rodriguez LPN - 05/22/2023 12:00 PM EDT Chief Complaint Patient presents with NEW PATIENT Patient presents today for evaluation of nose bleeds. Patient states she had 4 episodes but has nothad any since for awhile now. States the home she is in is using saline nasal spray at night time. documented in this encounter Plan of Treatment Upcoming Encounters Date Type Specialty Care Team Description 08/31/2023 Office Visit Family Medicine Silvia Barraza, DO [address] [place] [address] 12/18/2023 Office Visit Otolaryngology Lucia Treviño MD [address] [place] [address] 04/22/2024 Office Visit Neurology Stephen Price MD [address] [place] [address] Scheduled Referrals Name Type Priority Associated Diagnoses Order Schedule OTOLARYNGOLOGY REFERRAL OP Referral Within 30 days (routine) Epistaxis Ordered: 02/13/2023 Health Maintenance Due Date Last Done Comments [...] D LEVEL ONCE IN A LIFETIME-USE SMARTSET# [id number] Completed 02/13/2023, 08/13/2020, 11/22/2015, Additional history exists [...] this encounter Medical Devices Implanted Type Area Dustless Operator Device Identifier Shelf Expiration Date Model / Serial / Lot Medtronic Tyrx Absorbable Antibacterial Envelope-Large Implanted:Qty: 1 on 07/27/2020 by Tomi James MD at [place] [facility] [place] Right: Chest Medtronic 04/07/2021 [id number] / / [id number] Description:Tyrosine polyary late coated, multifilament absorbable mesh 2.9"x3.3" No charge Per Germania K. Neurostim Activa Deep Brain - [id number] - [id number] Implanted:Qty: 1 on 06/02/2022 by Tomi James MD at [place] [facility] [place] Left: Chest [employer] 11/01/2022 [id number] / [id number] / documented as of this encounter Visit Diagnoses Diagnosis Epistaxis, recurrent- Primary Epistaxis documented in this encounter Advance Directives Documents on File Type Date Recorded Patient Booth Supervisor Expl anation Power of Brass Cutter 04/03/2019 POWER OF A TTORNEY Latest Code [...] with: Not Discussed Care Teams Director Of District Office Relationship Specialty Start Date End Date Silvia Barraza DO [address] [place] [address] PCP - General Family Medicine 06/23/14 documented as of this encounter
--- OUTSIDE RECORDS SUMMARY | 2023-09-10 02:32 | External Medical Summary | Summary of Care ---
Author Name Unknown Organization [facility] Address [address] [place] [address] Phone [phone] Care Team Providers Care Loaders Name Role Phone Madi Silvia Salazar DO Primary Care Provider Reason for Visit * Reason Onset Date Comments Fax 05/22/2023 Encounter Details Date Type Department Care Team Description 05/22/2023 Telephone Otolaryngology [facility] [address] [place] [address] Services, Scheduling [address] [place] [address] Fax Allergies No known active allergiesdocumented as of [...] HCl 0.05 % Nasal Solution (Afrin Nasal [place])Indications:Ep istaxis Administer into each nostril 2 Sprays [...] MG Oral Tablet (Mag-Oxide)Indicatio ns:PMR (polymyalgia rheumatica) ([facility]) Take 1 Tablet by mouth [...] 90 Capsule 5 02/20/2023 Active Saline Nasal [place] 0.65 % Nasal Solution ([place])Indications:E pistaxis Use two sprays at bedtime 30 [...] Miscellaneous Notes * Telephone Encounter - ARASELI Carmona - 05/25/2023 11:05 AM EDT [facility]ed [facility] and [employer] Success confirmation ARASELI Carmona * Telephone Encounter - Lucia Treviño MD - 05/25/2023 10:59 AM EDT Prescription written and faxed. * Telephone Encounter - ARASELI Macedo - 05/22/2023 1:58 PM EDT [facility] have [facility] order faxed to them and to [facility] [place]. documented in this encounter Plan of Treatment Upcoming Encounters Date Type Specialty Care Team Description 08/31/2023 Office Visit Family Medicine Silvia Barraza, [address] [place] [address] 12/18/2023 Office Visit Otolaryngology Lucia Treviño MD [address] [place] [address] 04/22/2024 Office Visit Neurology Stephen Price MD [address] [facility] [place] [address] Health Maintenance Due Date Last Done Comments [...] D LEVEL ONCE IN A LIFETIME-USE SMARTSET# [id number] Completed 02/13/2023, 08/13/2020, 11/22/2015, Additional history exists [...] this encounter Medical Devices Implanted Type Area Consulting Utility Forester Device Identifier Shelf Expiration Date Model / Serial / Lot Medtronic Tyrx Absorbable Antibacterial Envelope-Large Implanted:Qty: 1 on 07/27/[place] [facility] [place] Chest Medtronic 04/07/2021 [id number] / / [id number] Description:Tyrosine polyary late coated, multifilament absorbable mesh 2.9"x3.3" No charge Per Germania KEthan Neurostim Activa Deep Brain - [id number] - [id number] Implanted:Qty: 1 on 06/02/2022 by [place] James [place] [facility] [place]: Chest [employer] 11/01/2022 [id number] / [id number] / documented as of this encounter Advance Directives Documents on File Type Date Recorded Patient Rehab Rn Expl anation Power of Dance Teacher 04/03/2019 POWER OF A TTORNEY Latest Code [...] Directives occurred with: Not Discussed Care Teams Loaders Relationship Specialty Start Date End Date Silvia Barraza DO [address] [place] [address] PCP - General Family Medicine 06/23/14 documented as of this encounter
--- OUTSIDE RECORDS SUMMARY | 2023-09-10 02:32 | External Medical Summary | Summary of Care ---
Author Name Unknown Organization [facility] Address [address] [place] [address] Phone [phone] Care Team Providers Care Filter Screen Cleaner Name Role Phone Silvia Barraza DO Primary Care Provider Reason for Visit * Reason Onset Date Comments Advice 03/23/2023 Pt tested positi ve for covid on 03-22-2023 cough/chest congestion/mucus dark yellow/fatigue they woukd like script for paxlovid Med Request 03/23/2023 Pt tested positi ve for covid on 03-22-2023 cough/chest congestion/mucus dark yellow/fatigue they woukd like script for paxlovid Encounter Details Date Type Department Care Team Description 03/23/2023 Telephone Family Practice [facility] [place] [address] [facility] [place] [address] Silvia Barraza DO [address] [facility] [place] [address] Advice (Pt tested positive for covid on 0... Allergies No known active allergiesdocumented as of this encounter (statuses as of 03/27/2023) Medications Medication Sig Dispensed Refills Start Date [...] HCl 0.05 % Nasal Solution (Afrin Nasal [place])Indications:Ep istaxis Administer into each nostril 2 Sprays [...] MG Oral Tablet (Mag-Oxide)Indicatio ns:PMR (polymyalgia rheumatica) ([facility]) Take 1 Tablet by mouth [...] 25-100 MG Oral Tablet (Sinemet)Indications :Parkinson's disease ([facility]) TAKE 1 TAB BY MOUTH TWICE DAILY [...] MCG (2000 UT) Oral TabletIndications:Pa rkinson's disease ([facility]) Take 1 cps 2 times a day 60 Tablet 6 02/03/2023 Active traZODone HCl 100 MG Oral Tablet (Desyrel) Take 1 Tablet by mouth at bedtime. 30 Tablet 11 02/13/2023 Active Gabapentin 300 MG Oral Capsule (Neurontin)Indicatio ns:Neuropathy TAKE 3 CAPS BY MOUTH AT BEDTIME. 90 Capsule 5 02/20/2023 Active Saline Nasal [place] 0.65 % Nasal Solution ([place])Indications:E pistaxis Use two sprays at bedtime 30 mL 2 03/12/2023 Active documented as of this encounter (statuses as of 03/27/2023) Active Problems Problem Noted Date PMR (polymyalgia [...] as of this encounter (statuses as of 03/27/2023) Resolved Problems Problem Noted Date Resolved Date [...] as of this encounter (statuses as of 03/27/2023) Immunizations Name Administration Dates Next Due Pneumococcal [...] encounter Miscellaneous Notes * Telephone Encounter - Evelin Emerson PA-C - 03/26/2023 7:49 PM EDT Just received message. Too late to prescribe * Telephone Encounter - Gabrielle Coyle LPN - 03/26/2023 2:18 PM EDT Left message for Ashlee to call back. * Telephone Encounter - ARASELI Mcginnis - 03/23/2023 11:10 AM EDT Pt tested positive for covid on 03-22-2023 cough/chest congestion/mucus dark yellow/fatigue they woukd like script for paxlovid Call [phone] documented in this encounter Plan of Treatment Upcoming Encounters Date Type Specialty Care Team Description 05/22/2023 Office Visit Otolaryngology Lucia Treviño MD [address] [place] [address] 08/31/2023 Office Visit Family Medicine Silvia Barraza, DO [address] [place] [address] 04/22/2024 Office Visit Neurology Stephen Price MD [address] [place] [address] Health Maintenance Due Date Last [...] D LEVEL ONCE IN A LIFETIME-USE SMARTSET# [id number] Completed 02/13/2023, 08/13/2020, 11/22/2015, Additional history exists [...] this encounter Medical Devices Implanted Type Area Material Stockkeeper Yard Device Identifier Shelf Expiration Date Model / Serial / Lot Medtronic Tyrx Absorbable Antibacterial Envelope-Large Implanted:Qty: 1 on 07/27/2020 [place] James [place] [facility]: Chest Medtronic 04/07/2021 [id number] / / [id number] Description:Tyrosine polyary late coated, multifilament absorbable mesh 2.9"x3.3" No charge Per Germania K. Neurostim Activa Deep Brain - [id number] - [id number] Implanted:Qty: 1 on 06/02/2022 by Tomi James MD [place] [facility] [place]: Chest [employer] 11/01/2022 [id number] / [id number] / documented as of this encounter Advance Directives Documents on File Type Date Recorded Patient Dietetic Aide Expl anation Power of Jig And Fixture Repairer 04/03/2019 POWER OF A TTORNEY Latest Code [...] Directives occurred with: Not Discussed Care Teams Filter Screen Cleaner Relationship Specialty Start Date End Date Silvia Bararza DO [address] [place] [address] PCP - General Family Medicine 06/23/14 documented as of this encounter
--- OUTSIDE RECORDS SUMMARY | 2023-09-10 02:32 | External Medical Summary | Summary of Care ---
Author Name Unknown Organization [facility] Address [address] [place] [address] Phone [phone] Care Team Providers Care Pumping Plant Operator Name Role Phone Silvia Barraza Primary Care Provider Reason for Visit * Reason Onset Date Comments Medication Refill 04/20/2023 Encounter Details Date Type Department Care Team Description [facility] [address] [place] [address] Misa Price MD [address] [place] [address] Parkinson's disease (HCC) Allergies No known active allergiesdocumented as of this encounter (statuses as of 04/20/2023) Medications Medication Sig Dispensed Refills Start Date [...] HCl 0.05 % Nasal Solution (Afrin Nasal [place])Indications: Epistaxis Administer into each nostril 2 Sprays [...] MOUTH DAILY. 90 Capsule 1 11/03/2022 Active Mirtazapine 15 MG Oral Tablet (Remeron)Indicatio [...] 90 Capsule 5 02/20/2023 Active Saline Nasal [place] 0.65 % Nasal Solution (C[place]ran)Indications :Epistaxis Use two sprays at bedtime 30 mL 2 03/12/2023 Active Carbidopa-Levodopa 25-100 MG Oral Tablet (Sinemet)Indicatio ns:Parkinson's disease (HCC) TAKE 1 TAB BY MOUTH TWICE DAILY THE FIRST 2 DOSES + 1.5 TABS BY MOUTH TWICE DAILY THE LAST 2 DOSES 150 Tablet 11 04/20/2023 Active Carbidopa-Levodopa 25-100 MG Oral Tablet (Sinemet)Indicatio ns:Parkinson's disease (HCC) TAKE 1 TAB BY MOUTH TWICE DAILY THE FIRST 2 DOSES + 1.5 TABS BY MOUTH TWICE DAILY THE LAST 2 DOSES 150 Tablet 5 11/13/2022 3 Discontinue d(Refill) documented as of this encounter (statuses as of 04/20/2023) Active Problems Problem Noted Date PMR (polymyalgia [...] as of this encounter (statuses as of 04/20/2023) Resolved Problems Problem Noted Date Resolved Date [...] as of this encounter (statuses as of 04/20/2023) Immunizations Name Administration Dates Next Due Pneumococcal [...] encounter Miscellaneous Notes * Telephone Encounter - Jamey Pulido RP - 04/20/2023 1:14 PM EDTSigned Prescriptions: Disp Refills Carbidopa-Levodopa 25-100 MG Oral Tablet (*150 Ta*11 Sig: TAKE 1TAB BY MOUTH TWICE DAILY THE FIRST 2 DOSES + 1.5 TABS BY MOUTH TWICE DAILY THE LAST 2 DOSESAuthorizing Provider: MISA PRICE User: JAMEY PULIDO * Telephone Encounter - Silvia Richards CPhT - 04/20/2023 1:05 PM EDT Did you pend patient's preferred pharmacy and medication before forwarding?yes Pharmacy: [facility] [address] Pending Prescriptions: Disp Refills Carbidopa-Levodopa 25-100 MG Oral Tablet *150 Ta*5 Last Visit: 03/16/2023 (in office), 01/17/2020 (telemedicine) Next Visit: Visit date not found If no future appointments scheduled, and last appointment is greater than a year ago, please schedule patient for a follow-up appointment Last date the medication was ordered: 2.9.23 Is this request for a controlled substance?No [...] Otolaryngology Lucia Treviño MD [address] [place] [address] 08/31/2023 Office Visit Family Medicine Silvia Barraza DO [address] [facility] [place] [address] 04/22/2024 Office Visit Neurology Misa Price MD [address] [place] [address] Health Maintenance Due Date Last Done Comments [...] D LEVEL ONCE IN A LIFETIME-USE SMARTSET# 72526 Completed 02/13/2023, 08/13/2020, 11/22/2015, Additional history exists [...] this encounter Medical Devices Implanted Type Area Manager Entry Device Identifier Shelf Expiration Date Model / Serial / Lot Medtronic Tyrx Absorbable Antibacterial Envelope-Large Implanted:Qty: 1 on 07/27/2020 by Tomi James [place] [facility] [place]: Chest Medtronic 04/07/2021 [id number] / / [id number] Description:Tyrosine polyary late coated, multifilament absorbable mesh 2.9"x3.3" No charge Per Germania K. Neurostim Activa Deep Brain - [id number] - [id number] Implanted:Qty: 1 on 06/02/2022 by Tomi James MD [place] [facility] [place] Left: Chest [employer] 11/01/2022 [id number] / [id number] / documented as of this encounter Visit Diagnoses Diagnosis Parkinson's disease (HCC) Paralysis agitans documented in this encounter Advance Directives Documents on File Type Date Recorded Patient Research Investigator Expl anation Power of Eligibility Worker 04/03/2019 POWER OF A TTORNEY Latest Code [...] Directives occurred with: Not Discussed Care Teams Pumping Plant Operator Relationship Specialty Start Date End Date Silvia Barraza DO [address] [place] [address] PCP - General Family Medicine 06/23/14 documented as of this encounter
--- OUTSIDE RECORDS SUMMARY | 2023-09-10 02:32 | External Medical Summary | Summary of Care ---
Author Name Unknown Organization [facility] Address [address] [place] [address] Phone [phone] Care Team Providers Care Prime Minister Name Role Phone Silvia Barraza Primary Care Provider Reason for Visit * Reason Onset Date Comments Medication Refill 05/25/2023 Encounter Details Date Type Department Care Team Description [facility] [address] [place] [address] Stephen Price MD [address] [place] [address] Parkinson's disease (HCC) Allergies No [...] HCl 0.05 % Nasal Solution (Afrin Nasal [place])Indications:Ep istaxis Administer into each nostril 2 Sprays [...] Tablet (Mag-Oxide)Indicatio ns:PMR (polymyalgia rheumatica) ([facility]) Take 1 Tablet by mouth [...] 90 Capsule 5 02/20/2023 Active Saline Nasal [place] 0.65 % Nasal Solution ([place])Indications:E pistaxis Use two sprays at bedtime 30 [...] encounter Miscellaneous Notes * Telephone Encounter - Poly Herrmann DO [...] to manage. Thank you. Poly Herrmann DO [facility] Neurology 05/25/2023 * Telephone Encounter - Rylee Leo LPN - 05/25/2023 2:01 PM EDTPending Prescriptions: Disp Refills Gabapentin 100 MG Oral Capsule (Neurontin) 90 Cap*6 Sig: Take 1 cps at bed time, along with the 300 mg. * Telephone Encounter - Arlet Elizondo cut and print machine operator - 05/25/2023 11:51 AM EDT Patient is [...] date the medication was ordered: 05/02/2022 Pharmacy: [facility] Is this request for a controlled substance?No it is not controlled. Urine Drug Screen:No results found for this or any previous visit. Patient Phone Numbers mobile [phone] Labs: Lab Results Component Value Date/Time CREAT [...] Medicine Silvia Barraza DO [address] [place] [address] 12/18/2023 Office Visit Otolaryngology Lucia Treviño MD [address] [place] [address] 04/22/2024 Office Visit Neurology Stephen Price MD [address] [place] [address] Health Maintenance Due Date Last [...] D LEVEL ONCE IN A LIFETIME-USE SMARTSET# [id number] Completed 02/13/2023, 08/13/2020, 11/22/2015, Additional history exists [...] this encounter Medical Devices Implanted Type Area Wheelman Device Identifier Shelf Expiration Date Model / Serial / Lot Medtronic Tyrx Absorbable Antibacterial Envelope-Large Implanted:Qty: 1 on 07/27/2020 by Tomi James MD at [place] [facility] [place] Right: Chest Medtronic 04/07/2021 [id number] / / [id number] Description:Tyrosine polyary late coated, multifilament absorbable mesh 2.9"x3.3" No charge Per Germania K. Neurostim Activa Deep Brain - [id number] - [id number] Implanted:Qty: 1 on 06/02/2022 by Tomi James MD at [place] [facility] [place] Left: Chest [employer] 11/01/2022 [id number] / [id number] / documented as of this encounter Visit Diagnoses Diagnosis Parkinson's disease (HCC) Paralysis agitans documented in this encounter Advance Directives Documents on File Type Date Recorded Patient High School Admissions Representative Expl anation Power of Freelance Art Director 04/03/2019 POWER OF A TTORNEY Latest Code [...] Directives occurred with: Not Discussed Care Teams Prime Minister Relationship Specialty Start Date End Date Silvia Barraza DO [address] [place] [address] PCP - General Family Medicine 06/23/14 documented as of this encounter
--- OUTSIDE RECORDS SUMMARY | 2023-09-10 02:33 | External Medical Summary | Summary of Care ---
Author Name Unknown Organization [facility] Address [address] [place] [address] Phone [phone] Care Team Providers Care Tableman Name Role Phone Fang Barraza Marie MOREJON Primary Care Provider Reason for Visit * Reason Comments Return Neuro Encounter Details Date Type Department Care Team Description 03/16/2023 Office Visit Neurology, [place] [address] [place] [address] Stephen Price MD [address] [place] [address] Parkinson disease (HCC)* Allergies No known active allergiesdocumented as of this encounter (statuses as of 03/17/2023) Medications Medication Sig Dispensed Refills Start Date [...] HCl 0.05 % Nasal Solution (Afrin Nasal [place])Indications:Ep istaxis Administer into each nostril 2 Sprays [...] 90 Capsule 5 02/20/2023 Active Saline Nasal [place] 0.65 % Nasal Solution ([place])Indications:E pistaxis Use two sprays at bedtime 30 mL 2 03/12/2023 Active documented as of this encounter (statuses as of 03/17/2023) Active Problems Problem Noted Date PMR (polymyalgia [...] as of this encounter (statuses as of 03/17/2023) Resolved Problems Problem Noted Date Resolved Date [...] as of this encounter (statuses as of 03/17/2023) Immunizations Name Administration Dates Next Due Pneumococcal [...] Sign Reading Time Taken Comments Blood Pressure 112/82 03/16/2023 3:38 PM EDT Pulse 64 03/16/2023 3:38 PM EDT Temperature 35.7 C (96.3 F) 03/16/2023 3:38 PM ED T Respiratory Rate - - Oxygen Saturation - - Inhaled Oxygen Concentration - - Weight 64.9 kg (143 lb) 03/16/2023 3:38 PM EDT Height 175.3 cm (5' 9") 03/16/2023 3:38 PM EDT Body Mass Index 21.12 03/16/2023 3:38 PM EDT documented in this encounter Progress Notes * Remedios Saldana DO - 03/16/2023 3:55 PM EDT . Neurology Outpatient Follow-up Movement Disorders Subspecialty [facility] Ref: FANG BARRAZA[[id number]] [address] [place] [address] (office) [phone] (fax) PCP: FANG BARRAZA [address] [place] [address] [phone] History provided by: patient and family (son) Ms. Wanda Dolan is a 83 year old female, who presents on 03/16/2023 for the Chief Complaint Patient presents with Return Neuro Changes Since 05/02/2022 (in office), 01/17/2020 (telemedicine) Overall pretty good, reported that her symptoms are pretty well controlled. Motor Symptoms - compared to the last visit? Worse? The same? Better, especially if there was any treatment change? Speech volume? Reduced volume Swallowing issues? No problems Slowness? Walks fast, slowness not a concern Stiffness? Increased stiffness in the morning, affects whole body Tremors? RUE tremor that is manageable Do they have any walking and/or balance issues ? Little bit Do they use a cane? no Or a walker? yes Falls - no Cognitive Symptoms Hallucinations - no Any delusions? no Memory - poor memory Do they drive? no Non-motor Symptoms Energy levels? Same as previous Mood - anxious mood New urinary incontinence, feels the urge but can't make it in time. Constipation - sometimes, gets a stool softener at the center Is sleep ok? No, falls asleep immediately then wakes up at 2-3am (goes to sleep at 10:30PM) then cannot fall back asleep, do they use melatonin? Yes, started melatonin 10. She was recently started onmirtazapine by PCP. Do they take vit d3 supplements? Yes, 2,000IU Exercise Do they do any type of regular exercises? yes How often? 1-2x/week? Do they walk? Daily, walks 8 laps up and down the hallway Current Meds for Tremors or Parkinson's Symptoms Sinemet How do you feel over all? Better? Symptoms less controlled? As per HPI otherwise all 14 systems reviewed and are negative. Current Outpatient Medications Medication Sig Dispense Refill [...] needed (pain or headache). 60 Tablet 0 Amoxicillin 500 MG Oral Capsule (Amoxil) 4 CAPS BY MOUTH 1HR PRIOR TO APPT 4 Capsule 4 Ketoconazole 2 % External Shampoo (Nizoral) APPLY TO SCALP ONCE WEEKLY NEEDED. LEAVE ON 5-10MIN BEFORE RINSING. 120 mL 4 Propylene Glycol 0.6 % Ophthalmic Solution Instill 1 Drop into both eyes 4 times a day as needed. 5 mL 3 Gabapentin 100 MG Oral Capsule (Neurontin) [...] HCl 0.05 % Nasal Solution (Afrin Nasal [place]) Administer into each nostril 2 Sprays 2 [...] BY MOUTH EVERY MORNING 60 Tablet 5 Docusate Sodium 100 MG Oral Capsule (Colace) Take 1 Capsule by mouth in the morning and 1 Capsule before bedtime. 60 Capsule 3 Metoprolol Succinate ER 50 MG Oral Tablet Extended Release 24 Hour (toPROL XL) Take 1 Tablet bymouth in the morning. 90 Tablet 3 Biotin 5 MG Oral Capsule (Meribin) TAKE 1 CAP BY MOUTH DAILY. 90 Capsule 1 Mirtazapine 15 MG Oral Tablet (Remeron) Take 1 Tablet by mouth at bedtime. 30 Tablet 5 Fluocinolone Acetonide 0.01 % External Solution Apply topically to affected area 2 times a day as needed (itching, dryness, crusting, scaling). Apply to scalp 60 mL 11 Tylenol PM Extra Strength 500-25 MG Oral Tablet (diphenhydrAMINE-APAP (sleep)) Take 1 Tablet bymouth at bedtime as needed for Sleep. 45 [...] AT BEDTIME. 90 Capsule 5 Saline Nasal [place] 0.65 % Nasal Solution ([place]) Use two sprays at bedtime 30 mL 2 Magnesium Oxide 200 MG Oral Tablet (Mag-Oxide) Take 1 Tablet by mouth in the morning. 30 Tablet3 Fluticasone Propionate 50 MCG/ACT Nasal Suspension (Flonase) Administer 2 Sprays into each nostril in the morning. 16 g 0 Carbidopa-Levodopa 25-100 MG Oral Tablet (Sinemet) TAKE 1 TAB BY MOUTH TWICE DAILY THE FIRST 2 DOSES + 1.5 TABS BY MOUTH TWICE DAILY THE LAST 2 DOSES 150 Tablet 5 No current facility-administered medications for this visit. Past Medical History: Diagnosis Date Diffuse cystic mastopathy Breast, Fibrocystic Generalized osteoarthritis Menopause Migraine with aura Migraines-Classical Mitral valve prolapse with trace regurg Need for prophylactic hormone replacement therapy (postmenopausal) Hormone Therapy Relacement Parkinson's disease (HCC) Family History Problem Relation Age of Onset Heart Disorder Mother Other (HTN) Mother HAS PACEMAKER No Past Hx Father Other (CVA) Other No Past Hx Sister MVP No Past Hx None No FM HX of MANAGER MOBILE CA Filed Vitals: 03/16/23 1538 BP: 112/82 Pulse: 64 Temp: 35.7 C (96.3 F) TempSrc: Tympanic Weight: 64.9 kg (143 lb) Height: 1.753 m (5' 9") Examination: Gen: well-developed, well-nourished. Resp: breathing nonlabored on room air. MMSE: 29/30 CN: Visual mccormick intact. EOMI, no nystagmus. Face symmetric. Hypomimia. Tongue protrudes midline. Shoulder shrug symmetric. Motor: strength 5/5 throughout, tone mildly increased BL UE, bulk normal, tremor LUE>RUE. Sensation: Normal light touch in all extremities. Coordination: [id number] and wtsc-lu-kgem without dysmetria bilaterally. Rapid alternating movements were intact and wnl Reflexes: did not assess Gait: Able to arise from chair without using arms. Posture upright Gait is steady, with normal base, normal strides, normal gait speed, reduced arm swing, and normal turns. Romberg negative. Mini Mental State Exam Question: Answer: Patient is oriented to the year, season, date, day, month? 4 out of 5 (03/16/231699) Patient is oriented to the state, country, town, hospital/clinic, floor? 5 out of 5 (03/16/231699) Patient repeated three words (ex: ball, flag, tree) 3 out of 3 (03/16/231699) Patient counted backwards from 100 by 7's (93, 86, 79, 72, 65) or spelled WORLD backwards (D, L, R,O W) 4 out of 5 (03/16/231699) Patient recalled the three words previously asked (ball, flag, tree) 3 out of 3 (03/16/231699) Patient is able to identify a watch and pencil 2 out of 2 (03/16/231699) Patient is able to repeat "No ifs, ands or buts" 1 out of 1 (03/16/231699) Patient is able to take a piece of paper, fold in half and place on the floor 3 out of 3 (03/16/231699) Patient is able to read and follow directions (show patient card reading "close your eyes") 1 out of 1 (03/16/231699) Patient is able to write a sentence 1 out of 1 (03/16/231699) Patient is able to copy a drawing of intersecting pentagons 1 out of 1 (03/16/231699) Score 28 (03/16/231699) Comments (not recorded) Radiology studies: No new studies to report General Labs Creatinine Date Value Ref Range Status 02/13/2023 0.8 0.5 - 1.0 mg/dL Final 05/29/2022 0.8 0.5 - 1.0 mg/dL Final 07/04/2020 0.8 0.5 - 1.0 mg/dL Final 04/04/2020 0.7 0.5 - 1.0 mg/dL Final CREATININE-OUTSIDE LAB Date Value Ref Range Status 08/01/2013 0.8 0.6 - 1.3 mg/dl BUN Date Value Ref Range Status 02/13/2023 19 6 - 20 mg/dL Final 05/29/2022 17 6 - 20 mg/dL Final 07/04/2020 21 (H) 6 - 20 mg/dL Final 04/04/2020 25 (H) 6 - 20 mg/dL Final No results found for: GFR Sodium Date Value Ref Range Status 02/13/2023 142 135 - 146 mmol/L Final 05/29/2022 141 135 - 146 mmol/L Final 07/04/2020 142 135 - 146 mmol/L Final 04/04/2020 141 135 - 146 mmol/L Final Ketone, Urine Date Value Ref Range Status 07/20/2019 TRACE (A) NEG mg/dL Final 04/17/2015 neg neg - neg Final Glucose Date Value Ref Range Status 02/13/2023 97 70 - 120 mg/dL Final 05/29/2022 87 70 - 120 mg/dL Final 07/04/2020 95 70 - 120 mg/dL Final 04/04/2020 74 70 - 120 mg/dL Final Glucose Meter Date Value Ref Range Status 07/27/2020 90 70 - 120 mg/dL Final Glucose, Urine Date Value Ref Range Status 07/20/2019 NEGATIVE NEG mg/dL Final 04/17/2015 neg neg - neg Final Glucose, CSF Date Value Ref Range Status 10/18/2002 59 45 - 70 mg/dL Final GLUCOSE-OUTSIDE LAB Date Value Ref Range Status 08/01/2013 102 (A) 70 - 99 mg/dl AST Date Value Ref Range Status 02/13/2023 18 10 - 35 U/L Final 05/29/2022 21 10 - 35 U/L Final 04/04/2020 26 10 - 35 U/L Final 07/20/2019 17 10 - 35 U/L Final ALT Date Value Ref Range Status 02/13/2023 7 (L) 10 - 35 U/L Final 05/29/2022 8 (L) 10 - 35 U/L Final 04/04/2020 9 (L) 10 - 35 U/L Final 07/20/2019 <5 (L) 10 - 35 U/L Final WBC Date Value Ref Range Status 02/13/2023 4.69 4.00 - 10.80 K/uL Final 07/25/2022 5.42 4.00 - 10.80 K/uL Final 07/04/2020 5.37 4.00 - 10.80 K/uL Final 11/21/2019 7.21 4.00 - 10.80 K/uL Final WBC, Urine Date Value Ref Range Status 07/20/2019 6-9 (A) U02 /HPF Final No results found for: HEPATITIS CK Date Value Ref Range Status 10/18/2003 90 24 - 173 U/L Final 08/08/2002 91 24 - 225 U/L Final Hemoglobin A1C Date Value Ref Range Status 08/02/2002 5.5 3.4 - 6.0 % Final HEMOGLOBIN, [id number] LAB Date Value Ref Range Status 08/01/2013 5.1 4.5 - 5.6 % Cholesterol Date Value Ref Range Status 02/13/2023 196 <200 mg/dL Final Comment: Total Cholesterol Reference Ranges (mg/dL): <200 Desirable 200-239 Borderline high >=240 High 11/22/2015 224 (H) <200 mg/dL Final Comment: TOTAL CHOLESTEROL REFERENCE RANGES(mg/dL) <200 DESIRABLE 200-239 BORDERLINE HIGH >239 HIGH 07/17/2010 229 (H) <200 mg/dL Final Cholesterol-HDL Ratio Date Value Ref Range Status 11/22/2015 2.5 Final 07/17/2010 2.2 Final HDL Cholesterol Date Value Ref Range Status 02/13/2023 81 >49 mg/dL Final Comment: HDL Cholesterol Reference Ranges (mg/dL): >=60 High (Desirable) <50 Low (Undesirable) For Females <40 Low (Undesirable) For Males 11/22/2015 91 >39 mg/dL Final Comment: HDL CHOLESTEROL REFERENCE RANGES(mg/dL) <40 LOW(UNDESIRABLE) >59 HIGH(DESIRABLE) 07/17/2010 105 (H) 40 - 59 mg/dL Final LDL Cholesterol Date Value Ref Range Status 02/13/2023 100 <=129 mg/dL Final Comment: LDL Cholesterol Reference Ranges (mg/dL): <70 Target level for high risk ASCVD patient <100 Optimal for general population 100-129 Near optimal for general population 130-159 Borderline high 160-189 High >=190 Very high 11/22/2015 118 0 - 129 mg/dL Final Comment: LDL CHOLESTEROL REFERENCE RANGES(mg/dL) <100 OPTIMAL GOAL FOR HIGH RISK PATIENTS 100-129 NEAR OR ABOVE NORMAL 130-159 BORDERLINE HIGH 160-189 HIGH >189 VERY HIGH 07/17/2010 112 (H) 0 - 100 mg/dL Final LDL Cholesterol (Direct Measure) Date Value Ref Range Status 04/04/2020 110 0 - 129 mg/dL Final Comment: LDL Cholesterol Reference Ranges (mg/dL) <70 Target level for high risk ASCVD patient <100 Optimal for general population 100-129 Near optimal for general population 130-159 Borderline high 160-189 High >=190 Very high 07/17/2010 116 (H) 0 - 100 mg/dL Final Triglycerides Date Value Ref Range Status 02/13/2023 73 <=174 mg/dL Final Comment: Triglyceride Reference Ranges (mg/dL): <150 Acceptable 150-174 Borderline high 175-499 High >=500 Very high 11/22/2015 76 <200 mg/dL Final Comment: TRIGLYCERIDE REFERENCE RANGES (mg/dL) <150 NORMAL 150-199 BORDERLINE HIGH 200-499 HIGH >499 VERY HIGH 07/17/2010 58 (L) 60 - 245 mg/dL Final Vit D Metabolism Labs Phosphorus Date Value Ref Range Status 11/21/2019 3.5 2.5 - 4.8 mg/dL Final Calcium Date Value Ref Range Status 02/13/2023 9.6 8.4 - 10.2 mg/dL Final 05/29/2022 10.3 (H) 8.4 - 10.2 mg/dL Final 07/04/2020 9.8 8.4 - 10.2 mg/dL Final 04/04/2020 9.9 8.4 - 10.2 mg/dL Final Calcium, Ionized Date Value Ref Range Status 10/19/2002 1.28 1.13 - 1.32 mmol/L Final PTH Date Value Ref Range Status 02/13/2023 70 (H) 15 - 65 pg/mL Final 08/13/2020 81 (H) 15 - 65 pg/mL Final No results found for: [id number] No results found for: [id number] No results found for: [id number] 25OH VITAMIN D TOTAL (ng/mL) Date Value 08/13/2020 31 11/22/2015 20 07/17/2010 25.5 (L) 25-Hydroxy Vitamin D (ng/mL) Date Value 02/13/2023 58 Vitamin D Level Interpretation deficient: <20 ng/ml insufficient: 20-30 ng/ml normal: 31-100 ng/ml Vitamin Labs VITAMIN B1 Date Value Ref Range Status 08/13/2020 50 (H) 8 - 30 nmol/L Final Comment: (NOTE) Vitamin supplementation within 24 hours prior to blood draw may affect the accuracy of the results. This test was developed and its analytical performance characteristics have been determined by [facility] [place] It has not been cleared or approved by the U.S. Food and Drug Administration. This assay has been validated pursuant to the CLIA regulations and is used for clinical purposes. 07/04/2020 <6 (L) 8 - 30 nmol/L Final Comment: (NOTE) Vitamin supplementation within 24 hours prior to blood draw may affect the accuracy of the results. This test was developed and its analytical performance characteristics have been determined by [facility] [place]. It has not been cleared or approved by the U.S. Food and Drug Administration. This assay has been validated pursuant to the CLIA regulations and is used for clinical purposes. Vitamin B12 Date Value Ref Range Status 08/13/2020 973 232 - 1,245 pg/mL Final 07/04/2020 534 232 - 1,245 pg/mL Final METHYLMALONIC ACID Date Value Ref Range Status 07/04/2020 84 (L) 87 - 318 nmol/L Final Comment: (NOTE) This test was developed and its analytical performance characteristics have been determined by [facility] [place]. It has not been cleared or approved by the U.S. Food and Drug Administration. This assay has been validated pursuant to the CLIA regulations and is used for clinical purposes. No results found for: HOMOCYS No results found for: FOLATE Immunologic, Endocrinologic & Infectious Labs No results found for: ESR No results found for: LOW SENSITIVITY CRP TSH Date Value Ref Range Status 02/13/2023 1.87 0.27 - 4.20 uIU/mL Final 07/04/2020 2.09 0.27 - 4.2 uIU/mL Final 07/20/2019 2.18 0.27 - 4.2 uIU/mL Final No results found for: THYROID No results found for: THYROGLOBULIN ANTI-DNA Date Value Ref Range Status 10/10/2002 <10 <10 TITER Final ANTI-GBM ANTIBODY ([facility]) Date Value Ref Range Status 10/18/2003 6.47 (H) <3.0 U/ML Final 10/18/2003 POSITIVE Final EDWIN NICK SCREEN Date Value Ref Range Status 04/15/2019 NEGATIVE Final Antinuclear Antibody Pattern, IFA Date Value Ref Range Status 10/18/2003 SPECKLED PATTERN Final 10/10/2002 SPECKLED PATTERN Final Antinuclear Antibody Titer, IFA Date Value Ref Range Status 10/18/2003 40 (H) <40 TITER Final 10/10/2002 40 (H) <40 TITER Final Rheumatoid Factor Date Value Ref Range Status 10/18/2003 13 <14 IU/ml Final 08/02/2002 11 <14 IU/ml Final No results found for: SSA No results found for: ANURADHA No results found for: ENZYME No results found for: HEPATITIS LYME IGG/IGM AB Date Value Ref Range Status 03/15/2019 EQUIVOCAL (A) NEG Final 10/18/2003 POSITIVE (A) NEG Final LYME IGG/IGM AB VALUE Date Value Ref Range Status 03/15/2019 0.919 (H) <0.91 INDEX Final 10/18/2003 1.46 (H) 0.0 - 0.8 Final LYME IGM AB Date Value Ref Range Status 10/10/2002 NEGATIVE NEG Final 08/08/2002 NEGATIVE NEG Final LYME IGM AB INDEX Date Value Ref Range Status 10/10/2002 0.26 0.00 - 0.80 Final 08/08/2002 0.36 0.00 - 0.80 Final LYME IGM COMMENT Date Value Ref Range Status 03/15/2019 TEST RESULTS REPORTED TO [facility]. Final LYME PCR, CSF Date Value Ref Range Status 10/18/2002 Not detected Final 10/18/2002 Final (NOTE) Reference range: Not Detected Diagnosis of Lyme disease should not rely exclusively upon the result of a PCR assay. LYME WB INTERP. IGG Date Value Ref Range Status 03/15/2019 LWBGN Final NEGATIVE: IGG ANTIBODIES NOT DETECTED OR PRESENT TO FEWER THAN THE REQUIRED 5 OF 10 SIGNIFICANT BANDS 10/18/2003 IGG ANTIBODIES TO LESS THAN 5 OF THE 10 Final 10/18/2003 SIGNIFICANT B.BURGDORFERI PROTEINS DETECTED; Final 10/18/2003 OR NO IGG ANTIBODIES TO SIGNIFICANT Final 10/18/2003 B.BURGDORFERI PROTEINS DETECTED. ADDITIONAL Final 10/18/2003 SPECIMENS SHOULD BE SUBMITTED IN 2-4 WEEKS Final 10/18/2003 IF B.BURGDORFERI EXPOSURE HAS NOT BEEN Final 10/18/2003 RULED OUT. Final LYME WB INTERP. IGM Date Value Ref Range Status 03/15/2019 (A) LWBMN Final PRESUMPTIVELY POSITIVE: IGM ANTIBODIES PRESENT TO AT LEAST 2 OF THE FOLLOWING 3 SIGNIFICANT BANDS: 23,39,41 kD 10/18/2003 IGM ANTIBODIES TO SIGNIFICANT Final 10/18/2003 B.BURGDORFERI PROTEINS DETECTED; Final 10/18/2003 PRESUMPTIVE EVIDENCE OF PROBABLE Final 10/18/2003 EXPOSURE Final No results found for: RPR No results found for: FTA-ABS VDRL Date Value Ref Range Status 10/18/2002 NONREACTIVE NR DILUTIONS Final No results found for: ZIC4 Miscellaneous Labs No results found for: COPPER No results found for: CERULO No results found for: FERRITIN No results found for: MANGANESE No results found for: LITHIUM No results found for: VALPROIC No results found for: FREE VALPROIC No results found for: MYCODE Uric Acid Date Value Ref Range Status 06/08/2002 5.0 2.4 - 5.7 mg/dL Final No results found for: IODINE Impression & Plan: Parkinson disease (HCC) (Primary) - slow progression of the disease. MMSE still within good range. DBS adjusted. She was just started on the Sinemet. - ANALYSIS OF IMPLANTED NEUROSTIM PULSE GENERATOR, 15 MIN Follow Up: Return in about 1 year (around 03/16/2024). During this visit, total time spent taking the history and physical exam (when possible), reviewingthe labs when necessary, prior medical records, and documenting the current chart 60 min > 50% spent on counseling - regarding possible differential diagnosis, investigation methods, what to do inthe future, and potential treatment options. Please be aware of any errors regarding the spelling or even different words, probably due to the dictation, using the Modal Fluency Direct. Ms. Wanda Dolan' DBSinterrogation and programming note; date of implantation06/15; bilateral targetSTN; last time battery [email or web address]/23/20 on the R chest Date T Bat EI C 0 1 2 3 V PW Hz Ohm mA Benefit/Side effect 08/13/2020 L 2.88 + - 2.6 60 160 2.7 06/21/2021 2.81 + - 2.6 60 160 05/02/2022 2.43 + - 2.6 60 160 03/16/2023 2.96 + - 2.6 60 160 2.8 Date T Bat EI C 0 1 2 3 V PW Hz Ohm mA Benefit/Side effect 08/13/2020 R 3.08 + - 2.0 90 185 60 160 1154 1.8 No clear difference 06/21/2021 2.99 + - 2.0 60 160 keep the same. 05/02/2022 2.98 + - 2 60 160 2.2 Tremor improved 03/16/2023 R 2.96 Nohemi + - 2.3 60 160 2.5 I have discussed the patient's management with the medical trainee and agree with the note. Please refer to the documented findings and plan of care. This patient's visit today consisted of an evaluation. I was present and confirmed the findings of the history and exam. Stephen Price MD documented in this encounter Nursing Notes * RANDA Hall - 03/16/2023 3:43 PM EDT Patient was instructed to not get up on the exam table/exam chair until directed and assisted by their provider; patient is to remain seated in the chair/ wheelchair/ exam table/ exam chair for fall prevention and safety reasons. Patient is aware to have assistance to step down off exam table/exam chair with personnel. Patient voiced full comprehension of instructions. documented in this encounter Plan of Treatment Upcoming Encounters Date Type Specialty Care Team Description 05/22/2023 Office Visit Otolaryngology Lucia Treviño MD [address] [place] [address] 08/31/2023 Office Visit Family Medicine Fang Barraza DO [address] [facility] [place] [address] 04/25/2024 Office Visit Neurology Stephen Price MD [address] [place] [address] Scheduled Orders Name Type Priority Associated Diagnoses Orde r Schedule ANALYSIS OF IMPLANTED NEUROSTIM PULSE GENERATOR, 15 MIN Procedures Routine Parkinson disease (HCC) Ordered: 03/16/2023 Health Maintenance Due Date Last Done Comments [...] D LEVEL ONCE IN A LIFETIME-USE SMARTSET# [id number] Completed 02/13/2023, 08/13/2020, 11/22/2015, Additional history exists [...] this encounter Medical Devices Implanted Type Area Clipper Operator Device Identifier Shelf Expiration Date Model / Serial / Lot Medtronic Tyrx Absorbable Antibacterial Envelope-Large Implanted:Qty: 1 on 07/27/2020 by Tomi James MD at OR [facility] Right: Chest Medtronic 04/07/2021 [id number] / / [id number] Description:Tyrosine polyary late coated, multifilament absorbable mesh 2.9"x3.3" No charge Per Germania Wick Neurostim Activa Deep Brain - [id number] - [id number] Implanted:Qty: 1 on 06/02/2022 by Tomi James MD at OR [facility] Left: Chest [employer] 11/01/2022 [id number] / [id number] / documented as of this encounter Visit Diagnoses Diagnosis Parkinson disease (HCC)- Primary Paralysis agitans documented in this encounter Advance Directives Documents on File Type Date Recorded Patient Tire Sorter Expl anation Power of Creative Writing Professor 04/03/2019 POWER OF A TTORNEY Latest Code [...] Directives occurred with: Not Discussed Care Teams Tableman Relationship Specialty Start Date End Date Fang Barraza DO [address] [place] [address] PCP - General Family Medicine 06/23/14 documented as of this encounter
--- OUTSIDE RECORDS SUMMARY | 2023-09-10 02:33 | External Medical Summary | Summary of Care ---
Author Name Unknown Organization [facility] Address [address] [place] [address] Phone [phone] Care Team Providers Care Mortgage Professional Name Role Phone Madi Silvia Salazar DO Primary Care Provider Reason for Visit * Reason Onset Date Comments Advice 03/20/2023 Battery Check Encounter Details Date Type Department Care Team Description 03/20/2023 Telephone Neurology, [place] [address] [place] [address] Specified, Fe No Resource [address] [place] [address] Advice (Battery Check) Allergies No known active allergiesdocumented as of this encounter (statuses as of 03/20/2023) Medications Medication Sig Dispensed Refills Start Date [...] HCl 0.05 % Nasal Solution (Afrin Nasal [place])Indications:Ep istaxis Administer into each nostril 2 Sprays [...] 90 Capsule 5 02/20/2023 Active Saline Nasal [place] 0.65 % Nasal Solution ([place])Indications:E pistaxis Use two sprays at bedtime 30 mL 2 03/12/2023 Active documented as of this encounter (statuses as of 03/20/2023) Active Problems Problem Noted Date PMR (polymyalgia [...] as of this encounter (statuses as of 03/20/2023) Resolved Problems Problem Noted Date Resolved Date [...] as of this encounter (statuses as of 03/20/2023) Immunizations Name Administration Dates Next Due Pneumococcal [...] encounter Miscellaneous Notes * Telephone Encounter - Ansley Lloyd - 03/20/2023 8:30 AM EDT Rylee please see the attached fax that came in from [facility] regarding checking batteries on DBS monthly. documented in this encounter Plan of Treatment Upcoming Encounters Date Type Specialty Care Team Description 05/22/2023 Office Visit Otolaryngology Lucia Treviño MD [address] [place] [address] 08/31/2023 Office Visit Family Medicine Silvia Barraza DO [address] [facility] [place] [address] 04/25/2024 Office Visit Neurology Stephen Price MD [address] [place] [address] Health Maintenance Due Date Last [...] this encounter Medical Devices Implanted Type Area Police Lieutenant Patrol Device Identifier Shelf Expiration Date Model / Serial / Lot Medtronic Tyrx Absorbable Antibacterial Envelope-Large Implanted:Qty: 1 on 07/27/2020 by Tomi James MD at OR [facility] Right: Chest Medtronic 04/07/2021 [id number] / / [id number] Description:Tyrosine polyary late coated, multifilament absorbable mesh 2.9"x3.3" No charge Per Germania K. Neurostim Activa Deep Brain - [id number] - [id number] Implanted:Qty: 1 on 06/02/2022 by Tomi James MD at OR [facility] Left: Chest [employer] 11/01/2022 [id number] / [id number] / documented as of this encounter Advance Directives Documents on File Type Date Recorded Patient Research Animal Facility Supervisor Expl anation Power of Certified Dialysis Technician 04/03/2019 POWER OF A TTORNEY Latest [...] Directives occurred with: Not Discussed Care Teams Mortgage Professional Relationship Specialty Start Date End Date Silvia Barraza DO [address] [place] [address] PCP - General Family Medicine 06/23/14 documented as of this encounter
--- OUTSIDE RECORDS SUMMARY | 2023-09-10 02:33 | External Medical Summary | Summary of Care ---
Author Name Unknown Organization [facility] Address [address] [place] [address] Phone [phone] Care Team Providers Care Signs Cleaner Name Role Phone Madi Silvia Salazar DO Primary Care Provider Reason for Visit * Reason Onset Date Comments Advice 03/20/2023 Battery Check Encounter Details Date Type Department Care Team Description 03/20/2023 Telephone Neurology, [place] [address] [place] [address] Specified, Fe No Resource [address] [place] [address] Advice (Battery Check) Allergies No known active allergiesdocumented as of this encounter (statuses as of 03/23/2023) Medications Medication Sig Dispensed Refills Start Date [...] HCl 0.05 % Nasal Solution (Afrin Nasal [place])Indications:Ep istaxis Administer into each nostril 2 Sprays [...] 90 Capsule 5 02/20/2023 Active Saline Nasal [place] 0.65 % Nasal Solution ([place])Indications:E pistaxis Use two sprays at bedtime 30 mL 2 03/12/2023 Active documented as of this encounter (statuses as of 03/23/2023) Active Problems Problem Noted Date PMR (polymyalgia [...] as of this encounter (statuses as of 03/23/2023) Resolved Problems Problem Noted Date Resolved Date [...] as of this encounter (statuses as of 03/23/2023) Immunizations Name Administration Dates Next Due Pneumococcal [...] encounter Miscellaneous Notes * Telephone Encounter - Rylee Leo LPN - 03/23/2023 11:44 AM EDT Spoke with son and he will relay that patient's battery can be checked here Attempted several times to get hold of the assisted living and not able * Telephone Encounter - Ansley Lloyd - 03/20/2023 8:30 AM EDT Rylee please see the attached fax that came in from [facility] regarding checking batteries on DBS monthly. documented in this encounter Plan of Treatment Upcoming Encounters Date Type Specialty Care Team Description 05/22/2023 Office Visit Otolaryngology Lucia Treviño MD [address] [place] [address] 08/31/2023 Office Visit Family Medicine Silvia Barraza DO [address] [place] [address] 04/25/2024 Office Visit Neurology Stephen Price MD [address] [place] [address] Health Maintenance Due Date Last Done Comments [...] D LEVEL ONCE IN A LIFETIME-USE SMARTSET# [id number] Completed 02/13/2023, 08/13/2020, 11/22/2015, Additional history exists [...] this encounter Medical Devices Implanted Type Area Licensed Real Estate Broker Device Identifier Shelf Expiration Date Model / Serial / Lot Medtronic Tyrx Absorbable Antibacterial Envelope-Large Implanted:Qty: 1 on 07/27/2020 by Tomi James MD [place] [facility] [place]: Chest Medtronic 04/07/2021 [id number] / / [id number] Description:Tyrosine polyary late coated, multifilament absorbable mesh 2.9"x3.3" No charge Per Germania K. Neurostim Activa Deep Brain - [id number] - [id number] Implanted:Qty: 1 on 06/02/2022 by Tomi James MD [place] [facility]: Chest [employer] 11/01/2022 [id number] / [id number] / documented as of this encounter Advance Directives Documents on File Type Date Recorded Patient Onsite Health Coach Expl anation Power of It Security Consultant 04/03/2019 POWER OF A TTORNEY Latest [...] Directives occurred with: Not Discussed Care Teams Signs Cleaner Relationship Specialty Start Date End Date Silvia Barraza DO [address] [place] [address] PCP - General Family Medicine 06/23/14 documented as of this encounter
--- OUTSIDE RECORDS SUMMARY | 2023-09-10 02:33 | External Medical Summary | Summary of Care ---
Author Name Unknown Organization [facility] Address [address] [place] [address] Phone [phone] Care Team Providers Care Field Superintendent Name Role Phone Madi Silvia Salazar DO Primary Care Provider Reason for Visit * Reason Onset Date Comments Advice 03/20/2023 Battery Check Encounter Details Date Type Department Care Team Description 03/20/2023 Telephone Neurology, [place] [address] [place] [address] Specified, Fe No Resource [address] [place] [address] Advice (Battery Check) Allergies No [...] HCl 0.05 % Nasal Solution (Afrin Nasal [place])Indications:Ep istaxis Administer into each nostril 2 Sprays [...] 90 Capsule 5 02/20/2023 Active Saline Nasal [place] 0.65 % Nasal Solution ([place])Indications:E pistaxis Use two sprays at bedtime 30 [...] Visit Otolaryngology Lucia Treviño MD [address] [place] [address] 08/31/2023 Office Visit Family Medicine Silvia Barraza DO [address] [facility] [place] [address] 04/25/2024 Office Visit Neurology Stephen Price MD [address] [place] [address] Health Maintenance Due Date Last [...] D LEVEL ONCE IN A LIFETIME-USE SMARTSET# [id number] Completed 02/13/2023, 08/13/2020, 11/22/2015, Additional history exists [...] this encounter Medical Devices Implanted Type Area Document Processing Specialist Device Identifier Shelf Expiration Date Model / Serial / Lot Medtronic Tyrx Absorbable Antibacterial Envelope-Large Implanted:Qty: 1 on 07/27/2020 [place] James [place] [facility] [place]: Chest Medtronic 04/07/2021 [id number] / / [id number] Description:Tyrosine polyary late coated, multifilament absorbable mesh 2.9"x3.3" No charge Per Germania K. Neurostim Activa Deep Brain - [id number] - [id number] Implanted:Qty: 1 on 06/02/2022 by Tomi James [place] [facility] [place]: Chest [employer] 11/01/2022 [id number] / [id number] / documented as of this encounter Advance Directives Documents on File Type Date Recorded Patient Girl Friday Expl anation Power of Early Childhood Education Worker 04/03/2019 POWER OF A TTORNEY Latest [...] Directives occurred with: Not Discussed Care Teams Field Superintendent Relationship Specialty Start Date End Date Silvia Barraza DO [address] [place] [address] PCP - General Family Medicine 06/23/14 documented as of this encounter
[2023-09-10 04:28] LABS: Basophils # (auto) 0.03 K/uL (0.00-0.20); Basophils % (auto) 0.3 %; Eosinophils # (auto) 0.02 K/uL (0.00-0.50); Eosinophils % (auto) 0.2 %; Hematocrit (blood only) 32.3 % (37.0-47.0); Hemoglobin 10.6 g/dl (12.0-16.0); Immature Granulocytes # (auto) 0.03 K/uL (0.01-0.20); Immature Granulocytes % (auto) 0.3 %; Lymphocytes # (auto) 1.15 K/uL (1.20-3.40); Mean Corpuscular Hemoglobin 29.9 pg (25.0-34.0); Mean Corpuscular Hgb Conc 32.8 g/dL (32.0-36.0); Mean Platelet Volume 10.8 fL (9.4-12.4); Monocytes # (auto) 0.99 K/uL (0.11-0.59); Monocytes % (auto) 11.2 %; Platelet Count 226 K/uL (130-400); RDW Coefficient of Variation 14.4 % (11.5-14.5); RDW Standard Deviation 47.5 fL (36.4-46.3); Red Blood Count 3.55 M/uL (4.20-5.40); White Blood Count 8.82 K/ul (4.8-10.8)
[2023-09-10 04:45] LABS: Albumin Level 3.3 gm/dl (3.4-5.0); BUN Creatinine Ratio 18.2 (10-20); Bilirubin Direct 5.1 mg/dl (0-0.2); Calcium 8.7 mg/dl (8.6-10.3); Creatinine Clr Calc Pharmacy 54.8 ml/min; Est GFR (African American) 83.3 ml/min; Est GFR (Non-African American) 71.9 ml/min; Magnesium 1.9 mg/dl (1.7-2.4); Potassium 3.8 mmol/L (3.5-5.1); Total Protein 6.3 gm/dl (6.0-8.3)
--- NOTE | 2023-09-10 05:14 | Ultrasound Report ---
Exam(s): US VENOUS BILATERAL LOWER EXTREMITIES EXAM: US Duplex Bilateral Lower Extremities Veins CLINICAL HISTORY: Reason for exam: b/l lower ext edema and erythema. dvt?. TECHNIQUE: Real-time duplex ultrasound scan of the bilateral lower extremity veins integrating B-mode two-dimensional vascular structure, Doppler spectral analysis, color flow Doppler imaging and compression. COMPARISON: No relevant prior studies available. FINDINGS: Right deep veins: Unremarkable. No DVT in the right common femoral, femoral, proximal deep femoral or popliteal veins. The veins demonstrate normal color flow, are normally compressible, with normal phasic flow and/or augmentation response. Right superficial veins: Unremarkable. No thrombus in the visualized right great saphenous vein. Left deep veins: Unremarkable. No DVT in the left common femoral, femoral, proximal deep femoral or popliteal veins. The veins demonstrate normal color flow, are normally compressible, with normal phasic flow and/or augmentation response. Left superficial veins: Unremarkable. No thrombus in the visualized left great saphenous vein. Soft tissues: No acute findings. No popliteal cyst. IMPRESSION: Normal bilateral lower extremity duplex venous ultrasound. Electronically signed by: Tamir Inman MD 09/10/23 05:13 AM
[2023-09-10] MEDS ORDERED: ENOXAPARIN INJ 40 MG/0.4 ML SYR SQ SCH (08:00)
[2023-09-10] MEDS: PIPERACILLIN/TAZOBACTAM 4.5 GM in DEXTROSE 5% MINI-B 100 ML IV SCH ×2 (08:06→16:36)
[2023-09-10] MEDS: MAGNESIUM OXIDE 400 MG TAB PO SCH (08:06)
[2023-09-10] MEDS: MULTIVITAMIN TAB PO SCH (08:10)
[2023-09-10] MEDS: METOPROLOL SUCC 50MG EXT REL TAB PO SCH (08:10)
[2023-09-10] MEDS: DONEPEZIL HCL 10 MG TAB PO SCH (08:11)
[2023-09-10] MEDS: ASPIRIN 81 MG ECTAB PO SCH (08:11)
[2023-09-10] MEDS: ADVANCED PROBIOTIC 1250 MG CAPSULE PO SCH (08:11)
[2023-09-10] MEDS: CARBIDOPA/LEVODOPA 25/100MG TAB PO SCH ×4 (08:12→21:51)
--- NOTE | 2023-09-10 08:15 | Ultrasound Report ---
ULTRASOUND RIGHT UPPER QUADRANT ABDOMEN CLINICAL HISTORY: Elevated hepatic transaminases. COMPARISON STUDY: Abdominal CT dated 09/09/2023 TECHNIQUE: Real-time, grayscale, and color flow sonography of the right upper quadrant of the abdomen was performed. Images are reviewed in the transverse and longitudinal planes. FINDINGS: Liver: The liver is normal in size and heterogeneous in echotexture. There is nodularity of the hepat ic surface contour. There is moderate intrahepatic biliary ductal dilatation. The main portal vein is patent. The liver is infiltrated by numerous ill-defined hypoechoic lesions. These are consistent wi th hepatic metastases when correlated with yesterday's CT scan. Gallbladder: The gallbladder is markedly distended, measuring over 16 cm in length. The bladder conta ins gallstones and sludge. The gallbladder wall is thickened and irregular, measuring up to 5 mm. The re is trace pericholecystic fluid. A sonographic Singh's sign could not be assessed as the patient r eceived analgesia. The common bile duct measures up to 1.6 cm in diameter. There is indeterminant sof t tissue suggested adjacent to the pancreatic head/ampulla. This measures approximately 2.0 x 1.5 cm, and appears to extend into the distal common bile duct. Pancreas: Imaged portions of the pancreas are grossly normal in appearance. No intrapancreatic lesion is clearly identified and the pancreatic duct is normal in caliber. The splenic vein is patent. Right kidney: Survey images of the right kidney demonstrate normal size and echotexture. There is no clear evidence of hydronephrosis. There are numerous renal sinus cysts. Ascites: There is trace perihepatic fluid. Mildly enlarged lymph nodes are seen in the vika hepatis. IMPRESSION: 1. There is marked dilatation of the common bile duct as well as intrahepatic biliary ductal dilatati on. 2. Abnormal soft tissue is suggested adjacent to the pancreatic head/ampulla, which may extend into t he common bile duct. Neoplasm is the diagnosis of exclusion. 3. Markedly distended and abnormal gallbladder which contains gallstones and sludge. The gallbladder wall is thickened and there is trace pericholecystic fluid. Acute cholecystitis is not excluded and c linical correlation will be required. 4. Multifocal hepatic metastatic disease. This was better assessed by CT. 5. There is nodularity of the hepatic surface contour which could be related to cirrhotic change or m etastatic disease. 6. Mildly enlarged lymph nodes in the vika hepatis are likely neoplastic. ACT 112: Negative or not required by law. Electronically signed by: Juanjose Aleman M.D. 09/10/2023 8:12 AM
--- NOTE | 2023-09-10 08:18 | Gastrointestinal Consultation ---
Date of Consultation September 10, 2023 Assessment & Plan (1) Painless jaundice: (2) Elevated LFTs: (3) Cholelithiasis: (4) Dilation of biliary tract: Plan This is an 83 y/o female with h/o Parkinson's dementia who lives in assisted living, with h/o of a-fib not on AC d/t fall risk, who is admitted with painless jaundice, obstructive LFTs, and imaging suggesting CBD/intrahepatic dilation, abnormal soft tissue adjacent to the pancreatic head/ampulla, neoplasm is dx of exclusion, markedly distended GB w/ stones and sludge, possible acute cholecystitis, and hepatic/lung/vika hepatis findings concerning for metastatic disease. Abd soft, nontender. She's afebrile, with normal WBC. Discussed findings of w/u so far with pt's son, Xavier at bedside (Pt's POA; his brother, Enoch is also POA); reviewed these findings and they are concerning for underlying malignancy and work-up as planned below; he was agreeable: - Discussed with GI attending and advanced endoscopist. - Will plan EUS/ERCP tomorrow for biliary decompression and tissue diagnosis - Clear liquid diet today - NPO at midnight - Please hold AC - Supportive care with IVF - ABX as per primary care - Consider chest imaging given abnormal lung sounds in the ER - Consider general surgery consult given gallbladder findings - I did ask Xavier to be available for consent and he was agreeable; cell # = [phone]. (Alternate is Enoch's cell # [phone]) Prior to endoscopic evaluation, we appreciate assistance in the management and correction of frank laboratory elements including the following: Please optimize pt's hemoglobin >7, INR <2, platelets >50,000, potassium levels >3.5 but <5.3, and sodium levels within 5 points of the reference range. Thank you for allowing us to participate in the care of this patient. Please call with any acute changes, questions or concerns. Please see addendum below with additional recommendation from my supervising physician. Supervising Physician Co-Signing Physician Notes Agree with pe and plan as documented Cholestatic lft pattern elevation likely from cbd obstruction - ? secondary to mass. Planning for eus/ercp tomorrow. Hold blood thinners as likely fna will be done if confirmed pancreatic mass. Surgical input about gallbladder findings would be appreciated. History of Present Illness Reason for Consultation: elevated lft Requesting Physician: Dr. Cornejo Attending Physician: Darrick Aragon MD History of Present Illness This is a 83 y/o female with PMHx MVP, chronic a-fib not on AC d/t fall risk, OA, PMR, Parkinson's with dementia, s/p DBS, who lives in assisted living, admitted after presenting with painless jaundice and elevated LFTs. Pt denies any complaints. Work-up in the ER showed Total bilirubin 8, D bili 5.7, AST 121, ALT 84, ALP 424, INR 1.5, normal BMP and WBC, PLT; mild anemia HGB 10.6. Had BLE edema; venous doppler ordered. Had ? NSVT, Echo ordered. Pt placed on empiric Zosyn. Son at bedside; most of the history is gathered from him, the chart, and bedside nurse. No known problems with liver or pancreas previously. Pt denies abd pain, nausea, vomiting. No report of melena, hematochezia, difficulty with eating. CTAP showed: 1. Severe intra and extrahepatic bile duct dilatation with a severely distended gallbladder. There is an abrupt cut off within the common bile duct at the pancreatic head. The exact etiology of this obstruction is not well visualized but likely represents an occult pancreatic head lesion. GI consultation recommended. 2. Upper abdominal lymphadenopathy, multiple hepatic lesions, and multiple pulmonary nodules which are highly suspicious for metastatic disease. 3. Mild gallbladder wall thickening for the degree of distention with mild adjacent fat stranding. There are multiple small gallstones. This is concerning for a developing acute cholecystitis. 4. Additional findings as described above. US resulted this AM showed: 1. There is marked dilatation of the common bile duct as well as intrahepatic biliary ductal dilatation. 2. Abnormal soft tissue is suggested adjacent to the pancreatic head/ampulla, which may extend into the common bile duct. Neoplasm is the diagnosis of exclusion. 3. Markedly distended and abnormal gallbladder which contains gallstones and sludge. The gallbladder wall is thickened and there is trace pericholecystic fluid. Acute cholecystitis is not excluded and clinical correlation will be required. 4. Multifocal hepatic metastatic disease. This was better assessed by CT. 5. There is nodularity of the hepatic surface contour which could be related to cirrhotic change or metastatic disease. 6. Mildly enlarged lymph nodes in the vika hepatis are likely neoplastic. Past surgical history. Right breast biopsy. Colonoscopy. Cervical polyp removal. Open reduction internal fixation of right radius. Deep brain stimulator. Ligation oviducts. Tonsillectomy adenoidectomy. Social history. No smoking. Son denies ETOH. Fam hx: Son denies any fam hx pancreatic issues or cancers Allergies Allergy/AdvReac Type Severity Reaction Status Date / Time No Known Allergies Allergy Unknown Verified 09/09/23 17:06 Home Medications Medication Instructions Recorded Confirmed Type carbidopa 25 mg-levodopa 100 mg See Rx Instructions .Route .COMPLEX 03/15/19 09/09/23 History tablet aspirin 81 mg tablet,delayed 81 mg PO DAILY 08/08/20 09/09/23 History release multivitamin 1 tab PO DAILY 08/08/20 09/09/23 History Lactobacillus acidoph-L.bulgaricus 2 tab PO DAILY 09/09/23 09/09/23 History 1 million cell tablet (Floranex) acetaminophen 325 mg tablet 650 mg PO Q4H PRN Pain 09/09/23 09/09/23 History (Tylenol) amoxicillin 500 mg capsule 2,000 mg PO DIRECTED PRN 1 HR. 09/09/23 09/09/23 History PRIOR TO DENTAL PROCEDURES biotin 5 mg tablet 5 mg PO DAILY 09/09/23 09/09/23 History cholecalciferol (vitamin D3) 50 50 mcg PO BID 09/09/23 09/09/23 History mcg (2,000 unit) capsule (Vitamin D3) diphenhydramine 25 1 tab PO HS PRN Sleep 09/09/23 09/09/23 History mg-acetaminophen 500 mg tablet (Tylenol PM Extra Strength) docusate sodium 100 mg capsule 100 mg PO BID PRN Constipation 09/09/23 09/09/23 History donepezil 10 mg tablet 10 mg PO DAILY 09/09/23 09/09/23 History fluocinolone 0.01 % topical 1 applic topical BID PRN 09/09/23 09/09/23 History solution SEBORRHEIC DERMATITIS gabapentin 100 mg capsule 100 mg PO HS 09/09/23 09/09/23 History gabapentin 300 mg capsule 900 mg PO HS 09/09/23 09/09/23 History hydrocortisone 2.5 % lotion 1 applic topical TID PRN 09/09/23 09/09/23 History SOBORRHEIC DERMATITIS ON SCALP ketoconazole 2 % shampoo 1 applic topical 2XWK 09/09/23 09/09/23 History levomefolate Ca 3 mg-B6 35 1 cap PO DAILY 09/09/23 09/09/23 History mg-meB12 2 mg-algal oil 90.314 mg capsule (Foltanx RF) loperamide 2 mg tablet 2 mg PO QID PRN Diarrhea 09/09/23 09/09/23 History magnesium oxide 200 mg PO DAILY 09/09/23 09/09/23 History melatonin 5 mg tablet 10 mg PO HS 09/09/23 09/09/23 History metoprolol succinate 50 mg capsule 50 mg PO DAILY 09/09/23 09/09/23 History sprinkle, ext. release 24 hr mineral oil (Mineral Oil Heavy 3 ea PO 2XWK 09/09/23 09/09/23 History oral) mirtazapine 15 mg tablet 15 mg PO HS 09/09/23 09/09/23 History oxymetazoline 0.05 % nasal spray 2 spray intranasal Q12H PRN NOSE 09/09/23 09/09/23 History (Afrin (oxymetazoline)) BLEEDS polyethylene glycol 3350 17 gram 17 g PO DAILY PRN Constipation 09/09/23 09/09/23 History oral powder packet (Miralax) propylene glycol 0.6 % eye drops 1 drp OPB QID PRN Dry Eyes 09/09/23 09/09/23 History (Systane Complete) sodium chloride 0.65 % nasal spray 2 spray intranasal HS 09/09/23 09/09/23 History aerosol (Saline Nasal) sodium phosphates 19 gram-7 118 ml NH Q24H PRN Constipation 09/09/23 09/09/23 History gram/118 mL enema (Fleet Enema) trazodone 100 mg tablet 150 mg PO HS 09/09/23 09/09/23 History Patient History Medical History Chronic atrial fibrillation Mitral valve prolapse Parkinson disease Surgical History History of tonsillectomy and adenoidectomy History of tubal ligation History of right breast biopsy History of surgery Neurostimulator for Parkinson's disease, placed in [place], [place] S/P deep brain stimulator placement Family History Mother Stroke Hemorrhage secondary to anticoagulation Social History Smoking Status: Never smoker Second Hand Exposure: No; Do You Dip or Chew Tobacco: No; Hx Alcohol Use: No Hx Substance Use: No Preferred Language: Lebanese Communication Ability: Effective 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 Head- atraumatic Eyes- Icterus present ENT- oropharynx clear Neck- supple Lungs- Bilateral lower rhonchi L > R, No wheezing or crackles. Heart- irregularly irregular Abdomen- normal bowel sounds, soft, nontender, no distension. Extremities- lower extremity edema and erythema seen. Neuro- awake and alert, pleasantly confused; moves extremities. Skin- + Jaundiced, warm & dry Results & Data Vital Signs (Past 12 Hours) Vital Signs Pulse Pulse Resp BP BP Pulse Ox Pulse Ox 09/10/23 06:48 84 09/10/23 06:00 99 H 24 142/91 H 94 09/10/23 05:00 96 H 24 138/102 H 94 09/10/23 04:00 86 24 113/70 93 09/10/23 03:37 91 H 22 110/82 93 09/10/23 03:30 94 H 22 124/70 94 09/10/23 03:05 84 18 116/85 92 09/10/23 03:00 97 H 24 116/85 93 09/10/23 01:51 98 H 18 128/97 93 09/10/23 00:00 94 H 18 145/89 H 93 09/10/23 00:00 93 09/09/23 23:31 95 H 09/09/23 22:00 115 H 20 137/102 H 92 09/09/23 22:00 115 H 30 H 137/102 H 96 O2 Del Method O2 Del Method 09/10/23 06:48 09/10/23 06:00 Room Air 09/10/23 05:00 09/10/23 04:00 Room Air 09/10/23 03:37 Room Air 09/10/23 03:30 Room Air 09/10/23 03:05 Room Air 09/10/23 03:00 Room Air 09/10/23 01:51 Room Air 09/10/23 00:00 Room Air 09/10/23 00:00 Room Air 09/09/23 23:31 09/09/23 22:00 Room Air 09/09/23 22:00 Room Air Laboratory Results 09/10/23 09/09/23 09/09/23 Range/Units 04:09 18:30 16:49 WBC 8.82 (4.8-10.8) K/ul RBC 3.55 L (4.20-5.40) M/uL Hgb 10.6 L (12.0-16.0) g/dl Hct 32.3 L (37.0-47.0) % MCV 91.0 (80.0-100.0) fL MCH 29.9 (25.0-34.0) pg MCHC 32.8 (32.0-36.0) g/dL RDW Std Deviation 47.5 H (36.4-46.3) fL RDW Coeff of Evre 14.4 (11.5-14.5) % Plt Count 226 (130-400) K/uL MPV 10.8 (9.4-12.4) fL Immature Gran % (Auto) 0.3 % Neut % (Auto) 75.0 % Lymph % (Auto) 13.0 % Fergus % (Auto) 11.2 % Eos % (Auto) 0.2 % Baso % (Auto) 0.3 % Neut # (Auto) 6.60 H (1.40-6.50) K/uL Lymph # (Auto) 1.15 L (1.20-3.40) K/uL Fergus # (Auto) 0.99 H (0.11-0.59) K/uL Eos # (Auto) 0.02 (0.00-0.50) K/uL Baso # (Auto) 0.03 (0.00-0.20) K/uL Immature Gran # (Auto) 0.03 (0.01-0.20) K/uL PT (9.0-12.0) Seconds INR (0.9-1.1) APTT (21-31) Seconds PTT Ratio Sodium 139 (136-145) mmol/L Potassium 3.8 (3.5-5.1) mmol/L Chloride 107 (98-107) mmol/L Carbon Dioxide 23 (21-32) mmol/L Anion Gap 9 (3-11) BUN 14 (6-23) mg/dl Creatinine 0.77 (0.6-1.2) mg/dl Est Cr Clr Drug Dosing 54.8 ml/min Est GFR ( Amer) 83.3 ml/min Est GFR (Non-Af Amer) 71.9 ml/min BUN/Creatinine Ratio 18.2 (10-20) Glucose 104 H (70-99(Fasting)) mg/dl Calcium 8.7 (8.6-10.3) mg/dl Magnesium 1.9 (1.7-2.4) mg/dl Total Bilirubin 7.0 H (0.2-1.0) mg/dl Direct Bilirubin 5.1 H (0-0.2) mg/dl AST 107 H (13-39) U/L ALT 141 H (7-52) U/L Alkaline Phosphatase 338 H (34-104) U/L Ammonia 25.0 (18-72) umol/L Total Protein 6.3 (6.0-8.3) gm/dl Albumin 3.3 L (3.4-5.0) gm/dl Lipase (11-82) U/L SARS-CoV-2, RNA, NAAT NEGATIVE (NEGATIVE) 09/09/23 Range/Units 16:03 WBC 9.49 (4.8-10.8) K/ul RBC 4.24 (4.20-5.40) M/uL Hgb 12.7 (12.0-16.0) g/dl Hct 38.9 (37.0-47.0) % MCV 91.7 (80.0-100.0) fL MCH 30.0 (25.0-34.0) pg MCHC 32.6 (32.0-36.0) g/dL RDW Std Deviation 48.1 H (36.4-46.3) fL RDW Coeff of Ever 14.3 (11.5-14.5) % Plt Count 256 (130-400) K/uL MPV 10.7 (9.4-12.4) fL Immature Gran % (Auto) 0.3 % Neut % (Auto) 76.9 % Lymph % (Auto) 12.5 % Fergus % (Auto) 9.7 % Eos % (Auto) 0.2 % Baso % (Auto) 0.4 % Neut # (Auto) 7.29 H (1.40-6.50) K/uL Lymph # (Auto) 1.19 L (1.20-3.40) K/uL Fergus # (Auto) 0.92 H (0.11-0.59) K/uL Eos # (Auto) 0.02 (0.00-0.50) K/uL Baso # (Auto) 0.04 (0.00-0.20) K/uL Immature Gran # (Auto) 0.03 (0.01-0.20) K/uL PT 15.8 H (9.0-12.0) Seconds INR 1.5 H (0.9-1.1) APTT 28 (21-31) Seconds PTT Ratio 1.0 Sodium 136 (136-145) mmol/L Potassium 4.5 (3.5-5.1) mmol/L Chloride 102 (98-107) mmol/L Carbon Dioxide 25 (21-32) mmol/L Anion Gap 9 (3-11) BUN 18 (6-23) mg/dl Creatinine 1.00 (0.6-1.2) mg/dl Est Cr Clr Drug Dosing 42.2 ml/min Est GFR ( Amer) 60.8 ml/min Est GFR (Non-Af Amer) 52.4 ml/min BUN/Creatinine Ratio 18.0 (10-20) Glucose 128 H (70-99(Fasting)) mg/dl Calcium 9.8 (8.6-10.3) mg/dl Magnesium (1.7-2.4) mg/dl Total Bilirubin 8.0 H (0.2-1.0) mg/dl Direct Bilirubin 5.7 H (0-0.2) mg/dl AST 121 H (13-39) U/L ALT 84 H (7-52) U/L Alkaline Phosphatase 424 H (34-104) U/L Ammonia (18-72) umol/L Total Protein 7.8 (6.0-8.3) gm/dl Albumin 3.9 (3.4-5.0) gm/dl Lipase 45 (11-82) U/L SARS-CoV-2, RNA, NAAT (NEGATIVE) Diagnostic Findings CTAP: FINDINGS: Multiple small scattered nodules within the lung bases with the largest in the right lower lobe measuring 7 mm. These are highly suspicious for metastatic disease. No pneumoperitoneum. No pneumatosis. Levoscoliosis and degenerative changes within the lumbar spine. No suspicious osseous lesions identified. The heart is mildly enlarged. There is a 5 mm hypodense lesion within the spleen. This is too small to characterize but favors a benign lesion. The adrenal glands are unremarkable. Right greater than the left peripelvic renal cysts. No definite hydronephrosis. There are few subcentimeter hypodense bilateral cortical renal lesions. These are technically too small to characterize but also favors cysts. Normal caliber abdominal aorta. There are multiple hypodense lesions seen throughout the liver which are highly suspicious for metastatic disease. Dominant lesion measures 3.7 cm. Multiple small gallstones. The gallbladder wall is slightly thickened for the degree of distention. There is mild pericholecystic fat stranding. Severe intra and extrahepatic bile duct dilatation with an abrupt cut off within the common bile duct at the pancreatic head. The exact etiology of the is not well visualized but likely represents an occult pancreatic head lesion. The main portal vein and superior mesenteric vein are patent. There is peripancreatic and retroperitoneal lymphadenopathy. A dominant retroperitoneal lymph node on image 97 measures 3.1 x 1.3 cm. This likely represents metastatic disease. The bladder is unremarkable. There is a 4.2 cm calcified uterine fibroid. Colonic diverticulosis. No evidence for acute diverticulitis. No bowel wall thickening or obstruction. Normal appendix. There is also right retrocrural lymphadenopathy. IMPRESSION: 1. Severe intra and extrahepatic bile duct dilatation with a severely distended gallbladder. There is an abrupt cut off within the common bile duct at the pancreatic head. The exact etiology of this obstruction is not well visualized but likely represents an occult pancreatic head lesion. GI consultation recommended. 2. Upper abdominal lymphadenopathy, multiple hepatic lesions, and multiple pulmonary nodules which are highly suspicious for metastatic disease.. 3. Mild gallbladder wall thickening for the degree of distention with mild adjacent fat stranding. There are multiple small gallstones. This is concerning for a developing acute cholecystitis. 4. Additional findings as described above. US ABD: Liver: The liver is normal in size and heterogeneous in echotexture. There is nodularity of the hepatic surface contour. There is moderate intrahepatic biliary ductal dilatation. The main portal vein is patent. The liver is infiltrated by numerous ill-defined hypoechoic lesions. These are consistent with hepatic metastases when correlated with yesterday's CT scan. Gallbladder: The gallbladder is markedly distended, measuring over 16 cm in length. The bladder contains gallstones and sludge. The gallbladder wall is thickened and irregular, measuring up to 5 mm. There is trace pericholecystic fluid. A sonographic Singh's sign could not be assessed as the patient received analgesia. The common bile duct measures up to 1.6 cm in diameter. There is indeterminant soft tissue suggested adjacent to the pancreatic head/ampulla. This measures approximately 2.0 x 1.5 cm, and appears to extend into the distal common bile duct. Pancreas: Imaged portions of the pancreas are grossly normal in appearance. No intrapancreatic lesion is clearly identified and the pancreatic duct is normal in caliber. The splenic vein is patent. Right kidney: Survey images of the right kidney demonstrate normal size and echotexture. There is no clear evidence of hydronephrosis. There are numerous renal sinus cysts. Ascites: There is trace perihepatic fluid. Mildly enlarged lymph nodes are seen in the vika hepatis. IMPRESSION: 1. There is marked dilatation of the common bile duct as well as intrahepatic biliary ductal dilatation. 2. Abnormal soft tissue is suggested adjacent to the pancreatic head/ampulla, which may extend into the common bile duct. Neoplasm is the diagnosis of exclusion. 3. Markedly distended and abnormal gallbladder which contains gallstones and sludge. The gallbladder wall is thickened and there is trace pericholecystic fluid. Acute cholecystitis is not excluded and clinical correlation will be required. 4. Multifocal hepatic metastatic disease. This was better assessed by CT. 5. There is nodularity of the hepatic surface contour which could be related to cirrhotic change or metastatic disease. 6. Mildly enlarged lymph nodes in the vika hepatis are likely neoplastic. (3) Cholelithiasis Biliary obstruction: with biliary obstruction Cholecystitis presence: without cholecystitis Cholelithiasis location: gallbladder Qualified Code(s): K80.21 - Calculus of gallbladder without cholecystitis with obstruction
[2023-09-10] MEDS: [UNRECOGNIZED DRUG - OTHER] SCH ×3 (08:20→22:01)
--- OUTSIDE RECORDS SUMMARY | 2023-09-10 09:06 | External Medical Summary | Summary of Care ---
Author Name Unknown Organization [facility] Address [address] [place] [address] Phone [phone] Care Team Providers Care Contract Administration Manager Name Role Phone Silvia Barraza DO Primary Care Provider Reason for Visit * Reason Onset Date Comments Advice 09/08/2023 Other 09/08/2023 Encounter Details Date Type Department Care Team (Late st Contact Info) Description 09/08/2023 Telephone Family Practice [facility] [place] [address] [facility] [place] [id number] Silvia Barraza DO [address] [place] [id number] Advice; Other Allergies No known active allergiesdocumented as of [...] HCl 0.05 % Nasal Solution (Afrin Nasal [place])Indications:Ep istaxis Administer into each nostril 2 Sprays [...] MG Oral Tablet (Mag-Oxide)Indicatio ns:PMR (polymyalgia rheumatica) ([facility]) Take 1 Tablet by mouth in [...] 30 Tablet 4 01/21/2023 Active Saline Nasal [place] 0.65 % Nasal Solution ([place])Indications:E pistaxis Use two sprays at bedtime 30 [...] encounter Miscellaneous Notes * Telephone Encounter - Yvette Zazueta CPhT - 09/09/2023 12:20 PM EST Pat from [facility] is calling stating she does to believe it is necessary to take the pt [facility] ER. Caller states they would be able to bring her in for an appt today, or labs or whatever needs to be done. Caller can be reached at [phone]. Thank you, Yenifer Zazueta Auditing Clerk [facility]) 09/09/2023,12:21 PM * Telephone Encounter - Alina Delgadillo LPN - 09/09/2023 11:12 AM EST Spoke with Yenifer, nurse at the [facility] making her aware of provider's recommendation. Yenifer says she hasn'tseen Wanda yet today but she'll go do an assessment and send her to the ER if she is jaundiced. * Telephone Encounter - Silvia Barraza DO - 09/09/2023 10:58 AM EST Please call if she suddenly developed true jaundice, she should go to ER. Silvia Barraza DO * Telephone Encounter - Elenita Michaels OSA - 09/08/2023 12:37 PM EST Claire/ Nick Abad @ [facility] states Pt presents with jaundice today that developed approx 11:30am and would like to know if Pt needs to be seen and Pt feels fine. Please advise: [phone] documented in this encounter Plan of Treatment Upcoming Encounters Date Type Department Care Team (Late st Contact Info) Description 12/18/2023 11:00 AM EDT Office Visit Otolaryngology [facility] [address] [facility] [place] [address] Lucia Treviño MD [address] [facility] [place] [address] 03/01/2024 2:20 PM EDT Office Visit Family Practice [facility] [address] [place] [address] Silvia Barraza DO [address] [facility] [place] [address] 04/22/2024 4:00 PM EDT [facility] [address] [facility] [place] [id number] Stephen Price MD [address] [place] [address] Health Maintenance Due Date Last Done Comments [...] D LEVEL ONCE IN A LIFETIME-USE SMARTSET# [id number] Completed 02/13/2023, 08/13/2020, 11/22/2015, Additional history exists [...] encounter Medical Devices Implanted Type Area Batch Mixing Truck Driver Device Identifier Shelf Expiration Date Model / Serial / Lot Medtronic Tyrx Absorbable Antibacterial Envelope-Large Implanted:Qty: 1 on 07/27/2020 by Tomi James MD at OR [facility] Right: Chest Medtronic 04/07/2021 [id number] / / [id number] Description:Tyrosine polyary late coated, multifilament absorbable mesh 2.9"x3.3" No charge Per Germania K. Neurostim Activa Deep Brain - [id number] - [id number] Implanted:Qty: 1 on 06/02/2022 by Tomi James MD at OR [facility] Left: Chest [employer] 11/01/2022 [id number] / [id number] / documented as of this encounter Advance Directives Documents on File Type Date Recorded Patient Proof Reader Expl anation Power of Rubber Mill Operator 04/03/2019 POWER OF A TTORNEY Latest Code [...] Directives occurred with: Not Discussed Care Teams Contract Administration Manager Relationship Specialty Start Date End Date Silvia Barraza DO [address] [place] [address] PCP - General Family Medicine 06/23/14 documented as of this encounter
--- OUTSIDE RECORDS SUMMARY | 2023-09-10 09:06 | External Medical Summary | Summary of Care ---
Author Name Unknown Organization [facility] Address [address] [place] [address] Phone [phone] Care Team Providers Care Assembler Flexible Leads Name Role Phone Silvia Barraza DO Primary Care Provider Reason for Visit * Reason Onset Date Comments Advice 09/08/2023 Other 09/08/2023 Encounter Details Date Type Department Care Team (Late st Contact Info) Description 09/08/2023 Telephone Family Practice [facility] [place] 200 [facility] [place] [address] Silvia Barraza DO 200 [facility] [place] [address] Advice; Other Allergies No known active allergiesdocumented [...] HCl 0.05 % Nasal Solution (Afrin Nasal [place])Indications:Ep istaxis Administer into each nostril 2 Sprays [...] (Mag-Oxide)Indicatio ns:PMR (polymyalgia rheumatica) ([facility]) Take 1 Tablet by mouth in [...] 30 Tablet 4 01/21/2023 Active Saline Nasal [place] 0.65 % Nasal Solution ([place])Indications:E pistaxis Use two sprays at bedtime 30 [...] - 09/09/2023 12:20 PM EST Pat from [facility] is calling stating she does to believe it is necessary to take the pt [facility]. Caller states they would be able to bring her in for an appt today, or labs or whatever needs to be done. Caller can be reached at [phone]. Thank you, Yenifer Zazueta Suction Dredge Dumping Supervisor I [facility] ([facility]) (Formerly Telepharmacy) 09/09/2023,12:21 PM * Telephone Encounter - Alina Delgadillo LPN - 09/09/2023 11:12 AM EST Spoke with Yenifer, nurse at the [facility] making her aware of provider's recommendation. Yenifer [...] 12:37 PM EST Claire/ Nick Abad @ [facility] states Pt presents with jaundice today that developed approx 11:30am and would like to know if Pt needs to be seen and Pt feels fine. Please advise: [phone] documented in this encounter Plan of Treatment Upcoming Encounters Date Type Department Care Team (Late st Contact Info) Description 12/18/2023 11:00 AM EDT Office Visit Otolaryngology [facility] [address] [facility] [place] [address] Lucia Treviño MD [address] [facility] [place] [address] 03/01/2024 2:20 PM EDT Office Visit Family Practice [facility] [address] [place] [address] Silvia Barraza DO 200 [facility] [place] [address] 04/22/2024 4:00 PM EDT [facility] [address] [place] [facility] [place] [phone] Stephen Price MD [address] [place] [address] Health Maintenance Due Date Last Done Comments [...] D LEVEL ONCE IN A LIFETIME-USE SMARTSET# 34134 Completed 02/13/2023, 08/13/2020, 11/22/2015, Additional history exists [...] this encounter Medical Devices Implanted Type Area Community Educator Device Identifier Shelf Expiration Date Model / Serial / Lot Medtronic Tyrx Absorbable Antibacterial Envelope-Large Implanted:Qty: 1 on 07/27/2020 by [place] James [place] [facility] Chest Medtronic 04/07/2021 [id number] / / [id number] Description:Tyrosine polyary late coated, multifilament absorbable mesh 2.9"x3.3" No charge Per Germania K. Neurostim Activa Deep Brain - [id number] - [id number] Implanted:Qty: 1 on 06/02/2022 by Tomi James MD [place] [facility]: Chest [employer] 11/01/2022 [id number] / [id number] / documented as of this encounter Advance Directives Documents on File Type Date Recorded Patient Attending Anesthesiologist Expl anation Power of Rear Load Truck Driver 04/03/2019 POWER OF A TTORNEY Latest Code [...] Directives occurred with: Not Discussed Care Teams Assembler Flexible Leads Relationship Specialty Start Date End Date Silvia Barraza DO [address] [place] [address] PCP - General Family Medicine 06/23/14 documented as of this encounter
--- OUTSIDE RECORDS SUMMARY | 2023-09-10 09:06 | External Medical Summary | Summary of Care ---
Author Name Unknown Organization [facility] Address [address] [place] [address] Phone [phone] Care Team Providers Care Carriage Operator Name Role Phone Silvia Barraza DO Primary Care Provider Reason for Visit * Reason Onset Date Comments Advice 09/08/2023 Other 09/08/2023 Encounter Details Date Type Department Care Team (Late st Contact Info) Description 09/08/2023 Telephone Family Practice [facility] [place] 200 [facility] [place] [place] [address] Silvia Barraza DO 200 [facility] [place] [address] Advice; Other Allergies No known active allergiesdocumented [...] HCl 0.05 % Nasal Solution (Afrin Nasal [place])Indications:Ep istaxis Administer into each nostril 2 Sprays [...] MG Oral Tablet (Mag-Oxide)Indicatio ns:PMR (polymyalgia rheumatica) ([facility]) Take 1 Tablet by mouth in [...] 30 Tablet 4 01/21/2023 Active Saline Nasal [place] 0.65 % Nasal Solution ([place])Indications:E pistaxis Use two sprays at bedtime 30 [...] - 09/09/2023 12:20 PM EST Pat from [facility] is calling stating she does to believe it is necessary to take the pt [facility] ER. Caller states they would be able to bring her in for an appt today, or labs or whatever needs to be done. Caller can be reached at [phone]. Thank you, Yenifer Zazueta Customs Brokerage Manager I [facility] (CCPS) (Formerly Telepharmacy) 09/09/2023,12:21 PM * Telephone Encounter - Alina Delgadillo LPN - 09/09/2023 11:12 AM EST Spoke with Yenifer, nurse at the [facility] making her aware of provider's recommendation. Yenifer [...] 12:37 PM EST Claire/ Nick Abad @ [facility] states Pt presents with jaundice today that developed approx 11:30am and would like to know if Pt needs to be seen and Pt feels fine. Please advise: [phone] documented in this encounter Plan of Treatment Upcoming Encounters Date Type Department Care Team (Late st Contact Info) Description 12/18/2023 11:00 AM EDT Office Visit Otolaryngology [facility] [address] [facility] [place] [address] Lucia Treviño MD 132 [facility] [place] [address] 03/01/2024 2:20 PM EDT Office Visit Family Practice [facility] [address] [place] [address] Silvia Barraza DO 200 [facility] [place] [address] 04/22/2024 4:00 PM EDT [facility] [address] [place] [phone] Stephen Price MD [address] [place] [address] Health Maintenance Due Date Last Done Comments [...] D LEVEL ONCE IN A LIFETIME-USE SMARTSET# [id number] Completed 02/13/2023, 08/13/2020, 11/22/2015, Additional history exists [...] this encounter Medical Devices Implanted Type Area Counterintelligence Specialist Device Identifier Shelf Expiration Date Model / Serial / Lot Medtronic Tyrx Absorbable Antibacterial Envelope-Large Implanted:Qty: 1 on 07/27/2020 by Tomi James MD at [place] [facility] [place] Right: Chest Medtronic 04/07/2021 [id number] / / [id number] Description:Tyrosine polyary late coated, multifilament absorbable mesh 2.9"x3.3" No charge Per Germania K. Neurostim Activa Deep Brain - [id number] - [id number] Implanted:Qty: 1 on 06/02/2022 by Tomi James MD at OR [facility] [place] Left: Chest [employer] 11/01/2022 [id number] / [id number] / documented as of this encounter Advance Directives Documents on File Type Date Recorded Patient Billing Adjudicator Expl anation Power of Deckhand Crab Boat 04/03/2019 POWER OF A TTORNEY Latest Code [...] Directives occurred with: Not Discussed Care Teams Carriage Operator Relationship Specialty Start Date End Date Silvia Barraza DO [address] [place] [address] PCP - General Family Medicine 06/23/14 documented as of this encounter
--- OUTSIDE RECORDS SUMMARY | 2023-09-10 09:06 | External Medical Summary | Summary of Care ---
Author Name Unknown Organization [facility] Address [address] [place] [address] Phone [phone] Care Team Providers Care Scenic Artist Name Role Phone Silvia Barraza DO Primary Care Provider Reason for Visit * Reason Onset Date Comments Advice 09/08/2023 Other 09/08/2023 Encounter Details Date Type Department Care Team (Late st Contact Info) Description 09/08/2023 Telephone Family Practice [facility] [place] 200 [facility] [place] [address] Silvia Barraza DO 200 [facility] [place] [address] Advice; Other Allergies No known active allergiesdocumented [...] HCl 0.05 % Nasal Solution (Afrin Nasal [place])Indications:Ep istaxis Administer into each nostril 2 Sprays [...] MG Oral Tablet (Mag-Oxide)Indicatio ns:PMR (polymyalgia rheumatica) ([facility]) Take 1 Tablet by mouth [...] 30 Tablet 4 01/21/2023 Active Saline Nasal [place] 0.65 % Nasal Solution ([place])Indications:E pistaxis Use two sprays at bedtime 30 [...] - 09/09/2023 12:20 PM EST Pat from [facility] is calling stating she does to believe it is necessary to take the pt [facility] ER. Caller states they would be able to bring her in for an appt today, or labs or whatever needs to be done. Caller can be reached at [phone]. Thank you, Yenifer Zazueta Oil Change Technician I [facility] (CCPS) (Formerly Telepharmacy) 09/09/2023,12:21 PM * Telephone Encounter - Alina Delgadillo LPN - 09/09/2023 11:12 AM EST Spoke with Yenifer, nurse at the [facility] making her aware of provider's recommendation. Yenifer [...] 12:37 PM EST Claire/ Nick Abad @ [facility] states Pt presents with jaundice today that developed approx 11:30am and would like to know if Pt needs to be seen and Pt feels fine. Please advise: [phone] documented in this encounter Plan of Treatment Upcoming Encounters Date Type Department Care Team (Late st Contact Info) Description 12/18/2023 11:00 AM EDT Office Visit Otolaryngology [facility] 132 [facility] [place] [address] Lucia Treviño MD 132 [facility] [place] [address] 03/01/2024 2:20 PM EDT Office Visit Family Practice [facility] [address] [place] [address] Silvia Barraza DO 200 [facility] [place] [address] 04/22/2024 4:00 PM EDT [facility] [address] [place] [facility] [place] [phone] Stephen Price MD [address] [place] [address] Health Maintenance Due Date Last Done Comments [...] D LEVEL ONCE IN A LIFETIME-USE SMARTSET# [id number] Completed 02/13/2023, 08/13/2020, 11/22/2015, Additional history exists [...] this encounter Medical Devices Implanted Type Area Property Field Inspector Device Identifier Shelf Expiration Date Model / Serial / Lot Medtronic Tyrx Absorbable Antibacterial Envelope-Large Implanted:Qty: 1 on 07/27/2020 by Tomi James MD at [place] [facility] [place]: Chest Medtronic 04/07/2021 [id number] / / [id number] Description:Tyrosine polyary late coated, multifilament absorbable mesh 2.9"x3.3" No charge Per Germania K. Neurostim Activa Deep Brain - [id number] - [id number] Implanted:Qty: 1 on 06/02/2022 by Tomi James MD at [place] [facility] [place] Left: Chest [employer] 11/01/2022 [id number] / [id number] / documented as of this encounter Advance Directives Documents on File Type Date Recorded Patient Sales Assistants And Salespersons Expl anation Power of Electric Shipyard Operator 04/03/2019 POWER OF A TTORNEY Latest [...] Directives occurred with: Not Discussed Care Teams Scenic Artist Relationship Specialty Start Date End Date Silvia Barraza DO [address] [place] [address] PCP - General Family Medicine 06/23/14 documented as of this encounter
--- OUTSIDE RECORDS SUMMARY | 2023-09-10 09:07 | External Medical Summary | Summary of Care ---
Author Name Unknown Organization [facility] Address [address] [place] [address] Phone [phone] Care Team Providers Care Director Of Special Services Name Role Phone Silvia Barraza DO Primary Care Provider Reason for Visit * Reason Onset Date Comments Advice 09/08/2023 Encounter Details Date Type Department Care Team (Late st Contact Info) Description 09/08/2023 [facility] [place] [address] Silvia Barraza DO 200 [facility] [place] [address] Advice Allergies No known active allergiesdocumented as [...] HCl 0.05 % Nasal Solution (Afrin Nasal [place])Indications:Ep istaxis Administer into each nostril 2 Sprays [...] 30 Tablet 4 01/21/2023 Active Saline Nasal [place] 0.65 % Nasal Solution ([place])Indications:E pistaxis Use two sprays at bedtime 30 [...] EST Spoke with Yenifer, nurse at the [facility] making her aware of provider's recommendation. [...] 12:37 PM EST Claire/ Nick Abad @ [facility] Pt presents with jaundice today that developed approx 11:30am and would like to know if Pt needs to be seen and Pt feels fine. Please advise: [phone] documented in this encounter Plan of Treatment Upcoming Encounters Date Type Department Care Team (Late st Contact Info) Description 12/18/2023 11:00 AM EDT Office Visit Otolaryngology [facility] [address] [place] [address] Lucia Treviño MD [address] [place] [address] 03/01/2024 2:20 PM EDT Office Visit Family Practice [facility] 200 [facility] [place] [address] Silvia Barraza, 200 [facility] [place] [address] 04/22/2024 4:00 PM EDT Office Visit Neurology, [place] [address] [place] [address] Stephen Price MD [address] [place] [address] Health Maintenance Due Date Last [...] D LEVEL ONCE IN A LIFETIME-USE SMARTSET# [id number] Completed 02/13/2023, 08/13/2020, 11/22/2015, Additional history exists [...] this encounter Medical Devices Implanted Type Area Head Inspector Device Identifier Shelf Expiration Date Model / Serial / Lot Medtronic Tyrx Absorbable Antibacterial Envelope-Large Implanted:Qty: 1 on 07/27/2020 by Tomi James MD at [place] [facility] [place] Right: Chest Medtronic 04/07/2021 [id number] / / [id number] Description:Tyrosine polyary late coated, multifilament absorbable mesh 2.9"x3.3" No charge Per Germania K. Neurostim Activa Deep Brain - [id number] - [id number] Implanted:Qty: 1 on 06/02/2022 by Tomi James MD at [place] [facility] [place] Left: Chest [employer] 11/01/2022 [id number] / [id number] / documented as of this encounter Advance Directives Documents on File Type Date Recorded Patient Humanities Teacher Expl anation Power of Vision Rehabilitation Therapist 04/03/2019 POWER OF A TTORNEY Latest [...] with: Not Discussed Care Teams Director Of Special Services Relationship Specialty Start Date End Date Silvia Barraza DO [address] [place] [address] PCP - General Family Medicine 06/23/14 documented as of this encounter
--- NOTE | 2023-09-10 12:27 | Surgery Consultation ---
Date of Consultation September 10, 2023 Assessment & Plan (1) Common bile duct (CBD) obstruction: Her CT and ultrasound images and results were personally viewed and interpreted by myself She does have a fairly dilated GB which is a result of her biliary obstruction She has no clinical signs of acute cholecystitis GI has been consulted for EUS/ERCP She is not a surgical candidate even if she had acute cholecystitis Surgery will sign off at this time, please call with any questions (2) Painless jaundice: (3) Elevated LFTs: (4) Cholelithiasis: History of Present Illness Reason for Consultation: Possible acute cholecystitis Attending Physician: Darrick Aragon MD History of Present Illness This is an 83-year-old female with a history of Parkinson's disease who presented to the emergency room yesterday from [facility] as a staff there noticed that she was becoming jaundiced. Denies any abdominal pain, nausea or vomiting. She was found to have elevated LFTs and severe biliary dilation on CT ultrasound suggestive of an occult pancreatic mass. Also on CAT scan she had a very distended gallbladder with concern for cholecystitis. She remains without abdominal pain or nausea or vomiting. Allergies Allergy/AdvReac Type Severity Reaction Status Date / Time No Known Allergies Allergy Unknown Verified 09/09/23 17:06 Home Medications Medication Instructions Recorded Confirmed Type carbidopa 25 mg-levodopa 100 mg See Rx Instructions .Route .COMPLEX 03/15/19 09/09/23 History tablet aspirin 81 mg tablet,delayed 81 mg PO DAILY 08/08/20 09/09/23 History release multivitamin 1 tab PO DAILY 08/08/20 09/09/23 History Lactobacillus acidoph-L.bulgaricus 2 tab PO DAILY 09/09/23 09/09/23 History 1 million cell tablet (Floranex) acetaminophen 325 mg tablet 650 mg PO Q4H PRN Pain 09/09/23 09/09/23 History (Tylenol) amoxicillin 500 mg capsule 2,000 mg PO DIRECTED PRN 1 HR. 09/09/23 09/09/23 History PRIOR TO DENTAL PROCEDURES biotin 5 mg tablet 5 mg PO DAILY 09/09/23 09/09/23 History cholecalciferol (vitamin D3) 50 50 mcg PO BID 09/09/23 09/09/23 History mcg (2,000 unit) capsule (Vitamin D3) diphenhydramine 25 1 tab PO HS PRN Sleep 09/09/23 09/09/23 History mg-acetaminophen 500 mg tablet (Tylenol PM Extra Strength) docusate sodium 100 mg capsule 100 mg PO BID PRN Constipation 09/09/23 09/09/23 History donepezil 10 mg tablet 10 mg PO DAILY 09/09/23 09/09/23 History fluocinolone 0.01 % topical 1 applic topical BID PRN 09/09/23 09/09/23 History solution SEBORRHEIC DERMATITIS gabapentin 100 mg capsule 100 mg PO HS 09/09/23 09/09/23 History gabapentin 300 mg capsule 900 mg PO HS 09/09/23 09/09/23 History hydrocortisone 2.5 % lotion 1 applic topical TID PRN 09/09/23 09/09/23 History SOBORRHEIC DERMATITIS ON SCALP ketoconazole 2 % shampoo 1 applic topical 2XWK 09/09/23 09/09/23 History levomefolate Ca 3 mg-B6 35 1 cap PO DAILY 09/09/23 09/09/23 History mg-meB12 2 mg-algal oil 90.314 mg capsule (Foltanx RF) loperamide 2 mg tablet 2 mg PO QID PRN Diarrhea 09/09/23 09/09/23 History magnesium oxide 200 mg PO DAILY 09/09/23 09/09/23 History melatonin 5 mg tablet 10 mg PO HS 09/09/23 09/09/23 History metoprolol succinate 50 mg capsule 50 mg PO DAILY 09/09/23 09/09/23 History sprinkle, ext. release 24 hr mineral oil (Mineral Oil Heavy 3 ea PO 2XWK 09/09/23 09/09/23 History oral) mirtazapine 15 mg tablet 15 mg PO HS 09/09/23 09/09/23 History oxymetazoline 0.05 % nasal spray 2 spray intranasal Q12H PRN NOSE 09/09/23 09/09/23 History (Afrin (oxymetazoline)) BLEEDS polyethylene glycol 3350 17 gram 17 g PO DAILY PRN Constipation 09/09/23 09/09/23 History oral powder packet (Miralax) propylene glycol 0.6 % eye drops 1 drp OPB QID PRN Dry Eyes 09/09/23 09/09/23 History (Systane Complete) sodium chloride 0.65 % nasal spray 2 spray intranasal HS 09/09/23 09/09/23 History aerosol (Saline Nasal) sodium phosphates 19 gram-7 118 ml IN Q24H PRN Constipation 09/09/23 09/09/23 History gram/118 mL enema (Fleet Enema) trazodone 100 mg tablet 150 mg PO HS 09/09/23 09/09/23 History Patient History Medical History Chronic atrial fibrillation Mitral valve prolapse Parkinson disease Surgical History History of tonsillectomy and adenoidectomy History of tubal ligation History of right breast biopsy History of surgery Neurostimulator for Parkinson's disease, placed in [place], [place] S/P deep brain stimulator placement Family History Mother Stroke Hemorrhage secondary to anticoagulation Social History Smoking Status: Never smoker Second Hand Exposure: No; Do You Dip or Chew Tobacco: No; Hx Alcohol Use: No Hx Substance Use: No Preferred Language: Khmer Communication Ability: Effective Supervisor Scrap Preparation Required: No Beliefs That Will Affect Care: None Current Living Situation: Shelter Other Information That Helps Us Care for You: No Feels Safe at Home: Yes Safety Concerns: Feels Safe At This Time Assistive Devices: Walker Review of Systems Constitutional: no fever and no chills Eyes: no blind spots and no worsening vision Ear, Nose, Mouth, Throat: no ear pain and no dysphagia Respiratory: no cough and no dyspnea Cardiovascular: no chest pain and no dyspnea on exertion Gastrointestinal: no abdominal pain, no nausea and no vomiting Genitourinary: no dysuria, no urinary hesitancy and no urinary urgency Musculoskeletal: no back pain and no neck pain Integumentary: + yellowing of the skin; no skin ulcer a nd no erythema Neurologic: + tremor(s); no gait abnormality Psychiatric: no behavioral changes and no depression Hematologic / Lymphatic: no easy bleeding and no easy bruising Physical Exam Constitutional: + cachectic Eyes: EOM intact bilaterally; sclerae not anicteric ENMT: external ear and nose normal, oropharynx normal Neck: trachea midline, no thyromegaly Respiratory: normal respiratory effort, lungs clear to auscultation Cardiovascular: RRR, no murmur, no edema Gastrointestinal (Abdomen): Inspection/Auscultation: abdomen normal to inspection; abdomen not distended Percussion/Palpation: abdomen soft; abdomen nontender and no guarding Musculoskeletal: no cyanosis or clubbing, extremities motor strength 5/5 Skin: + jaundice Neurologic: PERRL, EOMI, accommodation nl, no face palsy, no dysarthria Psychiatric: A+Ox3, euthymic affect Results & Data Vital Signs (Past 12 Hours) Vital Signs Temp Pulse Pulse Resp BP BP Pulse Ox 09/10/23 09:34 36.8 C 78 20 141/70 H 97 09/10/23 09:00 86 20 94 09/10/23 08:00 89 20 95 09/10/23 08:00 144/89 H 09/10/23 07:00 99 H 18 93 09/10/23 07:00 136/94 09/10/23 06:48 84 09/10/23 06:00 99 H 24 142/91 H 94 09/10/23 05:00 96 H 24 138/102 H 94 09/10/23 04:00 86 24 113/70 93 09/10/23 03:37 91 H 22 110/82 93 09/10/23 03:30 94 H 22 124/70 94 09/10/23 03:05 84 18 116/85 92 09/10/23 03:00 97 H 24 116/85 93 09/10/23 01:51 98 H 18 128/97 93 O2 Del Method 09/10/23 09:34 Room Air 09/10/23 09:00 09/10/23 08:00 09/10/23 08:00 09/10/23 07:00 09/10/23 07:00 09/10/23 06:48 09/10/23 06:00 Room Air 09/10/23 05:00 09/10/23 04:00 Room Air 09/10/23 03:37 Room Air 09/10/23 03:30 Room Air 09/10/23 03:05 Room Air 09/10/23 03:00 Room Air 09/10/23 01:51 Room Air PG Care Time/CCT Total # of Minutes Spent Total Time Spent with Patient: Total time spent is greater than 50% in coordination of care (as documented) at patient's floor/unit and/or counseling patient: Coding Level of Care Code 49024 OFFICE CONSULT LVL M Diagnoses Common bile duct (CBD) obstruction K83.1 Painless jaundice R17 Elevated LFTs R79.89 Cholelithiasis K80.21 Biliary obstruction: with biliary obstruction Cholecystitis presence: without cholecystitis Cholelithiasis location: gallbladder (4) Cholelithiasis Biliary obstruction: with biliary obstruction Cholecystitis presence: without cholecystitis Cholelithiasis location: gallbladder Qualified Code(s): K80.21 - Calculus of gallbladder without cholecystitis with obstruction
--- NOTE | 2023-09-10 13:10 | XRay Report ---
XR chest 2V PA/lateral CLINICAL HISTORY: Cough. COMPARISON STUDY: Chest radiograph August 08, 2020. FINDINGS: Bilateral stimulators are incidentally noted. There is no pneumothorax or pleural effusion. There is no consolidation to suggest pneumonia. There is no evidence for pulmonary edema. Mild cardi omegaly is again noted. This is unchanged. Mediastinal contours are stable. Multiple right lung nodul es measure up to 1 cm. These are new since chest radiograph August 08, 2020. IMPRESSION: 1. Multiple right lung nodules measuring up to 1 cm, as shown on abdominal CT of September 09, 2023. Th bryant are suggestive of metastatic disease. 2. No acute cardiopulmonary findings. ACT 112: Negative or not required by law. Electronically signed by: Nic Corey M.D. 09/10/2023 1:08 PM
--- NOTE | 2023-09-10 14:04 | Electrocardiogram Report ---
Test Reason : Blood Pressure : / mmHG Vent. Rate : 114 BPM Atrial Rate : 000 BPM P-R Int : 000 ms QRS Dur : 154 ms QT Int : 510 ms P-R-T Axes : 000 -43 051 degrees QTc Int : 702 ms Poor data quality, interpretation may be adversely affected Atrial fibrillation with rapid ventricular response with premature ventricular or aberrantly conducte d complexes Left axis deviation Left ventricular hypertrophy with QRS widening ( R in aVL ) Anterior infarct , age undetermined Abnormal ECG When compared with ECG of 08-AUG-2020 16:20, Anterior infarct is now Present Confirmed by Bay Herman ([id number]) on 09/10/2023 2:04:06 PM Referred By: [facility] jairo [facility] Confirmed By:Bay Herman
--- NOTE | 2023-09-10 14:21 | Hospitalist Progress Note ---
Date of Service September 10, 2023 Assessment & Plan (1) Elevated LFTs: Plan: 83-year-old female with past med significant for mitral valve prolapse, chronic atrial fibrillation, osteoarthrosis, polymyalgia rheumatica, Parkinson disease, s/p deep brain stimulator, dementia due to Parkinson's disease, peripheral neuropathy, who lives at [facility] assisted living was brought in because of elevated LFTs. Painless Obstructive jaundice Suspected secondary to pancreatic mass causing CBD obstruction Possible metastatic disease --CT ABD:Severe intra and extrahepatic bile duct dilatation with a severely distended gallbladder. There is an abrupt cut off within the common bile duct at the pancreatic head. The exact etiology of this obstruction is not well visualized but likely represents an occult pancreatic head lesion. GI consultation recommended. Upper abdominal lymphadenopathy, multiple hepatic lesions, and multiple pulmonary nodules which are highly suspicious for metastatic disease. Mild gallbladder wall thickening for the degree of di stention with mild adjacent fat stranding. There are multiple small gallstones. This is concerning for a developing acute cholecystitis. --Liver USD: There is marked dilatation of the common bile duct as well as intrahepatic biliary ductal dilatation. Abnormal soft tissue is suggested adjacent to the pancreatic head/ampulla, which may extend into the common bile duct. Neoplasm is the diagnosis of exclusion. Markedly distended and abnormal gallbladder which contains gallstones and sludge. The gallbladder wall is thickened and there is trace pericholecystic fluid. Acute cholecystitis is not excluded and clinical correlation will be required. Multifocal hepatic metastatic disease. This was better assessed by CT. There is nodularity of the hepatic surface contour which could be related to cirrhotic change or metastatic disease. Mildly enlarged lymph nodes in the vika hepatis are likely neoplastic. --Clinically no signs of acute cholecystitis --Empirically on Zosyn for possible infection -Plan for EUS/ERCP tomorrow Appreciate GI, surgery input Clear liquid diet. NPO after midnight Avoid hepatotoxic agents as able Bilateral lower extremity edema and erythema Antibiotics as above Venous Doppler:Normal bilateral lower extremity duplex venous ultrasound. H/O A.fib ? NSVT 7 beats in the ER Possible artifact Monitor telemetry --ECHO: A-fib with controlled ventricular response rate. Left ventricle is normal in size. Mild concentric LVH. Left ventricular wall motion is normal. EF 55 to 60%. Mitral valve leaflets are mildly thickened. Mild mitral regurgitation. Moderate to severe tricuspid regurgitation. Right atrium is moderate to severely dilated. Right ventricular systolic pressure is elevated at 40 to 50 mmHg. Continue metoprolol Monitor electrolytes and replace as needed Not on anticoagulation secondary to fall risk History of Parkinson's disease S/p deep brain stimulator Continue Sinemet Dementia due to Parkinson disease Continue Donepezil Reorient frequently to minimize delirium Monitor DVT prophylaxis Lovenox SQ Code Status Full code Disposition PT OT prior to discharge Admission and Anticipated Discharge Date Admission Date: September 09, 2023 Subjective Patient is seen and examined at bedside States having chronic cough Denies any abdominal pain, chest pain, dyspnea, dizziness, nausea, vomiting Discussed with patient's son at bedside Also discussed with GI today Plan for EUS/ERCP tomorrow Review of Systems Review of Systems: All systems reviewed & are unremarkable except as noted in Subjective Physical Exam Physical Exam: Physical Exam: Vitals signs as noted above General Appearance: Thin, frail, chronically appearing, elderly, no apparent distress Head: normocephalic, Atraumatic Eyes: normal inspection, EOMI, +Icteric Neck: supple, Trachea midline Respiratory/Chest: Normal breath sounds, left basilar crackles, No accessory muscle use Cardiovascular: Irregularly irregular, No murmur Abdomen/GI:Soft, Non tender, Bowel sounds present Extremities/Musculoskeletal:normal inspection, 1+ B/L LE edema Neurologic/Psych:AAOX3, grossly no focal neurological deficits ,+ resting tremor Skin: normal color, warm, + jaundice Results & Data Results & Data Vital Signs (Past 12 Hours) Vital Signs Temp Pulse Pulse Resp BP BP Pulse Ox 09/10/23 13:19 88 09/10/23 09:34 36.8 C 78 20 141/70 H 97 09/10/23 09:00 86 20 94 09/10/23 08:00 89 20 95 09/10/23 08:00 144/89 H 09/10/23 07:00 99 H 18 93 09/10/23 07:00 136/94 09/10/23 06:48 84 09/10/23 06:00 99 H 24 142/91 H 94 09/10/23 05:00 96 H 24 138/102 H 94 09/10/23 04:00 86 24 113/70 93 09/10/23 03:37 91 H 22 110/82 93 09/10/23 03:30 94 H 22 124/70 94 09/10/23 03:05 84 18 116/85 92 09/10/23 03:00 97 H 24 116/85 93 O2 Del Method 09/10/23 13:19 09/10/23 09:34 Room Air 09/10/23 09:00 09/10/23 08:00 09/10/23 08:00 09/10/23 07:00 09/10/23 07:00 09/10/23 06:48 09/10/23 06:00 Room Air 09/10/23 05:00 09/10/23 04:00 Room Air 09/10/23 03:37 Room Air 09/10/23 03:30 Room Air 09/10/23 03:05 Room Air 09/10/23 03:00 Room Air
[2023-09-10] MEDS: GABAPENTIN 300 MG CAP PO SCH (21:51)
[2023-09-10] MEDS: GABAPENTIN 100 MG CAP PO SCH (21:52)
[2023-09-10] MEDS: SODIUM CHLORIDE 0.65% NA SOLN 45 ML (OCEAN) SCH (21:53)
[2023-09-10] MEDS: MELATONIN 3 MG TAB PO SCH (22:00)
[2023-09-10] MEDS: traZODone HCL 50 MG TAB PO SCH (22:00)
[2023-09-11] MEDS: PIPERACILLIN/TAZOBACTAM 4.5 GM in DEXTROSE 5% MINI-B 100 ML IV SCH ×3 (00:41→15:44)
[2023-09-11] MEDS: SODIUM CHLORIDE 0.9% 1,000 ML IV SCH (06:15)
[2023-09-11] MEDS: [UNRECOGNIZED DRUG - OTHER] SCH ×3 (06:17→23:17)
[2023-09-11 06:37] LABS: Mean Corpuscular Hgb Conc 32.3 g/dL (32.0-36.0); Mean Corpuscular Volume 93.1 fL (80.0-100.0); Mean Platelet Volume 11.1 fL (9.4-12.4); Platelet Count 215 K/uL (130-400); RDW Coefficient of Variation 14.9 % (11.5-14.5); RDW Standard Deviation 50.5 fL (36.4-46.3); Red Blood Count 3.33 M/uL (4.20-5.40); White Blood Count 8.83 K/ul (4.8-10.8)
[2023-09-11 07:07] LABS: BUN Creatinine Ratio 12.8 (10-20); Bilirubin Direct 5.6 mg/dl (0-0.2); Bilirubin,Total 8.8 mg/dl (0.2-1.0); Calcium 8.7 mg/dl (8.6-10.3); Creatinine Clr Calc Pharmacy 52.8 ml/min; Est GFR (African American) 82.1 ml/min; Est GFR (Non-African American) 70.8 ml/min; Magnesium 1.8 mg/dl (1.7-2.4); Potassium 3.7 mmol/L (3.5-5.1); Total Protein 5.7 gm/dl (6.0-8.3)
[2023-09-11] MEDS ORDERED: ROCURONIUM BROMIDE 10 MG/ML 5 ML VIAL IV ONE ×3 (07:09→07:13)
[2023-09-11] MEDS ORDERED: fentaNYL citrate PF 100 MCG/2 ML VIAL ONE (07:09)
[2023-09-11] MEDS ORDERED: LIDOCAINE 2% 2 ML VIAL/AMP(20MG/ML) INFIL ONE (07:09)
[2023-09-11] MEDS ORDERED: PROPOFOL IV EMULSION 10 MG/ML 20 ML VIAL IV ONE (07:09)
--- NOTE | 2023-09-11 07:14 | Anesthesiology Consultation ---
Date of Service September 11, 2023 Assessment & Plan Chart Review Chart Review: Acceptable Risk for Surgery and Patient NOT seen in Pre Admission Testing Consults Requested none History Surgery Operation Date: 09/11/23 08:00 Proposed Procedures p Endoscopic Ultrasonography Upper - Jf Hicks MD s Endoscopic Retrograde Cholangiopancreatogram - Jf Hicks MD Height/Weight Height: 5 ft 7 in Weight: 60.2 kg Allergies Allergy/AdvReac Type Severity Reaction Status Date / Time No Known Allergies Allergy Unknown Verified 09/09/23 17:06 Medications Home Medications Medication Instructions Recorded Confirmed Last Taken carbidopa 25 mg-levodopa 100 mg See Rx Instructions .Route .COMPLEX 03/15/19 09/09/23 09/09/23 12:00 tablet aspirin 81 mg tablet,delayed 81 mg PO DAILY 08/08/20 09/09/23 09/09/23 release multivitamin 1 tab PO DAILY 08/08/20 09/09/23 09/09/23 Lactobacillus acidoph-L.bulgaricus 2 tab PO DAILY 09/09/23 09/09/23 09/09/23 1 million cell tablet (Floranex) acetaminophen 325 mg tablet 650 mg PO Q4H PRN Pain 09/09/23 09/09/23 Unknown (Tylenol) amoxicillin 500 mg capsule 2,000 mg PO DIRECTED PRN 1 HR. 09/09/23 09/09/23 Unknown PRIOR TO DENTAL PROCEDURES biotin 5 mg tablet 5 mg PO DAILY 09/09/23 09/09/23 09/09/23 cholecalciferol (vitamin D3) 50 50 mcg PO BID 09/09/23 09/09/23 09/09/23 08:00 mcg (2,000 unit) capsule (Vitamin D3) diphenhydramine 25 1 tab PO HS PRN Sleep 09/09/23 09/09/23 Unknown mg-acetaminophen 500 mg tablet (Tylenol PM Extra Strength) docusate sodium 100 mg capsule 100 mg PO BID PRN Constipation 09/09/23 09/09/23 Unknown donepezil 10 mg tablet 10 mg PO DAILY 09/09/23 09/09/23 09/09/23 fluocinolone 0.01 % topical 1 applic topical BID PRN 09/09/23 09/09/23 Unknown solution SEBORRHEIC DERMATITIS gabapentin 100 mg capsule 100 mg PO HS 1209/09/23 09/08/23 gabapentin 300 mg capsule 900 mg PO HS 09/09/23 09/09/23 09/08/23 hydrocortisone 2.5 % lotion 1 applic topical TID PRN 09/09/23 09/09/23 Unknown SOBORRHEIC DERMATITIS ON SCALP ketoconazole 2 % shampoo 1 applic topical 2XWK 09/09/23 09/09/23 09/09/23 levomefolate Ca 3 mg-B6 35 1 cap PO DAILY 09/09/23 09/09/23 09/09/23 mg-meB12 2 mg-algal oil 90.314 mg capsule (Foltanx RF) loperamide 2 mg tablet 2 mg PO QID PRN Diarrhea 09/09/23 09/09/23 Unknown magnesium oxide 200 mg PO DAILY 09/09/23 09/09/23 09/09/23 melatonin 5 mg tablet 10 mg PO HS 09/09/23 09/09/23 09/08/23 metoprolol succinate 50 mg capsule 50 mg PO DAILY 09/09/23 09/09/23 09/09/23 sprinkle, ext. release 24 hr mineral oil (Mineral Oil Heavy 3 ea PO 2XWK 09/09/23 09/09/23 09/08/23 oral) mirtazapine 15 mg tablet 15 mg PO HS 09/09/23 09/09/23 09/08/23 oxymetazoline 0.05 % nasal spray 2 spray intranasal Q12H PRN NOSE 09/09/23 09/09/23 Unknown (Afrin (oxymetazoline)) BLEEDS polyethylene glycol 3350 17 gram 17 g PO DAILY PRN Constipation 09/09/23 09/09/23 Unknown oral powder packet (Miralax) propylene glycol 0.6 % eye drops 1 drp OPB QID PRN Dry Eyes 09/09/23 09/09/23 Unknown (Systane Complete) sodium chloride 0.65 % nasal spray 2 spray intranasal HS 09/09/23 09/09/23 09/08/23 aerosol (Saline Nasal) sodium phosphates 19 gram-7 118 ml OH Q24H PRN Constipation 09/09/23 09/09/23 Unknown gram/118 mL enema (Fleet Enema) trazodone 100 mg tablet 150 mg PO HS 09/09/23 09/09/2309/08/23 Active Medications Generic Name Dose Route Start Last Admin Trade Name Garrison PRN Reason Stop Dose Admin Aspirin 81 mg 09/10/23 09:00 09/10/23 08:11 Aspirin 81 Mg Ectab PO 10/10/23 08:59 81 mg DAILY BRANDO Administration Carbidopa/Levodopa 1 tab 09/10/23 09:00 09/10/23 14:03 Carbidopa/Levodopa 25/100mg Tab PO 10/10/23 08:59 1 tab 0900,1200 BRANDO Administration Carbidopa/Levodopa 1.5 tab 09/10/23 18:00 09/10/23 21:51 Carbidopa/Levodopa 25/100mg Tab PO 10/10/23 17:59 1.5 tab 1800,2200 BRANDO Administration Donepezil HCl 10 mg 09/10/23 09:00 09/10/23 08:11 Donepezil Hcl 10 Mg Tab PO 10/10/23 08:59 10 mg DAILY BRANDO Administration Enoxaparin Sodium 40 mg 09/10/23 08:00 09/10/23 08:20 Enoxaparin Inj 40 Mg/0.4 Ml Syr SQ 10/10/23 07:59 Not Given Q24H BRANDO Gabapentin 900 mg 09/10/23 21:00 09/10/23 21:51 Gabapentin 300 Mg Cap PO 10/10/23 20:59 900 mg HS BRANDO Administration Gabapentin 100 mg 09/10/23 21:00 09/10/23 21:52 Gabapentin 100 Mg Cap PO 10/10/23 20:59 100 mg HS BRANDO Administration Sodium Chloride 1,000 mls @ 100 mls/hr 09/10/23 00:00 09/11/23 06:15 Nss IV 10/10/23 00:00 100 mls/hr .Q10H BRANDO Administration Piperacillin Sod/Tazobactam 100 mls @ 25 mls/hr 09/10/23 08:00 09/11/23 04:44 Sod 4.5 gm/ Dextrose IV 09/20/23 07:59 Infused Q8H BRANDO Infusion Protocol Lactobacillus Acidophilus 2 cap 09/10/23 09:00 09/10/23 08:11 Advanced Probiotic 1250 Mg Capsule PO 10/10/23 08:59 2 cap DAILY BRANDO Administration Magnesium Oxide 200 mg 09/10/23 09:00 09/10/23 08:06 Magnesium Oxide 400 Mg Tab PO 10/10/23 08:59 200 mg DAILY BRANDO Administration Melatonin 3 mg 09/10/23 21:00 09/10/23 22:00 Melatonin 3 Mg Tab PO 10/10/23 20:59 3 mg HS BRANDO Administration Metoprolol Succinate 50 mg 09/10/23 09:00 09/10/23 08:10 Metoprolol Succ 50mg Ext Rel Tab PO 10/10/23 08:59 50 mg DAILY BRANDO Administration Miscellaneous 1 each 09/10/23 08:00 09/11/23 06:17 Fluocinolone 0.01 % Solution - Order Awaiting Action N/A 10/10/23 07:59 Not Given QS BRANDO Miscellaneous 1 each 09/10/23 08:00 09/11/23 06:17 Ketoconazole Shampoo - Order Awaiting Action N/A 10/10/23 07:59 Not Given QS BRANDO Multivitamins 1 tab 09/10/23 09:00 09/10/23 08:10 Multivitamin Tab PO 10/10/23 08:59 1 tab DAILY BRANDO Administration Sodium Chloride 2 sprays 09/10/23 21:00 09/10/23 21:53 Sodium Chloride 0.65% Na Soln 45 Ml (Brea) NA 10/10/23 20:59 2 sprays HS BRANDO Administration Trazodone HCl 150 mg 09/10/23 21:00 09/10/23 22:00 Trazodone Hcl 50 Mg Tab PO 10/10/23 20:59 150 mg HS BRANDO Administration Past Medical History Medical History Chronic atrial fibrillation Mitral valve prolapse Parkinson disease Past Family History Family History Mother Stroke Hemorrhage secondary to anticoagulation Past Surgical History Surgical History History of tonsillectomy and adenoidectomy History of tubal ligation History of right breast biopsy History of surgery Neurostimulator for Parkinson's disease, placed in [place] S/P deep brain stimulator placement Social History Smoking Status: Never smoker Do You Dip or Chew Tobacco: No Hx Alcohol Use: No Alcohol type: wine alcohol intake frequency: other Hx Substance Use: No substance use type: does not use Review of Systems Constitutional: no fever and no chills Eyes: no blind spots and no worsening vision Ear, Nose, Mouth, Throat: no ear pain and no dysphagia Respiratory: no cough and no dyspnea Cardiovascular: no chest pain and no dyspnea on exertion Gastrointestinal: no abdominal pain, no nausea and no vomiting Genitourinary (Female): no dysuria, no urinary hesitancy and no urinary urgency Musculoskeletal: no back pain and no neck pain Integumentary: + yellowing of the skin; no skin ulcer and no erythema Neurologic: + tremor(s); no gait abnormality Psychiatric: no behavioral changes and no depression Hematologic / Lymphatic: no easy bleeding and no easy bruising Physical Exam Vital Signs Last Vital Signs Temp 36.4 C L 09/11/23 02:52 Pulse 89 09/11/23 02:52 Resp 18 09/11/23 02:52 BP 104/67 09/11/23 02:52 Pulse Ox 93 09/11/23 02:52 O2 Del Method Room Air 09/11/23 02:52 Constitutional + cachectic Eyes EOM intact bilaterally; sclerae not anicteric ENMT external ear and nose normal, oropharynx normal Neck trachea midline, no thyromegaly Respiratory normal respiratory effort, lungs clear to auscultation Cardiovascular RRR, no murmur, no edema Gastrointestinal (Abdomen) Inspection/Auscultation: abdomen normal to inspection; abdomen not distended Percussion/Palpation: abdomen soft; abdomen nontender and no guarding Musculoskeletal no cyanosis or clubbing, extremities motor strength 5/5 Skin + jaundice Neurologic PERRL, EOMI, accommodation nl, no face palsy, no dysarthria Psychiatric A+Ox3, euthymic affect Testing Laboratory Results 09/11/23 05:47 09/11/23 05:47 PT 15.8 Seconds (9.0-12.0) H 09/09/23 16:03 INR 1.5 (0.9-1.1) H 09/09/23 16:03 APTT 28 Seconds (21-31) 09/09/23 16:03
[2023-09-11] MEDS ORDERED: fentaNYL citrate PF 100 MCG/2 ML VIAL IV PRN (07:15)
[2023-09-11] MEDS ORDERED: ePHEDrine sulfate 50 MG/ML AMP IV PRN (07:15)
[2023-09-11] MEDS ORDERED: ATROPINE SULFATE 0.1 MG/ML 10ML SYR IV PRN (07:15)
--- NOTE | 2023-09-11 07:59 | History & Physical Bridge Note ---
Date of Service September 11, 2023 History & Physical Bridge Note I have examined the patient, reviewed the History & Physical and in the interval since the performance of the History & Physical I have noted the following changes of clinical significance: no changes noted EUS ERCP Patient was explained in detail regarding risks, benefits, limitations and alternatives of the above endoscopic procedure. Risks of intravenous sedation used for procedure were also explained. Risks include, but not limited to perfo ration, bleeding, infection, respiratory distress, cardiac arrest and . Patient is also aware about the possibility of missed lesion. Patient's questions were answered. The patient verbalized understanding the information and agreed to undergo the procedure.
[2023-09-11] MEDS ORDERED: ONDANSETRON INJ 2 MG/ML 2 ML VIAL ONE (08:38)
[2023-09-11] MEDS ORDERED: DEXAMETHASONE SOD INJ 4 MG/ML VIAL ONE (08:38)
[2023-09-11] MEDS ORDERED: SUGAMMADEX SODIUM 200 MG/2 ML VIAL IV ONE (08:46)
--- NOTE | 2023-09-11 08:52 | Operative Report ---
Post Operative Report Pre & Post Diagnosis Operation Date: 09/11/23 08:00 Pre-Op Diagnosis: ELEVATED LFTS I identified the patient and participated in the time-out.: Yes Procedure Operation Date: 09/11/23 08:00 Actual Procedures p Esophagogastroduodenoscopy - Jf Hicks MD p Endoscopic Ultrasonography Upper with FNA - Jf Hicks MD s Endoscopic Retrograde Cholangiopancreato - Jf Hicks MD Surgeon Jf Hicks MD Lathe Machine Operator None Estimated Blood Loss 0 Findings See Below (Pancreas mass with biliary obstruction, stent placed) Specimens None Description of Procedure ERCP I attest to the content of the Intraoperative Record and any orders documented therein. Any exceptions are noted below.
--- NOTE | 2023-09-11 09:11 | GI REPORT ---
Patient Name: Wanda oDlan Procedure Date: 09/11/2023 7:31 AM Date of : 1940 Admit Type: Inpatient Age: 83 Gender: Female Attending MD: Jf Hicks MD, Procedure: Upper GI endoscopy Providers: Jf Hicks MD Referring MD: Shira Chu Md Indications: Abnormal CT of the GI tract Medicines: General Anesthesia Complications: No immediate complications. Estimated Blood Loss: Estimated blood loss: none. Procedure: Pre-Anesthesia Assessment: - Prior to the procedure, a History and Physical was performed, and patient medications, allergies and sensitivities were reviewed. The patient's tolerance of previous anesthesia was reviewed. - The risks and benefits of the procedure and the sedation options and risks were discussed with the patient. All questions were answered and informed consent was obtained. - Patient identification and proposed procedure were verified prior to the procedure by the physician and the nurse. The procedure was verified in the procedure room. - Pre-procedure physical examination revealed no contraindications to sedation. After obtaining informed consent, the endoscope was passed under direct vision. Throughout the procedure, the patient's blood pressure, pulse, and oxygen saturations were monitored continuously. The Endoscope was introduced through the mouth, and advanced to the second part of duodenum. The upper GI endoscopy was accomplished without difficulty. The patient tolerated the procedure well. Findings: The examined esophagus was normal. The entire examined stomach was normal. The duodenal bulb and second portion of the duodenum were normal. Impression: - Normal esophagus. - Normal stomach. - Normal duodenal bulb and second portion of the duodenum. Recommendation: - Perform an upper endoscopic ultrasound (UEUS) today. Jf Hicks MD 09/11/2023 9:11:47 AM This report has been signed electronically. Note Initiated On: 09/11/2023 7:31 AM Number of Addenda: 0 I attest to the content of the Intraoperative Record and orders documented therein, exceptions below {[id number]}
--- NOTE | 2023-09-11 09:17 | GI REPORT ---
Patient Name: Wanda Dolan Procedure Date: 09/11/2023 8:00 AM Date of : 1940 Admit Type: Inpatient Age: 83 Gender: Female Attending MD: Jf Hicks MD, Procedure: ERCP Providers: Jf Hicks MD Referring MD: Shira Chu Md Indications: Jaundice, Elevated liver enzymes, Malignant tumor of the head of pancreas Medicines: General Anesthesia Complications: No immediate complications. Estimated Blood Loss: Estimated blood loss: none. Procedure: Pre-Anesthesia Assessment: - Prior to the procedure, a History and Physical was performed, and patient medications, allergies and sensitivities were reviewed. The patient's tolerance of previous anesthesia was reviewed. - The risks and benefits of the procedure and the sedation options and risks were discussed with the patient. All questions were answered and informed consent was obtained. - Patient identification and proposed procedure were verified prior to the procedure by the physician and the nurse. The procedure was verified in the procedure room. - Pre-procedure physical examination revealed no contraindications to sedation. After obtaining informed consent, the scope was passed under direct vision. Throughout the procedure, the patient's blood pressure, pulse, and oxygen saturations were monitored continuously. The Duodenoscope was introduced through the mouth, and advanced to the duodenum and used to inject contrast into the bile duct. The ERCP was accomplished without difficulty. The patient tolerated the procedure well. Findings: The commercial announcer film was normal. The esophagus was successfully intubated under direct vision. The scope was advanced to a normal major papilla in the descending duodenum without detailed examination of the pharynx, larynx and associated structures, and upper GI tract. The upper GI tract was grossly normal. A 0.035 inch straight standard wire was passed into the biliary tree. The short-nosed traction sphincterotome was passed over the guidewire and the bile duct was then deeply cannulated. Contrast was injected. I personally interpreted the bile duct images. Ductal flow of contrast was adequate. Image quality was adequate. Contrast extended to the main bile duct. Opacification of the entire biliary tree except for the gallbladder was successful. The maximum diameter of the ducts was 15 mm. The lower third of the main bile duct contained a single severe stenosis. Biliary sphincterotomy was made with a monofilament traction (standard) sphincterotome using ERBE electrocautery. There was no post-sphincterotomy bleeding. One 10 mm by 8 cm covered metal biliary stent was placed into the common bile duct. Bile flowed through the stent. The stent was in good position. Impression: - A single severe malignant appearing distal biliary stricture was found. - A biliary sphincterotomy was performed. - One covered metal biliary stent was placed into the common bile duct. Recommendation: - Return patient to [facility] for ongoing care. - Repeat ERCP in one year to exchange the stent or earlier if any signs of biliary obstruction. - Patient at risk of cholecystitis in the future due to obstruction of the cystic duct by the pancreas cancer hence may need EUS guided Axios stent placement if this happens. Jf Hicks MD 09/11/2023 9:16:30 AM This report has been signed electronically. Note Initiated On: 09/11/2023 8:00 AM Number of Addenda: 0 I attest to the content of the Intraoperative Record and orders documented therein, exceptions below {[id number]}
--- NOTE | 2023-09-11 09:21 | GI REPORT ---
Patient Name: Wanda Dolan Procedure Date: 09/11/2023 7:32 AM Date of : 1940 Admit Type: Inpatient Age: 83 Gender: Female Attending MD: Jf Hicks MD, Procedure: Upper EUS Providers: Jf Hicks MD Referring MD: Shira Chu Md Indications: Suspected mass in pancreas on CT scan Medicines: General Anesthesia Complications: No immediate complications. Estimated Blood Loss: Estimated blood loss: none. Procedure: Pre-Anesthesia Assessment: - Prior to the procedure, a History and Physical was performed, and patient medications, allergies and sensitivities were reviewed. The patient's tolerance of previous anesthesia was reviewed. - The risks and benefits of the procedure and the sedation options and risks were discussed with the patient. All questions were answered and informed consent was obtained. - Patient identification and proposed procedure were verified prior to the procedure by the physician and the nurse. The procedure was verified in the procedure room. - Pre-procedure physical examination revealed no contraindications to sedation. After obtaining informed consent, the endoscope was passed under direct vision. Throughout the procedure, the patient's blood pressure, pulse, and oxygen saturations were monitored continuously. The scope was introduced through the mouth, and advanced to the second part of duodenum. The upper EUS was accomplished without difficulty. The patient tolerated the procedure well. Findings: ENDOSONOGRAPHIC FINDING: : There was no sign of significant endosonographic abnormality in the ampulla. No masses were identified. There was dilation in the common bile duct which measured up to 14 mm. Moderate hyperechoic material consistent with sludge was visualized endosonographically in the gallbladder. Multiple round lesions were identified endosonographically in the entire examined liver. The endosonographic appearance was suggestive of metastases. The lesions were hypoechoic. The endosonographic borders were poorly-defined. A round mass was identified in the pancreatic head. The mass was hypoechoic. The mass measured 20 mm by 20 mm in maximal cross-sectional diameter. The endosonographic borders were well-defined. There was sonographic evidence suggesting invasion into the portal vein (manifested by abutment). An intact interface was seen between the mass and the adjacent structures suggesting a lack of invasion. Fine needle aspiration for cytology was performed. Color Doppler imaging was utilized prior to needle puncture to confirm a lack of significant vascular structures within the needle path. Three passes were made with the 25 gauge needle using a transduodenal approach. A stylet was used. A maintenance supervisor was present and performed a preliminary cytologic examination. The cellularity of the specimen was adequate. Final cytology results are pending. Verification of patient identification for the specimen was done by the physician and nurse using the patient's name and date. This was staged T3 N2 M1 (based on endosonographic criteria of metastasis to the liver - tissue was not obtained) by endosonographic criteria. The staging applies if malignancy is confirmed. Many malignant-appearing lymph nodes were visualized in the peripancreatic region. The nodes were round, hypoechoic and had well defined margins. Impression: - A 2 cm mass was identified in the pancreatic head with likely metastasis to the liver. Fine needle aspiration performed. - Many malignant-appearing lymph nodes were visualized in the peripancreatic region. - There was dilation in the common bile duct which measured up to 14 mm. - Hyperechoic material consistent with sludge was visualized endosonographically in the gallbladder. - Multiple metastatic lesions were found in the entire examined liver. Recommendation: - Perform an ERCP today. - Await cytology results. - Patient is not a surgical candidate but should discuss with family if they want palliative care Vs. Oncology evaluation for chemotherapy. Jf Hicks MD 09/11/2023 9:21:15 AM This report has been signed electronically. Note Initiated On: 09/11/2023 7:32 AM Number of Addenda: 0 I attest to the content of the Intraoperative Record and orders documented therein, exceptions below {[id number]}
--- NOTE | 2023-09-11 09:48 | Fluoroscopy Report ---
[place] ERCP biliary ductal CLINICAL HISTORY: ERCPacute right upper quadrant abdominal pain COMPARISON STUDY: CT 09/09/2023 FLUOROSCOPY TIME: 26.8 seconds FLUOROSCOPY IMAGES: 7 EXPOSURE DOSE: 10.92 mGy FINDINGS: Endoscope noted within the duodenal. There is retrograde cannulation of the common bile willard t with injection of contrast. Dilation of the intrahepatic and extrahepatic biliary tree is again see n with the common bile duct measuring approximately 1.5 cm. There is irregular narrowing within the m ain hepatic duct. There is additional irregular narrowing within the distal common bile duct. No cont rast is seen within the gallbladder. Small amount of contrast is seen within the duodenal lumen. IMPRESSION: Fluoroscopic assistance as above. ACT 112: Negative or not required by law. Electronically signed by: Tanner Bejarano M.D. 09/11/2023 9:46 AM
[2023-09-11] MEDS: MAGNESIUM OXIDE 400 MG TAB PO SCH (10:27)
[2023-09-11] MEDS: CARBIDOPA/LEVODOPA 25/100MG TAB PO SCH ×5 (10:27→20:31)
[2023-09-11] MEDS: DONEPEZIL HCL 10 MG TAB PO SCH (10:28)
[2023-09-11] MEDS: ADVANCED PROBIOTIC 1250 MG CAPSULE PO SCH (10:28)
[2023-09-11] MEDS: METOPROLOL SUCC 50MG EXT REL TAB PO SCH (10:28)
[2023-09-11] MEDS: ASPIRIN 81 MG ECTAB PO SCH (10:28)
[2023-09-11] MEDS: MULTIVITAMIN TAB PO SCH (10:29)
--- NOTE | 2023-09-11 10:56 | Anesthesiology Progress Note ---
Date of Service September 11, 2023 Anesthesia Post Procedure Vital Signs Vital Signs: Temp Pulse Pulse Pulse Resp BP Pulse Ox 09/11/23 10:12 98 H 14 123/87 95 09/11/23 09:52 103 H 16 133/91 97 09/11/23 09:40 36.7 C 97 H 16 131/89 98 09/11/23 09:30 36.5 C 89 22 132/73 96 09/11/23 09:20 100 H 18 124/79 92 09/11/23 09:10 95 H 18 136/91 99 09/11/23 09:04 36.1 C L 94 H 26 H 127/78 99 09/11/23 07:11 37.2 C 94 H 20 138/84 95 09/11/23 06:20 91 H 09/11/23 02:52 36.4 C L 89 18 104/67 93 09/10/23 23:41 36.6 C 94 H 20 138/85 94 09/10/23 22:54 131 H 09/10/23 19:44 36.0 C L 81 20 121/81 96 09/10/23 15:56 36.4 C L 100 H 16 112/72 94 09/10/23 14:55 105 H 09/10/23 14:34 09/10/23 13:19 88 O2 Del Method O2 Flow Rate 09/11/23 10:12 Nasal Cannula 1 09/11/23 09:52 Nasal Cannula 09/11/23 09:40 Nasal Cannula 2 09/11/23 09:30 Nasal Cannula 2 09/11/23 09:20 Room Air 09/11/23 09:10 Oxymask 4 09/11/23 09:04 Oxymask 6 09/11/23 07:11 Room Air 09/11/23 06:20 09/11/23 02:52 Room Air 09/10/23 23:41 Room Air 09/10/23 22:54 09/10/23 19:44 Room Air 09/10/23 15:56 Room Air 09/10/23 14:55 09/10/23 14:34 Room Air 09/10/23 13:19 Transfer of Care Handoff Completed per policy Notes Mental Status: alert / awake / arousable Patient Amnestic to Procedure: Yes Nausea / Vomiting: adequately controlled Pain: adequately controlled Airway Patency, RR, SpO2: stable & adequate BP & HR: stable & adequate Hydration State: stable & adequate Anesthetic Complications: no major complications apparent and Pt Satisfied with anesthetic care
--- NOTE | 2023-09-11 15:58 | Hospitalist Progress Note ---
Date of Service September 11, 2023 Assessment & Plan (1) Elevated LFTs: Plan: Ms. Dolan is an 83-year-old female with past med significant for mitral valve prolapse, chronic atrial fibrillation, osteoarthrosis, polymyalgia rheumatica, Parkinson disease, s/p deep brain stimulator, dementia due to Parkinson's disease, peripheral neuropathy, who lives at [facility] assisted living was admitted for transaminitis and painless jaundice on 09/09. Imaging on admission concerning for occult pancreatic mass with multiple hepatic lesions and pulm modules suspicious for metastatic disease. Informed son and patient that though there is no formal biopsy/cytology, the current imaging and presentation is very suspicious for metastatic malignancy. Son hoping for further insight from Oncology to determine was generalized "prognosis" would be in this setting, and what options would be available, if any given poor functional status. Concern is mostly over how to approach this matter with patient. #Painless Jaundice #Obstructive pancreatic mass, concern for metastatic pancreatic cancer --CT ABD:Severe intra and extrahepatic bile duct dilatation with a severely distended gallbladder. There is an abrupt cut off within the common bile duct at the pancreatic head. The exact etiology of this obstruction is not well visualized but likely represents an occult pancreatic head lesion. GI consultation recommended. Upper abdominal lymphadenopathy, multiple hepatic lesions, and multiple pulmonary nodules which are highly suspicious for metastatic disease. Mild gallbladder wall thickening for the degree of distention with mild adjacent fat stranding. There are multiple small gallstones. This is concerning for a developing acute cholecystitis. --Liver USD: There is marked dilatation of the common bile duct as well as intrahepatic biliary ductal dilatation. Abnormal soft tissue is suggested adjacent to the pancreatic head/ampulla, which may extend into the common bile duct. Neoplasm is the diagnosis of exclusion. Markedly distended and abnormal gallbladder which contains gallstones and sludge. The gallbladder wall is thickened and there is trace pericholecystic fluid. Acute cholecystitis is not excluded and clinical correlation will be required. Multifocal hepatic metastatic disease. This was better assessed by CT. There is nodularity of the hepatic surface contour which could be related to cirrhotic change or metastatic disease. Mildly enlarged lymph nodes in the vika hepatis are likely neoplastic. --Clinically no signs of acute cholecystitis --Empirically on Zosyn for possible infection, likely discontinue in 24 hours after ERCP -s/p ERCP and stenting, will need OP follow up with GI -Resume diet -Trend CMP -Oncology consult to aid in discussion with projected plan forward given high suspicion for malignancy/poor functional status #Bilateral lower extremity edema and erythema, likely venous statsis Venous Doppler:Normal bilateral lower extremity duplex venous ultrasound. CTM #Permanent Atrial fibrillation ? NSVT 7 beats in the ER Possible artifact Monitor telemetry --ECHO: A-fib with controlled ventricular response rate. Left ventricle is normal in size. Mild concentric LVH. Left ventricular wall motion is normal. EF 55 to 60%. Mitral valve leaflets are mildly thickened. Mild mitral regurgitation. Moderate to severe tricuspid regurgitation. Right atrium is moderate to severely dilated. Right ventricular systolic pressure is elevated at 40 to 50 mmHg. Continue metoprolol Monitor electrolytes and replace as needed Not on anticoagulation secondary to fall risk #Parkinson's disease S/p deep brain stimulator Continue Sinemet #Dementia due to Parkinson disease Continue Donepezil Reorient frequently to minimize delirium Monitor PT/OT DVT prophylaxis Lovenox SQ Code Status Full code Disposition PT OT prior to discharge Admission and Anticipated Discharge Date Admission Date: September 09, 2023 Subjective Patient evaluated after ERCP--reports strong appetite and eager to eat full diet. Denies nausea, vomiting, abdominal pain, or other acute concerns. Son met at bedside--long discussion had in waiting area. Discussed concerns and high suspicion of malignancy. Son requested plan for next steps: discussed getting Oncology to weight in on whether there were "options" versus pursing palliative/hospice right away Review of Systems Review of Systems: All systems reviewed & are unremarkable except as noted in Subjective Physical Exam Constitutional: WD/WN, vitals as above Respiratory: normal respiratory effort, lungs clear to auscultation Cardiovascular: irregularly irregular Skin: diffuse jaundice, including scleral icterus Results & Data Results & Data Vital Signs (Past 12 Hours) Vital Signs Temp Pulse Pulse Pulse Resp BP Pulse Ox 09/11/23 11:40 36.6 C 82 18 117/78 95 09/11/23 11:20 09/11/23 10:12 98 H 14 123/87 95 09/11/23 09:52 103 H 16 133/91 97 09/11/23 09:40 36.7 C 97 H 16 131/89 98 09/11/23 09:30 36.5 C 89 22 132/73 96 09/11/23 09:20 100 H 18 124/79 92 09/11/23 09:10 95 H 18 136/91 99 09/11/23 09:04 36.1 C L 94 H 26 H 127/78 99 09/11/23 07:11 37.2 C 94 H 20 138/84 95 09/11/23 06:20 91 H O2 Del Method O2 Flow Rate 09/11/23 11:40 Nasal Cannula 1 09/11/23 11:20 Nasal Cannula 1 09/11/23 10:12 Nasal Cannula 1 09/11/23 09:52 Nasal Cannula 09/11/23 09:40 Nasal Cannula 2 09/11/23 09:30 Nasal Cannula 2 09/11/23 09:20 Room Air 09/11/23 09:10 Oxymask 4 09/11/23 09:04 Oxymask 6 09/11/23 07:11 Room Air 09/11/23 06:20 Laboratory Results Short CBC 09/11/23 Range/Units 05:47 WBC 8.83 (4.8-10.8) K/ul Hgb 10.0 L (12.0-16.0) g/dl Hct 31.0 L (37.0-47.0) % Plt Count 215 (130-400) K/uL BMP 09/11/23 05:47 Sodium 141 Potassium 3.7 Chloride 109 H Carbon Dioxide 26 BUN 10 Creatinine 0.78 Glucose 92 Calcium 8.7 Liver Function 09/11/23 Range/Units 05:47 Total Bilirubin 8.8 H (0.2-1.0) mg/dl Direct Bilirubin 5.6 H (0-0.2) mg/dl AST 95 H (13-39) U/L ALT 26 (7-52) U/L Alkaline Phosphatase 300 H (34-104) U/L Albumin 3.0 L (3.4-5.0) gm/dl Medications Administered Home Medications Medication Instructions Recorded Confirmed Last Taken carbidopa 25 mg-levodopa 100 mg See Rx Instructions .Route .COMPLEX 03/15/19 09/09/23 09/09/23 12:00 tablet aspirin 81 mg tablet,delayed 81 mg PO DAILY 08/08/20 09/09/23 09/09/23 release multivitamin 1 tab PO DAILY 08/08/20 09/09/23 09/09/23 Lactobacillus acidoph-L.bulgaricus 2 tab PO DAILY 09/09/23 09/09/2309/09/23 1 million cell tablet (Floranex) acetaminophen 325 mg tablet 650 mg PO Q4H PRN Pain 09/09/23 09/09/23 Unknown (Tylenol) amoxicillin 500 mg capsule 2,000 mg PO DIRECTED PRN 1 HR. 09/09/23 09/09/23 Unknown PRIOR TO DENTAL PROCEDURES biotin 5 mg tablet 5 mg PO DAILY 09/09/23 09/09/23 09/09/23 cholecalciferol (vitamin D3) 50 50 mcg PO BID 09/09/23 09/09/23 09/09/23 08:00 mcg (2,000 unit) capsule (Vitamin D3) diphenhydramine 25 1 tab PO HS PRN Sleep 09/09/23 09/09/23 Unknown mg-acetaminophen 500 mg tablet (Tylenol PM Extra Strength) docusate sodium 100 mg capsule 100 mg PO BID PRN Constipation 09/09/23 09/09/23 Unknown donepezil 10 mg tablet 10 mg PO DAILY 09/09/23 09/09/23 09/09/23 fluocinolone 0.01 % topical 1 applic topical BID PRN 09/09/23 09/09/23 Unknown solution SEBORRHEIC DERMATITIS gabapentin 100 mg capsule 100 mg PO HS 09/09/23 09/09/23 09/08/23 gabapentin 300 mg capsule 900 mg PO HS 09/09/23 09/09/23 09/08/23 hydrocortisone 2.5 % lotion 1 applic topical TID PRN 09/09/23 09/09/23 Unknown SOBORRHEIC DERMATITIS ON SCALP ketoconazole 2 % shampoo 1 applic topical 2XWK 09/09/23 09/09/23 09/09/23 levomefolate Ca 3 mg-B6 35 1 cap PO DAILY 09/09/23 09/09/23 09/09/23 mg-meB12 2 mg-algal oil 90.314 mg capsule (Foltanx RF) loperamide 2 mg tablet 2 mg PO QID PRN Diarrhea 09/09/23 09/09/23 Unknown magnesium oxide 200 mg PO DAILY 09/09/23 09/09/23 09/09/23 melatonin 5 mg tablet 10 mg PO HS 09/09/23 09/09/23 09/08/23 metoprolol succinate 50 mg capsule 50 mg PO DAILY 09/09/23 09/09/23 09/09/23 sprinkle, ext. release 24 hr mineral oil (Mineral Oil Heavy 3 ea PO 2XWK 09/09/23 09/09/23 09/08/23 oral) mirtazapine 15 mg tablet 15 mg PO HS 09/09/23 09/09/23 09/08/23 oxymetazoline 0.05 % nasal spray 2 spray intranasal Q12H PRN NOSE 09/09/23 09/09/23 Unknown (Afrin (oxymetazoline)) BLEEDS polyethylene glycol 3350 17 gram 17 g PO DAILY PRN Constipation 09/09/23 09/09/23 Unknown oral powder packet (Miralax) propylene glycol 0.6 % eye drops 1 drp OPB QID PRN Dry Eyes 09/09/23 09/09/23 Unknown (Systane Complete) sodium chloride 0.65 % nasal spray 2 spray intranasal HS 09/09/23 09/09/23 09/08/23 aerosol (Saline Nasal) sodium phosphates 19 gram-7 118 ml SC Q24H PRN Constipation 09/09/23 09/09/23 Unknown gram/118 mL enema (Fleet Enema) trazodone 100 mg tablet 150 mg PO HS 09/09/23 09/09/23 09/08/23 Active Medications Generic Name Dose Route Start Last Admin Trade Name Freq PRN Reason Stop Dose Admin Aspirin 81 mg 09/10/23 09:00 09/11/23 10:28 Aspirin 81 Mg Ectab PO 10/10/23 08:59 81 mg DAILY BRANDO Administration Carbidopa/Levodopa 1 tab 09/10/23 09:00 09/11/23 13:57 Carbidopa/Levodopa 25/100mg Tab PO 10/10/23 08:59 1 tab 0900,1200 BRANDO Administration Carbidopa/Levodopa 1.5 tab 09/10/23 18:00 09/10/23 21:51 Carbidopa/Levodopa 25/100mg Tab PO 10/10/23 17:59 1.5 tab 1800,2200 BRANDO Administration Donepezil HCl 10 mg 09/10/23 09:00 09/11/23 10:28 Donepezil Hcl 10 Mg Tab PO 10/10/23 08:59 10 mg DAILY BRANDO Administration Enoxaparin Sodium 40 mg 09/10/23 08:00 09/10/23 08:20 Enoxaparin Inj 40 Mg/0.4 Ml Syr SQ 10/10/23 07:59 Not Given Q24H BRANDO Gabapentin 900 mg 09/10/23 21:00 09/10/23 21:51 Gabapentin 300 Mg Cap PO 10/10/23 20:59 900 mg HS BRANDO Administration Gabapentin 100 mg 09/10/23 21:00 09/10/23 21:52 Gabapentin 100 Mg Cap PO 10/10/23 20:59 100 mg HS BRANDO Administration Piperacillin Sod/Tazobactam 100 mls @ 25 mls/hr 09/10/23 08:00 09/11/23 15:44 Sod 4.5 gm/ Dextrose IV 09/20/23 07:59 25 mls/hr Q8H BRANDO Administration Protocol Lactobacillus Acidophilus 2 cap 09/10/23 09:00 09/11/23 10:28 Advanced Probiotic 1250 Mg Capsule PO 10/10/23 08:59 2 cap DAILY BRANDO Administration Magnesium Oxide 200 mg 09/10/23 09:00 09/11/23 10:27 Magnesium Oxide 400 Mg Tab PO 10/10/23 08:59 200 mg DAILY BRANDO Administration Melatonin 3 mg 09/10/23 21:00 09/10/23 22:00 Melatonin 3 Mg Tab PO 10/10/23 20:59 3 mg HS BRANDO Administration Metoprolol Succinate 50 mg 09/10/23 09:00 09/11/23 10:28 Metoprolol Succ 50mg Ext Rel Tab PO 10/10/23 08:59 50 mg DAILY BRANDO Administration Miscellaneous 1 each 09/10/23 08:00 09/11/23 15:41 Fluocinolone 0.01 % Solution - Order Awaiting Action N/A 10/10/23 07:59 Not Given QS BRANDO Miscellaneous 1 each 09/10/23 08:00 09/11/23 15:42 Ketoconazole Shampoo - Order Awaiting Action N/A 10/10/23 07:59 Not Given QS BRANDO Multivitamins 1 tab 09/10/23 09:00 09/11/23 10:29 Multivitamin Tab PO 10/10/23 08:59 1 tab DAILY BRANDO Administration Sodium Chloride 2 sprays 09/10/23 21:00 09/10/23 21:53 Sodium Chloride 0.65% Na Soln 45 Ml (Harris) NA 10/10/23 20:59 2 sprays HS BRANDO Administration Trazodone HCl 150 mg 09/10/23 21:00 09/10/23 22:00 Trazodone Hcl 50 Mg Tab PO 10/10/23 20:59 150 mg HS BRANDO Administration
[2023-09-11] MEDS: SODIUM CHLORIDE 0.65% NA SOLN 45 ML (OCEAN) SCH (20:30)
[2023-09-11] MEDS: GABAPENTIN 300 MG CAP PO SCH (20:31)
[2023-09-11] MEDS: GABAPENTIN 100 MG CAP PO SCH (20:32)
[2023-09-11] MEDS: MELATONIN 3 MG TAB PO SCH (22:05)
[2023-09-11] MEDS: diphenhydrAMINE Capsule 25 MG CAP PO PRN (22:05)
[2023-09-11] MEDS: ACETAMINOPHEN 500 MG TAB PO PRN (22:05)
[2023-09-11] MEDS: traZODone HCL 50 MG TAB PO SCH (22:05)
[2023-09-12] MEDS: PIPERACILLIN/TAZOBACTAM 4.5 GM in DEXTROSE 5% MINI-B 100 ML IV SCH ×2 (01:31→08:53)
[2023-09-12 06:10] LABS: Hematocrit (blood only) 37.6 % (37.0-47.0); Hemoglobin 12.1 g/dl (12.0-16.0); Mean Corpuscular Hemoglobin 29.8 pg (25.0-34.0); Mean Corpuscular Hgb Conc 32.2 g/dL (32.0-36.0); Mean Corpuscular Volume 92.6 fL (80.0-100.0); Mean Platelet Volume 10.9 fL (9.4-12.4); Platelet Count 271 K/uL (130-400); RDW Coefficient of Variation 14.6 % (11.5-14.5); Red Blood Count 4.06 M/uL (4.20-5.40); White Blood Count 13.26 K/ul (4.8-10.8)
[2023-09-12 06:36] LABS: BUN Creatinine Ratio 28.8 (10-20); Bilirubin,Total 3.8 mg/dl (0.2-1.0); Calcium 8.7 mg/dl (8.6-10.3); Creatinine Clr Calc Pharmacy 51.1 ml/min; Est GFR (African American) 79.6 ml/min; Est GFR (Non-African American) 68.7 ml/min; Magnesium 1.9 mg/dl (1.7-2.4); Phosphorus 2.8 mg/dl (2.5-4.9); Potassium 3.8 mmol/L (3.5-5.1)
[2023-09-12] MEDS: METOPROLOL SUCC 50MG EXT REL TAB PO SCH (08:52)
[2023-09-12] MEDS: MULTIVITAMIN TAB PO SCH (08:52)
[2023-09-12] MEDS: DONEPEZIL HCL 10 MG TAB PO SCH (08:52)
[2023-09-12] MEDS: ADVANCED PROBIOTIC 1250 MG CAPSULE PO SCH (08:52)
[2023-09-12] MEDS: MAGNESIUM OXIDE 400 MG TAB PO SCH (08:52)
[2023-09-12] MEDS: ASPIRIN 81 MG ECTAB PO SCH (08:52)
[2023-09-12] MEDS: [UNRECOGNIZED DRUG - OTHER] SCH ×2 (08:53→13:00)
[2023-09-12] MEDS: ACETAMINOPHEN 500 MG TAB PO PRN (08:59)
--- NOTE | 2023-09-12 11:38 | Oncology Consultation ---
Date of Consultation September 12, 2023 Assessment & Plan (1) Pancreatic mass: I had a very lengthy discussion with the patient's sons as well as the patient herself. Explained to her sons that we are dealing with an incurable and advanced malignancy arising out of the pancreatic head. Discussed the different treatment options going forward which can include either palliative systemic chemotherapy or best supportive care. I briefly discussed the different chemotherapeutic options which can be either 5-fluorouracil based on gemcitabine based. Went over the potential downsides of chemotherapy which include a potential risk for infections, myelosuppression, debilitation. Explained that we prefer to give chemotherapy to patients who are generally fit with a good performance status and can potentially tolerate the side effects of chemotherapy. The other option which was discussed was best supportive care including hospice care given that we are potentially dealing with an advanced pancreatic cancer. Explained the generally poor prognosis in these clinical situations. After my discussion with the patient's sons, evaluation of the patient herself, keeping in mind her advanced Parkinson's disease/dementia we came to conclusion that chemotherapy would not be a good option. Keeping this in mind I am making a recommendation for best supportive care with evaluation by our colleagues from hospice. At the end of the visit all of the patient's and her son's questions were answered to her satisfaction. Thank you for this interesting oncological consult. At this time oncology will continue to follow the patient closely and make appropriate recommendations if needed. (2) Metastasis to liver: Plan Recommendation for best supportive care. Consideration for hospice. Will leave that to our colleagues from hospital medicine. History of Present Illness Reason for Consultation: ? Pancreatic cancer Attending Physician: Shira Bowling MD History of Present Illness 83-year-old female with past med significant for mitral valve prolapse, chronic atrial fibrillation, osteoarthrosis, polymyalgia rheumatica, Parkinson disease, s/p deep brain stimulator, dementia due to Parkinson's disease, peripheral neuropathy. The patient initially presented to the hospital with elevated liver function tests. CT abdomen pelvis performed on 09/09/2023 revealed severe intra and extrahepatic bile duct dilatation with a severely distended gallbladder. The re is an abrupt cut off within the common bile duct at the pancreatic head. ? occult pancreatic head lesion. Upper abdominal lymphadenopathy, multiple hepatic lesions, and multiple pulmonary nodules which are highly suspicious for metastatic disease. Subsequently she was evaluated by her GI colleague and underwent an endoscopic ultrasound and upper GI endoscopy with ERCP on 09/11/2023, which revealed a 2 cm mass in the pancreatic head with likely metastatic disease to the liver. Many malignant appearing lymph nodes visualized in the peripancreatic region. Dilatation of the common bile duct, m easured up to 14 mm. Multiple metastatic lesions in the liver. The official results of cytology and biopsy from this ERCP/EUS are still pending. Medical oncology has been consulted to assist in management of this patient with pancreatic cancer with possible metastatic disease to the liver. I evaluated the patient today, she was just waking up. She tells me that she lives in [facility] facility, is relatively active, uses walker. However she has a history of Parkinson's disease which is advanced, she is s/p deep brain stimulation, uses a walker to walk, has some level of dementia as well. Allergies Allergy/AdvReac Type Severity Reaction Status Date / Time No Known Allergies Allergy Unknown Verified 09/09/23 17:06 Home Medications Medication Instructions Recorded Confirmed Type carbidopa 25 mg-levodopa 100 mg See Rx Instructions .Route .COMPLEX 03/15/19 09/09/23 History tablet aspirin 81 mg tablet,delayed 81 mg PO DAILY 08/08/20 09/09/23 History release multivitamin 1 tab PO DAILY 08/08/20 09/09/23 History Lactobacillus acidoph-L.bulgaricus 2 tab PO DAILY 09/09/23 09/09/23 History 1 million cell tablet (Floranex) acetaminophen 325 mg tablet 650 mg PO Q4H PRN Pain 09/09/23 09/09/23 History (Tylenol) amoxicillin 500 mg capsule 2,000 mg PO DIRECTED PRN 1 HR. 09/09/23 09/09/23 History PRIOR TO DENTAL PROCEDURES biotin 5 mg tablet 5 mg PO DAILY 09/09/23 09/09/23 History cholecalciferol (vitamin D3) 50 50 mcg PO BID 09/09/23 09/09/23 History mcg (2,000 unit) capsule (Vitamin D3) diphenhydramine 25 1 tab PO HS PRN Sleep 09/09/23 09/09/23 History mg-acetaminophen 500 mg tablet (Tylenol PM Extra Strength) docusate sodium 100 mg capsule 100 mg PO BID PRN Constipation 09/09/23 09/09/23 History donepezil 10 mg tablet 10 mg PO DAILY 09/09/23 09/09/23 History fluocinolone 0.01 % topical 1 applic topical BID PRN 09/09/23 09/09/23 History solution SEBORRHEIC DERMATITIS gabapentin 100 mg capsule 100 mg PO HS 09/09/23 09/09/23 History gabapentin 300 mg capsule 900 mg PO HS 09/09/23 09/09/23 History hydrocortisone 2.5 % lotion 1 applic topical TID PRN 09/09/23 09/09/23 History SOBORRHEIC DERMATITIS ON SCALP ketoconazole 2 % shampoo 1 applic topical 2XWK 09/09/23 09/09/23 History levomefolate Ca 3 mg-B6 35 1 cap PO DAILY 09/09/23 09/09/23 History mg-meB12 2 mg-algal oil 90.314 mg capsule (Foltanx RF) loperamide 2 mg tablet 2 mg PO QID PRN Diarrhea 09/09/23 09/09/23 History magnesium oxide 200 mg PO DAILY 09/09/23 09/09/23 History melatonin 5 mg tablet 10 mg PO HS 09/09/23 09/09/23 History metoprolol succinate 50 mg capsule 50 mg PO DAILY 09/09/23 09/09/23 History sprinkle, ext. release 24 hr mineral oil (Mineral Oil Heavy 3 ea PO 2XWK 09/09/23 09/09/23 History oral) mirtazapine 15 mg tablet 15 mg PO HS 09/09/23 09/09/23 History oxymetazoline 0.05 % nasal spray 2 spray intranasal Q12H PRN NOSE 09/09/23 09/09/23 History (Afrin (oxymetazoline)) BLEEDS polyethylene glycol 3350 17 gram 17 g PO DAILY PRN Constipation 09/09/23 09/09/23 History oral powder packet (Miralax) propylene glycol 0.6 % eye drops 1 drp OPB QID PRN Dry Eyes 09/09/23 09/09/23 History (Systane Complete) sodium chloride 0.65 % nasal spray 2 spray intranasal HS 09/09/23 09/09/23 History aerosol (Saline Nasal) sodium phosphates 19 gram-7 118 ml [place] Q24H PRN Constipation 09/09/23 09/09/23 History gram/118 mL enema (Fleet Enema) trazodone 100 mg tablet 150 mg PO HS 09/09/23 09/09/23 History Patient History Medical History Chronic atrial fibrillation Mitral valve prolapse Parkinson disease Surgical History History of tonsillectomy and adenoidectomy History of tubal ligation History of right breast biopsy History of surgery Neurostimulator for Parkinson's disease, placed in [place], [place] S/P deep brain stimulator placement Family History Mother Stroke Hemorrhage secondary to anticoagulation Social History Smoking Status: Never smoker Second Hand Exposure: No; Do You Dip or Chew Tobacco: No; Hx Alcohol Use: No Hx Substance Use: No Preferred Language: [place] Communication Ability: Effective [employer] Clerk Required: No Beliefs That Will Affect Care: None Current Living Situation: Retirement Feels Safe at Home: Yes Assistive Devices: Walker Results & Data Vital Signs (Past 12 Hours) Vital Signs Temp Pulse Pulse Resp BP BP Pulse Ox 09/12/23 09:10 36.7 C 118 H 16 103/70 92 09/12/23 03:21 36.6 C 115 H 18 113/76 93 09/11/23 23:54 36.5 C 87 18 115/78 92 O2 Del Method 09/12/23 09:10 Room Air 09/12/23 03:21 Room Air 09/11/23 23:54 Room Air
[2023-09-12] MEDS ORDERED: HYDROmorphone INJ 0.5 MG/0.5 ML SYR IV PRN ×2 (12:14→16:42)
[2023-09-12] MEDS: CARBIDOPA/LEVODOPA 25/100MG TAB PO SCH ×3 (12:23→21:55)
[2023-09-12] MEDS ORDERED: bisacodyL 5 MG TABEC PO ONE (12:39)
[2023-09-12] MEDS ORDERED: POLYETHYLENE (MIRALAX) 17 GM PACK PO SCH (12:45)
--- NOTE | 2023-09-12 12:54 | Hospitalist Progress Note ---
Date of Service September 12, 2023 Assessment & Plan (1) Elevated LFTs: Plan: Ms. Dolan is an 83-year-old female with past med significant for mitral valve prolapse, chronic atrial fibrillation, osteoarthrosis, polymyalgia rheumatica, Parkinson disease, s/p deep brain stimulator, dementia due to Parkinson's disease, peripheral neuropathy, who lives at [facility] assisted living was admitted for transaminitis and painless jaundice on 09/09. Imaging on admission concerning for occult pancreatic mass with multiple hepatic lesions and pulm modules suspicious for metastatic disease. Informed son and patient that though there is no formal biopsy/cytology, the current imaging and presentation is very suspicious for metastatic malignancy. Son hoping for further insight from Oncology to determine was generalized "prognosis" would be in this setting, and what options would be available, if any given poor functional status. Concern is mostly over how to approach this matter with patient. Oncology graciously evaluated patient on 09/12. Again, it was reiterated that patient has poor functional status and likely would not be a candidate for any chemotherapy. Son and patient now considering hospice. Discussed code status with Son--at this time patient to be conditional code until dispo clarified with [facility] come Thursday. Conditional will be no CPR or mechanical ventilation, but if transfer to ICU/pressor support is needed please contact [facility] to discuss prior to doing so. Goal in the interim is pain management. #Painless Jaundice #Obstructive pancreatic mass, concern for metastatic pancreatic cancer --CT ABD:Severe intra and extrahepatic bile duct dilatation with a severely distended gallbladder. There is an abrupt cut off within the common bile duct at the pancreatic head. The exact etiology of this obstruction is not well visualized but likely represents an occult pancreatic head lesion. GI consultation recommended. Upper abdominal lymphadenopathy, multiple hepatic lesions, and multiple pulmonary nodules which are highly suspicious for metastatic disease. Mild gallbladder wall thickening for the degree of distention with mild adjacent fat stranding. There are multiple small gallst ones. This is concerning for a developing acute cholecystitis. --Liver USD: There is marked dilatation of the common bile duct as well as intrahepatic biliary ductal dilatation. Abnormal soft tissue is suggested adjacent to the pancreatic head/ampulla, which may extend into the common bile duct. Neoplasm is the diagnosis of exclusion. Markedly distended and abnormal gallbladder which contains gallstones and sludge. The gallbladder wall is thickened and there is trace pericholecystic fluid. Acute cholecystitis is not excluded and clinical correlation will be required. Multifocal hepatic metast atic disease. This was better assessed by CT. There is nodularity of the hepatic surface contour which could be related to cirrhotic change or metastatic disease. Mildly enlarged lymph nodes in the vika hepatis are likely neoplastic. --Clinically no signs of acute cholecystitis --Empirically on Zosyn for possible infection, likely discontinue in 24 hours after ERCP -s/p ERCP and stenting, will need OP follow up with GI -Continue diet -Oncology consult to aid in discussion with projected plan forward given high suspicion for malignancy/poor functional status -Recommends hospice, will discuss with Case Management on Thursday after assessing patients status over weekend -Pain control: tylenol prn, diluaidid 0.25 mg q6h #Constipation -Aggressive bowel regimen #Bilateral lower extremity edema and erythema, likely venous statsis Venous Doppler:Normal bilateral lower extremity duplex venous ultrasound. CTM #Permanent Atrial fibrillation ? NSVT 7 beats in the ER Possible artifact Monitor telemetry --ECHO: A-fib with controlled ventricular response rate. Left ventricle is normal in size. Mild concentric LVH. Left ventricular wall motion is normal. EF 55 to 60%. Mitral valve leaflets are mildly thickened. Mild mitral regurgitation. Moderate to severe tricuspid regurgitation. Right atrium is moderate to severely dilated. Right ventricular systolic pressure is elevated at 40 to 50 mmHg. Continue metoprolol Monitor electrolytes and replace as needed Not on anticoagulation secondary to fall risk #Parkinson's disease S/p deep brain stimulator Continue Sinemet #Dementia due to Parkinson disease Continue Donepezil Reorient frequently to minimize delirium Monitor PT/OT DVT prophylaxis Lovenox SQ Code Status Conditional Code as of 09/12--No compressions, if pressor/intubation is necessary please call son to discuss circumstances and next steps (will likely go DNR/DNI, but still wanting to keep mother as "long" as able especially for family to say "hello" prior to revoking code status, will discuss again) Disposition PT OT prior to discharge Admission and Anticipated Discharge Date Admission Date: September 09, 2023 Subjective Long discussion with son about next steps and discussion with Oncology. Likely planning Physical Exam Constitutional: tired, less jaundiced than day prior Respiratory: normal respiratory effort, lungs clear to auscultation Cardiovascular: RRR, no murmur, no edema Gastrointestinal (Abdomen): firm, slightly distended Results & Data Results & Data Vital Signs (Past 12 Hours) Vital Signs Temp Pulse Pulse Resp BP BP Pulse Ox 09/12/23 12:02 36.7 C 114 H 17 103/71 93 09/12/23 09:10 36.7 C 118 H 16 103/70 92 09/12/23 03:21 36.6 C 115 H 18 113/76 93 O2 Del Method 09/12/23 12:02 Room Air 09/12/23 09:10 Room Air 09/12/23 03:21 Room Air Laboratory Results Short CBC 09/12/23 Range/Units 05:54 WBC 13.26 H (4.8-10.8) K/ul Hgb 12.1 (12.0-16.0) g/dl Hct 37.6 (37.0-47.0) % Plt Count 271 (130-400) K/uL BMP 09/12/23 05:54 Sodium 138 Potassium 3.8 Chloride 109 H Carbon Dioxide 23 BUN 23 Creatinine 0.80 Glucose 130 H Calcium 8.7 Liver Function 09/12/23 Range/Units 05:54 Total Bilirubin 3.8 H D (0.2-1.0) mg/dl AST 56 H (13-39) U/L ALT 22 (7-52) U/L Alkaline Phosphatase 274 H (34-104) U/L Albumin 3.0 L (3.4-5.0) gm/dl Medications Administered Home Medications Medication Instructions Recorded Confirmed Last Taken carbidopa 25 mg-levodopa 100 mg See Rx Instructions .Route .COMPLEX 03/15/19 09/09/23 09/09/23 12:00 tablet aspirin 81 mg tablet,delayed 81 mg PO DAILY 08/08/20 09/09/23 09/09/23 release multivitamin 1 tab PO DAILY 08/08/20 09/09/23 09/09/23 Lactobacillus acidoph-L.bulgaricus 2 tab PO DAILY 09/09/23 09/09/23 09/09/23 1 million cell tablet (Floranex) acetaminophen 325 mg tablet 650 mg PO Q4H PRN Pain 09/09/23 09/09/23 Unknown (Tylenol) amoxicillin 500 mg capsule 2,000 mg PO DIRECTED PRN 1 HR. 09/09/23 09/09/23 Unknown PRIOR TO DENTAL PROCEDURES biotin 5 mg tablet 5 mg PO DAILY 09/09/23 09/09/23 09/09/23 cholecalciferol (vitamin D3) 50 50 mcg PO BID 09/09/23 09/09/23 09/09/23 08:00 mcg (2,000 unit) capsule (Vitamin D3) diphenhydramine 25 1 tab PO HS PRN Sleep 09/09/23 09/09/23 Unknown mg-acetaminophen 500 mg tablet (Tylenol PM Extra Strength) docusate sodium 100 mg capsule 100 mg PO BID PRN Constipation 09/09/23 09/09/23 Unknown donepezil 10 mg tablet 10 mg PO DAILY 09/09/23 09/09/23 09/09/23 fluocinolone 0.01 % topical 1 applic topical BID PRN 09/09/23 09/09/23 Unknown solution SEBORRHEIC DERMATITIS gabapentin 100 mg capsule 100 mg PO HS 09/09/23 09/09/23 09/08/23 gabapentin 300 mg capsule 900 mg PO HS 09/09/23 09/09/23 09/08/23 hydrocortisone 2.5 % lotion 1 applic topical TID PRN 09/09/23 09/09/23 Unknown SOBORRHEIC DERMATITIS ON SCALP ketoconazole 2 % shampoo 1 applic topical 2XWK 09/09/23 09/09/23 09/09/23 levomefolate Ca 3 mg-B6 35 1 cap PO DAILY 09/09/23 09/09/23 09/09/23 mg-meB12 2 mg-algal oil 90.314 mg capsule (Foltanx RF) loperamide 2 mg tablet 2 mg PO QID PRN Diarrhea 09/09/23 09/09/23 Unknown magnesium oxide 200 mg PO DAILY 09/09/23 09/09/23 09/09/23 melatonin 5 mg tablet 10 mg PO HS 09/09/23 09/09/23 09/08/23 metoprolol succinate 50 mg capsule 50 mg PO DAILY 09/09/23 09/09/23 09/09/23 sprinkle, ext. release 24 hr mineral oil (Mineral Oil Heavy 3 ea PO 2XWK 09/09/23 09/09/23 09/08/23 oral) mirtazapine 15 mg tablet 15 mg PO HS 09/09/23 09/09/23 09/08/23 oxymetazoline 0.05 % nasal spray 2 spray intranasal Q12H PRN NOSE 09/09/23 09/09/23 Unknown (Afrin (oxymetazoline)) BLEEDS polyethylene glycol 3350 17 gram 17 g PO DAILY PRN Constipation 09/09/23 09/09/23 Unknown oral powder packet (Miralax) propylene glycol 0.6 % eye drops 1 drp OPB QID PRN Dry Eyes 09/09/23 09/09/23 Unknown (Systane Complete) sodium chloride 0.65 % nasal spray 2 spray intranasal HS 09/09/23 09/09/23 09/08/23 aerosol (Saline Nasal) sodium phosphates 19 gram-7 118 ml [place] Q24H PRN Constipation 09/09/23 09/09/23 Unknown gram/118 mL enema (Fleet Enema) trazodone 100 mg tablet 150 mg PO HS 09/09/23 09/09/23 09/08/23 Active Medications Generic Name Dose Route Start Last Admin Trade Name Freq PRN Reason Stop Dose Admin Acetaminophen 650 mg 09/10/23 00:00 09/12/23 02:49 Acetaminophen 325 Mg Tab PO 10/10/23 00:00 650 mg Q4H PRN Administration Pain or Fever Acetaminophen 500 mg 09/10/23 00:22 09/12/23 08:59 Acetaminophen 500 Mg Tab PO 10/10/23 00:21 500 mg HS PRN Administration Sleep Aspirin 81 mg 09/10/23 09:00 09/12/23 08:52 Aspirin 81 Mg Ectab PO 10/10/23 08:59 81 mg DAILY BRANDO Administration Carbidopa/Levodopa 1 tab 09/10/23 09:00 09/12/23 12:23 Carbidopa/Levodopa 25/100mg Tab PO 10/10/23 08:59 1 tab 0900,1200 BRANDO Administration Carbidopa/Levodopa 1.5 tab 09/10/23 18:00 09/11/23 20:31 Carbidopa/Levodopa 25/100mg Tab PO 10/10/23 17:59 1.5 tab 1800,2200 BRANDO Administration Diphenhydramine HCl 25 mg 09/10/23 00:23 09/11/23 22:05 Diphenhydramine Capsule 25 Mg Cap PO 10/10/23 00:22 25 mg HS PRN Administration Sleep Donepezil HCl 10 mg 09/10/23 09:00 09/12/23 08:52 Donepezil Hcl 10 Mg Tab PO 10/10/23 08:59 10 mg DAILY BRANDO Administration Enoxaparin Sodium 40 mg 09/10/23 08:00 09/10/23 08:20 Enoxaparin Inj 40 Mg/0.4 Ml Syr SQ 10/10/23 07:59 Not Given Q24H BRANDO Gabapentin 900 mg 09/10/23 21:00 09/11/23 20:31 Gabapentin 300 Mg Cap PO 10/10/23 20:59 900 mg HS BRANDO Administration Gabapentin 100 mg 09/10/23 21:00 09/11/23 20:32 Gabapentin 100 Mg Cap PO 10/10/23 20:59 100 mg HS BRANDO Administration Hydromorphone HCl 0.25 mg 09/12/23 12:14 09/12/23 12:23 Hydromorphone Inj 0.5 Mg/0.5 Ml Syr IV 09/26/23 12:13 0.25 mg Q6H PRN Administration Pain Piperacillin Sod/Tazobactam 100 mls @ 25 mls/hr 09/10/23 08:00 09/12/23 08:53 Sod 4.5 gm/ Dextrose IV 09/20/23 07:59 25 mls/hr Q8H BRANDO Administration Protocol Lactobacillus Acidophilus 2 cap 09/10/23 09:00 09/12/23 08:52 Advanced Probiotic 1250 Mg Capsule PO 10/10/23 08:59 2 cap DAILY BRANDO Administration Magnesium Oxide 200 mg 09/10/23 09:00 09/12/23 08:52 Magnesium Oxide 400 Mg Tab PO 10/10/23 08:59 200 mg DAILY BRANDO Administration Melatonin 3 mg 09/10/23 21:00 09/11/23 22:05 Melatonin 3 Mg Tab PO 10/10/23 20:59 3 mg HS BRANDO Administration Metoprolol Succinate 50 mg 09/10/23 09:00 09/12/23 08:52 Metoprolol Succ 50mg Ext Rel Tab PO 10/10/23 08:59 50 mg DAILY BRANDO Administration Miscellaneous 1 each 09/10/23 08:00 09/12/23 08:53 Fluocinolone 0.01 % Solution - Order Awaiting Action N/A 10/10/23 07:59 Not Given QS BRANDO Miscellaneous 1 each 09/10/23 08:00 09/12/23 08:53 Ketoconazole Shampoo - Order Awaiting Action N/A 10/10/23 07:59 Not Given QS BRANDO Multivitamins 1 tab 09/10/23 09:00 09/12/23 08:52 Multivitamin Tab PO 10/10/23 08:59 1 tab DAILY BRANDO Administration Sodium Chloride 2 sprays 09/10/23 21:00 09/11/23 20:30 Sodium Chloride 0.65% Na Soln 45 Ml ([place]) NA 10/10/23 20:59 2 sprays HS BRANDO Administration Trazodone HCl 150 mg 09/10/23 21:00 09/11/23 22:05 Trazodone Hcl 50 Mg Tab PO 10/10/23 20:59 150 mg HS BRANDO Administration
[2023-09-12] MEDS: DOCUSATE SODIUM/SENNA 50/8.6MG TAB PO SCH (13:37)
[2023-09-12] MEDS: POLYETHYLENE (MIRALAX) 17 GM PACK PO SCH ×2 (13:37→21:59)
[2023-09-12] MEDS: DOCUSATE SODIUM 100 MG CAP PO PRN ×2 (13:37→21:58)
[2023-09-12] MEDS ORDERED: SOD PHOSPHATE/SOD BIPHOSPHATE ENEMA 132 ML BTL PR PRN (16:42)
--- NOTE | 2023-09-12 18:04 | XRay Report ---
KUB HISTORY: Generalized abdominal pain COMPARISON: Abdomen and pelvis CT 09/09/2023. FINDINGS: The bowel gas pattern is unremarkable. There are no dilated loops of small bowel to suggest an obstruction. No renal calculi. No ureteral calculi. No pneumoperitoneum or pneumatosis. Residual contrast seen within the colon. Degenerative changes within the hips and lumbar spine. A metallic co mmon bile duct stent has been placed in the interval. Colonic diverticulosis is noted. IMPRESSION: 1. Nonobstructive bowel gas pattern. 2. Interval placement of a common bile duct stent. ACT 112: Negative or not required by law. Electronically signed by: Nadeem Joiner M.D. 09/12/2023 6:02 PM
[2023-09-12] MEDS: GABAPENTIN 300 MG CAP PO SCH (21:56)
[2023-09-12] MEDS: diphenhydrAMINE Capsule 25 MG CAP PO PRN (21:58)
[2023-09-12] MEDS: GABAPENTIN 100 MG CAP PO SCH (21:58)
[2023-09-12] MEDS: MELATONIN 3 MG TAB PO SCH (21:58)
[2023-09-12] MEDS: SODIUM CHLORIDE 0.65% NA SOLN 45 ML (OCEAN) SCH (22:00)
[2023-09-12] MEDS: traZODone HCL 50 MG TAB PO SCH (22:04)
[2023-09-13] MEDS: DOCUSATE SODIUM/SENNA 50/8.6MG TAB PO SCH ×2 (07:26→17:18)
[2023-09-13] MEDS: MAGNESIUM OXIDE 400 MG TAB PO SCH (07:26)
[2023-09-13] MEDS: METOPROLOL SUCC 50MG EXT REL TAB PO SCH (07:26)
[2023-09-13] MEDS: ASPIRIN 81 MG ECTAB PO SCH (07:26)
[2023-09-13] MEDS: ADVANCED PROBIOTIC 1250 MG CAPSULE PO SCH (07:27)
[2023-09-13] MEDS: MULTIVITAMIN TAB PO SCH (07:27)
[2023-09-13] MEDS: DONEPEZIL HCL 10 MG TAB PO SCH (07:27)
[2023-09-13] MEDS: CARBIDOPA/LEVODOPA 25/100MG TAB PO SCH ×4 (07:28→20:45)
[2023-09-13] MEDS: POLYETHYLENE (MIRALAX) 17 GM PACK PO SCH ×3 (07:28→20:46)
[2023-09-13] MEDS: [UNRECOGNIZED DRUG - OTHER] SCH ×2 (07:28→15:47)
--- NOTE | 2023-09-13 14:34 | Hospitalist Progress Note ---
Date of Service September 13, 2023 Assessment & Plan (1) Elevated LFTs: Plan: Ms. Dolan is an 83-year-old female with past med significant for mitral valve prolapse, chronic atrial fibrillation, osteoarthrosis, polymyalgia rheumatica, Parkinson disease, s/p deep brain stimulator, dementia due to Parkinson's disease, peripheral neuropathy, who lives at [facility] assisted living was admitted for transaminitis and painless jaundice on 09/09. Imaging on admission concerning for occult pancreatic mass with multiple hepatic lesions and pulm modules suspicious for metastatic disease. Informed son and patient that though there is no formal biopsy/cytology, the current imaging and presentation is very suspicious for metastatic malignancy. Son hoping for further insight from Oncology to determine was generalized "prognosis" would be in this setting, and what options would be available, if any given poor functional status. Concern is mostly over how to approach this matter with patient. Oncology graciously evaluated patient on 09/12. Again, it was reiterated that patient has poor functional status and likely would not be a candidate for any chemotherapy. Family now in agreement (sons, Denzel and Enoch) in pursuing hospice, likely SNF. They states room/board costs less likely a hindering factor, but proximity to family would be ideal. Will discuss with case management on Thursday. #Painless Jaundice #Obstructive pancreatic mass, concern for metastatic pancreatic cancer --CT ABD:Severe intra and extrahepatic bile duct dilatation with a severely distended gallbladder. There is an abrupt cut off within the common bile duct at the pancreatic head. The exact etiology of this obstruction is not well visualized but likely represents an occult pancreatic head lesion. GI consultation recommended. Upper abdominal lymphadenopathy, multiple hepatic lesions, and multiple pulmonary nodules which are highly suspicious for metastatic disease. Mild gallbladder wall thickening for the degree of distention with mild adjacent fat stranding. There are multiple small gallstones. This is concerning for a developing acute cholecystitis. --Liver USD: There is marked dilatation of the common bile duct as well as intrahepatic biliary ductal dilatation. Abnormal soft tissue is suggested adjacent to the pancreatic head/ampulla, which may extend into the common bile duct. Neoplasm is the diagnosis of exclusion. Markedly distended and abnormal gallbladder which contains gallstones and sludge. The gallbladder wall is thickened and there is trace pericholecystic fluid. Acute cholecystitis is not excluded and clinical correlation will be required. Multifocal hepatic metastatic disease. This was better assessed by CT. There is nodularity of the hepatic surface contour which could be related to cirrhotic change or metastatic disease. Mildly enlarged lymph nodes in the vika hepatis are likely neoplastic. --Clinically no signs of acute cholecystitis --Empirically on Zosyn for possible infection, likely discontinue in 24 hours after ERCP -s/p ERCP and stenting, will need OP follow up with GI -Continue diet -Oncology consult to aid in discussion with projected plan forward given high suspicion for malignancy/poor functional status -Recommends hospice, will discuss with Case Management on Thursday -Pain control: tylenol prn, diluaidid 0.25 mg q6h #Constipation -Aggressive bowel regimen #Bilateral lower extremity edema and erythema, likely venous statsis Venous Doppler:Normal bilateral lower extremity duplex venous ultrasound. CTM #Permanent Atrial fibrillation ? NSVT 7 beats in the ER Possible artifact Monitor telemetry --ECHO: A-fib with controlled ventricular response rate. Left ventricle is normal in size. Mild concentric LVH. Left ventricular wall motion is normal. EF 55 to 60%. Mitral valve leaflets are mildly thickened. Mild mitral regurgitation. Moderate to severe tricuspid regurgitation. Right atrium is moderate to severely dilated. Right ventricular systolic pressure is elevated at 40 to 50 mmHg. Continue metoprolol Monitor electrolytes and replace as needed Not on anticoagulation secondary to fall risk #Parkinson's disease S/p deep brain stimulator Continue Sinemet #Dementia due to Parkinson disease Continue Donepezil Reorient frequently to minimize delirium Monitor PT/OT DVT prophylaxis Lovenox SQ Code Status DNR/DNI after discussion with sons on 09/13, comfort is first/primary measure at this time Admission and Anticipated Discharge Date Admission Date: September 09, 2023 Subjective NAEO, small BM, denies any active pain at this time Physical Exam Constitutional: WD/WN, vitals as above Respiratory: normal respiratory effort, lungs clear to auscultation Cardiovascular: RRR, no murmur, no edema Skin: improvement in jaundice Results & Data Results & Data Vital Signs (Past 12 Hours) Vital Signs Temp Pulse Pulse Resp BP Pulse Ox O2 Del Method 09/13/23 11:47 36.4 C L 98 H 17 110/69 91 Room Air 09/13/23 07:17 103 H 16 115/79 93 Room Air 09/13/23 05:35 106 H 12 97 Room Air 09/13/23 05:33 106 H 12 09/13/23 03:21 36.9 C 112 H 18 107/73 92 Room Air Laboratory Results No further lab draws at this time Medications Administered Home Medications Medication Instructions Recorded Confirmed Last Taken carbidopa 25 mg-levodopa 100 mg See Rx Instructions .Route .COMPLEX 03/15/19 09/09/23 09/09/23 12:00 tablet aspirin 81 mg tablet,delayed 81 mg PO DAILY 08/08/20 09/09/23 09/09/23 release multivitamin 1 tab PO DAILY 08/08/20 09/09/23 09/09/23 Lactobacillus acidoph-L.bulgaricus 2 tab PO DAILY 09/09/23 09/09/23 09/09/23 1 million cell tablet (Floranex) acetaminophen 325 mg tablet 650 mg PO Q4H PRN Pain 09/09/23 09/09/23 Unknown (Tylenol) amoxicillin 500 mg capsule 2,000 mg PO DIRECTED PRN 1 HR. 09/09/23 09/09/23 Unknown PRIOR TO DENTAL PROCEDURES biotin 5 mg tablet 5 mg PO DAILY 09/09/23 09/09/23 09/09/23 cholecalciferol (vitamin D3) 50 50 mcg PO BID 09/09/23 09/09/23 09/09/23 08:00 mcg (2,000 unit) capsule (Vitamin D3) diphenhydramine 25 1 tab PO HS PRN Sleep 09/09/23 09/09/23 Unknown mg-acetaminophen 500 mg tablet (Tylenol PM Extra Strength) docusate sodium 100 mg capsule 100 mg PO BID PRN Constipation 09/09/23 09/09/23 Unknown donepezil 10 mg tablet 10 mg PO DAILY 09/09/23 09/09/23 09/09/23 fluocinolone 0.01 % topical 1 applic topical BID PRN 09/09/23 09/09/23 Unknown solution SEBORRHEIC DERMATITIS gabapentin 100 mg capsule 100 mg PO HS 09/09/23 09/09/23 09/08/23 gabapentin 300 mg capsule 900 mg PO HS 09/09/23 09/09/23 09/08/23 hydrocortisone 2.5 % lotion 1 applic topical TID PRN 09/09/23 09/09/23 Unknown SOBORRHEIC DERMATITIS ON SCALP ketoconazole 2 % shampoo 1 applic topical 2XWK 09/09/23 09/09/23 09/09/23 levomefolate Ca 3 mg-B6 35 1 cap PO DAILY 09/09/23 09/09/23 09/09/23 mg-meB12 2 mg-algal oil 90.314 mg capsule (Foltanx RF) loperamide 2 mg tablet 2 mg PO QID PRN Diarrhea 09/09/23 09/09/23 Unknown magnesium oxide 200 mg PO DAILY 09/09/23 09/09/23 09/09/23 melatonin 5 mg tablet 10 mg PO HS 09/09/23 09/09/23 09/08/23 metoprolol succinate 50 mg capsule 50 mg PO DAILY 09/09/23 09/09/23 09/09/23 sprinkle, ext. release 24 hr mineral oil (Mineral Oil Heavy 3 ea PO 2XWK 09/09/23 09/09/23 09/08/23 oral) mirtazapine 15 mg tablet 15 mg PO HS 09/09/23 09/09/23 09/08/23 oxymetazoline 0.05 % nasal spray 2 spray intranasal Q12H PRN NOSE 09/09/23 09/09/23 Unknown (Afrin (oxymetazoline)) BLEEDS polyethylene glycol 3350 17 gram 17 g PO DAILY PRN Constipation 09/09/23 09/09/23 Unknown oral powder packet (Miralax) propylene glycol 0.6 % eye drops 1 drp OPB QID PRN Dry Eyes 09/09/23 09/09/23 Unknown (Systane Complete) sodium chloride 0.65 % nasal spray 2 spray intranasal HS 09/09/23 09/09/23 09/08/23 aerosol (Saline Nasal) sodium phosphates 19 gram-7 118 ml [place] Q24H PRN Constipation 09/09/23 09/09/23 Unknown gram/118 mL enema (Fleet Enema) trazodone 100 mg tablet 150 mg PO HS 09/09/23 09/09/23 09/08/23 Active Medications Generic Name Dose Route Start Last Admin Trade Name Freq PRN Reason Stop Dose Admin Acetaminophen 650 mg 09/10/23 00:00 09/12/23 02:49 Acetaminophen 325 Mg Tab PO 10/10/23 00:00 650 mg Q4H PRN Administration Pain or Fever Acetaminophen 500 mg 09/10/23 00:22 09/12/23 08:59 Acetaminophen 500 Mg Tab PO 10/10/23 00:21 500 mg HS PRN Administration Sleep Aspirin 81 mg 09/10/23 09:00 09/13/23 07:26 Aspirin 81 Mg Ectab PO 10/10/23 08:59 81 mg DAILY BRANDO Administration Carbidopa/Levodopa 1 tab 09/10/23 09:00 09/13/23 13:03 Carbidopa/Levodopa 25/100mg Tab PO 10/10/23 08:59 1 tab 0900,1200 BRANDO Administration Carbidopa/Levodopa 1.5 tab 09/10/23 18:00 09/12/23 21:55 Carbidopa/Levodopa 25/100mg Tab PO 10/10/23 17:59 1.5 tab 1800,2200 BRANDO Administration Diphenhydramine HCl 25 mg 09/10/23 00:23 09/12/23 21:58 Diphenhydramine Capsule 25 Mg Cap PO 10/10/23 00:22 25 mg HS PRN Administration Sleep Docusate Sodium 100 mg 09/10/23 00:00 09/12/23 21:58 Docusate Sodium 100 Mg Cap PO 10/10/23 00:00 100 mg BID PRN Administration Constipation Donepezil HCl 10 mg 09/10/23 09:00 09/13/23 07:27 Donepezil Hcl 10 Mg Tab PO 10/10/23 08:59 10 mg DAILY BRANDO Administration Enoxaparin Sodium 40 mg 09/10/23 08:00 09/10/23 08:20 Enoxaparin Inj 40 Mg/0.4 Ml Syr SQ 10/10/23 07:59 Not Given Q24H BRANDO Gabapentin 900 mg 09/10/23 21:00 09/12/23 21:56 Gabapentin 300 Mg Cap PO 10/10/23 20:59 900 mg HS BRANDO Administration Gabapentin 100 mg 09/10/23 21:00 09/12/23 21:58 Gabapentin 100 Mg Cap PO 10/10/23 20:59 100 mg HS BRANDO Administration Hydromorphone HCl 0.25 mg 09/12/23 16:42 09/12/23 17:01 Hydromorphone Inj 0.5 Mg/0.5 Ml Syr IV 09/26/23 12:13 0.25 mg Q3H PRN Administration Pain Lactobacillus Acidophilus 2 cap 09/10/23 09:00 09/13/23 07:27 Advanced Probiotic 1250 Mg Capsule PO 10/10/23 08:59 Not Given DAILY BRANDO Magnesium Oxide 200 mg 09/10/23 09:00 09/13/23 07:26 Magnesium Oxide 400 Mg Tab PO 10/10/23 08:59 200 mg DAILY BRANDO Administration Melatonin 3 mg 09/10/23 21:00 09/12/23 21:58 Melatonin 3 Mg Tab PO 10/10/23 20:59 3 mg HS BRANDO Administration Metoprolol Succinate 50 mg 09/10/23 09:00 09/13/23 07:26 Metoprolol Succ 50mg Ext Rel Tab PO 10/10/23 08:59 50 mg DAILY BRANDO Administration Miscellaneous 1 each 09/10/23 08:00 09/13/23 07:28 Fluocinolone 0.01 % Solution - Order Awaiting Action N/A 10/10/23 07:59 Not Given QS BRANDO Miscellaneous 1 each 09/10/23 08:00 09/13/23 07:28 Ketoconazole Shampoo - Order Awaiting Action N/A 10/10/23 07:59 Not Given QS BRANDO Multivitamins 1 tab 09/10/23 09:00 09/13/23 07:27 Multivitamin Tab PO 10/10/23 08:59 1 tab DAILY BRANDO Administration Polyethylene Glycol 17 gm 09/12/23 14:00 09/13/23 07:28 Polyethylene (Miralax) 17 Gm Pack PO 10/12/23 13:59 17 gm TID BRANDO Administration Senna/Docusate Sodium 1 tab 09/12/23 12:45 09/13/23 07:26 Docusate Sodium/Senna 50/8.6mg Tab PO 10/12/23 12:44 1 tab QAM BRANDO Administration Sodium Biphosphate/Sodium Phosphate 132 ml 09/10/23 00:00 09/12/23 18:23 Sod Phosphate/Sod Biphosphate Enema 132 Ml Btl NC 10/10/23 00:00 132 ml Q24H PRN Administration Constipation Sodium Chloride 2 sprays 09/10/23 21:00 09/12/23 22:00 Sodium Chloride 0.65% Na Soln 45 Ml ([place]) NA 10/10/23 20:59 2 sprays HS BRANDO Administration Trazodone HCl 150 mg 09/10/23 21:00 09/12/23 22:04 Trazodone Hcl 50 Mg Tab PO 10/10/23 20:59 150 mg HS BRANDO Administration
[2023-09-13] MEDS: GABAPENTIN 100 MG CAP PO SCH (20:45)
[2023-09-13] MEDS: GABAPENTIN 300 MG CAP PO SCH (20:45)
[2023-09-13] MEDS: SODIUM CHLORIDE 0.65% NA SOLN 45 ML (OCEAN) SCH (20:46)
[2023-09-13] MEDS: MELATONIN 3 MG TAB PO SCH (20:53)
[2023-09-13] MEDS: traZODone HCL 50 MG TAB PO SCH (20:53)
[2023-09-14] MEDS: [UNRECOGNIZED DRUG - OTHER] SCH ×2 (01:08→08:11)
[2023-09-14] MEDS: METOPROLOL SUCC 50MG EXT REL TAB PO SCH ×2 (08:26→21:20)
[2023-09-14] MEDS: MAGNESIUM OXIDE 400 MG TAB PO SCH (08:26)
[2023-09-14] MEDS: MULTIVITAMIN TAB PO SCH (08:26)
[2023-09-14] MEDS: DONEPEZIL HCL 10 MG TAB PO SCH (08:26)
[2023-09-14] MEDS: ADVANCED PROBIOTIC 1250 MG CAPSULE PO SCH (08:26)
[2023-09-14] MEDS: CARBIDOPA/LEVODOPA 25/100MG TAB PO SCH ×4 (08:27→21:19)
[2023-09-14] MEDS: ASPIRIN 81 MG ECTAB PO SCH (08:27)
[2023-09-14] MEDS: POLYETHYLENE (MIRALAX) 17 GM PACK PO SCH (08:27)
--- NOTE | 2023-09-14 08:28 | Hospitalist Progress Note ---
Date of Service September 14, 2023 Assessment & Plan (1) Elevated LFTs: Plan: Ms. Dolan is an 83-year-old female with past med significant for mitral valve prolapse, chronic atrial fibrillation, osteoarthrosis, polymyalgia rheumatica, Parkinson disease, s/p deep brain stimulator, dementia due to Parkinson's disease, peripheral neuropathy, who lives at [facility] assisted living was admitted for transaminitis and painless jaundice on 09/09. Imaging on admission concerning for occult pancreatic mass with multiple hepatic lesions and pulm modules suspicious for metastatic disease. Informed son and patient that though there is no formal biopsy/cytology, the current imaging and presentation is very suspicious for metastatic malignancy. Son hoping for further insight from Oncology to determine was generalized "prognosis" would be in this setting, and what options would be available, if any given poor functional status. Concern is mostly over how to approach this matter with patient. Oncology graciously evaluated patient on 09/12. Again, it was reiterated that patient has poor functional status and likely would not be a candidate for any chemotherapy. Family now in agreement (sons, Denzel and Enoch) in pursuing hospice, likely SNF. They states room/board costs less likely a hindering factor, but proximity to family would be ideal. Case management following and speaking with sons regarding disposition options this afternoon. #Painless Jaundice *improving #Obstructive pancreatic mass, concern for metastatic pancreatic cancer --CT ABD:Severe intra and extrahepatic bile duct dilatation with a severely distended gallbladder. There is an abrupt cut off within the common bile duct at the pancreatic head. The exact etiology of this obstruction is not well visualized but likely represents an occult pancreatic head lesion. GI consultation recommended. Upper abdominal lymphadenopathy, multiple hepatic lesions, and multiple pulmonary nodules which are highly suspicious for metastatic disease. Mild gallbladder wall thickening for the degree of distention with mild adjacent fat stranding. There are multiple small gallstones. This is concerning for a developing acute cholecystitis. --Liver USD: There is marked dilatation of the common bile duct as well as intrahepatic biliary ductal dilatation. Abnormal soft tissue is suggested adjacent to the pancreatic head/ampulla, which may extend into the common bile duct. Neoplasm is the diagnosis of exclusion. Markedly distended and abnormal gallbladder which contains gallstones and sludge. The gallbladder wall is thickened and there is trace pericholecystic fluid. Acute cholecystitis is not excluded and clinical correlation will be required. Multifocal hepatic metastatic disease. This was better assessed by CT. There is nodularity of the h epatic surface contour which could be related to cirrhotic change or metastatic disease. Mildly enlarged lymph nodes in the vika hepatis are likely neoplastic. --Clinically no signs of acute cholecystitis --Empirically on Zosyn for possible infection, likely discontinue in 24 hours after ERCP -s/p ERCP and stenting, will need OP follow up with GI -Continue diet -Oncology consult to aid in discussion with projected plan forward given high suspicion for malignancy/poor functional status -Recommends hospice, will discuss with Case Management--pending plans for discharge -Pain control: tylenol prn, diluaidid 0.25 mg q6h #Constipation -Aggressive bowel regimen #Bilateral lower extremity edema and erythema, likely venous statsis Venous Doppler:Normal bilateral lower extremity duplex venous ultrasound. CTM #Permanent Atrial fibrillation ? NSVT 7 beats in the ER Possible artifact Monitor telemetry --ECHO: A-fib with controlled ventricular response rate. Left ventricle is normal in size. Mild concentric LVH. Left ventricular wall motion is normal. EF 55 to 60%. Mitral valve leaflets are mildly thickened. Mild mitral regurgitation. Moderate to severe tricuspid regurgitation. Right atrium is moderate to severely dilated. Right ventricular systolic pressure is elevated at 40 to 50 mmHg. Continue metoprolol, increase to BID Monitor electrolytes and replace as needed Not on anticoagulation secondary to fall risk #Parkinson's disease S/p deep brain stimulator Continue Sinemet #Dementia due to Parkinson disease Continue Donepezil Reorient frequently to minimize delirium Monitor PT/OT DVT prophylaxis Lovenox SQ Code Status DNR/DNI after discussion with sons on 09/13, comfort is first/primary measure at this time Declining labs at this time Admission and Anticipated Discharge Date Admission Date: September 09, 2023 Subjective NAEO Reports no discomfort or pain at this time Physical Exam Constitutional: WD/WN, vitals as above Respiratory: normal respiratory effort, lungs clear to auscultation Cardiovascular: irregular, tachycardic Gastrointestinal (Abdomen): NTND Results & Data Results & Data Vital Signs (Past 12 Hours) Vital Signs Temp Pulse Pulse Resp BP BP Pulse Ox 09/14/23 07:35 36.6 C 126 H 18 106/76 92 09/14/23 04:00 36.5 C 96 H 18 108/69 90 09/13/23 23:13 97 H 12/10/23 23:00 36.5 C 104 H 18 106/68 92 O2 Del Method 09/14/23 07:35 Room Air 09/14/23 04:00 Room Air 09/13/23 23:13 09/13/23 23:00 Room Air Medications Administered Home Medications Medication Instructions Recorded Confirmed Last Taken carbidopa 25 mg-levodopa 100 mg See Rx Instructions .Route .COMPLEX 03/15/19 09/09/23 09/09/23 12:00 tablet aspirin 81 mg tablet,delayed 81 mg PO DAILY 08/08/20 09/09/23 09/09/23 release multivitamin 1 tab PO DAILY 08/08/20 09/09/23 09/09/23 Lactobacillus acidoph-L.bulgaricus 2 tab PO DAILY 09/09/23 09/09/23 09/09/23 1 million cell tablet (Floranex) acetaminophen 325 mg tablet 650 mg PO Q4H PRN Pain 09/09/23 09/09/23 Unknown (Tylenol) amoxicillin 500 mg capsule 2,000 mg PO DIRECTED PRN 1 HR. 09/09/23 09/09/23 Unknown PRIOR TO DENTAL PROCEDURES biotin 5 mg tablet 5 mg PO DAILY 09/09/23 09/09/23 09/09/23 cholecalciferol (vitamin D3) 50 50 mcg PO BID 09/09/23 09/09/23 09/09/23 08:00 mcg (2,000 unit) capsule (Vitamin D3) diphenhydramine 25 1 tab PO HS PRN Sleep 09/09/23 09/09/23 Unknown mg-acetaminophen 500 mg tablet (Tylenol PM Extra Strength) docusate sodium 100 mg capsule 100 mg PO BID PRN Constipation 09/09/23 09/09/23 Unknown donepezil 10 mg tablet 10 mg PO DAILY 09/09/23 09/09/23 09/09/23 fluocinolone 0.01 % topical 1 applic topical BID PRN 09/09/23 09/09/23 Unknown solution SEBORRHEIC DERMATITIS gabapentin 100 mg capsule 100 mg PO HS 09/09/23 09/09/23 09/08/23 gabapentin 300 mg capsule 900 mg PO HS 09/09/23 09/09/23 09/08/23 hydrocortisone 2.5 % lotion 1 applic topical TID PRN 09/09/23 09/09/23 Unknown SOBORRHEIC DERMATITIS ON SCALP ketoconazole 2 % shampoo 1 applic topical 2XWK 09/09/23 09/09/23 09/09/23 levomefolate Ca 3 mg-B6 35 1 cap PO DAILY 09/09/23 09/09/23 09/09/23 mg-meB12 2 mg-algal oil 90.314 mg capsule (Foltanx RF) loperamide 2 mg tablet 2 mg PO QID PRN Diarrhea 09/09/23 09/09/23 Unknown magnesium oxide 200 mg PO DAILY 09/09/23 09/09/23 09/09/23 melatonin 5 mg tablet 10 mg PO HS 09/09/23 09/09/23 09/08/23 metoprolol succinate 50 mg capsule 50 mg PO DAILY 09/09/23 09/09/23 09/09/23 sprinkle, ext. release 24 hr mineral oil (Mineral Oil Heavy 3 ea PO 2XWK 09/09/23 09/09/23 09/08/23 oral) mirtazapine 15 mg tablet 15 mg PO HS 09/09/23 09/09/23 09/08/23 oxymetazoline 0.05 % nasal spray 2 spray intranasal Q12H PRN NOSE 09/09/23 09/09/23 Unknown (Afrin (oxymetazoline)) BLEEDS polyethylene glycol 3350 17 gram 17 g PO DAILY PRN Constipation 09/09/23 09/09/23 Unknown oral powder packet (Miralax) propylene glycol 0.6 % eye drops 1 drp OPB QID PRN Dry Eyes 09/09/23 09/09/23 Unknown (Systane Complete) sodium chloride 0.65 % nasal spray 2 spray intranasal HS 09/09/23 09/09/23 09/08/23 aerosol (Saline Nasal) sodium phosphates 19 gram-7 118 ml HI Q24H PRN Constipation 09/09/23 09/09/23 Unknown gram/118 mL enema (Fleet Enema) trazodone 100 mg tablet 150 mg PO HS 09/09/23 09/09/23 09/08/23 Active Medications Generic Name Dose Route Start Last Admin Trade Name Freq PRN Reason Stop Dose Admin Acetaminophen 650 mg 09/10/23 00:00 09/12/23 02:49 Acetaminophen 325 Mg Tab PO 10/10/23 00:00 650 mg Q4H PRN Administration Pain or Fever Acetaminophen 500 mg 09/10/23 00:22 09/12/23 08:59 Acetaminophen 500 Mg Tab PO 10/10/23 00:21 500 mg HS PRN Administration Sleep Aspirin 81 mg 09/10/23 09:00 09/13/23 07:26 Aspirin 81 Mg Ectab PO 10/10/23 08:59 81 mg DAILY BRANDO Administration Carbidopa/Levodopa 1 tab 09/10/23 09:00 09/13/23 13:03 Carbidopa/Levodopa 25/100mg Tab PO 10/10/23 08:59 1 tab 0900,1200 BRANDO Administration Carbidopa/Levodopa 1.5 tab 09/10/23 18:00 09/13/23 20:45 Carbidopa/Levodopa 25/100mg Tab PO 10/10/23 17:59 1.5 tab 1800,2200 BRANDO Administration Diphenhydramine HCl 25 mg 09/10/23 00:23 09/12/23 21:58 Diphenhydramine Capsule 25 Mg Cap PO 10/10/23 00:22 25 mg HS PRN Administration Sleep Docusate Sodium 100 mg 09/10/23 00:00 09/12/23 21:58 Docusate Sodium 100 Mg Cap PO 10/10/23 00:00 100 mg BID PRN Administration Constipation Donepezil HCl 10 mg 09/10/23 09:00 09/13/23 07:27 Donepezil Hcl 10 Mg Tab PO 10/10/23 08:59 10 mg DAILY BRANDO Administration Enoxaparin Sodium 40 mg 09/10/23 08:00 09/10/23 08:20 Enoxaparin Inj 40 Mg/0.4 Ml Syr SQ 10/10/23 07:59 Not Given Q24H BRANDO Gabapentin 900 mg 09/10/23 21:00 09/13/23 20:45 Gabapentin 300 Mg Cap PO 10/10/23 20:59 900 mg HS BRANDO Administration Gabapentin 100 mg 09/10/23 21:00 09/13/23 20:45 Gabapentin 100 Mg Cap PO 10/10/23 20:59 100 mg HS BRANDO Administration Hydromorphone HCl 0.25 mg 09/12/23 16:42 09/12/23 17:01 Hydromorphone Inj 0.5 Mg/0.5 Ml Syr IV 09/26/23 12:13 0.25 mg Q3H PRN Administration Pain Lactobacillus Acidophilus 2 cap 09/10/23 09:00 09/13/23 07:27 Advanced Probiotic 1250 Mg Capsule PO 10/10/23 08:59 Not Given DAILY BRANDO Magnesium Oxide 200 mg 09/10/23 09:00 09/13/23 07:26 Magnesium Oxide 400 Mg Tab PO 10/10/23 08:59 200 mg DAILY BRANDO Administration Melatonin 3 mg 09/10/23 21:00 09/13/23 20:53 Melatonin 3 Mg Tab PO 10/10/23 20:59 3 mg HS BRANDO Administration Metoprolol Succinate 50 mg 09/10/23 09:00 09/13/23 07:26 Metoprolol Succ 50mg Ext Rel Tab PO 10/10/23 08:59 50 mg DAILY BRANDO Administration Miscellaneous 1 each 09/10/23 08:00 09/14/23 08:11 Fluocinolone 0.01 % Solution - Order Awaiting Action N/A 10/10/23 07:59 Not Given QS BRANDO Miscellaneous 1 each 09/10/23 08:00 09/14/23 08:11 Ketoconazole Shampoo - Order Awaiting Action N/A 10/10/23 07:59 Not Given QS BRANDO Multivitamins 1 tab 09/10/23 09:00 09/13/23 07:27 Multivitamin Tab PO 10/10/23 08:59 1 tab DAILY BRANDO Administration Polyethylene Glycol 17 gm 09/12/23 14:00 09/13/23 20:46 Polyethylene (Miralax) 17 Gm Pack PO 10/12/23 13:59 17 gm TID BRANDO Administration Senna/Docusate Sodium 1 tab 09/12/23 12:45 09/13/23 17:18 Docusate Sodium/Senna 50/8.6mg Tab PO 10/12/23 12:44 1 tab QAM BRANDO Administration Sodium Biphosphate/Sodium Phosphate 132 ml 09/10/23 00:00 09/12/23 18:23 Sod Phosphate/Sod Biphosphate Enema 132 Ml Btl HI 10/10/23 00:00 132 ml Q24H PRN Administration Constipation Sodium Chloride 2 sprays 09/10/23 21:00 09/13/23 20:46 Sodium Chloride 0.65% Na Soln 45 Ml ([place]) NA 10/10/23 20:59 2 sprays HS BRANDO Administration Trazodone HCl 150 mg 09/10/23 21:00 09/13/23 20:53 Trazodone Hcl 50 Mg Tab PO 10/10/23 20:59 150 mg HS BRANDO Administration
[2023-09-14] MEDS: diphenhydrAMINE Capsule 25 MG CAP PO PRN (21:18)
[2023-09-14] MEDS: SODIUM CHLORIDE 0.65% NA SOLN 45 ML (OCEAN) SCH (21:18)
[2023-09-14] MEDS: MELATONIN 3 MG TAB PO SCH (21:18)
[2023-09-14] MEDS: traZODone HCL 50 MG TAB PO SCH (21:18)
[2023-09-14] MEDS: GABAPENTIN 300 MG CAP PO SCH (21:20)
[2023-09-14] MEDS: GABAPENTIN 100 MG CAP PO SCH (21:20)
--- NOTE | 2023-09-14 23:25 | Palliative Care Consultation ---
Date of Consultation September 14, 2023 Assessment & Plan (1) Cancer related pain: (2) Diarrhea: Probiotic supplement underway. BRAT diet reviewed NO relief with Immodium Consider a trial of LOmotil Diarrhea type: unspecified type Qualified Code(s): R19.7 - Diarrhea, unspecified (3) Weakness generalized: (4) Discussion about advance care planning held with family member: Due to her progressive parkinsonian dementia, patient is not consistently decisional. Her sons requested that we speak outside of the room so they can asked some questions with regards to prognosis and goals. A 60-minute [id number] advance care planning discussion was held with her sons who are also her surrogate decision makers. They shared that their discussion with oncology was very clear chemotherapy was not a good option. They also share that patient has always been very clear with them even before she became sick with her Parkinson's or dementia that should she be in a situation where an end-of-life process was evolving and/or she had a terminal illness such as cancer, she wanted to be assured of comfort and relief of suffering but she did not want them to prolong suffering or do any aggressive or invasive interventions. They are very much unified and at goal to honor her wishes. They are in agreement with a comfort focused plan of care is best for her. They are less sure of how this could be carried out or where it could be carried out. She is currently at [facility] and the assisted living wing. They are hopeful that she can be [facility]. She will need to go there for comfort care and it is unclear if hospice can be added to her care there. I told him that this is what care management will help them with and they have to follow-up with care management in the next few days for more information. They tell me they are planning to meet with the [facility] assistant facility manager today or tomorrow. I asked them to please update care management when they have more information. (5) Palliative care by specialist: For Oncology Patients: Patient's Palliative Prognostic Score (PaP) Score = 11 points Interpretation:30-day survival probability 30-70% 0 - 5.5: 30-day survival probability >70% | 5.6 - 11.0: 30-day survival probability 30-70% | 11.1 - 17.5: 30-day survival probability <30% https://www.mdapp.co/rgudnpjwnt-sbxsrnfius-uhjra-hbj-lmqqjsescv-723/ Palliative Prognostic Index Score (PPI) = 10.5 points Note:If the PPI is greater than 6.0, survival is less than three weeks (Sensitivity - 80%; Specificity - 85%). https://www.mdapp.co/qcopgkibho-fpsiqaeqdk-cdlca-zwd-[email or web address]/ Plan * Palliative prognostic scores indicate high risk for mortality within the next 30 days. I would anticipate survival in the weeks to months range. Her complex comorbid conditions declining performance status are likely contribu tors to an accelerated mortality risk. * Extensive discussion with both of her sons outside of the patient's room at their request. They are unsure how they want to break continues to patient but they also shared that patient has been making comments to them along the lines of "they told me I have cancer I know I do not have long to live I just want to be peaceful and not suffer." * They asked for some recommendations on how to talk to her about end-of-life wishes. I encouraged them to allow her to share her concerns as she voices them. When she brings up a statement like that, I suggested that they share with her their same worries and concerns and open dialogue that begins with a question such as "I am also worried about that. I think it is important we discuss what really matters to you now so that the plans we come up with a really in line with and respect what you want most at this time." They are very appreciative of the recommendations. * I offered to have a family meeting with them tomorrow, time to be determined. Also offered to meet with patient directly to see how much she has absorbed from prior discussions and to see if she had any questions to me privately before second meeting with her and the children together. They were in favor of this, noting that perhaps she would be more forthcoming if given some additional privacy. They note that patient's sister is also and route from [place]. * Sons are seeking patient be able to return to the [facility]. They state that they are planning to meet with the social welfare administrator at the [facility] facility and also note that they are waiting to speak to care management. Thank you for allowing us to participate in the ongoing care of this patient. Please don't hesitate to call or page with any additional concerns. Dr. Magy Martin DNP Director, Palliative Care History of Present Illness Reason for Consultation: Pancreatic cancer, goals of care, possible hospice Attending Physician: Shira Bowling MD History of Present Illness Wanda is an 83-year-old female admitted from her care facility with worsening abdominal pain, diarrhea, found to have an abdominal mass in the pancreatic head, consistent with pancreatic cancer. She has been seen by oncology who did not feel chemotherapy would be safe at this junction. Family was in agreement. She has a history of Parkinson's with parkinsonian dementia. She has been in a care facility for several years. Her overall condition has been steadily declining. 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 She is seen bedside with both of her sons present. They tell me they are from [place] and [facility] respectively. They are very engaged and involved i n her care. She is slightly confused but tells me she is having some ongoing issues with diarrhea which is distressing as well as mild abdominal pain. She has some occasional nausea. She has been eating and drinking less than usual but there are certain times during the day where she will eat majority of her meals and tolerated well. She denies any persistent nausea or vomiting at this time. She is not able to provide me with any other HPI. Allergies Allergy/AdvReac Type Severity Reaction Status Date / Time No Known Allergies Allergy Unknown Verified 09/09/23 17:06 Home Medications Medication Instructions Recorded Confirmed Type carbidopa 25 mg-levodopa 100 mg See Rx Instructions .Route .COMPLEX 03/15/19 09/09/23 History tablet aspirin 81 mg tablet,delayed 81 mg PO DAILY 08/08/20 09/09/23 History release multivitamin 1 tab PO DAILY 08/08/20 09/09/23 History Lactobacillus acidoph-L.bulgaricus 2 tab PO DAILY 09/09/23 09/09/23 History 1 million cell tablet (Floranex) acetaminophen 325 mg tablet 650 mg PO Q4H PRN Pain 09/09/23 09/09/23 History (Tylenol) amoxicillin 500 mg capsule 2,000 mg PO DIRECTED PRN 1 HR. 09/09/23 09/09/23 History PRIOR TO DENTAL PROCEDURES biotin 5 mg tablet 5 mg PO DAILY 09/09/23 09/09/23 History cholecalciferol (vitamin D3) 50 50 mcg PO BID 09/09/23 09/09/23 History mcg (2,000 unit) capsule (Vitamin D3) diphenhydramine 25 1 tab PO HS PRN Sleep 09/09/23 09/09/23 History mg-acetaminophen 500 mg tablet (Tylenol PM Extra Strength) docusate sodium 100 mg capsule 100 mg PO BID PRN Constipation 09/09/23 09/09/23 History donepezil 10 mg tablet 10 mg PO DAILY 09/09/23 09/09/23 History fluocinolone 0.01 % topical 1 applic topical BID PRN 09/09/23 09/09/23 History solution SEBORRHEIC DERMATITIS gabapentin 100 mg capsule 100 mg PO HS 09/09/23 09/09/23 History gabapentin 300 mg capsule 900 mg PO HS 09/09/23 09/09/23 History hydrocortisone 2.5 % lotion 1 applic topical TID PRN 09/09/23 09/09/23 History SOBORRHEIC DERMATITIS ON SCALP ketoconazole 2 % shampoo 1 applic topical 2XWK 09/09/23 09/09/23 History levomefolate Ca 3 mg-B6 35 1 cap PO DAILY 09/09/23 09/09/23 History mg-meB12 2 mg-algal oil 90.314 mg capsule (Foltanx RF) loperamide 2 mg tablet 2 mg PO QID PRN Diarrhea 09/09/23 09/09/23 History magnesium oxide 200 mg PO DAILY 09/09/23 09/09/23 History melatonin 5 mg tablet 10 mg PO HS 09/09/23 09/09/23 History metoprolol succinate 50 mg capsule 50 mg PO DAILY 09/09/23 09/09/23 History sprinkle, ext. release 24 hr mineral oil (Mineral Oil Heavy 3 ea PO 2XWK 09/09/23 09/09/23 History oral) mirtazapine 15 mg tablet 15 mg PO HS 09/09/23 09/09/23 History oxymetazoline 0.05 % nasal spray 2 spray intranasal Q12H PRN NOSE 09/09/23 09/09/23 History (Afrin (oxymetazoline)) BLEEDS polyethylene glycol 3350 17 gram 17 g PO DAILY PRN Constipation 09/09/23 09/09/23 History oral powder packet (Miralax) propylene glycol 0.6 % eye drops 1 drp OPB QID PRN Dry Eyes 09/09/23 09/09/23 History (Systane Complete) sodium chloride 0.65 % nasal spray 2 spray intranasal HS 09/09/23 09/09/23 History aerosol (Saline Nasal) sodium phosphates 19 gram-7 118 ml DE Q24H PRN Constipation 09/09/23 09/09/23 History gram/118 mL enema (Fleet Enema) trazodone 100 mg tablet 150 mg PO HS 09/09/23 09/09/23 History Patient History Medical History Chronic atrial fibrillation Mitral valve prolapse Parkinson disease Surgical History History of tonsillectomy and adenoidectomy History of tubal ligation History of right breast biopsy History of surgery Neurostimulator for Parkinson's disease, placed in [place], [place] S/P deep brain stimulator placement Family History Mother Stroke Hemorrhage secondary to anticoagulation Social History Smoking Status: Never smoker Second Hand Exposure: No; Do You Dip or Chew Tobacco: No; Hx Alcohol Use: No Hx Substance Use: No Preferred Language: Yoruba Communication Ability: Effective Procurement Engineer Required: No Beliefs That Will Affect Care: None Current Living Situation: Shelter Feels Safe at Home: Yes Assistive Devices: Walker Review of Systems Review of Systems: All systems reviewed & are unremarkable except as noted in Subjective Physical Exam Physical Exam: Elderly female, semireclined in bed. Mild acute distress noted. Skin is pale. No overt jaundice. Bitemporal wasting is noted. Pupils are equal, round and reactive to light. Extraocular movements are intact. Neck is supple. There is no stridor. Dentition is fair. Mucosa are slightly dry. There is no overt thrush. Limited anterior exam reveals diminished lungs. No overt wheezing or rhonchi. She is tachycardic. Abdomen is soft but distended. There is mild diffuse tenderness to palpation throughout. There is mild guarding noted. Ramez wel sounds are diminished. There is generalized weakness to both upper and lower extremities. Skin is pale and cool to touch. There is no overt mottling. There is no clubbing or cyanosis noted. She is awake and alert to self and place. She is less consistent with timelines and histories. She continues to recognize her family. Results & Data Vital Signs (Past 12 Hours) Vital Signs Temp Pulse Pulse Resp BP Pulse Ox O2 Del Method 09/14/23 19:29 36.3 C L 72 18 112/79 97 Room Air 09/14/23 16:45 86 09/14/23 16:14 36.6 C 132 H 18 125/79 92 Room Air 09/14/23 15:59 97 H 09/14/23 15:24 Room Air Laboratory Results Data reviewed, see HPI Diagnostic Findings Data reviewed, see HPI PG Care Time/CCT Total # of Minutes Spent Total Time Spent: 125 Total Time Spent with Patient: Total time spent is greater than 50% in coordination of care (as documented) at patient's floor/unit and/or counseling patient: I spent 125 minutes overall addressing this complex case: 15 min in medical data review/discussion with referring provider(s) and/or preparation for the visit 20 min in direct interaction with the patient/exam 60 min in Advance Care Planning/Goals of Care discussions as detailed above in note (must be >16min) 15 min in subsequent review and synthesis of assessment and plan 15 min communicating with other providers regarding the patient's case: Primary team, nursing. Prolonged Care Time Prolonged Care Time: Yes Advanced Care Planning 10548 Advanced Care Planning 30 Min 32052 Advanced Care Planning Additional 30 [place] [address] IN/OBS CONSULT LVL 5,80M Patient Type New Medical Decision Making High Complexity Diagnoses Cancer related pain G89.3 Diarrhea R19.7 Diarrhea type: unspecified type Weakness generalized R53.1 Discussion about advance care planning held with family member Z71.0 Palliative care by specialist Z51.5 Additional Codes Prolonged Care Time - Prolonged Care Time: Yes ([id number]) Advanced Care Planning - 50469 Advanced Care Planning 30 Min: [id number] Advanced Care Planning 30 Min ([id number]) Advanced Care Planning - 50769 Advanced Care Planning Additional 30 Min: 84184 Advanced Care Planning Additional 30 Min ([id number])
[2023-09-15] MEDS ORDERED: ONDANSETRON INJ 2 MG/ML 2 ML VIAL IV PRN (07:57)
[2023-09-15] MEDS: METOPROLOL SUCC 50MG EXT REL TAB PO SCH ×2 (08:53→20:17)
[2023-09-15] MEDS: MULTIVITAMIN TAB PO SCH (08:53)
[2023-09-15] MEDS: MAGNESIUM OXIDE 400 MG TAB PO SCH (08:53)
[2023-09-15] MEDS: DONEPEZIL HCL 10 MG TAB PO SCH (08:53)
[2023-09-15] MEDS: CARBIDOPA/LEVODOPA 25/100MG TAB PO SCH ×4 (08:53→20:17)
[2023-09-15] MEDS: ASPIRIN 81 MG ECTAB PO SCH (08:53)
[2023-09-15] MEDS: ADVANCED PROBIOTIC 1250 MG CAPSULE PO SCH (08:53)
--- NOTE | 2023-09-15 13:20 | Hospitalist Progress Note ---
Date of Service September 15, 2023 Assessment & Plan (1) Elevated LFTs: Plan: Ms. Dolan is an 83-year-old female with past med significant for mitral valve prolapse, chronic atrial fibrillation, osteoarthrosis, polymyalgia rheumatica, Parkinson disease, s/p deep brain stimulator, dementia due to Parkinson's disease, peripheral neuropathy, who lives at [facility] assisted living was admitted for transaminitis and painless jaundice on 09/09. Imaging on admission concerning for occult pancreatic mass with multiple hepatic lesions and pulm modules suspicious for metastatic disease. Informed son and patient that though there is no formal biopsy/cytology, the current imaging and presentation is very suspicious for metastatic malignancy. Son hoping for further insight from Oncology to determine was generalized "prognosis" would be in this setting, and what options would be available, if any given poor functional status. Concern is mostly over how to approach this matter with patient. Oncology graciously evaluated patient on 09/12. Again, it was reiterated that patient has poor functional status and likely would not be a candidate for any chemotherapy. Family now in agreement (sons, Denzel and Enoch) in pursuing hospice, likely SNF. They states room/board costs less likely a hindering factor, but proximity to family would be ideal. Case management following and speaking with sons regarding disposition options this afternoon. Emphasis has been made on comfort. Plans to #Painless Jaundice *improving #Obstructive pancreatic mass, concern for metastatic pancreatic cancer --CT ABD:Severe intra and extrahepatic bile duct dilatation with a severely distended gallbladder. There is an abrupt cut off within the common bile duct at the pancreatic head. The exact etiology of this obstruction is not well visualized but likely represents an occult pancreatic head lesion. GI consultation recommended. Upper abdominal lymphadenopathy, multiple hepatic lesions, and multiple pulmonary nodules which are highly suspicious for metastatic disease. Mild gallbladder wall thickening for the degree of distention with mild adjacent fat stranding. There are multiple small gallstones. This is concerning for a developing acute cholecystitis. --Liver USD: There is marked dilatation of the common bile duct as well as intrahepatic biliary ductal dilatation. Abnormal soft tissue is suggested adjacent to the pancreatic head/ampulla, which may extend into the common bile duct. Neoplasm is the diagnosis of exclusion. Markedly distended and abnormal gallbladder which contains gallstones and sludge. The gallbladder wall is thickened and there is trace pericholecystic fluid. Acute cholecystitis is not excluded and clinical correlation will be required. Multifocal hepatic metastatic disease. This was better assessed by CT. There is nodularity of the hepatic surface contour which could be related to cirrhotic change or metastatic disease. Mildly enlarged lymph nodes in the vika hepatis are likely neoplastic. --Clinically no signs of acute cholecystitis --Empirically on Zosyn for possible infection, likely discontinue in 24 hours after ERCP -s/p ERCP and stenting, will need OP follow up with GI -Continue diet -Oncology consult to aid in discussion with projected plan forward given high suspicion for malignancy/poor functional status -Recommends hospice, will discuss with Case Management--pending plans for discharge -Pain control: tylenol prn, diluaidid 0.25 mg q6h #Constipation -Aggressive bowel regimen #Bilateral lower extremity edema and erythema, likely venous statsis Venous Doppler:Normal bilateral lower extremity duplex venous ultrasound. CTM #Permanent Atrial fibrillation ? NSVT 7 beats in the ER Possible artifact Monitor telemetry --ECHO: A-fib with controlled ventricular response rate. Left ventricle is normal in size. Mild concentric LVH. Left ventricular wall motion is normal. EF 55 to 60%. Mitral valve leaflets are mildly thickened. Mild mitral regurgitation. Moderate to severe tricuspid regurgitation. Right atrium is moderate to severely dilated. Right ventricular systolic pressure is elevated at 40 to 50 mmHg. Continue metoprolol BID Not on anticoagulation secondary to fall risk #Parkinson's disease S/p deep brain stimulator Continue Sinemet #Dementia due to Parkinson disease Continue Donepezil Reorient frequently to minimize delirium Monitor PT/OT DVT prophylaxis Lovenox SQ Code Status DNR/DNI after discussion with sons on 09/13, comfort is first/primary measure at this time Declining labs at this time Admission and Anticipated Discharge Date Admission Date: September 09, 2023 Subjective Reports mild nausea this morning Denies any acute concerns, conversation limited given planned family conversation with Palliative Physical Exam Constitutional: near resolution of jaundice Respiratory: normal respiratory effort, lungs clear to auscultation Cardiovascular: irregularly irregular Gastrointestinal (Abdomen): slight tenderness to palpation Results & Data Results & Data Vital Signs (Past 12 Hours) Vital Signs Temp Pulse Pulse Resp BP BP Pulse Ox 09/15/23 12:02 36.7 C 96 H 18 118/80 90 09/15/23 08:06 37.1 C 62 18 111/65 92 09/15/23 07:42 09/15/23 07:35 36.7 C 94 H 18 129/84 93 09/15/23 06:53 36.6 C 69 20 104/64 97 09/15/23 05:57 115 H 09/15/23 03:07 36.7 C 102 H 20 120/78 94 O2 Del Method O2 Flow Rate 09/15/23 12:02 Room Air 09/15/23 08:06 Oxymask 3 09/15/23 07:42 Room Air 09/15/23 07:35 Room Air 09/15/23 06:53 Room Air 09/15/23 05:57 09/15/23 03:07 Room Air Medications Administered Home Medications Medication Instructions Recorded Confirmed Last Taken carbidopa 25 mg-levodopa 100 mg See Rx Instructions .Route .COMPLEX 03/15/19 09/09/23 09/09/23 12:00 tablet aspirin 81 mg tablet,delayed 81 mg PO DAILY 08/08/20 09/09/23 09/09/23 release multivitamin 1 tab PO DAILY 08/08/20 09/09/23 09/09/23 Lactobacillus acidoph-L.bulgaricus 2 tab PO DAILY 09/09/23 09/09/23 09/09/23 1 million cell tablet (Floranex) acetaminophen 325 mg tablet 650 mg PO Q4H PRN Pain 09/09/23 09/09/23 Unknown (Tylenol) amoxicillin 500 mg capsule 2,000 mg PO DIRECTED PRN 1 HR. 09/09/23 09/09/23 Unknown PRIOR TO DENTAL PROCEDURES biotin 5 mg tablet 5 mg PO DAILY 09/09/23 09/09/23 09/09/23 cholecalciferol (vitamin D3) 50 50 mcg PO BID 09/09/23 09/09/23 09/09/23 08:00 mcg (2,000 unit) capsule (Vitamin D3) diphenhydramine 25 1 tab PO HS PRN Sleep 09/09/23 09/09/23 Unknown mg-acetaminophen 500 mg tablet (Tylenol PM Extra Strength) docusate sodium 100 mg capsule 100 mg PO BID PRN Constipation 09/09/23 09/09/23 Unknown donepezil 10 mg tablet 10 mg PO DAILY 09/09/23 09/09/23 09/09/23 fluocinolone 0.01 % topical 1 applic topical BID PRN 09/09/23 09/09/23 Unknown solution SEBORRHEIC DERMATITIS gabapentin 100 mg capsule 100 mg PO HS 09/09/23 09/09/23 09/08/23 gabapentin 300 mg capsule 900 mg PO HS 09/09/23 09/09/23 09/08/23 hydrocortisone 2.5 % lotion 1 applic topical TID PRN 09/09/23 09/09/23 Unknown SOBORRHEIC DERMATITIS ON SCALP ketoconazole 2 % shampoo 1 applic topical 2XWK 09/09/23 09/09/23 09/09/23 levomefolate Ca 3 mg-B6 35 1 cap PO DAILY 09/09/23 09/09/23 09/09/23 mg-meB12 2 mg-algal oil 90.314 mg capsule (Foltanx RF) loperamide 2 mg tablet 2 mg PO QID PRN Diarrhea 09/09/23 09/09/23 Unknown magnesium oxide 200 mg PO DAILY 09/09/23 09/09/23 09/09/23 melatonin 5 mg tablet 10 mg PO HS 09/09/23 09/09/23 09/08/23 metoprolol succinate 50 mg capsule 50 mg PO DAILY 09/09/23 09/09/23 09/09/23 sprinkle, ext. release 24 hr mineral oil (Mineral Oil Heavy 3 ea PO 2XWK 09/09/23 09/09/23 09/08/23 oral) mirtazapine 15 mg tablet 15 mg PO HS 09/09/23 09/09/23 09/08/23 oxymetazoline 0.05 % nasal spray 2 spray intranasal Q12H PRN NOSE 09/09/23 09/09/23 Unknown (Afrin (oxymetazoline)) BLEEDS polyethylene glycol 3350 17 gram 17 g PO DAILY PRN Constipation 09/09/23 09/09/23 Unknown oral powder packet (Miralax) propylene glycol 0.6 % eye drops 1 drp OPB QID PRN Dry Eyes 09/09/23 09/09/23 Unknown (Systane Complete) sodium chloride 0.65 % nasal spray 2 spray intranasal HS 09/09/23 09/09/23 09/08/23 aerosol (Saline Nasal) sodium phosphates 19 gram-7 118 ml MS Q24H PRN Constipation 09/09/23 09/09/23 Unknown gram/118 mL enema (Fleet Enema) trazodone 100 mg tablet 150 mg PO HS 09/09/23 09/09/23 09/08/23 Active Medications Generic Name Dose Route Start Last Admin Trade Name Garrison PRN Reason Stop Dose Admin Acetaminophen 650 mg 09/10/23 00:00 09/12/23 02:49 Acetaminophen 325 Mg Tab PO 10/10/23 00:00 650 mg Q4H PRN Administration Pain or Fever Acetaminophen 500 mg 09/10/23 00:22 09/12/23 08:59 Acetaminophen 500 Mg Tab PO 10/10/23 00:21 500 mg HS PRN Administration Sleep Aspirin 81 mg 09/10/23 09:00 09/15/23 08:53 Aspirin 81 Mg Ectab PO 10/10/23 08:59 81 mg DAILY BRANDO Administration Carbidopa/Levodopa 1 tab 09/10/23 09:00 09/15/23 12:19 Carbidopa/Levodopa 25/100mg Tab PO 10/10/23 08:59 1 tab 0900,1200 BRANDO Administration Carbidopa/Levodopa 1.5 tab 09/10/23 18:00 09/14/23 21:19 Carbidopa/Levodopa 25/100mg Tab PO 10/10/23 17:59 1.5 tab 1800,2200 BRANDO Administration Diphenhydramine HCl 25 mg 09/10/23 00:23 09/14/23 21:18 Diphenhydramine Capsule 25 Mg Cap PO 10/10/23 00:22 25 mg HS PRN Administration Sleep Docusate Sodium 100 mg 09/10/23 00:00 09/12/23 21:58 Docusate Sodium 100 Mg Cap PO 10/10/23 00:00 100 mg BID PRN Administration Constipation Donepezil HCl 10 mg 09/10/23 09:00 09/15/23 08:53 Donepezil Hcl 10 Mg Tab PO 10/10/23 08:59 10 mg DAILY BRANDO Administration Enoxaparin Sodium 40 mg 09/10/23 08:00 09/10/23 08:20 Enoxaparin Inj 40 Mg/0.4 Ml Syr SQ 10/10/23 07:59 Not Given Q24H BRANDO Gabapentin 900 mg 09/10/23 21:00 09/14/23 21:20 Gabapentin 300 Mg Cap PO 10/10/23 20:59 900 mg HS BRANDO Administration Gabapentin 100 mg 09/10/23 21:00 09/14/23 21:20 Gabapentin 100 Mg Cap PO 10/10/23 20:59 100 mg HS BRANDO Administration Hydromorphone HCl 0.25 mg 09/12/23 16:42 09/12/23 17:01 Hydromorphone Inj 0.5 Mg/0.5 Ml Syr IV 09/26/23 12:13 0.25 mg Q3H PRN Administration Pain Lactobacillus Acidophilus 2 cap 09/10/23 09:00 09/15/23 08:53 Advanced Probiotic 1250 Mg Capsule PO 10/10/23 08:59 2 cap DAILY BRANDO Administration Magnesium Oxide 200 mg 09/10/23 09:00 09/15/23 08:53 Magnesium Oxide 400 Mg Tab PO 10/10/23 08:59 200 mg DAILY BRANDO Administration Melatonin 3 mg 09/10/23 21:00 09/14/23 21:18 Melatonin 3 Mg Tab PO 10/10/23 20:59 3 mg HS BRANDO Administration Metoprolol Succinate 50 mg 09/14/23 21:00 09/15/23 08:53 Metoprolol Succ 50mg Ext Rel Tab PO 10/14/23 20:59 50 mg BID BRANDO Administration Multivitamins 1 tab 09/10/23 09:00 09/15/23 08:53 Multivitamin Tab PO 10/10/23 08:59 1 tab DAILY BRANDO Administration Ondansetron HCl 4 mg 09/15/23 07:57 09/15/23 08:18 Ondansetron Inj 2 Mg/Ml 2 Ml Vial IV 10/15/23 07:56 4 mg Q6H PRN Administration Nausea And Vomiting Sodium Biphosphate/Sodium Phosphate 132 ml 09/10/23 00:00 09/12/23 18:23 Sod Phosphate/Sod Biphosphate Enema 132 Ml Btl MS 10/10/23 00:00 132 ml Q24H PRN Administration Constipation Sodium Chloride 2 sprays 09/10/23 21:00 09/14/23 21:18 Sodium Chloride 0.65% Na Soln 45 Ml ([place]) NA 10/10/23 20:59 2 sprays HS BRANDO Administration Trazodone HCl 150 mg 09/10/23 21:00 09/14/23 21:18 Trazodone Hcl 50 Mg Tab PO 10/10/23 20:59 150 mg HS BRANDO Administration
[2023-09-15] MEDS: GABAPENTIN 300 MG CAP PO SCH (20:15)
[2023-09-15] MEDS: diphenhydrAMINE Capsule 25 MG CAP PO PRN (20:15)
[2023-09-15] MEDS: traZODone HCL 50 MG TAB PO SCH (20:15)
[2023-09-15] MEDS: MELATONIN 3 MG TAB PO SCH (20:15)
[2023-09-15] MEDS: GABAPENTIN 100 MG CAP PO SCH (20:16)
[2023-09-15] MEDS: SODIUM CHLORIDE 0.65% NA SOLN 45 ML (OCEAN) SCH (20:17)
[2023-09-16] MEDS: METOPROLOL SUCC 50MG EXT REL TAB PO SCH ×2 (09:12→21:28)
[2023-09-16] MEDS: DONEPEZIL HCL 10 MG TAB PO SCH (09:13)
[2023-09-16] MEDS: CARBIDOPA/LEVODOPA 25/100MG TAB PO SCH ×4 (09:13→21:29)
[2023-09-16] MEDS: ADVANCED PROBIOTIC 1250 MG CAPSULE PO SCH (09:13)
[2023-09-16] MEDS: ASPIRIN 81 MG ECTAB PO SCH (09:14)
[2023-09-16] MEDS: MAGNESIUM OXIDE 400 MG TAB PO SCH (09:14)
[2023-09-16] MEDS: MULTIVITAMIN TAB PO SCH (09:14)
[2023-09-16] MEDS ORDERED: ONDANSETRON INJ 2 MG/ML 2 ML VIAL IV PRN (12:05)
--- NOTE | 2023-09-16 15:34 | Hospitalist Progress Note ---
Date of Service September 16, 2023 Assessment & Plan (1) Pancreatic mass: (2) Elevated LFTs: Plan: Per Dr. Bowling notes with addendum: Ms. Dolan is an 83-year-old female with past med significant for mitral valve prolapse, chronic atrial fibrillation, osteoarthrosis, polymyalgia rheumatica, Parkinson disease, s/p deep brain stimulator, dementia due to Parkinson's disease, peripheral neuropathy, who lives at [facility] assisted living was admitted for transaminitis and painless jaundice on 09/09. Imaging on admission concerning for occult pancreatic mass with multiple hepatic lesions and pulm modules suspicious for metastatic disease. Informed son and patient that though there is no formal biopsy/cytology, the current imaging and presentation is very suspicious for metastatic malignancy. Son hoping for further insight from Oncology to determine was generalized "prognosis" would be in this setting, and what options would be available, if any given poor functional status. Concern is mostly over how to approach this matter with patient. Oncology graciously evaluated patient on 09/12. Again, it was reiterated that patient has poor functional status and likely would not be a candidate for any chemotherapy. Family now in agreement (sons, Denzel and Enoch) in pursuing hospice, likely SNF. They states room/board costs less likely a hindering factor, but proximity to family would be ideal. Case management following and speaking with sons regarding disposition options this afternoon. Emphasis has been made on comfort. Plans to #Obstructive pancreatic mass, concern for metastatic pancreatic cancer --CT ABD:Severe intra and extrahepatic bile duct dilatation with a severely distended gallbladder. There is an abrupt cut off within the common bile duct at the pancreatic head. The exact etiology of this obstruction is not well visualized but likely represents an occult pancreatic head lesion. GI consultation recommended. Upper abdominal lymphadenopathy, multiple hepatic lesions, and multiple pulmonary nodules which are highly suspicious for metastatic disease. Mild gallbladder wall thickening for the degree of distention with mild adjacent fat stranding. There are multiple small gallstone s. This is concerning for a developing acute cholecystitis. --Liver [employer]: There is marked dilatation of the common bile duct as well as intrahepatic biliary ductal dilatation. Abnormal soft tissue is suggested adjacent to the pancreatic head/ampulla, which may extend into the common bile duct. Neoplasm is the diagnosis of exclusion. Markedly distended and abnormal gallbladder which contains gallstones and sludge. The gallbladder wall is thickened and there is trace pericholecystic fluid. Acute cholecystitis is not excluded and clinical correlation will be required. Multifocal hepatic metastatic disease. This was better assessed by CT. There is nodularity of the hepatic surface contour which could be related to cirrhotic change or metastatic disease. Mildly enlarged lymph nodes in the vika hepatis are likely neoplastic. --Clinically no signs of acute cholecystitis --Empirically on Zosyn for possible infection, likely discontinue in 24 hours after ERCP -s/p ERCP and stenting, will need OP follow up with GI -Continue diet -Oncology consult to aid in discussion with projected plan forward given high suspicion for malignancy/poor functional status -Recommends hospice, will discuss with Case Management--pending plans for discharge -Pain control: tylenol prn, diluaidid 0.25 mg q6h 09/16 Stable overall status post ERCP with stent placement LFTs much better Oncology recommending for patient to transition to hospice Case management on board, to transition patient to shelter facility #Constipation -Aggressive bowel regimen Positive BM #Bilateral lower extremity edema and erythema, likely venous statsis Venous Doppler:Normal bilateral lower extremity duplex venous ultrasound. CTM #Permanent Atrial fibrillation ? NSVT 7 beats in the ER Possible artifact Monitor telemetry --ECHO: A-fib with controlled ventricular response rate. Left ventricle is normal in size. Mild concentric LVH. Left ventricular wall motion is normal. EF 55 to 60%. Mitral valve leaflets are mildly thickened. Mild mitral regurgitation. Moderate to severe tricuspid regurgitation. Right atrium is moderate to severely dilated. Right ventricular systolic pressure is elevated at 40 to 50 mmHg. Continue metoprolol BID Not on anticoagulation secondary to fall risk 09/16 Continue metoprolol #Parkinson's disease S/p deep brain stimulator Continue Sinemet #Dementia due to Parkinson disease Continue Donepezil Reorient frequently to minimize delirium Monitor PT/OT DVT prophylaxis Lovenox SQ Code Status DNR/DNI after discussion with sons on 09/13, comfort is first/primary measure at this time Declining labs at this time Admission and Anticipated Discharge Date Admission Date: September 09, 2023 Subjective Follow-up for pancreatic mass, etc. Seen resting in bed side chair, comfortable, not in distress Oriented x 2, answers all questions appropriately States she has intermittent mild abdominal discomfort, but manageable No nausea or vomiting, tolerating diet so far Positive BM and flatus No other new symptom Review of Systems Review of Systems: all noted and negative except for above Physical Exam Physical Exam: General- oriented x 2, not in distress, speaks in sentences with no effort or accessory muscle use Eyes- anicteric Neck- no JVD Lungs- clear breath sounds bilaterally, no rales/wheezes Heart- normal rate, regular rhythm; no murmurs Abdomen- normal bowel sounds, nondistended, soft, nontender Extremities- no pretibial edema, no calf tenderness Neuro- alert, oriented x 2; no gross focal neurologic deficits Skin- warm & dry Results & Data Results & Data Vital Signs (Past 12 Hours) Vital Signs Temp Pulse Pulse Resp BP BP Pulse Ox 09/16/23 15:18 36.5 C 92 H 18 110/69 93 09/16/23 13:53 97 H 09/16/23 11:20 36.4 C L 99 H 18 102/71 92 09/16/23 07:29 09/16/23 07:27 36.9 C 93 H 18 113/80 92 09/16/23 06:55 107 H 09/16/23 05:57 112 H 09/16/23 03:51 36.9 C 102 H 20 110/72 92 O2 Del Method 09/16/23 15:18 Room Air 09/16/23 13:53 09/16/23 11:20 Room Air 09/16/23 07:29 Room Air 09/16/23 07:27 Room Air 09/16/23 06:55 09/16/23 05:57 09/16/23 03:51 Room Air all noted and reviewed including below
[2023-09-16] MEDS: GABAPENTIN 300 MG CAP PO SCH (21:28)
[2023-09-16] MEDS: SODIUM CHLORIDE 0.65% NA SOLN 45 ML (OCEAN) SCH (21:28)
[2023-09-16] MEDS: traZODone HCL 50 MG TAB PO SCH (21:28)
[2023-09-16] MEDS: MELATONIN 3 MG TAB PO SCH (21:28)
[2023-09-16] MEDS: GABAPENTIN 100 MG CAP PO SCH (21:28)
[2023-09-16] MEDS: ONDANSETRON 8MG OD TAB PO SCH (21:28)
[2023-09-17] MEDS: ONDANSETRON 8MG OD TAB PO SCH (09:22)
[2023-09-17] MEDS: METOPROLOL SUCC 50MG EXT REL TAB PO SCH (09:22)
[2023-09-17] MEDS: ADVANCED PROBIOTIC 1250 MG CAPSULE PO SCH (09:23)
[2023-09-17] MEDS: CARBIDOPA/LEVODOPA 25/100MG TAB PO SCH (09:23)
[2023-09-17] MEDS: ASPIRIN 81 MG ECTAB PO SCH (09:23)
[2023-09-17] MEDS: MAGNESIUM OXIDE 400 MG TAB PO SCH (09:23)
[2023-09-17] MEDS: DONEPEZIL HCL 10 MG TAB PO SCH (09:23)
[2023-09-17] MEDS: MULTIVITAMIN TAB PO SCH (09:23)
--- NOTE | 2023-09-17 11:06 | Discharge Summary ---
Discharge Summary Date of Service September 17, 2023 Notes For Next Care Provider Medication Changes From Visit PLEASE SEE ASSESSMENT AND PLAN BELOW Admission HPI Per Admitting Provider 83-year-old female with past med history significant for mitral valve prolapse, chronic atrial fibrillation, osteoarthrosis, polymyalgia rheumatica, Parkinson disease, s/p deep brain stimulator, dementia due to Parkinson's disease, peripheral neuropathy, who lives at [facility] assisted living was brought in because of elevated LFTs. Patient was found to have a jaundice and was sent in here. Patient has no abdominal pain. No nausea. Currently somewhat constipated. Denies blood in stools or black stool. Normal blader movements. Has some edema in lower extremities. Denies any chest pain or shortness of breath. No headache. No blurred visions. Always has some runny nose. No sore throat. Occasional difficulty swallowing. Appetite is down lately. Ambulates with a rollator walker. Currently resting comfortably and hemodynamically stable. Past medical history. As mentioned above. Past surgical history. Right breast biopsy. Colonoscopy. Cervical polyp removal. Open reduction internal fixation of right radius. Deep brain stimulator. Ligation oviducts. Tonsillectomy adenoidectomy. Social history. No smoking. Alcohol moderation. No drug use. Family history. Mother has hypertension, pacemaker, heart disorder,. Sister has MVP. Admission Exam Per Admitting Provider General- Not in distress Head- atraumatic Eyes- PERRL.Icterus present ENT- oropharynx clear Neck- supple, no JVD. Lungs- clear to auscultation , NO wheezing or crackles. Heart- regular rhythm; no murmur, no gallop. Abdomen- normal bowel sounds, soft, nontender, no distension. Extremities- lower extremity edema and erythema seen. Neuro- alert, oriented ; PERRL, EOMI; no facial palsy; no dysarthria; moves extremities. Skin- warm & dry Principal Dx & Hospital Course #1 = Principal Diagnosis (1) Pancreatic mass: (2) Elevated LFTs: Per Dr. Bowling notes with addendum: Ms. Dolan is an 83-year-old female with past med significant for mitral valve prolapse, chronic atrial fibrillation, osteoarthrosis, polymyalgia rheumatica, Parkinson disease, s/p deep brain stimulator, dementia due to Parkinson's disease, peripheral neuropathy, who lives at [facility] assisted living was admitted for transaminitis and painless jaundice on 09/09. Imaging on admission concerning for occult pancreatic mass with multiple hepatic lesions and pulm modules suspicious for metastatic disease. Informed son and patient that though there is no formal biopsy/cytology, the current imaging and presentation is very suspicious for metastatic malignancy. Son hoping for further insight from Oncology to determine was generalized "prognosis" would be in this setting, and what options would be available, if any given poor functional status. Concern is mostly over how to approach this matter with patient. Oncology graciously evaluated patient on 09/12. Again, it was reiterated that patient has poor functional status and likely would not be a candidate for any chemotherapy. Family now in agreement (sons, Denzel and Enoch) in pursuing hospice, likely SNF. They states room/board costs less likely a hindering factor, but proximity to family would be ideal. Case management following and speaking with sons regarding disposition options this afternoon. Emphasis has been made on comfort. Plans to #Obstructive pancreatic mass, concern for metastatic pancreatic cancer --CT ABD:Severe intra and extrahepatic bile duct dilatation with a severely distended gallbladder. There is an abrupt cut off within the common bile duct at the pancreatic head. The exact etiology of this obstruction is not well visualized but likely represents an occult pancreatic head lesion. GI consultation recommended. Upper abdominal lymphadenopathy, multiple hepatic lesions, and multiple pulmonary nodules which are highly suspicious for metastatic disease. Mild gallbladder wall thickening for the degree of distention with mild adjacent fat stranding. There are multiple small gallstones. This is concerning for a developing acute cholecystitis. --Liver USD: There is marked dilatation of the common bile duct as well as intrahepatic biliary ductal dilatation. Abnormal soft tissue is suggested adjacent to the pancreatic head/ampulla, which may extend into the common bile duct. Neoplasm is the diagnosis of exclusion. Markedly distended and abnormal gallbladder which contains gallstones and sludge. The gallbladder wall is thickened and there is trace pericholecystic fluid. Acute cholecystitis is not excluded and clinical correlation will be required. Multifocal hepatic metastatic disease. This was better assessed by CT. There is nodularity of the hepatic surface contour which could be related to cirrhotic change or metastatic disease. Mildly enlarged lymph nodes in the vika hepatis are likely neoplastic. --Clinically no signs of acute cholecystitis --Empirically on Zosyn for possible infection, likely discontinue in 24 hours after ERCP -s/p ERCP and stenting, will need OP follow up with GI -Continue diet -Oncology consult to aid in discussion with projected plan forward given high suspicion for malignancy/poor functional status -Recommends hospice, will discuss with Case Management--pending plans for discharge -Pain control: tylenol prn, diluaidid 0.25 mg q6h 09/17 Stable overall status post ERCP with stent placement LFTs much better Palliative care service consulted, discussed with family, comfort focused approach preferred, further discussion regarding hospice as outpatient Case management on board, to transition patient to long-term facility #Constipation -Aggressive bowel regimen - Positive BM #Bilateral lower extremity edema and erythema, likely venous statsis Venous Doppler:Normal bilateral lower extremity duplex venous ultrasound. CTM #Permanent Atrial fibrillation ? NSVT 7 beats in the ER Possible artifact Monitor telemetry --ECHO: A-fib with controlled ventricular response rate. Left ventricle is normal in size. Mild concentric LVH. Left ventricular wall motion is normal. EF 55 to 60%. Mitral valve leaflets are mildly thickened. Mild mitral regurgitation. Moderate to severe tricuspid regurgitation. Right atrium is moderate to severely dilated. Right ventricular systolic pressure is elevated at 40 to 50 mmHg. Continue metoprolol BID Not on anticoagulation secondary to fall risk 09/17 Toprol XL increased to 50 mg twice daily Monitor #Parkinson's disease S/p deep brain stimulator Continue Sinemet #Dementia due to Parkinson disease Continue Donepezil Reorient frequently to minimize delirium Monitor PT/OT DVT prophylaxis Lovenox SQ given Code Status DNR/DNI after discussion with sons on 09/13, comfort is first/primary measure at this time Declining labs at this time Discharge Exam General- oriented x 3, not in distress, speaks in sentences with no effort or accessory muscle use Eyes- anicteric Neck- no JVD Lungs- clear breath sounds bilaterally, no rales/wheezes Heart- normal rate, regular rhythm; no murmurs Abdomen- normal bowel sounds, nondistended, soft, nontender Extremities- no pretibial edema, no calf tenderness Neuro- alert, oriented x 3; no gross focal neurologic deficits Skin- warm & dry Updated Medication List Medication Instructions Recorded Confirmed Type carbidopa 25 mg-levodopa 100 mg See Rx Instructions .Route .COMPLEX 03/15/19 09/09/23 History tablet aspirin 81 mg tablet,delayed 81 mg PO DAILY 08/08/20 09/09/23 History release multivitamin 1 tab PO DAILY 08/08/20 09/09/23 History Lactobacillus acidoph-L.bulgaricus 2 tab PO DAILY 09/09/23 09/09/23 History 1 million cell tablet (Floranex) acetaminophen 325 mg tablet 650 mg PO Q4H PRN Pain 09/09/23 09/09/23 History (Tylenol) amoxicillin 500 mg capsule 2,000 mg PO DIRECTED PRN 1 HR. 09/09/23 09/09/23 History PRIOR TO DENTAL PROCEDURES biotin 5 mg tablet 5 mg PO DAILY 09/09/23 09/09/23 History cholecalciferol (vitamin D3) 50 50 mcg PO BID 09/09/23 09/09/23 History mcg (2,000 unit) capsule (Vitamin D3) diphenhydramine 25 1 tab PO HS PRN Sleep 09/09/23 09/09/23 History mg-acetaminophen 500 mg tablet (Tylenol PM Extra Strength) docusate sodium 100 mg capsule 100 mg PO BID PRN Constipation 09/09/23 09/09/23 History donepezil 10 mg tablet 10 mg PO DAILY 09/09/23 09/09/23 History fluocinolone 0.01 % topical 1 applic topical BID PRN 09/09/23 09/09/23 History solution SEBORRHEIC DERMATITIS gabapentin 100 mg capsule 100 mg PO HS 09/09/23 09/09/23 History gabapentin 300 mg capsule 900 mg PO HS 09/09/23 09/09/23 History hydrocortisone 2.5 % lotion 1 applic topical TID PRN 09/09/23 09/09/23 History SOBORRHEIC DERMATITIS ON SCALP ketoconazole 2 % shampoo 1 applic topical 2XWK 09/09/23 09/09/23 History levomefolate Ca 3 mg-B6 35 1 cap PO DAILY 09/09/23 09/09/23 History mg-meB12 2 mg-algal oil 90.314 mg capsule (Foltanx RF) loperamide 2 mg tablet 2 mg PO QID PRN Diarrhea 09/09/23 09/09/23 History magnesium oxide 200 mg PO DAILY 09/09/23 09/09/23 History melatonin 5 mg tablet 10 mg PO HS 09/09/23 09/09/23 History metoprolol succinate 50 mg capsule 50 mg PO DAILY 09/09/23 09/09/23 History sprinkle, ext. release 24 hr mineral oil (Mineral Oil Heavy 3 ea PO 2XWK 09/09/23 09/09/23 History oral) mirtazapine 15 mg tablet 15 mg PO HS 09/09/23 09/09/23 History oxymetazoline 0.05 % nasal spray 2 spray intranasal Q12H PRN NOSE 09/09/23 09/09/23 History (Afrin (oxymetazoline)) BLEEDS polyethylene glycol 3350 17 gram 17 g PO DAILY PRN Constipation 09/09/23 09/09/23 History oral powder packet (Miralax) propylene glycol 0.6 % eye drops 1 drp OPB QID PRN Dry Eyes 09/09/23 09/09/23 History (Systane Complete) sodium chloride 0.65 % nasal spray 2 spray intranasal HS 09/09/23 09/09/23 History aerosol (Saline Nasal) sodium phosphates 19 gram-7 118 ml FL Q24H PRN Constipation 09/09/23 09/09/23 Hi story gram/118 mL enema (Fleet Enema) trazodone 100 mg tablet 150 mg PO HS 09/09/23 09/09/23 History metoprolol succinate 50 mg 50 mg PO BID 30 days #60 tabs 09/17/23 Rx tablet,extended release 24 hr ondansetron 8 mg disintegrating 8 mg PO BID 14 days #28 tabs 09/17/23 Rx tablet Hospital Stay Data Consultations 09/09/23 20:02 ED Decision to Admit Stat 09/10/23 08:00 Consult Gastroenterology Routine 09/10/23 11:42 Consult General Surgery Routine 09/11/23 15:59 Consult Oncology Routine 09/14/23 14:46 Consult Palliative Care Routine Procedures Performed Operation Date: 09/11/23 08:00 Actual Procedures p Esophagogastroduodenoscopy - Jf Hicks MD p Endoscopic Ultrasonography Upper with FNA - Jf Hicks MD s Endoscopic Retrograde Cholangiopancreato with stent placement - Jf Hicks MD Diagnostic Imagining Performed Laboratory Results WBC 13.26 K/ul (4.8-10.8) H 09/12/23 05:54 RBC 4.06 M/uL (4.20-5.40) L 09/12/23 05:54 Hgb 12.1 g/dl (12.0-16.0) 09/12/23 05:54 Hct 37.6 % (37.0-47.0) 09/12/23 05:54 MCV 92.6 fL (80.0-100.0) 09/12/23 05:54 MCH 29.8 pg (25.0-34.0) 09/12/23 05:54 MCHC 32.2 g/dL (32.0-36.0) 09/12/23 05:54 RDW Std Deviation 50.0 fL (36.4-46.3) H 09/12/23 05:54 RDW Coeff of Ever 14.6 % (11.5-14.5) H 09/12/23 05:54 Plt Count 271 K/uL (130-400) 09/12/23 05:54 MPV 10.9 fL (9.4-12.4) 09/12/23 05:54 Immature Gran % (Auto) 0.3 % 09/10/23 04:09 Neut % (Auto) 75.0 % 09/10/23 04:09 Lymph % (Auto) 13.0 % 09/10/23 04:09 Campbell % (Auto) 11.2 % 09/10/23 04:09 Eos % (Auto) 0.2 % 09/10/23 04:09 Baso % (Auto) 0.3 % 09/10/23 04:09 Neut # (Auto) 6.60 K/uL (1.40-6.50) H 09/10/23 04:09 Lymph # (Auto) 1.15 K/uL (1.20-3.40) L 09/10/23 04:09 Campbell # (Auto) 0.99 K/uL (0.11-0.59) H 09/10/23 04:09 Eos # (Auto) 0.02 K/uL (0.00-0.50) 09/10/23 04:09 Baso # (Auto) 0.03 K/uL (0.00-0.20) 09/10/23 04:09 Immature Gran # (Auto) 0.03 K/uL (0.01-0.20) 09/10/23 04:09 PT 15.8 Seconds (9.0-12.0) H 09/09/23 16:03 INR 1.5 (0.9-1.1) H 09/09/23 16:03 APTT 28 Seconds (21-31) 09/09/23 16:03 PTT Ratio 1.0 09/09/23 16:03 Sodium 138 mmol/L (136-145) 09/12/23 05:54 Potassium 3.8 mmol/L (3.5-5.1) 09/12/23 05:54 Chloride 109 mmol/L (98-107) H 09/12/23 05:54 Carbon Dioxide 23 mmol/L (21-32) 09/12/23 05:54 Anion Gap 6 (3-11) 09/12/23 05:54 BUN 23 mg/dl (6-23) 09/12/23 05:54 Creatinine 0.80 mg/dl (0.6-1.2) 09/12/23 05:54 Est Cr Clr Drug Dosing 51.1 ml/min 09/12/23 05:54 Est GFR ( Amer) 79.6 ml/min 09/12/23 05:54 Est GFR (Non-Af Amer) 68.7 ml/min 09/12/23 05:54 BUN/Creatinine Ratio 28.8 (10-20) H 09/12/23 05:54 Glucose 130 mg/dl (70-99(Fasting)) H 09/12/23 05:54 Calcium 8.7 mg/dl (8.6-10.3) 09/12/23 05:54 Phosphorus 2.8 mg/dl (2.5-4.9) 09/12/23 05:54 Magnesium 1.9 mg/dl (1.7-2.4) 09/12/23 05:54 Total Bilirubin 3.8 mg/dl (0.2-1.0) H D 09/12/23 05:54 Direct Bilirubin 5.6 mg/dl (0-0.2) H 09/11/23 05:47 AST 56 U/L (13-39) H 09/12/23 05:54 ALT 22 U/L (7-52) 09/12/23 05:54 Alkaline Phosphatase 274 U/L (34-104) H 09/12/23 05:54 Ammonia 25.0 umol/L (18-72) 09/09/23 16:49 Total Protein 6.0 gm/dl (6.0-8.3) 09/12/23 05:54 Albumin 3.0 gm/dl (3.4-5.0) L 09/12/23 05:54 Globulin 3.0 gm/dl (2.5-4.0) 09/12/23 05:54 Albumin/Globulin Ratio 1.0 (0.9-2) 09/12/23 05:54 Lipase 45 U/L (11-82) 09/09/23 16:03 SARS-CoV-2 (PCR) NEGATIVE (Negative) 09/16/23 17:15 SARS-CoV-2, RNA, NAAT NEGATIVE (NEGATIVE) 09/09/23 18:30 Impressions Abdomen/Pelvis CT 09/09/23 16:[address] WITH IV CONTRAST CT DOSE: 581.68 mGy.cm HISTORY: painless jaundice TECHNIQUE: Multiaxial CT images of the abdomen and pelvis were performed following the use of intravenous contrast. A dose lowering technique was utilized adhering to the principles of ALARA. COMPARISON STUDY: None. FINDINGS: Multiple small scattered nodules within the lung bases with the l argest in the right lower lobe measuring 7 mm. These are highly suspicious for metastatic disease. No pneumoperitoneum. No pneumatosis. Levoscoliosis and degenerative changes within the lumbar spine. No suspicious osseous lesions identified. The heart is mildly enlarged. There is a 5 mm hypodense lesion within the spleen. This is too small to characterize but favors a benign lesion. The adrenal glands are unremarkable. Right greater than the left peripelvic renal cysts. No definite hydronephrosis. There are few subcentimeter hypodense bilateral cortical renal lesions. These are technically too small to characterize but also favors cysts. Normal caliber abdominal aorta. There are multiple hypodense lesions seen throughout the liver which are highly suspicious for metastatic disease. Dominant lesion measures 3.7 cm. Multiple small gallstones. The gallbladder wall is slightly thickened for the degree of distention. There is mild pericholecystic fat stranding. Severe intra and extrahepatic bile duct dilatation with an abrupt cut off within the common bile duct at the pancreatic head. The exact etiology of the is not well visualized but likely represents an occult pancreatic head lesion. The main portal vein and superior mesenteric vein are patent. There is peripancreatic and retroperitoneal lymphadenopathy. A dominant retroperitoneal lymph node on image 97 measures 3.1 x 1.3 cm. This likely represents metastatic disease. The bladder is unremarkable. There is a 4.2 cm calcified uterine fibroid. Colonic diverticulosis. No evidence for acute diverticulitis. No bowel wall thickening or obstruction. Normal appendix. There is also right retrocrural lymphadenopathy. IMPRESSION: 1. Severe intra and extrahepatic bile duct dilatation with a severely distended gallbladder. There is an abrupt cut off within the common bile duct at the pancreatic head. The exact etiology of this obstruction is not well visualized but likely represents an occult pancreatic head lesion. GI consultation recommended. 2. Upper abdominal lymphadenopathy, multiple hepatic lesions, and multiple pulmonary nodules which are highly suspicious for metastatic disease.. 3. Mild gallbladder wall thickening for the degree of distention with mild adjacent fat stranding. There are multiple small gallstones. This is concerning for a developing acute cholecystitis. 4. Additional findings as described above. ACT 112: Negative or not required by law. Electronically signed by: Nadeem Joiner M.D. 09/09/2023 6:49 PM Liver Ultrasound 09/10/23 00:00 ULTRASOUND RIGHT UPPER QUADRANT ABDOMEN CLINICAL HISTORY: Elevated hepatic transaminases. COMPARISON STUDY: Abdominal CT dated 09/09/2023 TECHNIQUE: Real-time, grayscale, and color flow sonography of the right upper quadrant of the abdomen was performed. Images are reviewed in the transverse and longitudinal planes. FINDINGS: Liver: The liver is normal in size and heterogeneous in echotexture. There is nodularity of the hepatic surface contour. There is moderate intrahepatic biliary ductal dilatation. The main portal vein is patent. The liver is infiltrated by numerous ill-defined hypoechoic lesions. These are consistent with hepatic metastases when correlated with yesterday's CT scan. Gallbladder: The gallbladder is markedly distended, measuring over 16 cm in length. The bladder contains gallstones and sludge. The gallbladder wall is thickened and irregular, measuring up to 5 mm. There is trace pericholecystic fluid. A sonographic Singh's sign could not be assessed as the patient received analgesia. The common bile duct measures up to 1.6 cm in diameter. There is indeterminant soft tissue suggested adjacent to the pancreatic head/ampulla. This measures approximately 2.0 x 1.5 cm, and appears to extend into the distal common bile duct. Pancreas: Imaged portions of the pancreas are grossly normal in appearance. No intrapancreatic lesion is clearly identified and the pancreatic duct is normal in caliber. The splenic vein is patent. Right kidney: Survey images of the right kidney demonstrate normal size and echotexture. There is no clear evidence of hydronephrosis. There are numerous renal sinus cysts. Ascites: There is trace perihepatic fluid. Mildly enlarged lymph nodes are seen in the vika hepatis. IMPRESSION: 1. There is marked dilatation of the common bile duct as well as intrahepatic biliary ductal dilatation. 2. Abnormal soft tissue is suggested adjacent to the pancreatic head/ampulla, which may extend into the common bile duct. Neoplasm is the diagnosis of exclusion. 3. Markedly distended and abnormal gallbladder which contains gallstones and sludge. The gallbladder wall is thickened and there is trace pericholecystic fluid. Acute cholecystitis is not excluded and clinical correlation will be required. 4. Multifocal hepatic metastatic disease. This was better assessed by CT. 5. There is nodularity of the hepatic surface contour which could be related to cirrhotic change or metastatic disease. 6. Mildly enlarged lymph nodes in the vika hepatis are likely neoplastic. ACT 112: Negative or not required by law. Electronically signed by: Juanjose Aleman M.D. 09/10/2023 8:12 AM Venous Doppler Study 09/10/23 00:00 Exam(s): US VENOUS BILATERAL LOWER EXTREMITIES EXAM: US Duplex Bilateral Lower Extremities Veins CLINICAL HISTORY: Reason for exam: b/l lower ext edema and erythema. dvt?. TECHNIQUE: Real-time duplex ultrasound scan of the bilateral lower extremity veins integrating B-mode two-dimensional vascular structure, Doppler spectral analysis, color flow Doppler imaging and compression. COMPARISON: No relevant prior studies available. FINDINGS: Right deep veins: Unremarkable. No DVT in the right common femoral, femoral, proximal deep femoral or popliteal veins. The veins demonstrate normal color flow, are normally compressible, with normal phasic flow and/or augmentation response. Right superficial veins: Unremarkable. No thrombus in the visualized right great saphenous vein. Left deep veins: Unremarkable. No DVT in the left common femoral, femoral, proximal deep femoral or popliteal veins. The veins demonstrate normal color flow, are normally compressible, with normal phasic flow and/or augmentation response. Left superficial veins: Unremarkable. No thrombus in the visualized left great saphenous vein. Soft tissues: No acute findings. No popliteal cyst. IMPRESSION: Normal bilateral lower extremity duplex venous ultrasound. Electronically signed by: Tamir Inman MD 09/10/23 05:13 AM Chest X-Ray 09/10/23 11:41 XR chest 2V PA/lateral CLINICAL HISTORY: Cough. COMPARISON STUDY: Chest radiograph August 08, 2020. FINDINGS: Bilateral stimulators are incidentally noted. There is no pneumothorax or pleural effusion. There is no consolidation to suggest pneumonia. There is no evidence for pulmonary edema. Mild cardiomegaly is again noted. This is unchanged. Mediastinal contours are stable. Multiple right lung nodules measure up to 1 cm. These are new since chest radiograph August 08, 2020. IMPRESSION: 1. Multiple right lung nodules measuring up to 1 cm, as shown on abdominal CT of September 09, 2023. These are suggestive of metastatic disease. 2. No acute cardiopulmonary findings. ACT 112: Negative or not required by law. Electronically signed by: Nic Corey M.D. 09/10/2023 1:08 PM KUB X-Ray 09/12/23 16:42 KUB HISTORY: Generalized abdominal pain COMPARISON: Abdomen and pelvis CT 09/09/2023. FINDINGS: The bowel gas pattern is unremarkable. There are no dilated loops of small bowel to suggest an obstruction. No renal calculi. No ureteral calculi. No pneumoperitoneum or pneumatosis. Residual contrast seen within the colon. Degenerative changes within the hips and lumbar spine. A metallic common bile duct stent has been placed in the interval. Colonic diverticulosis is noted. IMPRESSION: 1. Nonobstructive bowel gas pattern. 2. Interval placement of a common bile duct stent. ACT 112: Negative or not required by law. Electronically signed by: Nadeem Joiner M.D. 09/12/2023 6:02 PM 09/09/23 16:36 CT abd pelvis IV con only Stat 09/10/23 00:00 US liver Routine US venous doppler LE BI Urgent 09/11/23 FL ERCP biliary ductal Routine 09/11/23 07:24 US upper EUS PACS images Routine Pending Results Patient Have Any Pending Studies at Discharge: No Discharge Instructions Given to Patient (Per Discharging Provider) PLEASE REFER TO DISCHARGE INSTRUCTION Total Time Total Time Spent Total Time Spent (In Minutes): >30 minutes
== END 2023-09-17 12:20 | DRG 435 ==
LOC: ED 14:00 → EDINP 21:34 → SUATTDRO 21:34 → EDINP 09-10 00:02 → 2N 09-10 13:19